=== PATIENT | female | born 1940 | race Caucasian/White ===

== ENCOUNTER 2017-02-25 11:55 | Outpatient (CLI) | payer MEDICARE | END 2017-02-25 11:56 | disposition home or self-care (01) | DX: I48.91 Unspecified atrial fibrillation (principal) ==

== ENCOUNTER 2017-03-16 11:28 | Outpatient (CLI) | payer MEDICARE | END 2017-03-16 23:59 | DX: I48.91 Unspecified atrial fibrillation (principal) ==

== ENCOUNTER 2017-03-18 16:45 | Outpatient (CLI) | payer MEDICARE | END 2017-03-18 16:46 | disposition critical access hospital (66) | DX: R53.1 Weakness (principal); R10.30 Lower abdominal pain, unspecified; R06.02 Shortness of breath; R42 Dizziness and giddiness | CPT/HCPCS: A0425; A0427 ==

== ENCOUNTER 2017-03-18 17:25 | Inpatient (IN) | payer MEDICARE ==
[2017-03-18] MEDS ORDERED: PANTOPRAZOLE 40 MG VIAL IVP STA (17:41)
[2017-03-18] MEDS ORDERED: METOPROLOL 5 MG/5 ML VIAL IVP STA (17:41)
[2017-03-18] MEDS ORDERED: METOPROLOL 5 MG/5 ML VIAL IVP ONE (18:18)
[2017-03-18] MEDS ORDERED: PANTOPRAZOLE 40 MG VIAL ONE (18:18)
[2017-03-18] MEDS ORDERED: CALCIUM GLUCONATE 1000 MG/10 ML VIAL IVP STA (18:44)
[2017-03-18] MEDS ORDERED: POTASSIUM CHLOR 10 MEQ/100 ML 100 ML IV ONE ×2 (18:44→18:47)
[2017-03-18] MEDS ORDERED: CALCIUM GLUCONATE 1000 MG/10 ML VIAL ONE (18:47)
[2017-03-18] MEDS ORDERED: diltiaZEM INJ 5 MG/ML VIAL IVP STA ×2 (18:57→20:12)
[2017-03-18] MEDS ORDERED: ONDANSETRON 4 MG/2 ML VIAL IVP STA ×2 (19:02→20:38)
[2017-03-18] MEDS ORDERED: ONDANSETRON 4 MG/2 ML VIAL ONE ×2 (19:02→20:38)
[2017-03-18] MEDS ORDERED: diltiaZEM INJ 5 MG/ML VIAL ONE ×3 (19:03→20:28)
[2017-03-18] MEDS ORDERED: diltiaZEM INJ 125 MG in DEXTROSE 5% 100 ML IV STA (20:12)
[2017-03-18] MEDS ORDERED: MORPHINE 2 MG/ML SYRINGE IVP PRN (20:45)
[2017-03-18] MEDS ORDERED: oxyCODONE 5 MG TABLET PO PRN (20:45)
[2017-03-18] MEDS ORDERED: ZOLPIDEM 5 MG TABLET PO PRN (20:45)
[2017-03-18] MEDS ORDERED: ACETAMINOPHEN 325 MG TABLET PO PRN (20:45)
[2017-03-18] MEDS ORDERED: INSULIN GLARGINE 300 UNIT/3 ML PEN SUBQ SCH (21:00)
[2017-03-18] MEDS: diltiaZEM INJ 125 MG in DEXTROSE 5% 100 ML IV ONE ×2 (21:55→22:55)
[2017-03-18] MEDS ORDERED: SODIUM CHLORIDE 0.9% 500 ML IV ONE (22:26)
[2017-03-18] MEDS: PROCHLORPERAZINE 10 MG/2 ML VIAL IVP PRN (22:37)
[2017-03-18] MEDS: POTASSIUM CHLOR 10 MEQ/100 ML 100 ML IV SCH (22:38)
[2017-03-18] MEDS: INSULIN ASPART 300 UNIT/3 ML PEN SUBQ SCH (22:43)
[2017-03-18] MEDS: FUROSEMIDE 40 MG/4 ML VIAL IVP SCH (22:50)
[2017-03-18] MEDS: DIGOXIN 500 MCG/2 ML AMP IVP SCH (22:50)
[2017-03-18] MEDS: GABAPENTIN 100 MG CAPSULE PO SCH (23:00)
[2017-03-18] MEDS: SODIUM CHLORIDE FLUSH 0.9% 10 ML SYRINGE IVP SCH (23:00)
[2017-03-19] MEDS: POTASSIUM CHLOR 10 MEQ/100 ML 100 ML IV SCH ×5 (00:36→06:48)
[2017-03-19] MEDS: MAGNESIUM SULFATE 2 GRAM 50 ML IV SCH ×2 (01:56→02:57)
[2017-03-19] MEDS ORDERED: POTASSIUM CHLOR 10 MEQ/100 ML 100 ML IV ONE ×2 (05:03→05:04)
[2017-03-19] MEDS ORDERED: ALPRAZolam 0.25 MG TABLET PO PRN (06:07)
[2017-03-19] MEDS: FUROSEMIDE 40 MG/4 ML VIAL IVP SCH ×2 (06:50→14:56)
[2017-03-19] MEDS: DIGOXIN 500 MCG/2 ML AMP IVP SCH ×3 (06:50→15:00)
[2017-03-19] MEDS: ALPRAZolam 0.25 MG TABLET PO PRN ×2 (06:56→15:44)
[2017-03-19] MEDS: PANTOPRAZOLE 40 MG TABLET PO SCH (06:56)
[2017-03-19] MEDS: SODIUM CHLORIDE FLUSH 0.9% 10 ML SYRINGE IVP SCH ×3 (07:01→20:47)
[2017-03-19] MEDS ORDERED: INSULIN ASPART 300 UNIT/3 ML PEN SUBQ SCH (08:00)
[2017-03-19] MEDS ORDERED: INSULIN GLARGINE 300 UNIT/3 ML PEN SUBQ SCH (08:00)
[2017-03-19] MEDS: INSULIN ASPART 300 UNIT/3 ML PEN SUBQ SCH ×7 (08:06→20:35)
[2017-03-19] MEDS: INSULIN GLARGINE 300 UNIT/3 ML PEN SUBQ SCH ×2 (08:08→20:46)
[2017-03-19] MEDS: diltiaZEM INJ 125 MG in DEXTROSE 5% 100 ML IV SCH (08:43)
[2017-03-19] MEDS ORDERED: METOPROLOL SUCCINATE 25 MG TABLET PO SCH (09:00)
[2017-03-19] MEDS ORDERED: METOPROLOL TARTRATE 25 MG TABLET PO SCH (09:00)
[2017-03-19] MEDS ORDERED: diltiaZEM CD 180 MG CAPSULE PO SCH (09:00)
[2017-03-19] MEDS ORDERED: LOSARTAN 50 MG TABLET PO SCH (09:00)
[2017-03-19] MEDS: SODIUM CHLORIDE FLUSH 0.9% 10 ML SYRINGE IVP PRN (14:57)
[2017-03-19] MEDS ORDERED: DIGOXIN 125 MCG TABLET PO SCH (19:00)
[2017-03-19] MEDS: GABAPENTIN 100 MG CAPSULE PO SCH (20:47)
[2017-03-19] MEDS: ONDANSETRON 4 MG/2 ML VIAL IVP PRN (20:47)
[2017-03-20] MEDS: diltiaZEM INJ 125 MG in DEXTROSE 5% 100 ML IV SCH ×2 (00:29→08:11)
[2017-03-20] MEDS: SODIUM CHLORIDE FLUSH 0.9% 10 ML SYRINGE IVP PRN ×2 (00:36→08:19)
[2017-03-20] MEDS: SODIUM CHLORIDE 0.9% 1,000 ML IV SCH ×3 (00:36→16:38)
[2017-03-20] MEDS: ONDANSETRON 4 MG/2 ML VIAL IVP PRN ×3 (03:54→14:46)
[2017-03-20] MEDS ORDERED: POTASSIUM PHOSPHATE 15 MMOL in SODIUM CHLORIDE 0.9% 250 ML IV ONE (05:57)
[2017-03-20] MEDS ORDERED: MAGNESIUM SULFATE 2 GRAM 50 ML IV ONE (05:57)
[2017-03-20] MEDS: SODIUM CHLORIDE FLUSH 0.9% 10 ML SYRINGE IVP SCH ×3 (06:03→21:12)
[2017-03-20] MEDS: POTASSIUM CHLOR 10 MEQ/100 ML 100 ML IV SCH ×8 (06:35→13:06)
[2017-03-20] MEDS: PANTOPRAZOLE 40 MG TABLET PO SCH (07:31)
[2017-03-20] MEDS: PROCHLORPERAZINE 10 MG/2 ML VIAL IVP PRN ×2 (08:18→17:49)
[2017-03-20] MEDS: INSULIN GLARGINE 300 UNIT/3 ML PEN SUBQ SCH ×2 (08:59→21:10)
[2017-03-20] MEDS: diltiaZEM CD 120 MG CAPSULE PO SCH (09:00)
[2017-03-20] MEDS: METOPROLOL TARTRATE 25 MG TABLET PO SCH ×2 (09:00→21:11)
[2017-03-20] MEDS: DIGOXIN 125 MCG TABLET PO SCH (09:01)
[2017-03-20] MEDS: INSULIN ASPART 300 UNIT/3 ML PEN SUBQ SCH ×7 (09:01→21:10)
[2017-03-20] MEDS: AZITHROMYCIN INJ 500 MG in SODIUM CHLORIDE 0.9% 250 ML IV SCH (17:32)
[2017-03-20] MEDS: cefTRIAXone 2 GM in SODIUM CHLORIDE 0.9% MINIBAG 100 ML IV SCH (17:35)
[2017-03-20] MEDS: LORazepam 2 MG/ML SYRINGE IVP PRN (19:05)
[2017-03-20] MEDS: GABAPENTIN 100 MG CAPSULE PO SCH (21:11)
[2017-03-21] MEDS: SODIUM CHLORIDE 0.9% 1,000 ML IV SCH ×3 (02:51→22:28)
[2017-03-21] MEDS: ONDANSETRON 4 MG/2 ML VIAL IVP PRN ×2 (04:32→09:16)
[2017-03-21] MEDS: SODIUM CHLORIDE FLUSH 0.9% 10 ML SYRINGE IVP SCH ×2 (05:10→14:32)
[2017-03-21] MEDS: PANTOPRAZOLE 40 MG TABLET PO SCH (06:35)
[2017-03-21] MEDS ORDERED: MAGNESIUM SULFATE 2 GRAM 50 ML IV ONE (07:45)
[2017-03-21] MEDS: METOPROLOL TARTRATE 25 MG TABLET PO SCH ×2 (09:06→20:33)
[2017-03-21] MEDS: DIGOXIN 125 MCG TABLET PO SCH (09:09)
[2017-03-21] MEDS: diltiaZEM CD 120 MG CAPSULE PO SCH (09:14)
[2017-03-21] MEDS: INSULIN GLARGINE 300 UNIT/3 ML PEN SUBQ SCH ×2 (09:14→22:32)
[2017-03-21] MEDS: INSULIN ASPART 300 UNIT/3 ML PEN SUBQ SCH ×7 (09:15→20:32)
[2017-03-21] MEDS: SODIUM CHLORIDE FLUSH 0.9% 10 ML SYRINGE IVP PRN (09:17)
[2017-03-21] MEDS: POTASSIUM CHLOR 10 MEQ/100 ML 100 ML IV SCH (10:32)
[2017-03-21] MEDS ORDERED: POTASSIUM PHOSPHATE 15 MMOL in SODIUM CHLORIDE 0.9% 250 ML IV ONE (12:00)
[2017-03-21] MEDS: PROCHLORPERAZINE 10 MG/2 ML VIAL IVP PRN (13:31)
[2017-03-21] MEDS ORDERED: PROMETHAZINE 25 MG SUPP PR PRN (15:47)
[2017-03-21] MEDS: cefTRIAXone 2 GM in SODIUM CHLORIDE 0.9% MINIBAG 100 ML IV SCH (18:11)
[2017-03-21] MEDS: AZITHROMYCIN INJ 500 MG in SODIUM CHLORIDE 0.9% 250 ML IV SCH (19:03)
[2017-03-21] MEDS: GABAPENTIN 100 MG CAPSULE PO SCH (20:33)
[2017-03-21] MEDS: WARFARIN 2.5 MG TABLET PO SCH (20:33)
[2017-03-22] MEDS: ONDANSETRON 4 MG/2 ML VIAL IVP PRN ×3 (00:51→19:13)
[2017-03-22] MEDS: SODIUM CHLORIDE FLUSH 0.9% 10 ML SYRINGE IVP SCH ×4 (00:55→20:50)
[2017-03-22] MEDS ORDERED: POTASSIUM CHLOR 10 MEQ/100 ML 100 ML IV ONE ×2 (01:05)
[2017-03-22] MEDS: POTASSIUM CHLOR 10 MEQ/100 ML 100 ML IV SCH ×8 (01:09→12:49)
[2017-03-22] MEDS ORDERED: SODIUM PHOSPHATE 15 MMOL in SODIUM CHLORIDE 0.9% 250 ML IV ONE (06:16)
[2017-03-22] MEDS ORDERED: MAGNESIUM SULFATE 2 GRAM 50 ML IV ONE (06:16)
[2017-03-22] MEDS: PANTOPRAZOLE 40 MG TABLET PO SCH (06:19)
[2017-03-22] MEDS: SODIUM CHLORIDE 0.9% 1,000 ML IV SCH ×3 (06:19→16:29)
[2017-03-22] MEDS: INSULIN GLARGINE 300 UNIT/3 ML PEN SUBQ SCH ×2 (08:00→21:37)
[2017-03-22] MEDS: INSULIN ASPART 300 UNIT/3 ML PEN SUBQ SCH ×7 (08:37→20:45)
[2017-03-22] MEDS: POTASSIUM CHLORIDE 20 MEQ TABLET PO SCH (09:31)
[2017-03-22] MEDS: NEUTRA-PHOS 250 MG TABLET PO SCH ×3 (09:31→18:04)
[2017-03-22] MEDS: MAGNESIUM OXIDE 400 MG TABLET PO SCH (09:31)
[2017-03-22] MEDS: METOPROLOL TARTRATE 25 MG TABLET PO SCH ×2 (09:34→20:50)
[2017-03-22] MEDS: DIGOXIN 125 MCG TABLET PO SCH (09:35)
[2017-03-22] MEDS: diltiaZEM CD 120 MG CAPSULE PO SCH (09:35)
[2017-03-22] MEDS: SODIUM CHLORIDE FLUSH 0.9% 10 ML SYRINGE IVP PRN ×4 (11:36→23:57)
[2017-03-22] MEDS: PROCHLORPERAZINE 10 MG/2 ML VIAL IVP PRN ×2 (13:57→21:34)
[2017-03-22] MEDS: cefTRIAXone 2 GM in SODIUM CHLORIDE 0.9% MINIBAG 100 ML IV SCH (18:07)
[2017-03-22] MEDS: AZITHROMYCIN INJ 500 MG in SODIUM CHLORIDE 0.9% 250 ML IV SCH (18:45)
[2017-03-22] MEDS: WARFARIN 2.5 MG TABLET PO SCH (20:50)
[2017-03-22] MEDS: GABAPENTIN 100 MG CAPSULE PO SCH (20:50)
[2017-03-22] MEDS: LORazepam 2 MG/ML SYRINGE IVP PRN (21:34)
[2017-03-23] MEDS: SODIUM CHLORIDE FLUSH 0.9% 10 ML SYRINGE IVP PRN (00:31)
[2017-03-23] MEDS: SODIUM CHLORIDE 0.9% 1,000 ML IV SCH ×2 (00:31→09:51)
[2017-03-23] MEDS ORDERED: MAGNESIUM SULFATE 2 GRAM 50 ML IV ONE (03:46)
[2017-03-23] MEDS ORDERED: CALCIUM GLUCONATE 2,000 MG in SODIUM CHLORIDE 0.9% 100ML 100 ML IV ONE (03:48)
[2017-03-23] MEDS: POTASSIUM CHLOR 10 MEQ/100 ML 100 ML IV SCH ×4 (05:11→08:28)
[2017-03-23] MEDS: SODIUM CHLORIDE FLUSH 0.9% 10 ML SYRINGE IVP SCH (06:22)
[2017-03-23] MEDS: PANTOPRAZOLE 40 MG TABLET PO SCH (06:22)
[2017-03-23] MEDS: METOPROLOL TARTRATE 25 MG TABLET PO SCH (08:59)
[2017-03-23] MEDS: diltiaZEM CD 120 MG CAPSULE PO SCH (09:00)
[2017-03-23] MEDS: MAGNESIUM OXIDE 400 MG TABLET PO SCH (09:00)
[2017-03-23] MEDS: NEUTRA-PHOS 250 MG TABLET PO SCH ×2 (09:00→13:45)
[2017-03-23] MEDS: POTASSIUM CHLORIDE 20 MEQ TABLET PO SCH (09:01)
[2017-03-23] MEDS: DIGOXIN 125 MCG TABLET PO SCH (09:01)
[2017-03-23] MEDS: INSULIN ASPART 300 UNIT/3 ML PEN SUBQ SCH ×4 (09:02→12:01)
[2017-03-23] MEDS: INSULIN GLARGINE 300 UNIT/3 ML PEN SUBQ SCH (09:03)
[2017-03-23] MEDS ORDERED: metroNIDAZOLE 250 MG TABLET PO SCH (14:00)
== END 2017-03-23 16:40 | disposition home or self-care (01) | DRG 308 ==
DX: I48.91 Unspecified atrial fibrillation (principal); K92.2 Gastrointestinal hemorrhage, unspecified; J18.9 Pneumonia, unspecified organism; E78.00 Pure hypercholesterolemia, unspecified; N17.9 Acute kidney failure, unspecified; K52.9 Noninfective gastroenteritis and colitis, unspecified; E87.6 Hypokalemia; E83.51 Hypocalcemia; E83.42 Hypomagnesemia; E11.42 Type 2 diabetes mellitus with diabetic polyneuropathy; I10 Essential (primary) hypertension; R79.1 Abnormal coagulation profile; E78.5 Hyperlipidemia, unspecified; Z79.4 Long term (current) use of insulin; Z79.84 Long term (current) use of oral hypoglycemic drugs; Z79.82 Long term (current) use of aspirin; Z79.01 Long term (current) use of anticoagulants

== ENCOUNTER 2017-03-28 07:41 | Inpatient (IN) | payer MEDICARE ==
[2017-03-28] MEDS ORDERED: LORazepam 2 MG/ML SYRINGE IVP STA ×3 (07:55→09:08)
[2017-03-28] MEDS ORDERED: LORazepam 2 MG/ML SYRINGE ONE ×3 (07:59→09:08)
[2017-03-28] MEDS ORDERED: WATER FOR INJECTION,STERILE 10 ML ONE ×2 (08:00→09:09)
[2017-03-28] MEDS ORDERED: MORPHINE 2 MG/ML SYRINGE ONE ×2 (09:35→11:40)
[2017-03-28] MEDS ORDERED: FUROSEMIDE 40 MG/4 ML VIAL ONE (09:35)
[2017-03-28] MEDS ORDERED: MORPHINE 2 MG/ML SYRINGE IVP STA (09:36)
[2017-03-28] MEDS ORDERED: FUROSEMIDE 40 MG/4 ML VIAL IVP STA (09:36)
[2017-03-28] MEDS ORDERED: IPRATROPIUM/ALBUTEROL 3 ML NEB INH STA (09:37)
[2017-03-28] MEDS ORDERED: METOPROLOL 5 MG/5 ML VIAL IVP STA (09:42)
[2017-03-28] MEDS ORDERED: IPRATROPIUM/ALBUTEROL 3 ML NEB INH ONE (09:43)
[2017-03-28] MEDS ORDERED: METOPROLOL 5 MG/5 ML VIAL IVP ONE (09:53)
[2017-03-28] MEDS ORDERED: POTASSIUM CHLOR 10 MEQ/100 ML 100 ML IV ONE ×2 (11:05→11:09)
[2017-03-28] MEDS: MORPHINE 2 MG/ML SYRINGE IVP STA (11:55)
[2017-03-28] MEDS ORDERED: ENOXAPARIN 40 MG/0.4 ML SYRINGE SUBQ SCH (14:30)
[2017-03-28] MEDS: LISINOPRIL 5 MG TABLET PO SCH (14:58)
[2017-03-28] MEDS: METOPROLOL SUCCINATE 25 MG TABLET PO SCH (14:58)
[2017-03-28] MEDS: FAMOTIDINE 20 MG/50 ML 50 ML IV SCH ×2 (15:03→20:31)
[2017-03-28] MEDS: SODIUM CHLORIDE FLUSH 0.9% 10 ML SYRINGE IVP SCH ×2 (15:07→21:30)
[2017-03-28] MEDS: HALOPERIDOL 5 MG/ML VIAL IM PRN (15:33)
[2017-03-28] MEDS ORDERED: MAGNESIUM SULFATE 2 GRAM 50 ML IV ONE (16:00)
[2017-03-28] MEDS: POTASSIUM CHLOR 10 MEQ/100 ML 100 ML IV SCH ×2 (16:45→19:01)
[2017-03-28] MEDS: SODIUM CHLORIDE FLUSH 0.9% 10 ML SYRINGE IVP PRN ×4 (16:46→22:52)
[2017-03-28] MEDS: FUROSEMIDE 40 MG/4 ML VIAL IVP SCH (16:46)
[2017-03-28] MEDS: MORPHINE 2 MG/ML SYRINGE IVP PRN ×3 (17:14→22:51)
[2017-03-28] MEDS ORDERED: HALOPERIDOL 5 MG/ML VIAL IM ONE (17:41)
[2017-03-28] MEDS: INSULIN REGULAR HUMAN 100 UNIT/1 ML 10 ML MDV SUBQ SCH (19:12)
[2017-03-28] MEDS ORDERED: HALOPERIDOL 5 MG/ML VIAL IM SCH (20:07)
[2017-03-28] MEDS ORDERED: HALOPERIDOL 5 MG/ML VIAL IVP ONE (23:39)
[2017-03-29] MEDS: INSULIN REGULAR HUMAN 100 UNIT/1 ML 10 ML MDV SUBQ SCH ×3 (00:27→14:41)
[2017-03-29] MEDS: MORPHINE 2 MG/ML SYRINGE IVP PRN ×3 (00:38→20:04)
[2017-03-29] MEDS: FUROSEMIDE 40 MG/4 ML VIAL IVP SCH ×2 (06:16→18:54)
[2017-03-29] MEDS: SODIUM CHLORIDE FLUSH 0.9% 10 ML SYRINGE IVP SCH ×3 (06:19→21:12)
[2017-03-29] MEDS: SODIUM CHLORIDE FLUSH 0.9% 10 ML SYRINGE IVP PRN ×4 (06:19→20:04)
[2017-03-29] MEDS: HALOPERIDOL 5 MG/ML VIAL IM PRN ×2 (07:08→20:04)
[2017-03-29] MEDS: METOPROLOL SUCCINATE 25 MG TABLET PO SCH (08:26)
[2017-03-29] MEDS: LISINOPRIL 5 MG TABLET PO SCH (08:26)
[2017-03-29] MEDS: FAMOTIDINE 20 MG/50 ML 50 ML IV SCH ×2 (08:26→21:01)
[2017-03-29] MEDS: POLYETHYLENE GLYCOL 3350 17 GM PACKET PO SCH (08:58)
[2017-03-29] MEDS ORDERED: ENOXAPARIN 100 MG/ML SYRINGE SUBQ SCH (09:00)
[2017-03-29] MEDS ORDERED: OLANZapine 10 MG VIAL IM ONE ×2 (10:26→14:28)
[2017-03-29] MEDS ORDERED: POTASSIUM CHLORIDE 10 MEQ CAPSULE PO SCH (11:00)
[2017-03-29] MEDS: NS W/20 MEQ KCL 1,000 ML IV SCH (11:00)
[2017-03-29] MEDS ORDERED: WATER FOR INJECTION,STERILE 10 ML ONE ×2 (11:00→14:29)
[2017-03-29] MEDS: DIGOXIN 125 MCG TABLET PO SCH (11:00)
[2017-03-29] MEDS: diltiaZEM CD 180 MG CAPSULE PO SCH (11:00)
[2017-03-29] MEDS: WARFARIN 2.5 MG TABLET PO SCH (11:30)
[2017-03-29] MEDS: INSULIN ASPART 300 UNIT/3 ML PEN SUBQ SCH ×3 (14:19→21:03)
[2017-03-29] MEDS: MAGNESIUM OXIDE 400 MG TABLET PO SCH (14:34)
[2017-03-29] MEDS ORDERED: LORazepam 2 MG/ML SYRINGE IM ONE (17:30)
[2017-03-29] MEDS ORDERED: GADOBUTROL 10 MMOL/10 ML VIAL IVP ONE (18:11)
[2017-03-29] MEDS: POTASSIUM CHLORIDE 10 MEQ CAPSULE PO SCH (20:17)
[2017-03-29] MEDS: ENOXAPARIN 100 MG/ML SYRINGE SUBQ SCH (21:02)
[2017-03-29] MEDS: NYSTATIN POWDER 15 GM TOP SCH (21:27)
[2017-03-29] MEDS ORDERED: HALOPERIDOL 5 MG/ML VIAL IM PRN (21:37)
[2017-03-29] MEDS ORDERED: HALOPERIDOL 5 MG/ML VIAL IM SCH (21:40)
[2017-03-30] MEDS: MORPHINE 2 MG/ML SYRINGE IVP PRN (05:36)
[2017-03-30] MEDS: FUROSEMIDE 40 MG/4 ML VIAL IVP SCH (05:36)
[2017-03-30] MEDS: SODIUM CHLORIDE FLUSH 0.9% 10 ML SYRINGE IVP SCH ×3 (05:40→21:14)
[2017-03-30] MEDS: ONDANSETRON 4 MG/2 ML VIAL IVP PRN (05:58)
[2017-03-30] MEDS: FAMOTIDINE 20 MG/50 ML 50 ML IV SCH ×2 (08:27→21:13)
[2017-03-30] MEDS: DIGOXIN 125 MCG TABLET PO SCH (08:27)
[2017-03-30] MEDS: ENOXAPARIN 100 MG/ML SYRINGE SUBQ SCH ×2 (08:27→21:13)
[2017-03-30] MEDS: POTASSIUM CHLORIDE 10 MEQ CAPSULE PO SCH ×3 (08:27→18:17)
[2017-03-30] MEDS: LISINOPRIL 5 MG TABLET PO SCH (08:27)
[2017-03-30] MEDS: MAGNESIUM OXIDE 400 MG TABLET PO SCH (08:27)
[2017-03-30] MEDS: METOPROLOL SUCCINATE 25 MG TABLET PO SCH (08:27)
[2017-03-30] MEDS: diltiaZEM CD 180 MG CAPSULE PO SCH (08:27)
[2017-03-30] MEDS: NS W/20 MEQ KCL 1,000 ML IV SCH ×2 (08:30→21:13)
[2017-03-30] MEDS: NYSTATIN POWDER 15 GM TOP SCH ×2 (08:30→21:14)
[2017-03-30] MEDS: POLYETHYLENE GLYCOL 3350 17 GM PACKET PO SCH (08:47)
[2017-03-30] MEDS: INSULIN ASPART 300 UNIT/3 ML PEN SUBQ SCH ×4 (08:55→21:14)
[2017-03-30] MEDS: OLANZapine ODT 5 MG TABLET TL SCH ×3 (10:51→21:09)
[2017-03-30] MEDS ORDERED: POTASSIUM CHLORIDE 10 MEQ CAPSULE PO ONE (11:30)
[2017-03-30] MEDS ORDERED: MAGNESIUM SULFATE 2 GRAM 50 ML IV ONE (11:30)
[2017-03-30] MEDS: QUEtiapine 25 MG TABLET PO PRN ×2 (12:53→22:25)
[2017-03-30] MEDS: WARFARIN 2.5 MG TABLET PO SCH (14:27)
[2017-03-31] MEDS: SODIUM CHLORIDE FLUSH 0.9% 10 ML SYRINGE IVP SCH ×3 (07:24→20:31)
[2017-03-31] MEDS: NS W/20 MEQ KCL 1,000 ML IV SCH ×2 (11:10→22:21)
[2017-03-31] MEDS: OLANZapine ODT 5 MG TABLET TL SCH ×2 (11:13→20:31)
[2017-03-31] MEDS: DIGOXIN 125 MCG TABLET PO SCH (11:14)
[2017-03-31] MEDS: LISINOPRIL 5 MG TABLET PO SCH (11:14)
[2017-03-31] MEDS: diltiaZEM CD 180 MG CAPSULE PO SCH (11:14)
[2017-03-31] MEDS: METOPROLOL SUCCINATE 25 MG TABLET PO SCH (11:14)
[2017-03-31] MEDS: MAGNESIUM OXIDE 400 MG TABLET PO SCH (11:14)
[2017-03-31] MEDS: FAMOTIDINE 20 MG/50 ML 50 ML IV SCH ×2 (11:14→20:30)
[2017-03-31] MEDS: POTASSIUM CHLORIDE 10 MEQ CAPSULE PO SCH ×2 (11:15→16:45)
[2017-03-31] MEDS: FUROSEMIDE 40 MG/4 ML VIAL IVP SCH (11:15)
[2017-03-31] MEDS: ENOXAPARIN 100 MG/ML SYRINGE SUBQ SCH ×2 (11:15→20:30)
[2017-03-31] MEDS: POLYETHYLENE GLYCOL 3350 17 GM PACKET PO SCH (11:16)
[2017-03-31] MEDS: NYSTATIN POWDER 15 GM TOP SCH ×2 (11:16→20:31)
[2017-03-31] MEDS: INSULIN ASPART 300 UNIT/3 ML PEN SUBQ SCH ×4 (11:33→20:30)
[2017-03-31] MEDS: WARFARIN 2.5 MG TABLET PO SCH (15:04)
[2017-03-31] MEDS: QUEtiapine 25 MG TABLET PO PRN (21:18)
[2017-04-01] MEDS: ONDANSETRON 4 MG/2 ML VIAL IVP PRN (00:35)
[2017-04-01] MEDS: NS W/20 MEQ KCL 1,000 ML IV SCH ×2 (01:00→12:16)
[2017-04-01] MEDS: SODIUM CHLORIDE FLUSH 0.9% 10 ML SYRINGE IVP SCH ×3 (05:04→20:28)
[2017-04-01] MEDS: FAMOTIDINE 20 MG/50 ML 50 ML IV SCH ×2 (08:29→20:26)
[2017-04-01] MEDS: SODIUM CHLORIDE FLUSH 0.9% 10 ML SYRINGE IVP PRN (08:29)
[2017-04-01] MEDS: FUROSEMIDE 40 MG/4 ML VIAL IVP SCH (08:29)
[2017-04-01] MEDS: METOPROLOL SUCCINATE 25 MG TABLET PO SCH (08:30)
[2017-04-01] MEDS: POTASSIUM CHLORIDE 10 MEQ CAPSULE PO SCH ×2 (08:30→16:27)
[2017-04-01] MEDS: LISINOPRIL 5 MG TABLET PO SCH (08:31)
[2017-04-01] MEDS: POLYETHYLENE GLYCOL 3350 17 GM PACKET PO SCH (08:31)
[2017-04-01] MEDS: OLANZapine ODT 5 MG TABLET TL SCH ×2 (08:31→20:26)
[2017-04-01] MEDS: diltiaZEM CD 180 MG CAPSULE PO SCH (08:31)
[2017-04-01] MEDS: MAGNESIUM OXIDE 400 MG TABLET PO SCH ×2 (08:32→10:32)
[2017-04-01] MEDS: DIGOXIN 125 MCG TABLET PO SCH (08:32)
[2017-04-01] MEDS: ENOXAPARIN 100 MG/ML SYRINGE SUBQ SCH ×2 (08:32→20:26)
[2017-04-01] MEDS: NYSTATIN POWDER 15 GM TOP SCH ×2 (08:34→20:27)
[2017-04-01] MEDS: INSULIN ASPART 300 UNIT/3 ML PEN SUBQ SCH ×4 (08:36→20:27)
[2017-04-01] MEDS: WARFARIN 2.5 MG TABLET PO SCH (15:30)
[2017-04-01] MEDS: QUEtiapine 25 MG TABLET PO PRN (20:26)
[2017-04-02] MEDS: NS W/20 MEQ KCL 1,000 ML IV SCH (00:29)
[2017-04-02] MEDS: SODIUM CHLORIDE FLUSH 0.9% 10 ML SYRINGE IVP SCH ×2 (00:32→11:36)
[2017-04-02] MEDS: DIGOXIN 125 MCG TABLET PO SCH ×2 (08:48→08:50)
[2017-04-02] MEDS: MAGNESIUM OXIDE 400 MG TABLET PO SCH ×2 (08:48→08:58)
[2017-04-02] MEDS: diltiaZEM CD 180 MG CAPSULE PO SCH (08:48)
[2017-04-02] MEDS: POTASSIUM CHLORIDE 10 MEQ CAPSULE PO SCH (08:49)
[2017-04-02] MEDS: INSULIN ASPART 300 UNIT/3 ML PEN SUBQ SCH ×3 (08:53→16:08)
[2017-04-02] MEDS: POLYETHYLENE GLYCOL 3350 17 GM PACKET PO SCH (08:54)
[2017-04-02] MEDS: LISINOPRIL 5 MG TABLET PO SCH (08:54)
[2017-04-02] MEDS: METOPROLOL SUCCINATE 25 MG TABLET PO SCH (08:54)
[2017-04-02] MEDS: FUROSEMIDE 40 MG/4 ML VIAL IVP SCH (08:57)
[2017-04-02] MEDS: NYSTATIN POWDER 15 GM TOP SCH (08:59)
[2017-04-02] MEDS: ENOXAPARIN 100 MG/ML SYRINGE SUBQ SCH (09:06)
[2017-04-02] MEDS: WARFARIN 2.5 MG TABLET PO SCH (13:48)
[2017-04-02] MEDS ORDERED: WARFARIN 2.5 MG TABLET PO SCH (14:00)
[2017-04-02] MEDS ORDERED: POTASSIUM CHLORIDE 10 MEQ CAPSULE PO SCH (17:00)
[2017-04-02] MEDS ORDERED: OLANZapine ODT 5 MG TABLET TL SCH (21:00)
== END 2017-04-02 18:00 | DRG 65 ==
DX: I63.9 Cerebral infarction, unspecified (principal); E87.6 Hypokalemia; G81.91 Hemiplegia, unspecified affecting right dominant side; I11.0 Hypertensive heart disease with heart failure; I50.9 Heart failure, unspecified; R09.02 Hypoxemia; I48.91 Unspecified atrial fibrillation; E11.65 Type 2 diabetes mellitus with hyperglycemia; I10 Essential (primary) hypertension; Z79.899 Other long term (current) drug therapy; E78.5 Hyperlipidemia, unspecified; R26.81 Unsteadiness on feet; R41.0 Disorientation, unspecified; R41.3 Other amnesia; R47.1 Dysarthria and anarthria; E11.42 Type 2 diabetes mellitus with diabetic polyneuropathy; F41.9 Anxiety disorder, unspecified; F32.9 Major depressive disorder, single episode, unspecified; Z78.1 Physical restraint status; Z79.4 Long term (current) use of insulin; Z79.01 Long term (current) use of anticoagulants

== ENCOUNTER 2017-05-29 13:27 | Outpatient (CLI) | payer MEDICARE | END 2017-05-29 13:28 | disposition home or self-care (01) | DX: I48.91 Unspecified atrial fibrillation (principal) ==

== ENCOUNTER 2017-06-02 08:12 | Outpatient (CLI) | payer MEDICARE ==
[2017-06-02 11:58] LABS: BASOPHILS # (AUTO) 0.1 10^3/uL (0.0-0.1); BASOPHILS % (AUTO) 0.7 %; EOSINOPHILS # (AUTO) 0.1 10^3/uL (0.0-0.7); EOSINOPHILS % (AUTO) 1.8 %; HCT - HEMATOCRIT 41.5 % (37.0-47.0); HGB - HEMOGLOBIN 13.9 g/dL (12.0-16.0); LYMPHOCYTES # (AUTO) 1.1 10^3/uL (1.5-3.5); LYMPHOCYTES % (AUTO) 13.4 %; MEAN CORPUSCULAR HEMOGLOBIN 26.4 pg (27.0-31.0); MEAN CORPUSCULAR HGB CONC 33.6 g/dL (32.0-36.0); MEAN CORPUSCULAR VOLUME 78.5 fL (81.0-99.0); MEAN PLATELET VOLUME 9.3 fL (7.9-10.8); MONOCYTES # (AUTO) 0.8 10^3/uL (0.0-1.0); MONOCYTES % (AUTO) 10.1 %; NEUTROPHILS # (AUTO) 5.8 10^3/uL (1.5-6.6); NUCLEATED RED BLOOD CELLS AUTO 0.1 /100WBC; RED BLOOD COUNT 5.28 10^6/uL (4.20-5.40); RED CELL DISTRIBUTION WIDTH 16.5 % (12.0-15.0); UNCORRECTED WHITE BLOOD COUNT 7.9 x10^3/uL; WHITE BLOOD COUNT 7.9 x10^3/uL (4.8-10.8)
[2017-06-02 12:16] LABS: ALBUMIN/GLOBULIN RATIO 1.3 (1.0-2.2); BILIRUBIN,TOTAL 0.7 mg/dL (0.2-1.0); BUN - BLOOD UREA NITROGEN 17 mg/dL (6-20); CARBON DIOXIDE - CO2 33 mmol/L (21-32); CHLORIDE 88 mmol/L (101-111); CHOLESTEROL 141 mg/dL; GFR - MDRD 54 (>89); GLUCOSE 188 mg/dL (70-100); HDL CHOLESTEROL 35 mg/dL; LDL/HDL RATIO 1.7 (<4.4); POTASSIUM 2.9 mmol/L (3.5-5.0); SODIUM 132 mmol/L (135-145); TOTAL PROTEIN 7.2 g/dL (6.7-8.2); TRIGLYCERIDES 232 mg/dL; VLDL CHOLESTEROL 46 mg/dL
[2017-06-02 12:18] LABS: HEMOGLOBIN A1C 0.99 g/dL
== END 2017-06-02 08:13 | disposition home or self-care (01) ==
LOC: LAB.F 08:12
PROVIDERS: ATTEND Internal Medicine
DX: I48.91 Unspecified atrial fibrillation (principal); I10 Essential (primary) hypertension; E78.5 Hyperlipidemia, unspecified; E11.9 Type 2 diabetes mellitus without complications
CPT/HCPCS: 36415; 80053; 80061; 83036; 85025; 85610

== ENCOUNTER 2017-06-12 08:00 | Outpatient (CLI) | payer MEDICARE | END 2017-06-12 08:01 | disposition home or self-care (01) | LOC: LAB.S 08:00 | PROVIDERS: ATTEND Internal Medicine | DX: I48.91 Unspecified atrial fibrillation (principal) | CPT/HCPCS: 85610 ==

== ENCOUNTER 2017-06-12 16:05 | Outpatient (CLI) | payer MEDICARE | END 2017-06-12 16:06 | disposition home or self-care (01) | LOC: RT.S 16:05 | PROVIDERS: ATTEND Nurse Practitioner Family | DX: I49.9 Cardiac arrhythmia, unspecified (principal); R51 Headache | CPT/HCPCS: 93005 ==

== ENCOUNTER 2017-06-29 13:58 | Outpatient (CLI) | payer MEDICARE | END 2017-06-29 13:59 | disposition home or self-care (01) | LOC: LAB.F 13:58 | PROVIDERS: ATTEND Nurse Practitioner Family | DX: I48.91 Unspecified atrial fibrillation (principal) | CPT/HCPCS: 85610 ==

== ENCOUNTER 2017-07-29 09:36 | Outpatient (CLI) | payer MEDICARE, MEDICAID ==
[2017-07-29 10:16] LABS: ALBUMIN/GLOBULIN RATIO 1.5 (1.0-2.2); BUN - BLOOD UREA NITROGEN 14 mg/dL (6-20); CALCIUM 10.8 mg/dL (8.5-10.3); CARBON DIOXIDE - CO2 29 mmol/L (21-32); CHLORIDE 96 mmol/L (101-111); CREATININE 0.9 mg/dL (0.4-1.0); GFR - MDRD 61 (>89); GLUCOSE 175 mg/dL (70-100); POTASSIUM 3.5 mmol/L (3.5-5.0); SODIUM 136 mmol/L (135-145); TOTAL PROTEIN 7.2 g/dL (6.7-8.2)
== END 2017-07-29 09:37 | disposition home or self-care (01) ==
LOC: LAB 09:36
PROVIDERS: ATTEND Internal Medicine
DX: R42 Dizziness and giddiness (principal); R41.89 Other symptoms and signs involving cognitive functions and awareness
CPT/HCPCS: 36415; 80053; 80162

== ENCOUNTER 2017-08-03 10:01 | Outpatient (CLI) | payer MEDICARE, MEDICAID | END 2017-08-03 10:02 | disposition home or self-care (01) | LOC: LAB.F 10:01 | PROVIDERS: ATTEND Nurse Practitioner Family | DX: I48.91 Unspecified atrial fibrillation (principal); E83.52 Hypercalcemia | CPT/HCPCS: 36415; 82310; 85610 ==

== ENCOUNTER 2017-08-05 12:26 | Outpatient (CLI) | payer MEDICARE, MEDICAID | END 2017-08-05 12:27 | disposition home or self-care (01) | LOC: DI 12:26 | PROVIDERS: ATTEND Internal Medicine | DX: I48.91 Unspecified atrial fibrillation (principal); I08.1 Rheumatic disorders of both mitral and tricuspid valves | CPT/HCPCS: 93306 ==

== ENCOUNTER 2017-08-24 10:26 | Outpatient (CLI) | payer MEDICARE, MEDICAID ==
[2017-08-24 18:17] LABS: ALBUMIN/GLOBULIN RATIO 1.3 (1.0-2.2); BILIRUBIN,TOTAL 1.2 mg/dL (0.2-1.0); BUN - BLOOD UREA NITROGEN 22 mg/dL (6-20); CALCIUM 9.4 mg/dL (8.5-10.3); CARBON DIOXIDE - CO2 24 mmol/L (21-32); CHLORIDE 99 mmol/L (101-111); CREATININE 1.1 mg/dL (0.4-1.0); GFR - MDRD 48 (>89); GLUCOSE 68 mg/dL (70-100); POTASSIUM 3.5 mmol/L (3.5-5.0); SODIUM 135 mmol/L (135-145); TOTAL PROTEIN 7.1 g/dL (6.7-8.2)
== END 2017-08-24 10:27 | disposition home or self-care (01) ==
LOC: LAB.F 10:26
PROVIDERS: ATTEND Internal Medicine
DX: R53.83 Other fatigue (principal); R06.00 Dyspnea, unspecified; E11.8 Type 2 diabetes mellitus with unspecified complications; I10 Essential (primary) hypertension; G63 Polyneuropathy in diseases classified elsewhere; E03.9 Hypothyroidism, unspecified; I48.91 Unspecified atrial fibrillation
CPT/HCPCS: 36415; 80053; 80162; 85610

== ENCOUNTER 2017-08-31 10:00 | Outpatient (CLI) | payer MEDICARE, MEDICAID | END 2017-08-31 10:01 | disposition home or self-care (01) | LOC: LAB.F 10:00 | PROVIDERS: ATTEND Nurse Practitioner Family | DX: I48.91 Unspecified atrial fibrillation (principal) | CPT/HCPCS: 85610 ==

== ENCOUNTER 2017-09-07 10:14 | Outpatient (CLI) | payer MEDICARE, MEDICAID ==
[2017-09-07 18:10] LABS: CARBON DIOXIDE - CO2 29 mmol/L (21-32); CHLORIDE 97 mmol/L (101-111); GFR - MDRD 54 (>89); POTASSIUM 3.5 mmol/L (3.5-5.0); SODIUM 136 mmol/L (135-145)
[2017-09-07 18:24] LABS: THYROID STIMULATING HORMONE 4.76 uIU/mL (0.34-5.60)
== END 2017-09-07 10:15 | disposition home or self-care (01) ==
LOC: LAB.F 10:14
PROVIDERS: ATTEND Nurse Practitioner Family
DX: I48.91 Unspecified atrial fibrillation (principal); I50.810 Right heart failure, unspecified; R42 Dizziness and giddiness; R53.83 Other fatigue; I10 Essential (primary) hypertension; E66.9 Obesity, unspecified; E11.9 Type 2 diabetes mellitus without complications; G63 Polyneuropathy in diseases classified elsewhere; E03.9 Hypothyroidism, unspecified; B37.2 Candidiasis of skin and nail; E78.5 Hyperlipidemia, unspecified
CPT/HCPCS: 36415; 80051; 80162; 82565; 84439; 84443; 84481; 85610

== ENCOUNTER 2017-10-05 10:42 | Outpatient (CLI) | payer MEDICARE, MEDICAID | END 2017-10-05 10:43 | disposition home or self-care (01) | LOC: LAB.F 10:42 | PROVIDERS: ATTEND Nurse Practitioner Family | DX: I48.91 Unspecified atrial fibrillation (principal) | CPT/HCPCS: 85610 ==

== ENCOUNTER 2017-11-21 15:27 | Outpatient (CLI) | payer MEDICARE, MEDICAID | END 2017-11-21 15:28 | disposition critical access hospital (66) | LOC: EMS 15:27 | PROVIDERS: ATTEND Surgery | DX: R41.82 Altered mental status, unspecified (principal); R53.1 Weakness | CPT/HCPCS: A0425; A0427 ==

== ENCOUNTER 2017-11-21 16:04 | Inpatient (IN) | payer MEDICARE, MEDICAID ==
[2017-11-21] MEDS ORDERED: diltiaZEM 30 MG TABLET PO STA (16:27)
--- NOTE | 2017-11-21 16:27 | ED Physician Documentation ---
History of Present Illness - Stated complaint Stated Complaint: CONFUSED/AFIB - Chief complaint Chief Complaint: General - History obtained from History obtained from: Patient, EMS - History of Present Illness Timing: Yesterday Pain level max: 0 Pain level now: 0 Improved by: unknown Worsened by: unknown - Additonal information Additional information: [place] the patient lives with a roommate in an apartment. He says she has been very confused over the past 2 days. She stopped taking her medications. She was also found to be in atrial fibrillation with rapid ventricular response at a rate of approximately 190 when EMS arrived. Well-controlled with Cardizem. Did not change her altered mental status. Patient is unable to answer any questions. She is coughing in the emergency department. Review of Systems Unable to obtain: AMS, Confused PD PAST MEDICAL HISTORY - Past Medical History Past Medical History: Yes Cardiovascular: Hypertension, High cholesterol, Atrial fibrillation Respiratory: None Neuro: CVA, Peripheral neuropathy Endocrine/Autoimmune: Type 2 diabetes GI: None : None HEENT: None Psych: Depression, Anxiety Musculoskeletal: None Derm: None - Past Surgical History Past Surgical History: No General: Appendectomy - Present Medications Home Medications: Ambulatory Orders Medication Instructions Recorded Confirmed Gabapentin 100 mg PO QPM 09/25/16 11/21/17 Simvastatin 40 mg PO DAILY 09/25/16 11/21/17 Cholecalciferol [Vitamin D3] 10,000 units PO DAILY 09/26/16 11/21/17 Warfarin [Coumadin] 2.5 mg PO DAILY 03/18/17 11/21/17 Chlorthalidone 25 mg PO DAILY 03/19/17 11/21/17 Diltiazem HCl [Diltiazem ER] 180 mg PO DAILY 03/19/17 11/21/17 Metoprolol Tartrate 37.5 mg PO BID 03/19/17 11/21/17 Potassium Chloride [K-Dur] 20 meq PO DAILYWM 03/28/17 11/21/17 Digoxin [Digox] 250 mcg PO DAILY 03/29/17 11/21/17 Magnesium Oxide [Magnesium Oxide] 400 mg PO DAILYWM 03/29/17 11/21/17 Citalopram [CeleXA] 10 mg PO DAILY 11/21/17 11/21/17 Furosemide [Lasix] 20 mg PO DAILY 11/21/17 11/21/17 Metformin HCl 1,000 mg PO BID 11/21/17 11/21/17 Prazosin [Minipress] 1 mg PO DAILY 11/21/17 11/21/17 Spironolactone 25 mg PO 11/21/17 metFORMIN [Glucophage] 500 mg PO BIDWM 11/21/17 11/21/17 - Allergies Allergies/Adverse Reactions: Allergies Allergy/AdvReac Type Severity Reaction Status Date / Time No Known Drug Allergies Allergy Verified 11/21/17 19:10 - Social History Does the pt smoke?: No Smoking Status: Never smoker Does the pt drink ETOH?: Yes Does the pt have substance abuse?: Yes - Immunizations Immunizations are current?: Yes - POLST Patient has POLST: No PD ED PE NORMAL - Vitals Vital signs reviewed: Yes - General General: No acute distress, Well developed/nourished, Other (alert, oriented to person only) - HEENT HEENT: Atraumatic, PERRL, Moist mucous membranes, Pharynx benign - Neck Neck: Supple, no meningeal sign - Cardiac Cardiac: RRR, Strong equal pulses - Respiratory Respiratory: No respiratory distress, Other (mild wheezing B) - Abdomen Abdomen: Soft, Non tender, Non distended - Back Back: No spinal TTP - Derm Derm: Warm and dry, No rash - Neuro Neuro: Other (alert) Results - Vitals Vitals: Vital Signs - 24 hr 11/21/17 11/21/17 11/21/17 16:04 16:32 17:48 Temperature 36.7 C Heart Rate 103 H 123 H 149 H Respiratory 26 H 19 Rate Blood Pressure 128/79 129/78 O2 Saturation 92 93 11/21/17 11/21/17 17:49 18:33 Temperature Heart Rate 109 H 129 H Respiratory 26 H 25 H Rate Blood Pressure 124/97 H 116/72 O2 Saturation 95 95 Oxygen O2 Source Nasal cannula Oxygen Flow Rate 2 - EKG (time done) 1611 Rate: Rate (enter#) (116) Rhythm: Atrial fibrillation [place]: Normal Ischemia: Normal ST segments - Labs Labs: Laboratory Tests 11/21/17 11/21/17 11/21/17 17:00 17:00 17:00 WBC 7.9 RBC 4.31 Hgb 11.9 L Hct 37.0 MCV 85.8 MCH 27.6 MCHC 32.2 RDW 17.4 H Plt Count 222 MPV 9.4 Neut # INSTALLER APPRENTICE Lymph # INSTALLER APPRENTICE [place] # INSTALLER APPRENTICE Eos # INSTALLER APPRENTICE Baso # INSTALLER APPRENTICE Absolute Nucleated RBC INSTALLER APPRENTICE Total Counted 100 Band Neuts % (Manual) 0 Abnorm Lymph % (Manual) 0 Nucleated RBC % INSTALLER APPRENTICE Neutrophils # (Manual) 7.5 H Lymphocytes # (Manual) 0.2 L Monocytes # (Manual) 0.2 Eosinophils # (Manual) 0.0 Basophils # (Manual) 0.0 Differential Comment MANUAL DIFFERENTIAL Platelet Estimate NORMAL (130-450,000) Platelet Morphology NORMAL APPEARANCE RBC Morph Micro Appear NORMAL APPEARANCE Sodium 133 L Potassium 3.9 Chloride 98 L Carbon Dioxide 21 Anion Gap 14.0 H BUN 24 H Creatinine 0.8 Estimated GFR (MDRD) 70 L Glucose 320 H Calcium 9.1 Total Bilirubin 2.1 H AST 22 ALT 22 Alkaline Phosphatase 48 Troponin I < 0.04 B-Natriuretic Peptide Total Protein 7.6 Albumin 4.2 Globulin 3.4 Albumin/Globulin Ratio 1.2 Lipase 10 L Urine Color Urine Clarity Urine pH Ur Specific [place] Urine Protein Urine Glucose (UA) Urine Ketones Urine Occult Blood Urine Nitrite Urine Bilirubin Urine Urobilinogen Ur Leukocyte Esterase Urine RBC Urine WBC Ur Squamous Epith Cells Urine Bacteria Ur Microscopic Review Urine Culture Comments Last Dose Date Last Dose Time Digoxin Urine Opiates Screen Ur Oxycodone Screen Urine Methadone Screen Ur Propoxyphene Screen Ur Barbiturates Screen Ur Tricyclics Screen Ur Phencyclidine Scrn Ur Amphetamine Screen U Methamphetamines Scrn U Benzodiazepines Scrn Urine Cocaine Screen U Cannabinoids Screen 11/21/17 11/21/17 11/21/17 17:00 17:00 18:13 WBC RBC Hgb Hct MCV MCH MCHC RDW Plt Count MPV Neut # Lymph # [place] # Eos # Baso # Absolute Nucleated RBC Total Counted Band Neuts % (Manual) Abnorm Lymph % (Manual) Nucleated RBC % Neutrophils # (Manual) Lymphocytes # (Manual) Monocytes # (Manual) Eosinophils # (Manual) Basophils # (Manual) Differential Comment Platelet Estimate Platelet Morphology RBC Morph Micro Appear Sodium Potassium Chloride Carbon Dioxide Anion Gap BUN Creatinine Estimated GFR (MDRD) Glucose Calcium Total Bilirubin AST ALT Alkaline Phosphatase Troponin I B-Natriuretic Peptide 341 H Total Protein Albumin Globulin Albumin/Globulin Ratio Lipase Urine Color YELLOW Urine Clarity HAZY Urine pH 6.0 Ur Specific Alfred >=1.030 H Urine Protein >=300 H Urine Glucose (UA) 250 H Urine Ketones 15 H Urine Occult Blood MODERATE H Urine Nitrite NEGATIVE Urine Bilirubin NEGATIVE Urine Urobilinogen 0.2 (NORMAL) Ur Leukocyte Esterase NEGATIVE Urine RBC 6-10 H Urine WBC 6-10 H Ur Squamous Epith Cells RARE Squamous Urine Bacteria Many H Ur Microscopic Review INDICATED Urine Culture Comments INDICATED Last Dose Date UNKNOWN Last Dose Time UNKNOWN Digoxin 0.4 Urine Opiates Screen NEGATIVE Ur Oxycodone Screen NEGATIVE Urine Methadone Screen NEGATIVE Ur Propoxyphene Screen NEGATIVE Ur Barbiturates Screen NEGATIVE Ur Tricyclics Screen NEGATIVE Ur Phencyclidine Scrn NEGATIVE Ur Amphetamine Screen NEGATIVE U Methamphetamines Scrn NEGATIVE U Benzodiazepines Scrn NEGATIVE Urine Cocaine Screen NEGATIVE U Cannabinoids Screen POSITIVE H - Rads (name of study) cxr Radiology: Prelim report reviewed, EMP read contemporaneously, See rad report ( Right lung increased interstitial and patchy densities suspicious for recurrent pneumonia versus asymmetric edema. ) head CT Radiology: Prelim report reviewed, EMP read contemporaneously, See rad report ( No change. No acute intracranial process. 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 ) PD MEDICAL DECISION MAKING - ED course Complexity details: reviewed results, re-evaluated patient, considered differential, d/w wellness consultant ED course: Patient is a 77-year-old female who presents to the emergency department with altered mental status. Unable to answer any questions here. No acute findings on head CT. Does appear to have pneumonia on chest x-ray and will treat with antibiotics. While performing an in and out catheterization, the nurse found a package of Kleenex in plastic wrap stuffed inside the patient's vagina. This was removed. No other foreign bodies found. No evidence of sepsis clinically. No evidence of meningitis. We will have her admitted with the hospitalist and see how she progresses. This document was made in part using voice recognition software. While efforts are made to proofread this document, sound alike and grammatical errors may occur. Atrial fibrillation with rapid ventricular response responded well to Cardizem. Departure - Departure Disposition: 66 [facility] DC/Xfer Clinical Impression: Atrial fibrillation with RVR Altered mental status Qualifiers: Altered mental status type: unspecified Qualified Code(s): R41.82 - Altered mental status, unspecified Vaginal foreign body Qualifiers: Encounter type: initial encounter Qualified Code(s): T19.2XXA - Foreign body in vulva and vagina, initial encounter Pneumonia Qualifiers: Pneumonia type: due to unspecified organism Laterality: right Lung location: unspecified part of lung Qualified Code(s): J18.9 - Pneumonia, unspecified organism Condition: Stable Discharge Date/Time: 11/21/17 19:45
[2017-11-21 17:15] LABS: BASOPHILS % (AUTO) 0.1 %; HGB - HEMOGLOBIN 11.9 g/dL (12.0-16.0); LYMPHOCYTES % (AUTO) 3.1 %; MEAN CORPUSCULAR HEMOGLOBIN 27.6 pg (27.0-31.0); MEAN CORPUSCULAR HGB CONC 32.2 g/dL (32.0-36.0); MEAN CORPUSCULAR VOLUME 85.8 fL (81.0-99.0); MEAN PLATELET VOLUME 9.4 fL (7.9-10.8); MONOCYTES % (AUTO) 6.5 %; NEUTROPHILS % (AUTO) 90.3 %; PLT - PLATELET COUNT 222 10^3/uL (130-450); RED BLOOD COUNT 4.31 10^6/uL (4.20-5.40); RED CELL DISTRIBUTION WIDTH 17.4 % (12.0-15.0); WHITE BLOOD COUNT 7.9 x10^3/uL (4.8-10.8)
[2017-11-21 17:18] LABS: ABNORMAL LYMPHS % (MANUAL) 0 %; BAND NEUTROPHILS % (MANUAL) 0 %
[2017-11-21 17:24] LABS: ALBUMIN 4.2 g/dL (3.2-5.5); ALBUMIN/GLOBULIN RATIO 1.2 (1.0-2.2); BILIRUBIN,TOTAL 2.1 mg/dL (0.2-1.0); CALCIUM 9.1 mg/dL (8.5-10.3); CREATININE 0.8 mg/dL (0.4-1.0); TOTAL PROTEIN 7.6 g/dL (6.7-8.2)
--- NOTE | 2017-11-21 17:31 | CT Report ---
EXAM: CT HEAD EXAM DATE: 11/21/2017 05:14 PM. CLINICAL HISTORY: Altered level of consciousness. COMPARISON: Head CT 03/28/2017. TECHNIQUE: Multiaxial CT images were obtained from the foramen magnum to the vertex. Reformats: Coron al. IV contrast: None. In accordance with CT protocol optimization, one or more of the following dose reduction techniques w ere utilized for this exam: automated exposure control, adjustment of mA and/or KV based on patient s ize, or use of iterative reconstructive technique. FINDINGS: Parenchyma: Again demonstrated is a small to moderate area of encephalomalacia in the right frontal l obe. There is mild to moderate periventricular white matter hypodensity. Negative for intracranial he morrhage. No midline shift. Extraaxial Spaces: No subdural or epidural collections identified. Ventricles: Normal in size and position. Sinuses and Orbits: Imaged paranasal sinuses, orbits, and mastoids show no significant abnormality. Bones: No evidence of fracture or calvarial defect. Other: None. IMPRESSION: 1. No change. No acute intracranial process. 2. 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 [facility] Referring Provider Line: [phone] SITE ID: [id number]
--- NOTE | 2017-11-21 17:34 | XRAY Report ---
EXAM: CHEST RADIOGRAPHY EXAM DATE: 11/21/2017 05:17 PM. CLINICAL HISTORY: Cough. COMPARISON: 03/28/2017. TECHNIQUE: 1 view. FINDINGS: Lungs/Pleura: There are moderate interstitial and ill-defined opacities in the right lung which appea r mildly increased at the right lung base. There has been partial clearing of left upper lobe interst itial and reticular nodular density. Negative for pneumothorax. Mediastinum: Heart size is normal. Other: None. IMPRESSION: 1. Right lung increased interstitial and patchy densities suspicious for recurrent pneumonia versus a symmetric edema. [facility] Referring Provider Line: [phone] SITE ID: [id number]
--- NOTE | 2017-11-21 17:34 | XRAY Preliminary Report ---
Exam: XR CHEST 1 VIEW X-RAY IMPRESSION: 1. Right lung increased interstitial and patchy densities suspicious for recurrent pneumonia versus a symmetric edema. [facility] SITE ID: [id number]
[2017-11-21] MEDS ORDERED: diltiaZEM INJ 5 MG/ML VIAL IVP STA (17:35)
[2017-11-21] MEDS ORDERED: cefTRIAXone 1 GM VIAL IVP STA (18:19)
[2017-11-21 18:22] LABS: MUDS CUTOFF CONCENTRATIONS CUTOFF CONC BELOW:
[2017-11-21 18:28] LABS: LYMPHOCYTES # (MANUAL) 0.2 10^3/uL (1.5-3.5); LYMPHOCYTES % (MANUAL) 3 %; MONOCYTES # (MANUAL) 0.2 10^3/uL (0.0-1.0); NEUTROPHILS # (MANUAL) 7.5 10^3/uL (1.5-6.6); NEUTROPHILS % (MANUAL) 95 %
[2017-11-21 18:29] LABS: DIFFERENTIAL COMMENT MANUAL DIFFERENTIAL; PLATELET ESTIMATE, MANUAL NORMAL (130-450,000) (NORMAL); PLATELET MORPHOLOGY NORMAL APPEARANCE (NORMAL); RBC MORPHOLOGY (MULTIPLE) NORMAL APPEARANCE (NORMAL)
[2017-11-21 18:32] LABS: GLUCOSE, URINE (UA) 250 mg/dL (NEGATIVE); KETONES,URINE (UA) 15 mg/dL (NEGATIVE); LEUKOCYTE ESTERASE, URINE NEGATIVE (NEGATIVE); NITRITE,URINE NEGATIVE (NEGATIVE); OCCULT BLOOD,URINE MODERATE (NEGATIVE); PROTEIN,URINE >=300 mg/dL (NEGATIVE); UROBILINOGEN,URINE 0.2 (NORMAL) E.U./dL (NORMAL)
[2017-11-21 18:37] LABS: DIGOXIN 0.4 ng/mL
[2017-11-21 18:39] LABS: BILIRUBIN,URINE NEGATIVE (NEGATIVE); CLARITY,URINE HAZY (CLEAR); ICTOTEST,URINE NEGATIVE
[2017-11-21 18:44] LABS: AMPHETAMINE SCREEN,URINE NEGATIVE (NEGATIVE); BENZODIAZEPINES SCREEN, URINE NEGATIVE (NEGATIVE); COCAINE SCREEN URINE NEGATIVE (NEGATIVE); METHADONE SCREEN, URINE NEGATIVE (NEGATIVE); METHAMPHETAMINES SCREEN, URINE NEGATIVE (NEGATIVE); OPIATE SCREEN, URINE NEGATIVE (NEGATIVE); OXYCODONE SCREEN, URINE NEGATIVE (NEGATIVE); PROPOXYPHENE SCREEN, URINE NEGATIVE (NEGATIVE); TRICYCLIC ANTIDEPRESSANT,URINE NEGATIVE (NEGATIVE)
[2017-11-21 19:13] LABS: BACTERIA,URINE Many /HPF (None Seen); SQUAMOUS EPITHELIAL CELL,UR RARE Squamous (<= Few)
[2017-11-21] MEDS ORDERED: SODIUM CHLORIDE FLUSH 0.9% 10 ML SYRINGE IVP PRN (19:14)
[2017-11-21] MEDS ORDERED: SODIUM CHLORIDE 0.9% 1,000 ML IV ONE ×2 (19:17)
[2017-11-21] MEDS: SODIUM CHLORIDE 0.9% 1,000 ML IV SCH (20:10)
[2017-11-21] MEDS ORDERED: diltiaZEM INJ 5 MG/ML VIAL IVP SCH ×3 (20:46→23:58)
[2017-11-21] MEDS: INSULIN GLARGINE 300 UNIT/3 ML PEN SUBQ SCH (21:04)
[2017-11-21] MEDS: INSULIN ASPART 300 UNIT/3 ML PEN SUBQ SCH (21:05)
--- NOTE | 2017-11-21 21:46 | HISTORY & PHYSICAL EXAMINATION ---
Chief Complaint - Chief Complaint Chief Complaint: Altered mental status History of Present Illness - Admitted From Admitted From:: home - History of Present Illness HPI Comment/Other: Mrs. Miranda Vega is a 77-year-old female with a history of confusion and combativeness this morning. According to her daughter she has been experiencing nausea, vomiting, and diarrhea for the last couple of days. She was not answering her phone today and when the daughter called to check on her and spoke with her roommate they realized that she had become increasingly confused and called EMS to take her to the hospital. History - Past Medical History Cardiovascular: reports: Hypertension, High cholesterol, Atrial fibrillation Respiratory: reports: None Neuro: reports: CVA, Peripheral neuropathy, Other (Increasing issues with short- term memory loss) Endocrine/Autoimmune: reports: Type 2 diabetes GI: reports: None : reports: None HEENT: reports: None Psych: reports: Depression, Anxiety Musculoskeletal: reports: None Derm: reports: None MRSA Hx?: No - Past Surgical History General: reports: Appendectomy - Family & Social History Family History: Mother: , Alzheimer's Disease, CAD, Hyperlipidemia, Hypertension, Father: , Brother: , Diabetes, Type 1, Renal Disease/Failure Family History Comment/Other: Father from complications of multiple sclerosis. Mother had macular degeneration and multiple episodes of skin cancer. 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) Abuse: Recurrent use of substance despite neg consequences: NONE Dependence: Experiences withdrawal or developed tolerances: NONE - POLST Patient has POLST: No POLST Status: Full Code Meds/Allgy - Home Medications Home Medications: Ambulatory Orders Medication Instructions Recorded Confirmed Gabapentin 100 mg PO QPM 09/25/16 11/21/17 Simvastatin 40 mg PO DAILY 09/25/16 11/21/17 Cholecalciferol [Vitamin D3] 10,000 units PO DAILY 09/26/16 11/21/17 Warfarin [Coumadin] 2.5 mg PO DAILY 03/18/17 11/21/17 Chlorthalidone 25 mg PO DAILY 03/19/17 11/21/17 Diltiazem HCl [Diltiazem ER] 180 mg PO DAILY 03/19/17 11/21/17 Metoprolol Tartrate 37.5 mg PO BID 03/19/17 11/21/17 Potassium Chloride [K-Dur] 20 meq PO DAILYWM 03/28/17 11/21/17 Digoxin [Digox] 250 mcg PO DAILY 03/29/17 11/21/17 Magnesium Oxide [Magnesium Oxide] 400 mg PO DAILYWM 03/29/17 11/21/17 Citalopram [CeleXA] 10 mg PO DAILY 11/21/17 11/21/17 Furosemide [Lasix] 20 mg PO DAILY 11/21/17 11/21/17 Metformin HCl 1,000 mg PO BID 11/21/17 11/21/17 Prazosin [Minipress] 1 mg PO DAILY 11/21/17 11/21/17 Spironolactone 25 mg PO 11/21/17 metFORMIN [Glucophage] 500 mg PO BIDWM 11/21/17 11/21/17 - Allergies Allergies/Adverse Reactions: Allergies Allergy/AdvReac Type Severity Reaction Status Date / Time No Known Drug Allergies Allergy Verified 11/21/17 19:10 Review of Systems - Constitutional Constitutional: reports: Fatigue, Weakness, Poor appetite, Weight loss (The patient has lost greater than 50 pounds over the last 12-18 months unintentionally.). denies: Fever, Chills - Eyes Eyes: denies: Pain, Irritation, Blurred vision, Vision loss, Dipolpia - Ears, Nose & Throat Ears, Nose & Throat: denies: Ear pain, Hearing loss, Hearing aids, Tinnitus, Vertigo, Nasal discharge, Nosebleeds - Cardiovascular Cariovascular: denies: Irregular heart rate, Palpitations, Chest pain, Edema, Syncope - Respiratory Respiratory: denies: Cough, Sputum production, Wheezing, Snoring, Hemoptysis - Gastrointestinal Gastrointestinal: reports: Diarrhea, Nausea, Vomiting. denies: Abdominal pain, Abdominal distention, Constipation, Rectal bleeding, Black stools - Genitourinary Genitourinary: denies: Dysuria, Frequency, Urgency, Hematuria - Musculoskeletal Musculoskeletal: denies: Muscle pain, Back pain, Muscle aches, Stiffness - Integumentary Integumentary: denies: Rash, Pruritis, Lesions - Neurological Neurological: reports: General weakness, Memory problems. denies: Focal weakness, Headache, Dizziness, Seizures - Psychiatric Psychiatric: denies: Depression, Anxiety, Suicidal - Endocrine Endocrine: denies: Polyuria, Polydypsia, Polyphagia - Hematologic/Lymphatic Hematologic/Lymphatic: denies: Anemia, Bruising, Petechiae, Lymphadenopathy - All Other Systems All Other Systems: reports: Reviewed and negative Exam - Vital Signs Reviewed Vital Signs: Yes Vital Signs: Vital Signs x48h Temp Pulse Resp BP BP Pulse Ox 11/21/17 21:05 120/83 H 11/21/17 19:59 37.4 C 126 H 28 H 131/88 H 100 - Physical Exam General Appearance: positive: No acute distress, Alert, Anxious Eyes Bilateral: positive: Normal inspection, PERRL, EOMI, No lid inflammation ENT: positive: ENT inspection nml, Pharynx nml, No signs of dehydration. negative: Purulent nasal drainage, Oral lesions Neck: positive: Nml inspection, Thyroid nml, No JVD, Trachea midline. negative : Thyromegaly Respiratory: positive: Chest non-tender, No respiratory distress, Breath sounds nml. negative: Wheezes, Rales, Rhonchi Cardiovascular: positive: No murmur, No gallop, Irregularly irregular, Tachycardia Peripheral Pulses: positive: 1+ Abdomen: positive: Non-tender, No organomegaly, Nml bowel sounds, No distention. negative: Tenderness, Guarding, Rebound Back: positive: Nml inspection. negative: CVA tenderness (R), CVA tenderness (L ) Skin: positive: Color nml, No rash, Warm, Dry. negative: Cyanosis Extremities: positive: Non-tender, Full ROM, Nml appearance, No pedal edema Neurologic/Psychiatric: positive: CN's nml (2-12), Motor nml, Sensation nml, Disoriented to place, Disoriented to time. negative: Facial droop, Slurred/ abnml speech Conclusion/Plan - Problem List (1) Altered mental status Conclusion/Plan: Unsure of etiology, possibly secondary to a right lower lobe pneumonia or atrial fibrillation with rapid ventricular response. Patient also appears to have an underlying dementia process.We will treat the pneumonia and atrial fibrillation, replace IV fluids, and monitor her over the next day or 2. Qualifiers: Altered mental status type: delirium Qualified Code(s): R41.0 - Disorientation, unspecified (2) Atrial fibrillation with RVR Conclusion/Plan: The patient has chronic atrial fibrillation for many years history, will give Cardizem IV push and if this is successful start the patient on a Cardizem drip. (3) Pneumonia Conclusion/Plan: Right lower lobe pneumonia in a patient with altered mental status is suspicious for possible aspiration.We will start the patient on a macrolide and get a swallow study. If the patient follows the swallow study will also treat for possible aspirants. - Lab Results Lab results reviewed: Yes Fish Bones: 11/21/17 17:00 11/21/17 17:00 - Diagnostic Imaging Results Diagnostic Imaging Results: positive: Final report reviewed Diagnostic Imaging Results Comments: EXAM: CHEST RADIOGRAPHY EXAM DATE: 11/21/2017 05:17 PM. CLINICAL HISTORY: Cough. COMPARISON: 03/28/2017. TECHNIQUE: 1 view. FINDINGS: Lungs/Pleura: There are moderate interstitial and ill-defined opacities in the right lung which appear mildly increased at the right lung base. There has been partial clearing of left upper lobe interstitial and reticular nodular density. Negative for pneumothorax. Mediastinum: Heart size is normal. Other: None. IMPRESSION: 1. Right lung increased interstitial and patchy densities suspicious for recurrent pneumonia versus asymmetric edema. EXAM: CT HEAD EXAM DATE: 11/21/2017 05:14 PM. CLINICAL HISTORY: Altered level of consciousness. COMPARISON: Head CT 03/28/2017. TECHNIQUE: Multiaxial CT images were obtained from the foramen magnum to the vertex. Reformats: Coronal. IV contrast: None. In accordance with CT protocol optimization, one or more of the following dose reduction techniques were utilized for this exam: automated exposure control, adjustment of mA and/or KV based on patient size, or use of iterative reconstructive technique. FINDINGS: Parenchyma: Again demonstrated is a small to moderate area of encephalomalacia in the right frontal lobe. There is mild to moderate periventricular white matter hypodensity. Negative for intracranial hemorrhage. No midline shift. Extraaxial Spaces: No subdural or epidural collections identified. Ventricles: Normal in size and position. Sinuses and Orbits: Imaged paranasal sinuses, orbits, and mastoids show no significant abnormality. Bones: No evidence of fracture or calvarial defect. Other: None. IMPRESSION: 1. No change. No acute intracranial process. 2. 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 Core Measures - Anticipated LOS I expect patient to be DC'd or transferred within 96 hours.: Yes - DVT/VTE - Prophylaxis VTE/DVT Device ordered at admit?: Yes
[2017-11-21] MEDS: SODIUM CHLORIDE FLUSH 0.9% 10 ML SYRINGE IVP SCH (22:30)
[2017-11-22] MEDS ORDERED: diltiaZEM INJ 5 MG/ML VIAL IVP SCH ×2 (03:35→09:12)
[2017-11-22 05:21] LABS: HGB - HEMOGLOBIN 11.3 g/dL (12.0-16.0); LYMPHOCYTES # (AUTO) 0.3 10^3/uL (1.5-3.5); MEAN CORPUSCULAR HEMOGLOBIN 27.6 pg (27.0-31.0); MEAN CORPUSCULAR HGB CONC 32.2 g/dL (32.0-36.0); MEAN CORPUSCULAR VOLUME 85.7 fL (81.0-99.0); MEAN PLATELET VOLUME 9.2 fL (7.9-10.8); MONOCYTES # (AUTO) 0.6 10^3/uL (0.0-1.0); MONOCYTES % (AUTO) 7.3 %; NEUTROPHILS # (AUTO) 7.7 10^3/uL (1.5-6.6); NEUTROPHILS % (AUTO) 88.7 %; PLT - PLATELET COUNT 229 10^3/uL (130-450); RED BLOOD COUNT 4.08 10^6/uL (4.20-5.40); RED CELL DISTRIBUTION WIDTH 17.9 % (12.0-15.0); WHITE BLOOD COUNT 8.7 x10^3/uL (4.8-10.8)
[2017-11-22 05:25] LABS: ALBUMIN 3.9 g/dL (3.2-5.5); ALBUMIN/GLOBULIN RATIO 1.3 (1.0-2.2); BILIRUBIN,TOTAL 1.4 mg/dL (0.2-1.0); CALCIUM 8.4 mg/dL (8.5-10.3); CREATININE 0.9 mg/dL (0.4-1.0); MAGNESIUM 1.4 mg/dL (1.7-2.8); TOTAL PROTEIN 6.8 g/dL (6.7-8.2)
[2017-11-22] MEDS ORDERED: METOPROLOL 5 MG/5 ML VIAL IVP PRN (05:38)
[2017-11-22] MEDS: SODIUM CHLORIDE FLUSH 0.9% 10 ML SYRINGE IVP SCH ×3 (05:54→20:41)
[2017-11-22 06:51] LABS: HEMOGLOBIN A1C 0.69 g/dL; HEMOGLOBIN A1C % 7.4 % (4.6-6.2)
[2017-11-22] MEDS: INSULIN ASPART 300 UNIT/3 ML PEN SUBQ SCH ×3 (08:03→20:40)
[2017-11-22] MEDS ORDERED: CHLORTHALIDONE 25 MG TABLET PO SCH (09:00)
[2017-11-22 09:05] LABS: INR 3.4 (0.8-1.2)
[2017-11-22 09:11] LABS: CALCIUM 8.5 mg/dL (8.5-10.3); CREATININE 0.9 mg/dL (0.4-1.0); MAGNESIUM 1.6 mg/dL (1.7-2.8)
[2017-11-22] MEDS: diltiaZEM INJ 125 MG in DEXTROSE 5% 100 ML IV SCH (09:30)
[2017-11-22] MEDS: CITALOPRAM 10 MG TABLET PO SCH (10:08)
[2017-11-22] MEDS: DIGOXIN 125 MCG TABLET PO SCH (10:08)
[2017-11-22] MEDS: MAGNESIUM OXIDE 400 MG TABLET PO SCH (10:08)
[2017-11-22] MEDS: METOPROLOL TARTRATE 25 MG TABLET PO SCH ×2 (10:13→20:36)
[2017-11-22] MEDS: POLYETHYLENE GLYCOL 3350 17 GM PACKET PO SCH (10:16)
--- NOTE | 2017-11-22 14:34 | PROVIDER PROGRESS NOTE ---
Assessment/Plan - Problem List (1) Atrial fibrillation with RVR Assessment/Plan: Pt does not feel her rapid HR, has chronic Afib Will start a Diltiazem drip and use iv Lopressor prn very high rates Will restart her daily oral Dig 0.25 mg and Metoprolol 37.5 mg po bid Will check her INR, in order to resume Coumadin for anticoagulation Will cycle troponins to R/O [place] as cause of rapid Afib. No Echo needed, as she just had one 3 mos ago for W/U of Afib then too (2) Altered mental status Qualifiers: Altered mental status type: unspecified Qualified Code(s): R41.82 - Altered mental status, unspecified Assessment/Plan: Pt is cooperative but oriented only to self. Unknown if this is her baseline, no family or visitors here. Continue to treat CAP, as this may be metabolic encephalopathy (3) CAP (community acquired pneumonia) Assessment/Plan: Cultures thus far neg Continue empiric iv antibiotics (4) Psychiatric disorder Assessment/Plan: Continue her po meds (5) Diabetes Assessment/Plan: Continue diabetic diet, ss Insulin coverage - Current Meds Current Meds: Current Medications Generic Name Dose Route Start Last Admin Trade Name Freq PRN Reason Stop Dose Admin Citalopram Hydrobromide 10 mg 11/22/17 09:00 11/22/17 10:08 Celexa PO 10 mg DAILY CHRIS Administration Digoxin 250 mcg 11/22/17 09:00 11/22/17 10:08 Lanoxin PO 250 mcg DAILY CHRIS Administration Sodium Chloride 1,000 mls @ 50 mls/hr 11/21/17 20:00 11/22/17 14:00 Normal Saline 0.9% IV 50 mls/hr .Q20H CHRIS Infusion Diltiazem HCl 125 mg/ Dextrose 125 mls @ 5 mls/hr 11/22/17 09:00 11/22/17 14: 00 IV 5 mg/hr .Q25H CHRIS 5 mls/hr Protocol Titration 5 MG/HR Insulin Glargine 20 unit 11/21/17 21:00 11/21/17 21:04 Lantus Solostar SUBQ 20 unit QPM CHRIS Administration Magnesium Oxide 400 mg 11/22/17 09:00 11/22/17 10:08 Mag Ox PO 400 mg DAILYWM CHRIS Administration Metoprolol Tartrate 37.5 mg 11/22/17 09:00 11/22/17 10:13 Lopressor PO 37.5 mg BID CHRIS Administration Polyethylene Glycol 17 gm 11/22/17 09:00 11/22/17 10:16 Miralax PO Not Given DAILY CHRIS Sodium Chloride 10 ml 11/21/17 22:00 11/22/17 05:54 Normal Saline Flush 0.9% IVP Not Given Q8HR CHRIS - Lab Result Fish Bone Diagrams: 11/22/17 04:55 11/22/17 08:48 - Additional Planning My Orders: My Active Orders 11/22/17 09:00 Citalopram [CeleXA] 10 mg PO DAILY Dextrose 5% [D5w] 100 ml diltiaZEM INJ [Cardizem Inj] 125 mg IV 5 mg/hr Digoxin [Lanoxin] 250 mcg PO DAILY Magnesium Oxide [Mag Ox] 400 mg PO DAILYWM Metoprolol Tartrate [Lopressor] 37.5 mg PO BID 11/22/17 12:12 Blood Glucose Checks - Eating [RC] 0800,1200,1700,2100 Initiate Hypoglycemia Protocol [RC] .protocol 11/22/17 17:00 Insulin Aspart [NovoLOG] 2 - 10 unit SUBQ 0800,1200,1700,2100 11/22/17 21:00 Gabapentin [Neurontin] 100 mg PO QPM 11/22/17 Lunch DIET [Full Liquid Diet] [DIET] 11/23/17 05:00 CBC - COMP BLD CT W/AUTO DIFF [HEME] DAILYLAB Subjective - Subjective Patient Reports: Resting Comfortably, No Complaints Nursing Reports: Confused, Other (HR running 110-190) Objective Vital Signs: Vital Signs - 24 hr 11/21/17 11/21/17 11/21/17 19:59 21:05 22:29 Temperature 37.4 C Heart Rate [ 126 H Monitoring electrodes] Respiratory 28 H Rate Blood Pressure 120/83 H 138/80 H Blood Pressure 131/88 H [Right Brachial artery] O2 Saturation 100 11/22/17 11/22/17 11/22/17 00:00 00:25 04:00 Temperature 37.2 C 37.4 C Heart Rate [ 128 H 109 H Monitoring electrodes] Respiratory 29 H 26 H Rate Blood Pressure 119/83 H Blood Pressure 119/83 H 99/76 [Right Brachial artery] O2 Saturation 94 94 11/22/17 11/22/17 11/22/17 04:57 10:08 10:13 Temperature Heart Rate [ Monitoring electrodes] Respiratory Rate Blood Pressure 117/63 125/83 H 125/83 H Blood Pressure [Right Brachial artery] O2 Saturation 11/22/17 11/22/17 11/22/17 11:00 12:00 13:00 Temperature 36.4 C L Heart Rate [ 90 89 101 H Monitoring electrodes] Respiratory 16 26 H 22 Rate Blood Pressure Blood Pressure 100/57 L 117/65 113/66 [Right Brachial artery] O2 Saturation 93 93 93 11/22/17 14:00 Temperature Heart Rate [ 84 Monitoring electrodes] Respiratory 24 Rate Blood Pressure Blood Pressure 111/50 L [Right Brachial artery] O2 Saturation 93 Oxygen O2 Source Nasal cannula I&O (Last 24 Hrs): Intake and Output Totals x24h 11/20/17 11/21/17 11/22/17 23:59 23:59 23:59 Intake Total 1000 1164.167 Balance 1000 1164.167 General: No acute distress HEENT: Mucous membr. moist/pink Neck: Supple Neuro: Disoriented Cardiovascular: No murmurs Respiratory: No respiratory distress Abdomen: Soft Extremities: No edema - Results Results: Laboratory Results WBC 8.7 x10^3/uL (4.8-10.8) 11/22/17 04:55 RBC 4.08 10^6/uL (4.20-5.40) L 11/22/17 04:55 Hgb 11.3 g/dL (12.0-16.0) L 11/22/17 04:55 Hct 34.9 % (37.0-47.0) L 11/22/17 04:55 MCV 85.7 fL (81.0-99.0) 11/22/17 04:55 MCH 27.6 pg (27.0-31.0) 11/22/17 04:55 MCHC 32.2 g/dL (32.0-36.0) 11/22/17 04:55 RDW 17.9 % (12.0-15.0) H 11/22/17 04:55 Plt Count 229 10^3/uL (130-450) 11/22/17 04:55 MPV 9.2 fL (7.9-10.8) 11/22/17 04:55 Neut # 7.7 10^3/uL (1.5-6.6) H 11/22/17 04:55 Lymph # 0.3 10^3/uL (1.5-3.5) L 11/22/17 04:55 [place] # 0.6 10^3/uL (0.0-1.0) 11/22/17 04:55 Eos # 0.0 10^3/uL (0.0-0.7) 11/22/17 04:55 Baso # 0.0 10^3/uL (0.0-0.1) 11/22/17 04:55 Absolute Nucleated RBC 0.00 x10^3/uL 11/22/17 04:55 Total Counted 100 11/21/17 17:00 Band Neuts % (Manual) 0 % (0-10) 11/21/17 17:00 Abnorm Lymph % (Manual) 0 % 11/21/17 17:00 Nucleated RBC % 0.0 /100WBC 11/22/17 04:55 Neutrophils # (Manual) 7.5 10^3/uL (1.5-6.6) H 11/21/17 17:00 Lymphocytes # (Manual) 0.2 10^3/uL (1.5-3.5) L 11/21/17 17:00 Monocytes # (Manual) 0.2 10^3/uL (0.0-1.0) 11/21/17 17:00 Eosinophils # (Manual) 0.0 10^3/uL (0-0.7) 11/21/17 17:00 Basophils # (Manual) 0.0 10^3/uL (0-0.1) 11/21/17 17:00 Differential Comment MANUAL DIFFERENTIAL 11/21/17 17:00 Platelet Estimate NORMAL (130-450,000) (NORMAL) 11/21/17 17:00 Platelet Morphology NORMAL APPEARANCE (NORMAL) 11/21/17 17:00 RBC Morph Micro Appear NORMAL APPEARANCE (NORMAL) 11/21/17 17:00 PT 37.0 secs (9.9-12.6) H 11/22/17 08:48 INR 3.4 (0.8-1.2) H 11/22/17 08:48 Sodium 134 mmol/L (135-145) L 11/22/17 08:48 Potassium 4.2 mmol/L (3.5-5.0) 11/22/17 08:48 Chloride 102 mmol/L (101-111) 11/22/17 08:48 Carbon Dioxide 21 mmol/L (21-32) 11/22/17 08:48 Anion Gap 11.0 (6-13) 11/22/17 08:48 BUN 30 mg/dL (6-20) H 11/22/17 08:48 Creatinine 0.9 mg/dL (0.4-1.0) 11/22/17 08:48 Estimated GFR (MDRD) 61 (>89) L 11/22/17 08:48 Glucose 316 mg/dL (70-100) H 11/22/17 08:48 Glycated Hemoglobin 7.4 % (4.6-6.2) H 11/22/17 04:55 Estim Average Glucose 166 (70-100) H 11/22/17 04:55 Lactic Acid 1.9 mmol/L (0.5-2.2) 11/22/17 04:55 Calcium 8.5 mg/dL (8.5-10.3) 11/22/17 08:48 Phosphorus 3.0 mg/dL (2.5-4.6) 11/22/17 04:55 Magnesium 1.6 mg/dL (1.7-2.8) L 11/22/17 08:48 Total Bilirubin 1.4 mg/dL (0.2-1.0) H 11/22/17 04:55 AST 22 IU/L (10-42) 11/22/17 04:55 ALT 23 IU/L (10-60) 11/22/17 04:55 Alkaline Phosphatase 45 IU/L (42-121) 11/22/17 04:55 Troponin I < 0.04 ng/mL (<0.49) 11/22/17 08:48 B-Natriuretic Peptide 341 pg/mL (5-100) H 11/21/17 17:00 Total Protein 6.8 g/dL (6.7-8.2) 11/22/17 04:55 Albumin 3.9 g/dL (3.2-5.5) 11/22/17 04:55 Globulin 2.9 g/dL (2.1-4.2) 11/22/17 04:55 Albumin/Globulin Ratio 1.3 (1.0-2.2) 11/22/17 04:55 Lipase 10 U/L (22-51) L 11/21/17 17:00 TSH 2.68 uIU/mL (0.34-5.60) 11/22/17 04:55 Urine Color YELLOW 11/21/17 18:13 Urine Clarity HAZY (CLEAR) 11/21/17 18:13 Urine pH 6.0 PH (5.0-7.5) 11/21/17 18:13 Ur Specific [place] >=1.030 (1.002-1.030) H 11/21/17 18:13 Urine Protein >=300 mg/dL (NEGATIVE) H 11/21/17 18:13 Urine Glucose (UA) 250 mg/dL (NEGATIVE) H 11/21/17 18:13 Urine Ketones 15 mg/dL (NEGATIVE) H 11/21/17 18:13 Urine Occult Blood MODERATE (NEGATIVE) H 11/21/17 18:13 Urine Nitrite NEGATIVE (NEGATIVE) 11/21/17 18:13 Urine Bilirubin NEGATIVE (NEGATIVE) 11/21/17 18:13 Urine Urobilinogen 0.2 (NORMAL) E.U./dL (NORMAL) 11/21/17 18:13 Ur Leukocyte Esterase NEGATIVE (NEGATIVE) 11/21/17 18:13 Urine RBC 6-10 /HPF (0-5) H 11/21/17 18:13 Urine WBC 6-10 /HPF (0-5) H 11/21/17 18:13 Ur Squamous Epith Cells RARE Squamous (<= Few) 11/21/17 18:13 Urine Bacteria Many /HPF (None Seen) H 11/21/17 18:13 Ur Microscopic Review INDICATED 11/21/17 18:13 Urine Culture Comments INDICATED 11/21/17 18:13 Last Dose Date UNKNOWN 11/21/17 17:00 Last Dose Time UNKNOWN 11/21/17 17:00 Digoxin 0.4 ng/mL 11/21/17 17:00 Urine Opiates Screen NEGATIVE (NEGATIVE) 11/21/17 18:13 Ur Oxycodone Screen NEGATIVE (NEGATIVE) 11/21/17 18:13 Urine Methadone Screen NEGATIVE (NEGATIVE) 11/21/17 18:13 Ur Propoxyphene Screen NEGATIVE (NEGATIVE) 11/21/17 18:13 Ur Barbiturates Screen NEGATIVE (NEGATIVE) 11/21/17 18:13 Ur Tricyclics Screen NEGATIVE (NEGATIVE) 11/21/17 18:13 Ur Phencyclidine Scrn NEGATIVE (NEGATIVE) 11/21/17 18:13 Ur Amphetamine Screen NEGATIVE (NEGATIVE) 11/21/17 18:13 U Methamphetamines Scrn NEGATIVE (NEGATIVE) 11/21/17 18:13 U Benzodiazepines Scrn NEGATIVE (NEGATIVE) 11/21/17 18:13 Urine Cocaine Screen NEGATIVE (NEGATIVE) 11/21/17 18:13 U Cannabinoids Screen POSITIVE (NEGATIVE) H 11/21/17 18:13
[2017-11-22] MEDS: SODIUM CHLORIDE 0.9% 1,000 ML IV SCH (15:31)
[2017-11-22] MEDS: GABAPENTIN 100 MG CAPSULE PO SCH (20:36)
[2017-11-22] MEDS: INSULIN GLARGINE 300 UNIT/3 ML PEN SUBQ SCH (20:39)
[2017-11-23 06:20] LABS: BASOPHILS % (AUTO) 0.2 %; EOSINOPHILS % (AUTO) 0.1 %; HGB - HEMOGLOBIN 11.1 g/dL (12.0-16.0); LYMPHOCYTES # (AUTO) 0.5 10^3/uL (1.5-3.5); LYMPHOCYTES % (AUTO) 5.8 %; MEAN CORPUSCULAR HGB CONC 32.7 g/dL (32.0-36.0); MEAN CORPUSCULAR VOLUME 85.5 fL (81.0-99.0); MEAN PLATELET VOLUME 8.6 fL (7.9-10.8); MONOCYTES # (AUTO) 0.7 10^3/uL (0.0-1.0); MONOCYTES % (AUTO) 7.2 %; NEUTROPHILS % (AUTO) 86.7 %; PLT - PLATELET COUNT 253 10^3/uL (130-450); RED BLOOD COUNT 3.97 10^6/uL (4.20-5.40); RED CELL DISTRIBUTION WIDTH 17.7 % (12.0-15.0); WHITE BLOOD COUNT 9.3 x10^3/uL (4.8-10.8)
[2017-11-23] MEDS: SODIUM CHLORIDE FLUSH 0.9% 10 ML SYRINGE IVP SCH ×3 (06:21→20:47)
[2017-11-23] MEDS: INSULIN ASPART 300 UNIT/3 ML PEN SUBQ SCH ×4 (07:50→20:41)
[2017-11-23] MEDS: MAGNESIUM OXIDE 400 MG TABLET PO SCH (08:27)
[2017-11-23] MEDS: DIGOXIN 125 MCG TABLET PO SCH (08:28)
[2017-11-23] MEDS: CITALOPRAM 10 MG TABLET PO SCH (08:28)
[2017-11-23] MEDS: METOPROLOL TARTRATE 25 MG TABLET PO SCH ×2 (08:28→20:39)
[2017-11-23] MEDS: POLYETHYLENE GLYCOL 3350 17 GM PACKET PO SCH (08:29)
[2017-11-23] MEDS: diltiaZEM INJ 125 MG in DEXTROSE 5% 100 ML IV SCH (08:31)
[2017-11-23] MEDS: cefTRIAXone 1 GM in SODIUM CHLORIDE 0.9% MINIBAG 100 ML IV SCH (12:00)
[2017-11-23] MEDS: AZITHROMYCIN INJ 500 MG in SODIUM CHLORIDE 0.9% 250 ML IV SCH (12:50)
[2017-11-23] MEDS: SODIUM CHLORIDE 0.9% 1,000 ML IV SCH (14:31)
[2017-11-23] MEDS: GABAPENTIN 100 MG CAPSULE PO SCH (20:39)
[2017-11-23] MEDS: INSULIN GLARGINE 300 UNIT/3 ML PEN SUBQ SCH (20:41)
[2017-11-24] MEDS: SODIUM CHLORIDE FLUSH 0.9% 10 ML SYRINGE IVP SCH ×3 (06:54→20:33)
[2017-11-24] MEDS ORDERED: FUROSEMIDE 40 MG/4 ML VIAL IVP SCH (08:59)
[2017-11-24] MEDS ORDERED: IPRATROPIUM/ALBUTEROL 3 ML NEB INH PRN (08:59)
[2017-11-24] MEDS ORDERED: diltiaZEM INJ 125 MG in DEXTROSE 5% 100 ML IV SCH (09:00)
[2017-11-24] MEDS: SODIUM CHLORIDE 0.9% 1,000 ML IV SCH (09:38)
[2017-11-24] MEDS: INSULIN ASPART 300 UNIT/3 ML PEN SUBQ SCH ×4 (09:43→20:30)
[2017-11-24] MEDS: DIGOXIN 125 MCG TABLET PO SCH (09:47)
[2017-11-24] MEDS: CITALOPRAM 10 MG TABLET PO SCH (09:50)
[2017-11-24] MEDS: diltiaZEM INJ 5 MG/ML VIAL IVP ONE ×2 (09:51→12:00)
[2017-11-24] MEDS: METOPROLOL TARTRATE 25 MG TABLET PO SCH ×2 (09:52→20:33)
[2017-11-24] MEDS: POLYETHYLENE GLYCOL 3350 17 GM PACKET PO SCH (11:25)
[2017-11-24] MEDS: MAGNESIUM OXIDE 400 MG TABLET PO SCH (11:26)
[2017-11-24] MEDS: cefTRIAXone 1 GM in SODIUM CHLORIDE 0.9% MINIBAG 100 ML IV SCH (12:25)
[2017-11-24] MEDS: AZITHROMYCIN INJ 500 MG in SODIUM CHLORIDE 0.9% 250 ML IV SCH (13:27)
[2017-11-24] MEDS: INSULIN GLARGINE 300 UNIT/3 ML PEN SUBQ SCH (20:30)
[2017-11-24] MEDS: GABAPENTIN 100 MG CAPSULE PO SCH (20:33)
[2017-11-25] MEDS: SODIUM CHLORIDE 0.9% 1,000 ML IV SCH (04:22)
[2017-11-25] MEDS: SODIUM CHLORIDE FLUSH 0.9% 10 ML SYRINGE IVP SCH ×2 (05:33→14:56)
[2017-11-25] MEDS: INSULIN ASPART 300 UNIT/3 ML PEN SUBQ SCH ×2 (08:15→12:03)
[2017-11-25] MEDS: CITALOPRAM 10 MG TABLET PO SCH (08:16)
[2017-11-25] MEDS: DIGOXIN 125 MCG TABLET PO SCH (08:16)
[2017-11-25] MEDS: MAGNESIUM OXIDE 400 MG TABLET PO SCH (08:16)
[2017-11-25] MEDS: METOPROLOL TARTRATE 25 MG TABLET PO SCH (08:17)
[2017-11-25] MEDS: POLYETHYLENE GLYCOL 3350 17 GM PACKET PO SCH (08:18)
[2017-11-25] MEDS: cefTRIAXone 1 GM in SODIUM CHLORIDE 0.9% MINIBAG 100 ML IV SCH (12:00)
[2017-11-25 12:10] VITALS: BP 134/90
--- NOTE | 2017-11-25 12:49 | Discharge Plan ---
Discharge Plan Disposition: 01 Home, Self Care Condition: Stable Prescriptions: Ciprofloxacin HCl [Cipro] 500 mg PO BID 3 Days #6 tablet Digoxin [Lanoxin] 125 mcg PO DAILY #30 tablet diltiaZEM [Cardizem] 60 mg PO DAILY #30 tablet Diet: Diabetic Activity Restrictions: Activity as Tolerated Shower Restrictions: No Driving Restrictions: No Assistance Devices: Walker Weight Bearing: Full Weight Additional Instructions or Follow Up instructions: You presented to the hospital with confusion and lethargy. He was found to have urinary tract infection and pneumonia. You were also found to be in atrial fibrillation with a rapid rate. We treated you with antibiotics, IV fluids and medications to slow down her heart rate. You are now improved and stable enough to return home. You were weak from the infection and hospitalization but you seem to be strong enough to return home after you were assessed by physical therapy. I have prescribed you an antibiotic that you will need to take for the next 3 days to complete treatment for your pneumonia and your urinary tract infection. I have also prescribed you to new medications which will help to control your heart rate these are diltiazem and digoxin which he would need to take daily along with your metoprolol. Please follow-up with your primary care physician in the next week to have your medications reassessed and to be assessed for resolution of your infections. No Smoking: If you smoke, Please STOP! Call for help. Follow-up with: Kristie Pacheco ARNP [Primary Care Provider] -
[2017-11-25] MEDS: AZITHROMYCIN INJ 500 MG in SODIUM CHLORIDE 0.9% 250 ML IV SCH (13:00)
--- NOTE | 2017-11-25 13:04 | PROVIDER PROGRESS NOTE ---
Assessment/Plan - Problem List (1) Atrial fibrillation with RVR Assessment/Plan: Pt does not feel her rapid HR, has chronic Afib Was on dilt drip through the night last night and HR is improved this am Continue oral Dig 0.25 mg and Metoprolol 37.5 mg po bid Add Dilt PO 60 mg today Trops negative, TSh normal No Echo needed, as she just had one 3 mos ago for W/U of Afib then too Holding coumadin for INR of 3.4 (2) Altered mental status Qualifiers: Altered mental status type: unspecified Qualified Code(s): R41.82 - Altered mental status, unspecified Assessment/Plan: Was likely metabolic encephalopathy from CAP and UTI She is much improved today Closer to her baseline (3) CAP (community acquired pneumonia) Assessment/Plan: Cultures thus far neg Continue empiric iv ceftriaxone and azithromycin Improving slowly Still wheezy, short of breath with minimal exertion (4) Urinary Tract Infection Assessment/Plan: Presented with altered mental status Continue IV ceftriaxone Awaiting urine cx Improving (5) Diabetes Assessment/Plan: Continue diabetic diet, ss Insulin coverage and home dose of lantus Stable - Current Meds Current Meds: Current Medications Generic Name Dose Route Start Last Admin Trade Name Freq PRN Reason Stop Dose Admin Albuterol/Ipratropium 3 ml 11/24/17 08:59 11/24/17 10:49 Duoneb INH 3 ml Q4HR PRN Administration Wheezing Citalopram Hydrobromide 10 mg 11/22/17 09:00 11/25/17 08:16 Celexa PO 10 mg DAILY CHRIS Administration Digoxin 250 mcg 11/22/17 09:00 11/25/17 08:16 Lanoxin PO 250 mcg DAILY CHRIS Administration Diltiazem HCl 60 mg 11/24/17 09:00 11/25/17 08:17 Cardizem PO 60 mg DAILY CHRIS Administration Gabapentin 100 mg 11/22/17 21:00 11/24/17 20:33 Neurontin PO 100 mg QPM CHRIS Administration Sodium Chloride 1,000 mls @ 50 mls/hr 11/21/17 20:00 11/25/17 04:22 Normal Saline 0.9% IV Not Given .Q20H CHRIS Azithromycin 500 mg/ Sodium 250 mls @ 250 mls/hr 11/23/17 13:00 11/24/17 14: 27 Chloride IV Infused Q24H CHRIS Infusion Ceftriaxone Sodium 1 gm/ 100 mls @ 200 mls/hr 11/23/17 12:00 11/25/17 12:00 Sodium Chloride IV 200 mls/hr Q24H CHRIS Administration Insulin Aspart 2 - 10 unit 11/22/17 17:00 11/25/17 12:03 Novolog SUBQ 4 unit 0800,1200,1700,2100 CHRIS Administration Protocol Insulin Glargine 20 unit 11/21/17 21:00 11/24/17 20:30 Lantus Solostar SUBQ 20 unit QPM CHRIS Administration Magnesium Oxide 400 mg 11/22/17 09:00 11/25/17 08:16 Mag Ox PO 400 mg DAILYWM CHRIS Administration Metoprolol Tartrate 37.5 mg 11/22/17 09:00 11/25/17 08:17 Lopressor PO 37.5 mg BID CHRIS Administration Polyethylene Glycol 17 gm 11/22/17 09:00 11/25/17 08:18 Miralax PO Not Given DAILY CHRIS Sodium Chloride 10 ml 11/21/17 19:14 11/24/17 09:58 Normal Saline Flush 0.9% IVP 10 ml PRN PRN Administration NEEDED PER PROVIDER ORDERS Sodium Chloride 10 ml 11/21/17 22:00 11/25/17 05:33 Normal Saline Flush 0.9% IVP 10 ml Q8HR CHRIS Administration - Lab Result Lab results reviewed: Yes Fish Bone Diagrams: 11/23/17 06:15 11/22/17 08:48 - Diagnostic Imaging Results Diagnostic Imaging Results: Final report reviewed - Additional Planning Condition/Complexity: Guarded My Orders: My Active Orders 11/25/17 Evaluate and Treat PT [PT] Routine 11/25/17 12:51 Discharge [RC] .ONCE Plan Discussed with:: Patient Time Spent: 31-60 minutes Subjective - Subjective Patient Reports: Feeling Better, Resting Comfortably, Cough (Non productive), Shortness of Breath (Patient still very short of breath with minimal exertion) Nursing Reports: No Complaints Objective Vital Signs: Vital Signs - 24 hr 11/24/17 11/24/17 11/24/17 13:16 14:00 15:00 Temperature Heart Rate Heart Rate [ Activity] Heart Rate [ 72 84 75 Monitoring electrodes] Respiratory 21 21 21 Rate Respiratory Rate [With Activity] Blood Pressure Blood Pressure [Activity] Blood Pressure 142/66 H 120/67 133/64 H [Right Brachial artery] O2 Saturation O2 Saturation [ With Activity] 11/24/17 11/24/17 11/24/17 16:12 17:00 17:52 Temperature 37.6 C H Heart Rate Heart Rate [ Activity] Heart Rate [ 85 83 87 Monitoring electrodes] Respiratory 17 18 19 Rate Respiratory Rate [With Activity] Blood Pressure Blood Pressure [Activity] Blood Pressure 130/99 H 136/83 H [Right Brachial artery] O2 Saturation 90 L 97 97 O2 Saturation [ With Activity] 11/24/17 11/24/17 11/24/17 19:00 20:00 20:10 Temperature Heart Rate 99 Heart Rate [ Activity] Heart Rate [ 105 H 101 H Monitoring electrodes] Respiratory 22 19 18 Rate Respiratory Rate [With Activity] Blood Pressure Blood Pressure [Activity] Blood Pressure 140/93 H [Right Brachial artery] O2 Saturation 98 O2 Saturation [ With Activity] 11/24/17 11/24/17 11/24/17 20:33 21:00 22:00 Temperature Heart Rate Heart Rate [ Activity] Heart Rate [ 97 79 Monitoring electrodes] Respiratory 23 21 Rate Respiratory Rate [With Activity] Blood Pressure 140/93 H Blood Pressure [Activity] Blood Pressure 150/74 H 142/72 H [Right Brachial artery] O2 Saturation 92 93 O2 Saturation [ With Activity] 11/24/17 11/25/17 11/25/17 23:00 00:00 01:00 Temperature Heart Rate Heart Rate [ Activity] Heart Rate [ 84 80 79 Monitoring electrodes] Respiratory 19 16 19 Rate Respiratory Rate [With Activity] Blood Pressure Blood Pressure [Activity] Blood Pressure 129/98 H 147/69 H 130/67 [Right Brachial artery] O2 Saturation 95 94 88 L O2 Saturation [ With Activity] 11/25/17 11/25/17 11/25/17 01:14 01:16 02:00 Temperature 36.7 C Heart Rate Heart Rate [ Activity] Heart Rate [ 79 Monitoring electrodes] Respiratory 19 Rate Respiratory Rate [With Activity] Blood Pressure Blood Pressure [Activity] Blood Pressure 139/64 H [Right Brachial artery] O2 Saturation 97 99 O2 Saturation [ With Activity] 11/25/17 11/25/17 11/25/17 03:00 04:00 05:00 Temperature 36.2 C L Heart Rate Heart Rate [ Activity] Heart Rate [ 80 75 86 Monitoring electrodes] Respiratory 14 15 20 Rate Respiratory Rate [With Activity] Blood Pressure Blood Pressure [Activity] Blood Pressure 126/59 L 138/80 H 132/87 H [Right Brachial artery] O2 Saturation 98 98 100 O2 Saturation [ With Activity] 11/25/17 11/25/17 11/25/17 06:00 06:58 08:00 Temperature Heart Rate 104 H Heart Rate [ Activity] Heart Rate [ 96 95 104 H Monitoring electrodes] Respiratory 23 23 18 Rate Respiratory Rate [With Activity] Blood Pressure Blood Pressure [Activity] Blood Pressure 136/71 H 150/80 H 141/88 H [Right Brachial artery] O2 Saturation 100 95 95 O2 Saturation [ With Activity] 11/25/17 11/25/17 11/25/17 08:17 08:47 09:00 Temperature Heart Rate Heart Rate [ Activity] Heart Rate [ 120 H 86 Monitoring electrodes] Respiratory 20 23 Rate Respiratory Rate [With Activity] Blood Pressure 141/88 H Blood Pressure [Activity] Blood Pressure 141/88 H 145/85 H [Right Brachial artery] O2 Saturation 96 O2 Saturation [ With Activity] 11/25/17 11/25/17 11/25/17 09:20 10:26 11:18 Temperature 36.7 C Heart Rate Heart Rate [ Activity] Heart Rate [ 81 72 78 Monitoring electrodes] Respiratory 20 19 17 Rate Respiratory Rate [With Activity] Blood Pressure Blood Pressure [Activity] Blood Pressure 145/81 H 128/57 L 125/76 [Right Brachial artery] O2 Saturation 93 94 O2 Saturation [ With Activity] 11/25/17 11/25/17 11:36 12:00 Temperature Heart Rate Heart Rate [ 66 Activity] Heart Rate [ 70 Monitoring electrodes] Respiratory 18 Rate Respiratory 18 Rate [With Activity] Blood Pressure Blood Pressure 128/57 L [Activity] Blood Pressure 134/90 H [Right Brachial artery] O2 Saturation 96 O2 Saturation [ 95 With Activity] Oxygen O2 Source [With Activity] Room air O2 Source Room air I&O (Last 24 Hrs): Intake and Output Totals x24h 11/23/17 11/24/17 11/25/17 23:59 23:59 23:59 Intake Total 2271.333 9015.401 2685 Output Total 0 1500 1000 Balance 2271.333 261.250 240 General: Alert, Oriented x3, Cooperative, Mild distress (Respiratory distress) HEENT: Atraumatic, PERRLA, EOMI, Mucous membr. moist/pink Neck: Supple, No JVD, No thyromegaly, +2 carotid pulse wo bruit, No LAD Lymphatic: no adenopathy Neuro: Alert, Non Focal, CN 2-12 Grossly Intact, Oriented Times 3 Cardiovascular: No murmurs, Other (Irregular) Respiratory: Wheezes (diffuse), Rales (Bases), Rhonchi (Bilateral coarse) Abdomen: Normal bowel sounds, Soft, No tenderness, No hepatospenomegaly Extremities: No clubbing, No cyanosis, Normal pulses, Other (Mild edema) Skin: No rashes, No breakdown - Results Results: Laboratory Results WBC 9.3 x10^3/uL (4.8-10.8) 11/23/17 06:15 RBC 3.97 10^6/uL (4.20-5.40) L 11/23/17 06:15 Hgb 11.1 g/dL (12.0-16.0) L 11/23/17 06:15 Hct 34.0 % (37.0-47.0) L 11/23/17 06:15 MCV 85.5 fL (81.0-99.0) 11/23/17 06:15 MCH 28.0 pg (27.0-31.0) 11/23/17 06:15 MCHC 32.7 g/dL (32.0-36.0) 11/23/17 06:15 RDW 17.7 % (12.0-15.0) H 11/23/17 06:15 Plt Count 253 10^3/uL (130-450) 11/23/17 06:15 MPV 8.6 fL (7.9-10.8) 11/23/17 06:15 Neut # 8.0 10^3/uL (1.5-6.6) H 11/23/17 06:15 Lymph # 0.5 10^3/uL (1.5-3.5) L 11/23/17 06:15 [place] # 0.7 10^3/uL (0.0-1.0) 11/23/17 06:15 Eos # 0.0 10^3/uL (0.0-0.7) 11/23/17 06:15 Baso # 0.0 10^3/uL (0.0-0.1) 11/23/17 06:15 Absolute Nucleated RBC 0.02 x10^3/uL 11/23/17 06:15 Total Counted 100 11/21/17 17:00 Band Neuts % (Manual) 0 % (0-10) 11/21/17 17:00 Abnorm Lymph % (Manual) 0 % 11/21/17 17:00 Nucleated RBC % 0.3 /100WBC 11/23/17 06:15 Neutrophils # (Manual) 7.5 10^3/uL (1.5-6.6) H 11/21/17 17:00 Lymphocytes # (Manual) 0.2 10^3/uL (1.5-3.5) L 11/21/17 17:00 Monocytes # (Manual) 0.2 10^3/uL (0.0-1.0) 11/21/17 17:00 Eosinophils # (Manual) 0.0 10^3/uL (0-0.7) 11/21/17 17:00 Basophils # (Manual) 0.0 10^3/uL (0-0.1) 11/21/17 17:00 Differential Comment MANUAL DIFFERENTIAL 11/21/17 17:00 Platelet Estimate NORMAL (130-450,000) (NORMAL) 11/21/17 17:00 Platelet Morphology NORMAL APPEARANCE (NORMAL) 11/21/17 17:00 RBC Morph Micro Appear NORMAL APPEARANCE (NORMAL) 11/21/17 17:00 PT 37.0 secs (9.9-12.6) H 11/22/17 08:48 INR 3.4 (0.8-1.2) H 11/22/17 08:48 Sodium 134 mmol/L (135-145) L 11/22/17 08:48 Potassium 4.2 mmol/L (3.5-5.0) 11/22/17 08:48 Chloride 102 mmol/L (101-111) 11/22/17 08:48 Carbon Dioxide 21 mmol/L (21-32) 11/22/17 08:48 Anion Gap 11.0 (6-13) 11/22/17 08:48 BUN 30 mg/dL (6-20) H 11/22/17 08:48 Creatinine 0.9 mg/dL (0.4-1.0) 11/22/17 08:48 Estimated GFR (MDRD) 61 (>89) L 11/22/17 08:48 Glucose 316 mg/dL (70-100) H 11/22/17 08:48 POC Whole Bld Glucose 188 mg/dL (70 - 100) H 11/25/17 11:31 Glycated Hemoglobin 7.4 % (4.6-6.2) H 11/22/17 04:55 Estim Average Glucose 166 (70-100) H 11/22/17 04:55 Lactic Acid 1.9 mmol/L (0.5-2.2) 11/22/17 04:55 Calcium 8.5 mg/dL (8.5-10.3) 11/22/17 08:48 Phosphorus 3.0 mg/dL (2.5-4.6) 11/22/17 04:55 Magnesium 1.6 mg/dL (1.7-2.8) L 11/22/17 08:48 Total Bilirubin 1.4 mg/dL (0.2-1.0) H 11/22/17 04:55 AST 22 IU/L (10-42) 11/22/17 04:55 ALT 23 IU/L (10-60) 11/22/17 04:55 Alkaline Phosphatase 45 IU/L (42-121) 11/22/17 04:55 Troponin I < 0.04 ng/mL (<0.49) 11/22/17 08:48 B-Natriuretic Peptide 341 pg/mL (5-100) H 11/21/17 17:00 Total Protein 6.8 g/dL (6.7-8.2) 11/22/17 04:55 Albumin 3.9 g/dL (3.2-5.5) 11/22/17 04:55 Globulin 2.9 g/dL (2.1-4.2) 11/22/17 04:55 Albumin/Globulin Ratio 1.3 (1.0-2.2) 11/22/17 04:55 Lipase 10 U/L (22-51) L 11/21/17 17:00 TSH 2.68 uIU/mL (0.34-5.60) 11/22/17 04:55 Urine Color YELLOW 11/21/17 18:13 Urine Clarity HAZY (CLEAR) 11/21/17 18:13 Urine pH 6.0 PH (5.0-7.5) 11/21/17 18:13 Ur Specific [place] >=1.030 (1.002-1.030) H 11/21/17 18:13 Urine Protein >=300 mg/dL (NEGATIVE) H 11/21/17 18:13 Urine Glucose (UA) 250 mg/dL (NEGATIVE) H 11/21/17 18:13 Urine Ketones 15 mg/dL (NEGATIVE) H 11/21/17 18:13 Urine Occult Blood MODERATE (NEGATIVE) H 11/21/17 18:13 Urine Nitrite NEGATIVE (NEGATIVE) 11/21/17 18:13 Urine Bilirubin NEGATIVE (NEGATIVE) 11/21/17 18:13 Urine Urobilinogen 0.2 (NORMAL) E.U./dL (NORMAL) 11/21/17 18:13 Ur Leukocyte Esterase NEGATIVE (NEGATIVE) 11/21/17 18:13 Urine RBC 6-10 /HPF (0-5) H 11/21/17 18:13 Urine WBC 6-10 /HPF (0-5) H 11/21/17 18:13 Ur Squamous Epith Cells RARE Squamous (<= Few) 11/21/17 18:13 Urine Bacteria Many /HPF (None Seen) H 11/21/17 18:13 Ur Microscopic Review INDICATED 11/21/17 18:13 Urine Culture Comments INDICATED 11/21/17 18:13 Last Dose Date UNKNOWN 11/21/17 17:00 Last Dose Time UNKNOWN 11/21/17 17:00 Digoxin 0.4 ng/mL 11/21/17 17:00 Urine Opiates Screen NEGATIVE (NEGATIVE) 11/21/17 18:13 Ur Oxycodone Screen NEGATIVE (NEGATIVE) 11/21/17 18:13 Urine Methadone Screen NEGATIVE (NEGATIVE) 11/21/17 18:13 Ur Propoxyphene Screen NEGATIVE (NEGATIVE) 11/21/17 18:13 Ur Barbiturates Screen NEGATIVE (NEGATIVE) 11/21/17 18:13 Ur Tricyclics Screen NEGATIVE (NEGATIVE) 11/21/17 18:13 Ur Phencyclidine Scrn NEGATIVE (NEGATIVE) 11/21/17 18:13 Ur Amphetamine Screen NEGATIVE (NEGATIVE) 11/21/17 18:13 U Methamphetamines Scrn NEGATIVE (NEGATIVE) 11/21/17 18:13 U Benzodiazepines Scrn NEGATIVE (NEGATIVE) 11/21/17 18:13 Urine Cocaine Screen NEGATIVE (NEGATIVE) 11/21/17 18:13 U Cannabinoids Screen POSITIVE (NEGATIVE) H 11/21/17 18:13
--- NOTE | 2017-11-25 13:10 | PROVIDER PROGRESS NOTE ---
Assessment/Plan - Problem List (1) Atrial fibrillation with RVR Assessment/Plan: Pt does not feel her rapid HR, has chronic Afib Patients HR this am in the 130s will need to start her on dilt drip again this morning but will wait to give her, her PO meds first Continue oral Dig 0.25 mg and Metoprolol 37.5 mg po bid Continue Dilt PO 60 mg today Trops negative, TSh normal No Echo needed, as she just had one 3 mos ago for W/U of Afib then too Holding coumadin for INR of 3.4 Will restart at discharge (2) Altered mental status Qualifiers: Altered mental status type: unspecified Qualified Code(s): R41.82 - Altered mental status, unspecified Assessment/Plan: Was likely metabolic encephalopathy from CAP and UTI Patient back to her baseline Resolved (3) CAP (community acquired pneumonia) Assessment/Plan: Patient still requiring O2 but improved significantly, less shortness of breath Continue empiric iv ceftriaxone and azithromycin Mental status back to baseline Patient may need home O2 will continue to wean O2 Patient also weak will have her walk with RN (4) Urinary Tract Infection Assessment/Plan: Presented with altered mental status Continue IV ceftriaxone Urine Cx growing ecoli susceptible to ceftriaxone Improving (5) Diabetes Assessment/Plan: Continue diabetic diet, ss Insulin coverage and home dose of lantus BG controlled - Current Meds Current Meds: Current Medications Generic Name Dose Route Start Last Admin Trade Name Freq PRN Reason Stop Dose Admin Albuterol/Ipratropium 3 ml 11/24/17 08:59 11/24/17 10:49 Duoneb INH 3 ml Q4HR PRN Administration Wheezing Citalopram Hydrobromide 10 mg 11/22/17 09:00 11/25/17 08:16 Celexa PO 10 mg DAILY CHRIS Administration Digoxin 250 mcg 11/22/17 09:00 11/25/17 08:16 Lanoxin PO 250 mcg DAILY CHRIS Administration Diltiazem HCl 60 mg 11/24/17 09:00 11/25/17 08:17 Cardizem PO 60 mg DAILY CHRIS Administration Gabapentin 100 mg 11/22/17 21:00 11/24/17 20:33 Neurontin PO 100 mg QPM CHRIS Administration Sodium Chloride 1,000 mls @ 50 mls/hr 11/21/17 20:00 11/25/17 04:22 Normal Saline 0.9% IV Not Given .Q20H CHRIS Azithromycin 500 mg/ Sodium 250 mls @ 250 mls/hr 11/23/17 13:00 11/24/17 14: 27 Chloride IV Infused Q24H CHRIS Infusion Ceftriaxone Sodium 1 gm/ 100 mls @ 200 mls/hr 11/23/17 12:00 11/25/17 12:00 Sodium Chloride IV 200 mls/hr Q24H CHRIS Administration Insulin Aspart 2 - 10 unit 11/22/17 17:00 11/25/17 12:03 Novolog SUBQ 4 unit 0800,1200,1700,2100 CHRIS Administration Protocol Insulin Glargine 20 unit 11/21/17 21:00 11/24/17 20:30 Lantus Solostar SUBQ 20 unit QPM CHRIS Administration Magnesium Oxide 400 mg 11/22/17 09:00 11/25/17 08:16 Mag Ox PO 400 mg DAILYWM CHRIS Administration Metoprolol Tartrate 37.5 mg 11/22/17 09:00 11/25/17 08:17 Lopressor PO 37.5 mg BID CHRIS Administration Polyethylene Glycol 17 gm 11/22/17 09:00 11/25/17 08:18 Miralax PO Not Given DAILY CHRIS Sodium Chloride 10 ml 11/21/17 19:14 11/24/17 09:58 Normal Saline Flush 0.9% IVP 10 ml PRN PRN Administration NEEDED PER PROVIDER ORDERS Sodium Chloride 10 ml 11/21/17 22:00 11/25/17 05:33 Normal Saline Flush 0.9% IVP 10 ml Q8HR CHRIS Administration - Lab Result Lab results reviewed: Yes Fish Bone Diagrams: 11/23/17 06:15 11/22/17 08:48 - Diagnostic Imaging Results Diagnostic Imaging Results: Final report reviewed - Additional Planning Condition/Complexity: Improved My Orders: My Active Orders 11/25/17 Evaluate and Treat PT [PT] Routine 11/25/17 12:51 Discharge [RC] .ONCE Plan Discussed with:: Patient Time Spent: 31-60 minutes Subjective - Subjective Patient Reports: Feeling Better, Resting Comfortably, Shortness of Breath ( IMproving), Other (No fevers or chills, she very weak and worried about how she will do if she goes home.) Nursing Reports: No Complaints Objective Vital Signs: Vital Signs - 24 hr 11/24/17 11/24/17 11/24/17 13:16 14:00 15:00 Temperature Heart Rate Heart Rate [ Activity] Heart Rate [ 72 84 75 Monitoring electrodes] Respiratory 21 21 21 Rate Respiratory Rate [With Activity] Blood Pressure Blood Pressure [Activity] Blood Pressure 142/66 H 120/67 133/64 H [Right Brachial artery] O2 Saturation O2 Saturation [ With Activity] 11/24/17 11/24/17 11/24/17 16:12 17:00 17:52 Temperature 37.6 C H Heart Rate Heart Rate [ Activity] Heart Rate [ 85 83 87 Monitoring electrodes] Respiratory 17 18 19 Rate Respiratory Rate [With Activity] Blood Pressure Blood Pressure [Activity] Blood Pressure 130/99 H 136/83 H [Right Brachial artery] O2 Saturation 90 L 97 97 O2 Saturation [ With Activity] 11/24/17 11/24/17 11/24/17 19:00 20:00 20:10 Temperature Heart Rate 99 Heart Rate [ Activity] Heart Rate [ 105 H 101 H Monitoring electrodes] Respiratory 22 19 18 Rate Respiratory Rate [With Activity] Blood Pressure Blood Pressure [Activity] Blood Pressure 140/93 H [Right Brachial artery] O2 Saturation 98 O2 Saturation [ With Activity] 11/24/17 11/24/17 11/24/17 20:33 21:00 22:00 Temperature Heart Rate Heart Rate [ Activity] Heart Rate [ 97 79 Monitoring electrodes] Respiratory 23 21 Rate Respiratory Rate [With Activity] Blood Pressure 140/93 H Blood Pressure [Activity] Blood Pressure 150/74 H 142/72 H [Right Brachial artery] O2 Saturation 92 93 O2 Saturation [ With Activity] 11/24/17 11/25/17 11/25/17 23:00 00:00 01:00 Temperature Heart Rate Heart Rate [ Activity] Heart Rate [ 84 80 79 Monitoring electrodes] Respiratory 19 16 19 Rate Respiratory Rate [With Activity] Blood Pressure Blood Pressure [Activity] Blood Pressure 129/98 H 147/69 H 130/67 [Right Brachial artery] O2 Saturation 95 94 88 L O2 Saturation [ With Activity] 11/25/17 11/25/17 11/25/17 01:14 01:16 02:00 Temperature 36.7 C Heart Rate Heart Rate [ Activity] Heart Rate [ 79 Monitoring electrodes] Respiratory 19 Rate Respiratory Rate [With Activity] Blood Pressure Blood Pressure [Activity] Blood Pressure 139/64 H [Right Brachial artery] O2 Saturation 97 99 O2 Saturation [ With Activity] 11/25/17 11/25/17 11/25/17 03:00 04:00 05:00 Temperature 36.2 C L Heart Rate Heart Rate [ Activity] Heart Rate [ 80 75 86 Monitoring electrodes] Respiratory 14 15 20 Rate Respiratory Rate [With Activity] Blood Pressure Blood Pressure [Activity] Blood Pressure 126/59 L 138/80 H 132/87 H [Right Brachial artery] O2 Saturation 98 98 100 O2 Saturation [ With Activity] 11/25/17 11/25/17 11/25/17 06:00 06:58 08:00 Temperature Heart Rate 104 H Heart Rate [ Activity] Heart Rate [ 96 95 104 H Monitoring electrodes] Respiratory 23 23 18 Rate Respiratory Rate [With Activity] Blood Pressure Blood Pressure [Activity] Blood Pressure 136/71 H 150/80 H 141/88 H [Right Brachial artery] O2 Saturation 100 95 95 O2 Saturation [ With Activity] 11/25/17 11/25/17 11/25/17 08:17 08:47 09:00 Temperature Heart Rate Heart Rate [ Activity] Heart Rate [ 120 H 86 Monitoring electrodes] Respiratory 20 23 Rate Respiratory Rate [With Activity] Blood Pressure 141/88 H Blood Pressure [Activity] Blood Pressure 141/88 H 145/85 H [Right Brachial artery] O2 Saturation 96 O2 Saturation [ With Activity] 11/25/17 11/25/17 11/25/17 09:20 10:26 11:18 Temperature 36.7 C Heart Rate Heart Rate [ Activity] Heart Rate [ 81 72 78 Monitoring electrodes] Respiratory 20 19 17 Rate Respiratory Rate [With Activity] Blood Pressure Blood Pressure [Activity] Blood Pressure 145/81 H 128/57 L 125/76 [Right Brachial artery] O2 Saturation 93 94 O2 Saturation [ With Activity] 11/25/17 11/25/17 11:36 12:00 Temperature Heart Rate Heart Rate [ 66 Activity] Heart Rate [ 70 Monitoring electrodes] Respiratory 18 Rate Respiratory 18 Rate [With Activity] Blood Pressure Blood Pressure 128/57 L [Activity] Blood Pressure 134/90 H [Right Brachial artery] O2 Saturation 96 O2 Saturation [ 95 With Activity] Oxygen O2 Source [With Activity] Room air O2 Source Room air I&O (Last 24 Hrs): Intake and Output Totals x24h 11/23/17 11/24/17 11/25/17 23:59 23:59 23:59 Intake Total 2271.333 2101.256 7336 Output Total 0 1500 1000 Balance 2271.333 261.250 240 General: Alert, Oriented x3, Cooperative, No acute distress HEENT: Atraumatic, PERRLA, EOMI, Mucous membr. moist/pink Neck: Supple, No JVD, No thyromegaly, +2 carotid pulse wo bruit, No LAD Lymphatic: no adenopathy Neuro: Alert, Non Focal, CN 2-12 Grossly Intact, Oriented Times 3 Cardiovascular: Other (Irregular with tachycardia) Respiratory: Chest non-tender, Wheezes (scattered), Rhonchi (Bilateral) Abdomen: Normal bowel sounds, Soft, No tenderness, No hepatospenomegaly Extremities: No clubbing, No cyanosis, No edema, Normal pulses Skin: No rashes, No breakdown - Results Results: Laboratory Results WBC 9.3 x10^3/uL (4.8-10.8) 11/23/17 06:15 RBC 3.97 10^6/uL (4.20-5.40) L 11/23/17 06:15 Hgb 11.1 g/dL (12.0-16.0) L 11/23/17 06:15 Hct 34.0 % (37.0-47.0) L 11/23/17 06:15 MCV 85.5 fL (81.0-99.0) 11/23/17 06:15 MCH 28.0 pg (27.0-31.0) 11/23/17 06:15 MCHC 32.7 g/dL (32.0-36.0) 11/23/17 06:15 RDW 17.7 % (12.0-15.0) H 11/23/17 06:15 Plt Count 253 10^3/uL (130-450) 11/23/17 06:15 MPV 8.6 fL (7.9-10.8) 11/23/17 06:15 Neut # 8.0 10^3/uL (1.5-6.6) H 11/23/17 06:15 Lymph # 0.5 10^3/uL (1.5-3.5) L 11/23/17 06:15 [place] # 0.7 10^3/uL (0.0-1.0) 11/23/17 06:15 Eos # 0.0 10^3/uL (0.0-0.7) 11/23/17 06:15 Baso # 0.0 10^3/uL (0.0-0.1) 11/23/17 06:15 Absolute Nucleated RBC 0.02 x10^3/uL 11/23/17 06:15 Total Counted 100 11/21/17 17:00 Band Neuts % (Manual) 0 % (0-10) 11/21/17 17:00 Abnorm Lymph % (Manual) 0 % 11/21/17 17:00 Nucleated RBC % 0.3 /100WBC 11/23/17 06:15 Neutrophils # (Manual) 7.5 10^3/uL (1.5-6.6) H 11/21/17 17:00 Lymphocytes # (Manual) 0.2 10^3/uL (1.5-3.5) L 11/21/17 17:00 Monocytes # (Manual) 0.2 10^3/uL (0.0-1.0) 11/21/17 17:00 Eosinophils # (Manual) 0.0 10^3/uL (0-0.7) 11/21/17 17:00 Basophils # (Manual) 0.0 10^3/uL (0-0.1) 11/21/17 17:00 Differential Comment MANUAL DIFFERENTIAL 11/21/17 17:00 Platelet Estimate NORMAL (130-450,000) (NORMAL) 11/21/17 17:00 Platelet Morphology NORMAL APPEARANCE (NORMAL) 11/21/17 17:00 RBC Morph Micro Appear NORMAL APPEARANCE (NORMAL) 11/21/17 17:00 PT 37.0 secs (9.9-12.6) H 11/22/17 08:48 INR 3.4 (0.8-1.2) H 11/22/17 08:48 Sodium 134 mmol/L (135-145) L 11/22/17 08:48 Potassium 4.2 mmol/L (3.5-5.0) 11/22/17 08:48 Chloride 102 mmol/L (101-111) 11/22/17 08:48 Carbon Dioxide 21 mmol/L (21-32) 11/22/17 08:48 Anion Gap 11.0 (6-13) 11/22/17 08:48 BUN 30 mg/dL (6-20) H 11/22/17 08:48 Creatinine 0.9 mg/dL (0.4-1.0) 11/22/17 08:48 Estimated GFR (MDRD) 61 (>89) L 11/22/17 08:48 Glucose 316 mg/dL (70-100) H 11/22/17 08:48 POC Whole Bld Glucose 188 mg/dL (70 - 100) H 11/25/17 11:31 Glycated Hemoglobin 7.4 % (4.6-6.2) H 11/22/17 04:55 Estim Average Glucose 166 (70-100) H 11/22/17 04:55 Lactic Acid 1.9 mmol/L (0.5-2.2) 11/22/17 04:55 Calcium 8.5 mg/dL (8.5-10.3) 11/22/17 08:48 Phosphorus 3.0 mg/dL (2.5-4.6) 11/22/17 04:55 Magnesium 1.6 mg/dL (1.7-2.8) L 11/22/17 08:48 Total Bilirubin 1.4 mg/dL (0.2-1.0) H 11/22/17 04:55 AST 22 IU/L (10-42) 11/22/17 04:55 ALT 23 IU/L (10-60) 11/22/17 04:55 Alkaline Phosphatase 45 IU/L (42-121) 11/22/17 04:55 Troponin I < 0.04 ng/mL (<0.49) 11/22/17 08:48 B-Natriuretic Peptide 341 pg/mL (5-100) H 11/21/17 17:00 Total Protein 6.8 g/dL (6.7-8.2) 11/22/17 04:55 Albumin 3.9 g/dL (3.2-5.5) 11/22/17 04:55 Globulin 2.9 g/dL (2.1-4.2) 11/22/17 04:55 Albumin/Globulin Ratio 1.3 (1.0-2.2) 11/22/17 04:55 Lipase 10 U/L (22-51) L 11/21/17 17:00 TSH 2.68 uIU/mL (0.34-5.60) 11/22/17 04:55 Urine Color YELLOW 11/21/17 18:13 Urine Clarity HAZY (CLEAR) 11/21/17 18:13 Urine pH 6.0 PH (5.0-7.5) 11/21/17 18:13 Ur Specific [place] >=1.030 (1.002-1.030) H 11/21/17 18:13 Urine Protein >=300 mg/dL (NEGATIVE) H 11/21/17 18:13 Urine Glucose (UA) 250 mg/dL (NEGATIVE) H 11/21/17 18:13 Urine Ketones 15 mg/dL (NEGATIVE) H 11/21/17 18:13 Urine Occult Blood MODERATE (NEGATIVE) H 11/21/17 18:13 Urine Nitrite NEGATIVE (NEGATIVE) 11/21/17 18:13 Urine Bilirubin NEGATIVE (NEGATIVE) 11/21/17 18:13 Urine Urobilinogen 0.2 (NORMAL) E.U./dL (NORMAL) 11/21/17 18:13 Ur Leukocyte Esterase NEGATIVE (NEGATIVE) 11/21/17 18:13 Urine RBC 6-10 /HPF (0-5) H 11/21/17 18:13 Urine WBC 6-10 /HPF (0-5) H 11/21/17 18:13 Ur Squamous Epith Cells RARE Squamous (<= Few) 11/21/17 18:13 Urine Bacteria Many /HPF (None Seen) H 11/21/17 18:13 Ur Microscopic Review INDICATED 11/21/17 18:13 Urine Culture Comments INDICATED 11/21/17 18:13 Last Dose Date UNKNOWN 11/21/17 17:00 Last Dose Time UNKNOWN 11/21/17 17:00 Digoxin 0.4 ng/mL 11/21/17 17:00 Urine Opiates Screen NEGATIVE (NEGATIVE) 11/21/17 18:13 Ur Oxycodone Screen NEGATIVE (NEGATIVE) 11/21/17 18:13 Urine Methadone Screen NEGATIVE (NEGATIVE) 11/21/17 18:13 Ur Propoxyphene Screen NEGATIVE (NEGATIVE) 11/21/17 18:13 Ur Barbiturates Screen NEGATIVE (NEGATIVE) 11/21/17 18:13 Ur Tricyclics Screen NEGATIVE (NEGATIVE) 11/21/17 18:13 Ur Phencyclidine Scrn NEGATIVE (NEGATIVE) 01/02/18 18:13 Ur Amphetamine Screen NEGATIVE (NEGATIVE) 11/21/17 18:13 U Methamphetamines Scrn NEGATIVE (NEGATIVE) 11/21/17 18:13 U Benzodiazepines Scrn NEGATIVE (NEGATIVE) 11/21/17 18:13 Urine Cocaine Screen NEGATIVE (NEGATIVE) 11/21/17 18:13 U Cannabinoids Screen POSITIVE (NEGATIVE) H 11/21/17 18:13
--- NOTE | 2017-11-25 13:16 | DISCHARGE SUMMARY ---
Discharge Summary Admit Date: 11/21/17 Discharge Date: 11/25/17 Discharging Provider: Franklin Catalan MD Primary Care Provider: Roe Fuentes MD Code Status: Attempt Resuscitation Condition at Discharge: Stable Discharge Disposition: 01 Home, Self Care - DIAGNOSES Admission Diagnoses: 1. Altered mental status 2. Atrial fibrillation with rapid ventricular rate 3. Pneumonia Discharge Diagnoses with Status of Each Condition: 1. Atrial fibrillation with rapid ventricular rate: Resolved 2. Altered mental status: Resolved 3. Community-acquired pneumonia: Improving 4. Urinary tract infection: Improving 5. Diabetes: Stable - HPI History of Present Illness: Mrs. Miranda Vega is a 77-year-old female with a history of confusion and combativeness this morning. According to her daughter she has been experiencing nausea, vomiting, and diarrhea for the last couple of days. She was not answering her phone today and when the daughter called to check on her and spoke with her roommate they realized that she had become increasingly confused and called EMS to take her to the hospital. - HOSPITAL COURSE Hospital Course: Patient was initially found to be altered and chest x-ray showed a pneumonia, the UA showed a urinary tract infection and patient was in atrial fibrillation with rapid ventricular rate. Patient was initially admitted to the intensive care unit on a diltiazem drip. The patient's heart rate did improve but she did go in and out of rapid A. fib. The patient's medications were adjusted and she was placed back on her diltiazem, her metoprolol was increased to 37.5 mg and she was continued on digoxin 250 mcg with which the patient's rate was well controlled. Patient's rate was likely uncontrolled secondary to ongoing infection which also caused altered mental status. The patient's mentation improved with IV fluids and antibiotics. Patient was placed on ceftriaxone and azithromycin to cover community acquired pneumonia and UTI. Patient was initially requiring oxygen up to 3-1/2 L she was able to be weaned off oxygen and her shortness of breath resolved by the time of discharge. The patient's urine grew E. coli which was susceptible to ceftriaxone. After several days of IV antibiotics the patient appeared to be close to her baseline. We will concerned about patient having weakness but she was seen by physical therapy and did very well. She will return to live with her roommate. She was prescribed oral antibiotic with ciprofloxacin for 3 additional days to complete a seven-day course. She was given a prescription for diltiazem as well as digoxin. She was also told to continue on her Coumadin. We did make some adjustment to her digoxin dose and increased her metoprolol to 37.5 mg which she will need to take as an outpatient. She will follow up with her primary care physician in the upcoming week to ensure that her symptoms have resolved. (1) Atrial fibrillation with RVR Assessment/Plan: Pt does not feel her rapid HR, has chronic Afib Patients HR this am in the 130s will need to start her on dilt drip again this morning but will wait to give her, her PO meds first Continue oral Dig 0.25 mg and Metoprolol 37.5 mg po bid Dilt PO 60 mg Trops negative, TSh normal No Echo needed, as she just had one 3 mos ago for W/U of Afib then too Holding coumadin for INR of 3.4 Will restart at discharge (2) Altered mental status Qualifiers: Altered mental status type: unspecified Qualified Code(s): R41.82 - Altered mental status, unspecified Assessment/Plan: Was likely metabolic encephalopathy from CAP and UTI Patient back to her baseline Resolved (3) CAP (community acquired pneumonia) Assessment/Plan: Patient still requiring O2 but improved significantly, less shortness of breath Continue empiric iv ceftriaxone and azithromycin Mental status back to baseline Patient may need home O2 will continue to wean O2 Off O2 (4) Urinary Tract Infection Assessment/Plan: Presented with altered mental status Continue IV ceftriaxone Urine Cx growing ecoli susceptible to ceftriaxone Improving (5) Diabetes Assessment/Plan: Continue diabetic diet, ss Insulin coverage and home dose of lantus BG controlled - ALLERGIES Allergies/Adverse Reactions: Allergies Allergy/AdvReac Type Severity Reaction Status Date / Time No Known Drug Allergies Allergy Verified 11/21/17 19:10 - MEDICATIONS Home Medications: Ambulatory Orders Medication Instructions Recorded Confirmed Gabapentin 100 mg PO DAILY 09/25/16 11/22/17 Simvastatin 40 mg PO QPM 09/25/16 11/22/17 Cholecalciferol [Vitamin D3] 10,000 units PO DAILY 09/26/16 11/22/17 Chlorthalidone 25 mg PO DAILY 03/19/17 11/22/17 Digoxin [Digox] 250 mcg PO DAILY 03/29/17 11/22/17 Magnesium Oxide 400 mg PO DAILYWM 03/29/17 11/22/17 Citalopram [CeleXA] 10 mg PO DAILY 11/21/17 11/22/17 Spironolactone 25 mg PO DAILY 11/21/17 11/22/17 metFORMIN [Glucophage] 500 mg PO BIDWM 11/21/17 11/22/17 Diltiazem HCl [Cardizem] 60 mg PO DAILY 11/22/17 11/22/17 Insulin Glargine [Lantus Solostar] 25 units SUBQ QPM 11/22/17 11/22/17 Metoprolol Succinate 25 mg PO DAILY 11/22/17 11/22/17 Warfarin Sodium 7.5 mg PO SUMOSA 11/22/17 11/22/17 Warfarin [Coumadin] 5 mg PO MOTUWETHFR 11/22/17 11/22/17 Ciprofloxacin HCl [Cipro] 500 mg PO BID 3 Days #6 tablet 11/25/17 Digoxin [Lanoxin] 125 mcg PO DAILY #30 tablet 11/25/17 diltiaZEM [Cardizem] 60 mg PO DAILY #30 tablet 11/25/17 - PHYSICAL EXAM AT DISCHARGE General Appearance: positive: No acute distress, Alert, Other (Thin) Eyes Bilateral: positive: Normal inspection, PERRL, EOMI, No lid inflammation, Conjunctivae nml, No scleral icterus ENT: positive: ENT inspection nml, Pharynx nml, No signs of dehydration. negative: Purulent nasal drainage, Pharyngeal erythema, Oral lesions Neck: positive: Nml inspection, Thyroid nml, No JVD, Trachea midline. negative : Thyromegaly, Lymphadenopathy (R), Lymphadenopathy (L), Stiff neck, Carotid bruit, Tracheal deviation Respiratory: positive: Chest non-tender, No respiratory distress, Breath sounds nml Cardiovascular: positive: No murmur, No gallop, Irregularly irregular Peripheral Pulses: positive: 2+ Abdomen: positive: Non-tender, No organomegaly, Nml bowel sounds, No distention. negative: Guarding, Rebound, Hepatomegaly Back: positive: Nml inspection. negative: CVA tenderness (R), CVA tenderness (L ) Skin: positive: Color nml, No rash, Warm. negative: Cyanosis, Pallor Extremities: positive: Non-tender, Full ROM, Nml appearance, No pedal edema Neurologic/Psychiatric: positive: Oriented x3, CN's nml (2-12), Motor nml, Sensation nml, Mood/affect nml - LABS Result Diagrams: 11/23/17 06:15 11/22/17 08:48 Other Lab Results: Laboratory Results WBC 9.3 x10^3/uL (4.8-10.8) 11/23/17 06:15 RBC 3.97 10^6/uL (4.20-5.40) L 11/23/17 06:15 Hgb 11.1 g/dL (12.0-16.0) L 11/23/17 06:15 Hct 34.0 % (37.0-47.0) L 11/23/17 06:15 MCV 85.5 fL (81.0-99.0) 11/23/17 06:15 MCH 28.0 pg (27.0-31.0) 11/23/17 06:15 MCHC 32.7 g/dL (32.0-36.0) 11/23/17 06:15 RDW 17.7 % (12.0-15.0) H 11/23/17 06:15 Plt Count 253 10^3/uL (130-450) 11/23/17 06:15 MPV 8.6 fL (7.9-10.8) 11/23/17 06:15 Neut # 8.0 10^3/uL (1.5-6.6) H 11/23/17 06:15 Lymph # 0.5 10^3/uL (1.5-3.5) L 11/23/17 06:15 Miner # 0.7 10^3/uL (0.0-1.0) 11/23/17 06:15 Eos # 0.0 10^3/uL (0.0-0.7) 11/23/17 06:15 Baso # 0.0 10^3/uL (0.0-0.1) 11/23/17 06:15 Absolute Nucleated RBC 0.02 x10^3/uL 11/23/17 06:15 Total Counted 100 11/21/17 17:00 Band Neuts % (Manual) 0 % (0-10) 11/21/17 17:00 Abnorm Lymph % (Manual) 0 % 11/21/17 17:00 Nucleated RBC % 0.3 /100WBC 11/23/17 06:15 Neutrophils # (Manual) 7.5 10^3/uL (1.5-6.6) H 11/21/17 17:00 Lymphocytes # (Manual) 0.2 10^3/uL (1.5-3.5) L 11/21/17 17:00 Monocytes # (Manual) 0.2 10^3/uL (0.0-1.0) 11/21/17 17:00 Eosinophils # (Manual) 0.0 10^3/uL (0-0.7) 11/21/17 17:00 Basophils # (Manual) 0.0 10^3/uL (0-0.1) 11/21/17 17:00 Differential Comment MANUAL DIFFERENTIAL 11/21/17 17:00 Platelet Estimate NORMAL (130-450,000) (NORMAL) 11/21/17 17:00 Platelet Morphology NORMAL APPEARANCE (NORMAL) 11/21/17 17:00 RBC Morph Micro Appear NORMAL APPEARANCE (NORMAL) 11/21/17 17:00 PT 37.0 secs (9.9-12.6) H 11/22/17 08:48 INR 3.4 (0.8-1.2) H 11/22/17 08:48 Sodium 134 mmol/L (135-145) L 11/22/17 08:48 Potassium 4.2 mmol/L (3.5-5.0) 11/22/17 08:48 Chloride 102 mmol/L (101-111) 11/22/17 08:48 Carbon Dioxide 21 mmol/L (21-32) 11/22/17 08:48 Anion Gap 11.0 (6-13) 11/22/17 08:48 BUN 30 mg/dL (6-20) H 11/22/17 08:48 Creatinine 0.9 mg/dL (0.4-1.0) 11/22/17 08:48 Estimated GFR (MDRD) 61 (>89) L 11/22/17 08:48 Glucose 316 mg/dL (70-100) H 11/22/17 08:48 POC Whole Bld Glucose 188 mg/dL (70 - 100) H 11/25/17 11:31 Glycated Hemoglobin 7.4 % (4.6-6.2) H 11/22/17 04:55 Estim Average Glucose 166 (70-100) H 11/22/17 04:55 Lactic Acid 1.9 mmol/L (0.5-2.2) 11/22/17 04:55 Calcium 8.5 mg/dL (8.5-10.3) 11/22/17 08:48 Phosphorus 3.0 mg/dL (2.5-4.6) 11/22/17 04:55 Magnesium 1.6 mg/dL (1.7-2.8) L 11/22/17 08:48 Total Bilirubin 1.4 mg/dL (0.2-1.0) H 11/22/17 04:55 AST 22 IU/L (10-42) 11/22/17 04:55 ALT 23 IU/L (10-60) 11/22/17 04:55 Alkaline Phosphatase 45 IU/L (42-121) 11/22/17 04:55 Troponin I < 0.04 ng/mL (<0.49) 11/22/17 08:48 B-Natriuretic Peptide 341 pg/mL (5-100) H 11/21/17 17:00 Total Protein 6.8 g/dL (6.7-8.2) 11/22/17 04:55 Albumin 3.9 g/dL (3.2-5.5) 11/22/17 04:55 Globulin 2.9 g/dL (2.1-4.2) 11/22/17 04:55 Albumin/Globulin Ratio 1.3 (1.0-2.2) 11/22/17 04:55 Lipase 10 U/L (22-51) L 11/21/17 17:00 TSH 2.68 uIU/mL (0.34-5.60) 11/22/17 04:55 Urine Color YELLOW 11/21/17 18:13 Urine Clarity HAZY (CLEAR) 11/21/17 18:13 Urine pH 6.0 PH (5.0-7.5) 11/21/17 18:13 Ur Specific [place] >=1.030 (1.002-1.030) H 11/21/17 18:13 Urine Protein >=300 mg/dL (NEGATIVE) H 11/21/17 18:13 Urine Glucose (UA) 250 mg/dL (NEGATIVE) H 01/02/18 18:13 Urine Ketones 15 mg/dL (NEGATIVE) H 11/21/17 18:13 Urine Occult Blood MODERATE (NEGATIVE) H 11/21/17 18:13 Urine Nitrite NEGATIVE (NEGATIVE) 11/21/17 18:13 Urine Bilirubin NEGATIVE (NEGATIVE) 11/21/17 18:13 Urine Urobilinogen 0.2 (NORMAL) E.U./dL (NORMAL) 11/21/17 18:13 Ur Leukocyte Esterase NEGATIVE (NEGATIVE) 11/21/17 18:13 Urine RBC 6-10 /HPF (0-5) H 11/21/17 18:13 Urine WBC 6-10 /HPF (0-5) H 11/21/17 18:13 Ur Squamous Epith Cells RARE Squamous (<= Few) 11/21/17 18:13 Urine Bacteria Many /HPF (None Seen) H 11/21/17 18:13 Ur Microscopic Review INDICATED 11/21/17 18:13 Urine Culture Comments INDICATED 11/21/17 18:13 Last Dose Date UNKNOWN 11/21/17 17:00 Last Dose Time UNKNOWN 11/21/17 17:00 Digoxin 0.4 ng/mL 11/21/17 17:00 Urine Opiates Screen NEGATIVE (NEGATIVE) 11/21/17 18:13 Ur Oxycodone Screen NEGATIVE (NEGATIVE) 11/21/17 18:13 Urine Methadone Screen NEGATIVE (NEGATIVE) 11/21/17 18:13 Ur Propoxyphene Screen NEGATIVE (NEGATIVE) 11/21/17 18:13 Ur Barbiturates Screen NEGATIVE (NEGATIVE) 11/21/17 18:13 Ur Tricyclics Screen NEGATIVE (NEGATIVE) 11/21/17 18:13 Ur Phencyclidine Scrn NEGATIVE (NEGATIVE) 11/21/17 18:13 Ur Amphetamine Screen NEGATIVE (NEGATIVE) 11/21/17 18:13 U Methamphetamines Scrn NEGATIVE (NEGATIVE) 11/21/17 18:13 U Benzodiazepines Scrn NEGATIVE (NEGATIVE) 11/21/17 18:13 Urine Cocaine Screen NEGATIVE (NEGATIVE) 11/21/17 18:13 U Cannabinoids Screen POSITIVE (NEGATIVE) H 11/21/17 18:13 - DIAGNOSTIC IMAGING Diagnostic Imaging Results: Final report reviewed Diagnostic Imaging Results Comments: Chest x-ray Impression: 1. Right lung increased interstitial and patchy densities suspicious for recurrent pneumonia versus asymmetric edema CT head Impression: 1. No change. No acute intracranial process 2. 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 - FOLLOW UP Follow Up: Patient will follow up with his primary care physician in 1 week. The patient was discharged on ciprofloxacin orally twice daily for next 3 days. She did have her digoxin dose adjusted down to 125 mcg and was prescribed diltiazem. She does need to increase her dose of metoprolol to 37.5 mg twice daily. - TIME SPENT Time Spent in Discharge (Minutes): 45 (FAX TO PCP)
== END 2017-11-25 14:50 | disposition home or self-care (01) | DRG 193 ==
LOC: ED 16:04 → ICU 19:14
PROVIDERS: ADMIT Hospitalist; ATTEND Internal Medicine
DX: I48.91 Unspecified atrial fibrillation (principal); R41.82 Altered mental status, unspecified; J18.9 Pneumonia, unspecified organism; T19.2XXA Foreign body in vulva and vagina, initial encounter; G93.41 Metabolic encephalopathy; N39.0 Urinary tract infection, site not specified; I48.2 Chronic atrial fibrillation; B96.20 Unspecified Escherichia coli [E. coli] as the cause of diseases classified elsewhere; I10 Essential (primary) hypertension; G93.89 Other specified disorders of brain; E11.42 Type 2 diabetes mellitus with diabetic polyneuropathy; E78.00 Pure hypercholesterolemia, unspecified; F32.9 Major depressive disorder, single episode, unspecified; F41.9 Anxiety disorder, unspecified; Z79.84 Long term (current) use of oral hypoglycemic drugs; Z79.01 Long term (current) use of anticoagulants; Z79.899 Other long term (current) drug therapy; Z86.73 Personal history of transient ischemic attack (TIA), and cerebral infarction without residual deficits
CPT/HCPCS: 36415; 51701; 70450; 71045; 80048; 80053; 80162; 80306; 81001; 81003; 83036; 83605; 83690; 83735; 83880; 84100; 84443; 84484; 85025; 85610; 87086; 87150; 93005; 94640; 96374; 96375; 99284; 99285

== ENCOUNTER 2018-01-15 11:37 | Outpatient (CLI) | payer MEDICARE, MEDICAID | END 2018-01-15 11:38 | disposition home or self-care (01) | LOC: LAB.F 11:37 | PROVIDERS: ATTEND Nurse Practitioner Family | DX: I48.91 Unspecified atrial fibrillation (principal) | CPT/HCPCS: 85610 ==

== ENCOUNTER 2018-01-16 14:26 | Outpatient (CLI) | payer MEDICARE, MEDICAID | END 2018-01-16 14:27 | disposition home or self-care (01) | LOC: LAB.F 14:26 | PROVIDERS: ATTEND Nurse Practitioner Family | DX: I48.91 Unspecified atrial fibrillation (principal) | CPT/HCPCS: 85610 ==

== ENCOUNTER 2018-01-24 11:07 | Outpatient (CLI) | payer MEDICARE, MEDICAID | END 2018-01-24 11:08 | disposition home or self-care (01) | LOC: LAB.F 11:07 | PROVIDERS: ATTEND Nurse Practitioner Family | DX: I48.91 Unspecified atrial fibrillation (principal) | CPT/HCPCS: 85610 ==

== ENCOUNTER 2018-03-05 11:25 | Outpatient (CLI) | payer MEDICARE, MEDICAID ==
[2018-03-05 19:14] LABS: BUN - BLOOD UREA NITROGEN 20 mg/dL (6-20); CARBON DIOXIDE - CO2 30 mmol/L (21-32); CHLORIDE 96 mmol/L (101-111); CREATININE 0.9 mg/dL (0.4-1.0); DIGOXIN 1.5 ng/mL; GFR - MDRD 61 (>89); SODIUM 133 mmol/L (135-145)
[2018-03-05 19:19] LABS: BASOPHILS % (AUTO) 0.7 %; EOSINOPHILS # (AUTO) 0.2 10^3/uL (0.0-0.7); EOSINOPHILS % (AUTO) 2.8 %; HGB - HEMOGLOBIN 13.5 g/dL (12.0-16.0); LYMPHOCYTES % (AUTO) 15.3 %; MEAN CORPUSCULAR HEMOGLOBIN 27.9 pg (27.0-31.0); MEAN CORPUSCULAR HGB CONC 32.9 g/dL (32.0-36.0); MEAN CORPUSCULAR VOLUME 84.9 fL (81.0-99.0); MONOCYTES # (AUTO) 0.6 10^3/uL (0.0-1.0); MONOCYTES % (AUTO) 9.7 %; NEUTROPHILS # (AUTO) 4.6 10^3/uL (1.5-6.6); NEUTROPHILS % (AUTO) 71.5 %; PLT - PLATELET COUNT 192 10^3/uL (130-450); RED BLOOD COUNT 4.85 10^6/uL (4.20-5.40); RED CELL DISTRIBUTION WIDTH 15.6 % (12.0-15.0); WHITE BLOOD COUNT 6.5 x10^3/uL (4.8-10.8)
== END 2018-03-05 11:26 | disposition home or self-care (01) ==
LOC: LAB.F 11:25
PROVIDERS: ATTEND Nurse Practitioner Family
DX: I48.91 Unspecified atrial fibrillation (principal); I10 Essential (primary) hypertension; E66.9 Obesity, unspecified; E03.9 Hypothyroidism, unspecified; G63 Polyneuropathy in diseases classified elsewhere; E11.40 Type 2 diabetes mellitus with diabetic neuropathy, unspecified
CPT/HCPCS: 36415; 80051; 80162; 82565; 84520; 85025; 85610

== ENCOUNTER 2018-03-21 10:53 | Outpatient (CLI) | payer MEDICARE, MEDICAID | END 2018-03-21 10:54 | disposition home or self-care (01) | LOC: LAB.F 10:53 | PROVIDERS: ATTEND Nurse Practitioner Family | DX: I48.91 Unspecified atrial fibrillation (principal) | CPT/HCPCS: 85610 ==

== ENCOUNTER 2018-04-11 10:43 | Outpatient (CLI) | payer MEDICARE | END 2018-04-11 10:44 | disposition home or self-care (01) | LOC: LAB.F 10:43 | PROVIDERS: ATTEND Nurse Practitioner Family | DX: I48.91 Unspecified atrial fibrillation (principal) | CPT/HCPCS: 85610 ==

== ENCOUNTER 2018-04-18 11:22 | Outpatient (CLI) | payer MEDICARE, MEDICAID | END 2018-04-18 11:23 | disposition home or self-care (01) | LOC: DI 11:22 | PROVIDERS: ATTEND Internal Medicine | DX: I11.0 Hypertensive heart disease with heart failure (principal); I50.810 Right heart failure, unspecified; I48.91 Unspecified atrial fibrillation; I05.0 Rheumatic mitral stenosis | CPT/HCPCS: 93306 ==

== ENCOUNTER 2018-04-25 12:05 | Outpatient (CLI) | payer MEDICARE | END 2018-04-25 12:06 | disposition home or self-care (01) | LOC: LAB.F 12:05 | PROVIDERS: ATTEND Nurse Practitioner Family | DX: I48.91 Unspecified atrial fibrillation (principal) | CPT/HCPCS: 85610 ==

== ENCOUNTER 2018-05-16 11:50 | Outpatient (CLI) | payer MEDICARE | END 2018-05-16 11:51 | disposition home or self-care (01) | LOC: LAB.F 11:50 | PROVIDERS: ATTEND Nurse Practitioner Family | DX: I48.91 Unspecified atrial fibrillation (principal) | CPT/HCPCS: 85610 ==

== ENCOUNTER 2018-07-25 13:52 | Outpatient (CLI) | payer MEDICARE | END 2018-07-25 13:53 | disposition home or self-care (01) | LOC: LAB.F 13:52 | PROVIDERS: ATTEND Internal Medicine | DX: I48.91 Unspecified atrial fibrillation (principal) | CPT/HCPCS: 85610 ==

== ENCOUNTER 2018-09-03 10:55 | Outpatient (CLI) | payer MEDICARE | END 2018-09-03 10:56 | disposition home or self-care (01) | LOC: LAB.F 10:55 | PROVIDERS: ATTEND Internal Medicine | DX: I48.91 Unspecified atrial fibrillation (principal) | CPT/HCPCS: 85610 ==

== ENCOUNTER 2018-09-10 11:46 | Outpatient (CLI) | payer MEDICARE | END 2018-09-10 11:47 | disposition home or self-care (01) | LOC: LAB.F 11:46 | PROVIDERS: ATTEND Internal Medicine | DX: I48.91 Unspecified atrial fibrillation (principal) | CPT/HCPCS: 85610 ==

== ENCOUNTER 2018-09-17 13:45 | Outpatient (CLI) | payer MEDICARE ==
[2018-09-17 18:00] LABS: INR 2.2 (0.8-1.2); PT - PROTHROMBIN TIME 24.8 secs (9.9-12.6)
[2018-09-17 18:24] LABS: ALBUMIN 4.3 g/dL (3.2-5.5); ALBUMIN/GLOBULIN RATIO 1.4 (1.0-2.2); BILIRUBIN,TOTAL 0.7 mg/dL (0.2-1.0); CALCIUM 9.8 mg/dL (8.5-10.3); CREATININE 1.1 mg/dL (0.4-1.0); TOTAL PROTEIN 7.3 g/dL (6.7-8.2)
[2018-09-17 18:53] LABS: HB2 TOTAL 13.3 g/dL; HEMOGLOBIN A1C 0.74 g/dL; HEMOGLOBIN A1C % 7.2 % (4.6-6.2)
== END 2018-09-17 13:46 | disposition home or self-care (01) ==
LOC: LAB.F 13:45
PROVIDERS: ATTEND Internal Medicine
DX: I48.2 Chronic atrial fibrillation (principal); Z79.899 Other long term (current) drug therapy; I10 Essential (primary) hypertension
CPT/HCPCS: 36415; 80053; 83036; 85610

== ENCOUNTER 2019-03-07 06:41 | Day surgery (SDC) | payer MEDICARE, MEDICAID ==
[2019-03-07] MEDS ORDERED: KETOROLAC 0.45% OPHTH DROPS ONE (06:43)
[2019-03-07] MEDS ORDERED: PHENYLEPHRINE 2.5% OPHTH 2 ML DROPS ONE (06:43)
[2019-03-07] MEDS ORDERED: CYCLOPENTOLATE 1% OPHTH DROPS 2 ML ONE (06:44)
[2019-03-07] MEDS ORDERED: PROPARACAINE 0.5% OPHTH DROPS 15 ML ONE (06:44)
[2019-03-07] MEDS ORDERED: PHENYLEPHRINE 2.5% OPHTH 2 ML DROPS LEFTEYE ONE (07:00)
[2019-03-07] MEDS ORDERED: KETOROLAC 0.45% OPHTH DROPS LEFTEYE ONE (07:00)
[2019-03-07] MEDS ORDERED: CYCLOPENTOLATE 1% OPHTH DROPS 2 ML LEFTEYE ONE (07:00)
[2019-03-07] MEDS ORDERED: PROPARACAINE 0.5% OPHTH DROPS 15 ML LEFTEYE ONE ×2 (07:00→07:52)
[2019-03-07] MEDS ORDERED: TRIAMCIN/MOXIFLOX OPHTHALMIC 0.6 ML VIAL IO ONE ×2 (07:10→07:53)
[2019-03-07] MEDS ORDERED: EPINEPHrine 1 MG/ML AMP ONE (07:10)
[2019-03-07] MEDS ORDERED: TIMOLOL 0.5% OPHTH DROPS ONE (07:10)
[2019-03-07] MEDS ORDERED: BRIMONIDINE 0.2% OPHTH DROPS 5 ML ONE (07:10)
[2019-03-07] MEDS ORDERED: BSS/LIDOCAINE/EPINEPHRINE 1 ML SYRINGE ONE (07:11)
[2019-03-07] MEDS ORDERED: VANCOMYCIN OPHTHALMI 8MG/0.8ML 8 MG/0.8 ML SYRINGE IO ONE ×2 (07:12→07:53)
[2019-03-07] MEDS ORDERED: LACTATED RINGERS 500 ML IV ONE (07:24)
--- NOTE | 2019-03-07 07:28 | ANESTHESIA ---
Pre-Anesthesia VS, & Labs - Diagnosis Left eye senile combined cataract - Procedure left eye cataract extraction with intraocular lens implant Vital Signs: Temp Pulse Resp BP Pulse Ox 36.3 C L 84 20 134/70 H 100 03/07/19 06:52 03/07/19 06:52 03/07/19 06:52 03/07/19 06:52 03/07/19 06:52 Height 5 ft 7 in Weight (kg) 65.9 kg Body Mass Index 22.9 - NPO >8 hours - Is Patient ?: No Home Medications and Allergies Home Medications: Ambulatory Orders Digoxin [Lanoxin] 0.25 mg PO DAILY 03/06/19 Gabapentin 100 mg PO DAILY 09/25/16 Simvastatin 40 mg PO QPM 09/25/16 Cholecalciferol [Vitamin D3] 10,000 units PO DAILY 09/26/16 Chlorthalidone 25 mg PO DAILY 03/19/17 Digoxin [Digox] 250 mcg PO DAILY 03/29/17 Magnesium Oxide 400 mg PO DAILYWM 03/29/17 Citalopram [CeleXA] 10 mg PO DAILY 11/21/17 Spironolactone 25 mg PO DAILY 11/21/17 metFORMIN [Glucophage] 100 mg PO BID 11/21/17 Diltiazem HCl [Cardizem] 60 mg PO DAILY 11/22/17 Insulin Glargine [Lantus Solostar] 25 units SUBQ QPM 11/22/17 Metoprolol Succinate 25 mg PO DAILY 11/22/17 Warfarin Sodium 7.5 mg PO SUMOSA 11/22/17 Warfarin [Coumadin] 5 mg PO MOTUWETHFR 11/22/17 Digoxin [Lanoxin] 0.25 mg PO DAILY 03/06/19 Allergies/Adverse Reactions: Allergies Allergy/AdvReac Type Severity Reaction Status Date / Time No Known Drug Allergies Allergy Verified 11/21/17 19:10 Anes History & Medical History - Anesthetic History Anesthesia Complications: reports: No previous complications - Medical History Cardiovascular: reports: Hypertension, High cholesterol, Atrial fibrillation Pulmonary: reports: None Gastrointestinal: reports: None Urinary: reports: None 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) Musculoskeletal: reports: None Endocrine/Autoimmune: reports: Type 2 diabetes Blood Disorders: reports: None Skin: reports: None Smoking Status: Never smoker Psychosocial: reports: Cannabis (Has not used for several days) - Surgical History General:  Other Past Surgical History: Dental rehab Exam General: Alert, Oriented x3, Cooperative, No acute distress Dental: Dentures full Upper, Partials Lower (not removable) Mouth Openin Fingerbreadth Neck Mobility: Normal Mallampati classification: II Thyromental Distance: 4-6 cm Respiratory: Lungs clear, Normal breath sounds, No respiratory distress, No accessory muscle use Cardiovascular: Regular rate, Normal S1, Normal S2, No murmurs Mental/Cognitive Status: Alert/Oriented X3, Normal for patient Plan Anesthesia Type: MAC Consent for Procedure(s) Verified and Reviewed: Yes Code Status: Attempt Resuscitation ASA classification: 3-Severe systemic disease Is this case an emergency?: No
[2019-03-07] MEDS ORDERED: MIDAZOLAM 2 MG/2 ML VIAL IVP ONE (07:48)
[2019-03-07] MEDS ORDERED: EPINEPHrine 1 MG/ML AMP IVP ONE ×2 (07:49)
[2019-03-07] MEDS ORDERED: BRIMONIDINE 0.2% OPHTH DROPS 5 ML OPTH ONE (07:49)
[2019-03-07] MEDS ORDERED: CHONDR SULF/HYALURONATE SYRINGE IO ONE (07:50)
[2019-03-07] MEDS ORDERED: TIMOLOL 0.5% OPHTH DROPS OPTH ONE (07:50)
[2019-03-07] MEDS ORDERED: BSS/LIDOCAINE/EPINEPHRINE 1 ML SYRINGE IO ONE (07:52)
[2019-03-07 08:33] VITALS: BP 131/40
--- NOTE | 2019-03-07 09:50 | OPERATIVE REPORT ---
DATE OF SERVICE: 03/07/2019 Physician: Saman Reilly MD PREOPERATIVE DIAGNOSIS: Visually significant cataract, left eye. This was her first cataract surgery. POSTOPERATIVE DIAGNOSIS: Visually significant cataract, left eye. This was her first cataract surgery. NAME OF PROCEDURE: Phacoemulsification with posterior chamber intraocular lens implant, left eye. SURGEON: Saman Reilly MD ANESTHESIA: Monitored anesthesia care. COMPLICATIONS: None. OPERATIVE INDICATIONS: This is a 79-year-old woman with progressive vision loss in the left eye due to 2-3+ nuclear sclerotic, 2+ cortical ,and vacuolar cataract. Best corrected visual acuity was 20/100 with glare to 20/500 in the left eye. Indications for surgery are overall decrease in vision, difficulty seeing words on a computer screen, difficulty reading, and difficulty seeing words, closed captions or game scores on TV. She does not drive. She was consented at length concerning risks and benefits of cataract surgery, after which she expressed a desire to proceed with surgery. OPERATIVE PROCEDURE: The patient was taken into OR #3 and placed under monitored anesthesia care. A surgical timeout was conducted confirming correct patient, correct procedure, and correct surgical site. She was given topical anesthesia and prepped and draped in the usual sterile fashion. The eye was entered at the 6 and 3 o'clock positions. Intracameral Shugarcaine was injected into the anterior chamber, followed by Viscoat. A continuous-tear curvilinear capsulorrhexis was performed. The nucleus was hydrodissected and phacoemulsified. The cortex was evacuated using automated infusion and aspiration (I&A). Provisc was injected in the capsular bag and a 20.0 diopter intraocular lens inserted in the bag. Approximately 0.8 mL of a mixture of triamcinolone, moxifloxacin and vancomycin was injected subconjunctivally in the superior quadrant for infection and inflammation prophylaxis. I&A was used to evacuate the viscoelastic materials. The eye was inflated to physiologic pressure using balanced salt solution and found to be watertight. Patient was taken from the operating room in good condition and given postoperative instructions. TD: 03/07/2019 08:38 [facility]
== END 2019-03-07 06:42 | disposition home or self-care (01) ==
LOC: SDS 06:41
PROVIDERS: ATTEND Ophthalmology
PROC: 08RK3JZ Replacement of Left Lens with Synthetic Substitute, Percutaneous Approach (ICD-10-PCS; principal; 2019-03-07 08:00)
DX: H25.812 Combined forms of age-related cataract, left eye (principal); I10 Essential (primary) hypertension; I48.91 Unspecified atrial fibrillation; E11.42 Type 2 diabetes mellitus with diabetic polyneuropathy; Z79.84 Long term (current) use of oral hypoglycemic drugs; I69.319 Unspecified symptoms and signs involving cognitive functions following cerebral infarction
CPT/HCPCS: 66984; A9270; J3490; V2632

== ENCOUNTER 2019-05-09 07:02 | Day surgery (SDC) | payer MEDICARE, MEDICAID ==
[~2019-05-09 07:02] MED LIST: BRIMONIDINE 0.2% OPHTH DROPS 5 ML ONE; BSS/LIDOCAINE/EPINEPHRINE 1 ML SYRINGE ONE; CYCLOPENTOLATE 1% OPHTH DROPS 2 ML ONE; EPINEPHrine 1 MG/ML AMP ONE; KETOROLAC 0.45% OPHTH DROPS ONE; PHENYLEPHRINE 2.5% OPHTH 2 ML DROPS ONE; PROPARACAINE 0.5% OPHTH DROPS 15 ML ONE; TIMOLOL 0.5% OPHTH DROPS ONE; TRIAMCIN/MOXIFLOX OPHTHALMIC 0.6 ML VIAL IO ONE; VANCOMYCIN OPHTHALMI 8MG/0.8ML 8 MG/0.8 ML SYRINGE IO ONE
[2019-05-09] MEDS ORDERED: PHENYLEPHRINE 2.5% OPHTH 2 ML DROPS RIGHTEYE ONE (07:25)
[2019-05-09] MEDS ORDERED: KETOROLAC 0.45% OPHTH DROPS RIGHTEYE ONE (07:25)
[2019-05-09] MEDS ORDERED: LACTATED RINGERS 500 ML IV ONE (07:25)
[2019-05-09] MEDS ORDERED: CYCLOPENTOLATE 1% OPHTH DROPS 2 ML RIGHTEYE ONE (07:25)
[2019-05-09] MEDS ORDERED: PROPARACAINE 0.5% OPHTH DROPS 15 ML RIGHTEYE ONE (07:25)
--- NOTE | 2019-05-09 07:50 | ANESTHESIA ---
Pre-Anesthesia VS, & Labs - Diagnosis right senile combined cataract - Procedure right cataract extraction with intraocular lens Vital Signs: Temp Pulse Resp BP Pulse Ox 36.8 C 79 18 138/66 H 99 05/09/19 07:10 05/09/19 07:10 05/09/19 07:10 05/09/19 07:10 05/09/19 07:10 Height 5 ft 8 in Weight (kg) 66 kg Body Mass Index 22.9 - NPO >8 hours - Is Patient ?: No, Not Applicable - Lab Results Current Lab Results: Laboratory Tests 05/09/19 07:24: POC Whole Bld Glucose 249 H Home Medications and Allergies Gabapentin 100 mg PO DAILY 09/25/16 Simvastatin 40 mg PO QPM 09/25/16 Cholecalciferol [Vitamin D3] 10,000 units PO DAILY 09/26/16 Chlorthalidone 25 mg PO DAILY 03/19/17 Magnesium Oxide 400 mg PO DAILYWM 03/29/17 Citalopram [CeleXA] 10 mg PO DAILY 11/21/17 Spironolactone 25 mg PO DAILY 11/21/17 metFORMIN [Glucophage] 1,000 mg PO BID 11/21/17 Insulin Glargine [Lantus Solostar] 25 units SUBQ QPM 11/22/17 Metoprolol Succinate 25 mg PO DAILY 11/22/17 Warfarin Sodium 7.5 mg PO SUMOSA 11/22/17 Warfarin [Coumadin] 5 mg PO MOTUWETHFR 11/22/17 Digoxin [Lanoxin] 0.25 mg PO DAILY 03/06/19 Allergies/Adverse Reactions: Allergies Allergy/AdvReac Type Severity Reaction Status Date / Time No Known Drug Allergies Allergy Verified 05/08/19 15:06 Anes History & Medical History - Medical History Cardiovascular: reports: Atrial fibrillation Pulmonary: reports: None Gastrointestinal: reports: None Urinary: reports: None 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) Musculoskeletal: reports: None Endocrine/Autoimmune: reports: Type 2 diabetes Blood Disorders: reports: None Skin: reports: None Smoking Status: Never smoker - Surgical History General:  Eyes Ears Nose Throat (EENT): Cataracts Exam General: Alert Dental: WNL, Dentures full Upper, Partials Lower Mouth Openin Fingerbreadth Mallampati classification: II Respiratory: Lungs clear Cardiovascular: Normal S1, Normal S2, Other (irregular, 3/6 systolic murmur) Mental/Cognitive Status: Alert/Oriented X3 Plan Anesthesia Type: MAC Consent for Procedure(s) Verified and Reviewed: Yes Code Status: Attempt Resuscitation ASA classification: 3-Severe systemic disease Is this case an emergency?: No
[2019-05-09] MEDS ORDERED: INSULIN REGULAR HUMAN 100 UNIT/1 ML 10 ML MDV SUBQ ONE (08:03)
[2019-05-09] MEDS ORDERED: BRIMONIDINE 0.2% OPHTH DROPS 5 ML OPTH ONE (08:28)
[2019-05-09] MEDS ORDERED: CHONDR SULF/HYALURONATE SYRINGE IO ONE (08:29)
[2019-05-09] MEDS ORDERED: TIMOLOL 0.5% OPHTH DROPS OPTH ONE (08:29)
[2019-05-09] MEDS ORDERED: EPINEPHrine 1 MG/ML AMP IVP ONE (08:29)
[2019-05-09] MEDS ORDERED: VANCOMYCIN OPHTHALMI 8MG/0.8ML 8 MG/0.8 ML SYRINGE IO ONE (08:30)
[2019-05-09] MEDS ORDERED: MIDAZOLAM 2 MG/2 ML VIAL IVP ONE (08:30)
[2019-05-09] MEDS ORDERED: BSS/LIDOCAINE/EPINEPHRINE 1 ML SYRINGE IO ONE (08:30)
[2019-05-09] MEDS ORDERED: TRIAMCIN/MOXIFLOX OPHTHALMIC 0.6 ML VIAL IO ONE (08:31)
[2019-05-09 09:22] VITALS: BP 122/74
--- NOTE | 2019-05-09 09:42 | OPERATIVE REPORT ---
DATE OF SERVICE: 05/09/2019 Physician: Saman Reilly MD PREOPERATIVE DIAGNOSIS: Visually significant cataract, right eye. Cataract surgery was performed on the left eye on 07 March 2019. POSTOPERATIVE DIAGNOSIS: Visually significant cataract, right eye. Cataract surgery was performed on the left eye on 07 March 2019. PROCEDURE: Phacoemulsification with posterior chamber intraocular lens implant, right eye. SURGEON: Saman Reilly MD ANESTHESIA: Monitored anesthesia care. COMPLICATIONS: None. OPERATIVE INDICATIONS: This is a 79-year-old woman with progressive vision loss in the right eye due to 2 to 3+ nuclear sclerotic, 2+ cortical, and vacuolar cataract. Best corrected visual acuity was 20/70, with glare to 20/70 in the right eye. Indications for surgery were overall decrease in vision, difficulty seeing words on the computer screen, difficulty reading and difficulty seeing words and closed caption or game scores on TV. She was consented at length concerning risks and benefits of cataract surgery, after which she expressed a desire to proceed with surgery. OPERATIVE PROCEDURE: Patient was taken into OR #3 and placed under monitored anesthesia care. A surgical timeout was conducted confirming the correct patient, correct procedure, and correct surgical site. She was given topical anesthesia, and prepped and draped in the usual sterile fashion. The eye was entered at the 12 and 9-o'clock positions. Intracameral Shugarcaine was injected into the anterior chamber, followed by Viscoat. A continuous-tear curvilinear capsulorrhexis was performed. The nucleus was hydrodissected and phacoemulsified. The cortex was evacuated using automated infusion and aspiration. Provisc was injected into the capsular bag, and a 20.5-diopter intraocular lens inserted in the bag. Approximately 0.8 mL of triamcinolone, moxifloxacin, and vancomycin was injected subconjunctivally in the superior quadrant for infection and inflammation prophylaxis. I and A was used to evacuate the viscoelastic material. The eye was inflated to physiologic pressure using balanced salt solution and found to be watertight. Patient was taken from the operating room in good condition and given postoperative instructions. TD: 05/09/2019 08:54 [facility]
== END 2019-05-09 07:03 | disposition home or self-care (01) ==
LOC: SDS 07:02
PROVIDERS: ATTEND Ophthalmology
PROC: 08RJ3JZ Replacement of Right Lens with Synthetic Substitute, Percutaneous Approach (ICD-10-PCS; principal; 2019-05-09 08:30)
DX: E11.36 Type 2 diabetes mellitus with diabetic cataract (principal); I48.91 Unspecified atrial fibrillation; I10 Essential (primary) hypertension; I69.998 Other sequelae following unspecified cerebrovascular disease; Z79.4 Long term (current) use of insulin; Z79.01 Long term (current) use of anticoagulants
CPT/HCPCS: 66984; A9270; J1815; J3490; V2632

== ENCOUNTER 2019-06-27 10:47 | Outpatient (CLI) | payer MEDICARE, MEDICAID | END 2019-06-27 10:48 | disposition home or self-care (01) | LOC: LAB.S 10:47 | PROVIDERS: ATTEND Internal Medicine | DX: I48.91 Unspecified atrial fibrillation (principal) | CPT/HCPCS: 85610 ==

== ENCOUNTER 2019-06-28 10:35 | Outpatient (CLI) | payer MEDICARE, MEDICAID ==
[2019-06-28 17:42] LABS: BUN - BLOOD UREA NITROGEN 19 mg/dL (6-20); CALCIUM 10.1 mg/dL (8.5-10.3); CARBON DIOXIDE - CO2 27 mmol/L (21-32); CHLORIDE 89 mmol/L (101-111); GFR - MDRD 54 (>89); GLUCOSE 247 mg/dL (70-100); SODIUM 132 mmol/L (135-145)
== END 2019-06-28 10:36 | disposition home or self-care (01) ==
LOC: LAB.S 10:35
PROVIDERS: ATTEND Internal Medicine
DX: I50.32 Chronic diastolic (congestive) heart failure (principal); I48.91 Unspecified atrial fibrillation
CPT/HCPCS: 36415; 80048; 80162

== ENCOUNTER 2020-01-13 13:08 | Outpatient (CLI) | payer MEDICARE, MEDICAID | END 2020-01-13 13:09 | disposition home or self-care (01) | LOC: LAB.S 13:08 | PROVIDERS: ATTEND Family Medicine | DX: I48.91 Unspecified atrial fibrillation (principal) | CPT/HCPCS: 85610 ==

== ENCOUNTER 2020-04-27 13:35 | Outpatient (CLI) | payer MEDICARE, MEDICAID | END 2020-04-27 13:36 | disposition home or self-care (01) | LOC: LAB.S 13:35 | PROVIDERS: ATTEND Family Medicine | DX: I48.91 Unspecified atrial fibrillation (principal) | CPT/HCPCS: 85610 ==

== ENCOUNTER 2020-08-27 16:23 | Outpatient (CLI) | payer MEDICARE, MEDICAID | END 2020-08-27 16:24 | disposition home or self-care (01) | LOC: LAB.S 16:23 | PROVIDERS: ATTEND Family Medicine | DX: I48.91 Unspecified atrial fibrillation (principal) | CPT/HCPCS: 85610 ==

== ENCOUNTER 2021-01-28 17:11 | Outpatient (CLI) | payer MEDICARE, MEDICAID | END 2021-01-28 17:12 | disposition critical access hospital (66) | LOC: EMS 17:11 | PROVIDERS: ATTEND Registered Nurse | DX: R06.09 Other forms of dyspnea (principal); R00.2 Palpitations | CPT/HCPCS: A0425; A0429 ==

== ENCOUNTER 2021-01-28 17:35 | Emergency (ER) | payer MEDICARE, MEDICAID ==
--- NOTE | 2021-01-28 17:50 | ED Physician Documentation ---
History of Present Illness - Stated complaint Stated Complaint: AFIB/RVR - Chief complaint Chief Complaint: Cardiac - Additonal information Additional information: 80-year-old female presents the emergency department because her "A. fib is ac ting up." She reports to me that for about the last 3 weeks she has been feeling increasingly short of breath especially with climbing [place]. Previously to the last 3 weeks she never had to stop when she would go upstairs but now she has to stop about mcc through to catch her breath. She does not have chest pain but she does endorse the sensation of palpations and often feels that she has a racing heart. She has had no syncope. Denies any unilateral leg swelling or pedal edema. No abdominal pain fevers nausea vomiting or chest pain. She is typically rate controlled with diltiazem as well as digoxin. Review of Systems Constitutional: denies: Fever Eyes: reports: Reviewed and negative Ears: reports: Reviewed and negative Nose: reports: Reviewed and negative Throat: reports: Reviewed and negative Cardiac: reports: Reviewed and negative Respiratory: reports: Dyspnea GI: reports: Reviewed and negative : reports: Reviewed and negative Skin: reports: Reviewed and negative Musculoskeletal: reports: Reviewed and negative Neurologic: denies: Generalized weakness, Syncope, Confused, Altered mental status, Head injury Psychiatric: reports: Reviewed and negative PD PAST MEDICAL HISTORY - Past Medical History Cardiovascular: Atrial fibrillation Respiratory: None 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) Endocrine/Autoimmune: Type 2 diabetes GI: None : None HEENT: Chronic vision loss Psych: Depression Musculoskeletal: None Derm: None - Past Surgical History Past Surgical History: No General:  HEENT: Cataracts - Present Medications Home Medications: Ambulatory Orders Medication Instructions Recorded Confirmed RX: Gabapentin 100 mg PO DAILY 09/25/16 01/28/21 RX: Simvastatin 40 mg PO QPM 09/25/16 01/28/21 RX: Chlorthalidone 25 mg PO DAILY 03/19/17 01/28/21 RX: Citalopram [CeleXA] 20 mg PO DAILY 11/21/17 01/28/21 RX: Spironolactone 25 mg PO DAILY 11/21/17 01/28/21 RX: metFORMIN [Glucophage] 1,000 mg PO BID 11/21/17 01/28/21 RX: Insulin Glargine [Lantus 25 units SUBQ QPM 11/22/17 01/28/21 Solostar] RX: Metoprolol Succinate 25 mg PO DAILY 11/22/17 01/28/21 RX: Warfarin Sodium 7.5 mg PO SUMOSA 11/22/17 01/28/21 RX: Warfarin [Coumadin] 5 mg PO MOTUWETHFR 11/22/17 01/28/21 RX: diltiaZEM [Cardizem] 60 mg PO DAILY #30 tablet 11/25/17 01/28/21 RX: Digoxin [Lanoxin] 0.25 mg PO DAILY 03/06/19 01/28/21 - Allergies Allergies/Adverse Reactions: Allergies Allergy/AdvReac Type Severity Reaction Status Date / Time No Known Drug Allergies Allergy Verified 01/28/21 17:42 - Social History Does the pt smoke?: No Smoking Status: Never smoker Does the pt drink ETOH?: Yes Does the pt have substance abuse?: Yes - Immunizations Immunizations are current?: Yes - POLST Patient has POLST: No POLST Status: Full Code PD ED PE EXPANDED - General General: Alert, No acute distress, Well developed/nourished - Neck Neck: Supple w/out meningeal sx - Cardiac Cardiac: Irregularly irregular, Radial strong equal, Pedal strong equal, Cap refill < 2 sec - Respiratory Respiratory: Clear to ausultation mica. No: Distress, Labored - Abdomen Abdomen: Normal Bowel sounds - Extremities Extremities: Normal, Pedal Pulses Present. No: Deformity, Tenderness, Pedal edema bilateral, Right calf TTP/cord, Left calf TTP/cord - Neuro Neuro: Alert and Oriented X 3, CNII-XII intact, Normal gait, Normal finger nose, Normal speech - GCS Eye Opening: Spontaneous Motor: Obeys Commands Verbal: Oriented Total: 15 Results - Vitals Vitals: Vital Signs - 24 hr 01/28/21 01/28/21 01/28/21 17:42 18:14 18:30 Temperature 37.1 C Heart Rate 123 H 122 H 121 H Respiratory 19 15 13 Rate Blood Pressure 136/84 H 129/80 132/76 H O2 Saturation 98 96 98 01/28/21 01/28/21 01/28/21 19:00 19:30 20:00 Temperature 37.1 C Heart Rate 72 62 88 Respiratory 15 16 16 Rate Blood Pressure 118/61 119/59 L 119/60 O2 Saturation 93 95 99 01/28/21 01/28/21 20:30 21:00 Temperature Heart Rate 79 104 H Respiratory 18 15 Rate Blood Pressure 150/86 H 144/65 H O2 Saturation 97 96 Oxygen O2 Source [] Room air O2 Source Room air - EKG (time done) 1747 Rate: Rate (enter#) (122) Rhythm: Atrial flutter (2:1), Other (frequent PVC) Sherman: RAD Intervals: Prolonged QT (490) Ischemia: ST elevation c/w repol Compare to prior EKG: Changed from prior EKG (perviosu EKG a-fib) 1905 Rate: Rate (enter#) (67) Rhythm: Atrial flutter - Labs Labs: Laboratory Tests 01/28/21 01/28/21 01/28/21 18:33 18:33 18:33 WBC 7.4 RBC 3.67 L Hgb 10.7 L Hct 33.7 L MCV 91.8 MCH 29.2 MCHC 31.8 L RDW 13.7 Plt Count 248 MPV 10.1 Neut # (Auto) 5.5 Lymph # (Auto) 1.1 L Archuleta # (Auto) 0.5 Eos # (Auto) 0.2 Baso # (Auto) 0.1 Absolute Nucleated RBC 0.00 Nucleated RBC % 0.0 Whole Blood INR Sodium 133 L Potassium 3.6 Chloride 94 L Carbon Dioxide 22 Anion Gap 17.0 H BUN 15 Creatinine 1.0 Estimated GFR (MDRD) 54 L Glucose 110 H Calcium 10.0 Total Bilirubin 0.8 AST 26 ALT 25 Alkaline Phosphatase 61 Troponin I High Sens 6.8 B-Natriuretic Peptide Total Protein 7.5 Albumin 4.4 Globulin 3.1 Albumin/Globulin Ratio 1.4 Lipase 21 L TSH Nasal Adenovirus (PCR) Nasal B. parapertussis DNA (PCR) Nasal Coronavir 229E PCR Nasal Coronavir HKU1 PCR Nasal Coronavir NL63 PCR Nasal Coronavir OC43 PCR Nasal Enterovir/Rhinovir PCR Nasal Influenza B PCR Nasal Influenza A PCR Nasal Parainfluen 1 PCR Nasal Parainfluen 2 PCR Nasal Parainfluen 3 PCR Nasal Parainfluen 4 PCR Nasal RSV (PCR) Nasal B.pertussis DNA PCR Nasal C.pneumoniae (PCR) Gamal Human Metapneumo PCR Nasal M.pneumoniae (PCR) Nasal SARS-CoV-2 (PCR) Last Dose Date Not Reportable Last Dose Time Not Reportable Digoxin 0.3 01/28/21 01/28/21 01/28/21 18:33 18:33 19:30 WBC RBC Hgb Hct MCV MCH MCHC RDW Plt Count MPV Neut # (Auto) Lymph # (Auto) Archuleta # (Auto) Eos # (Auto) Baso # (Auto) Absolute Nucleated RBC Nucleated RBC % Whole Blood INR 1.6 H Sodium Potassium Chloride Carbon Dioxide Anion Gap BUN Creatinine Estimated GFR (MDRD) Glucose Calcium Total Bilirubin AST ALT Alkaline Phosphatase Troponin I High Sens B-Natriuretic Peptide 157 H Total Protein Albumin Globulin Albumin/Globulin Ratio Lipase TSH 2.73 Nasal Adenovirus (PCR) Nasal B. parapertussis DNA (PCR) Nasal Coronavir 229E PCR Nasal Coronavir HKU1 PCR Nasal Coronavir NL63 PCR Nasal Coronavir OC43 PCR Nasal Enterovir/Rhinovir PCR Nasal Influenza B PCR Nasal Influenza A PCR Nasal Parainfluen 1 PCR Nasal Parainfluen 2 PCR Nasal Parainfluen 3 PCR Nasal Parainfluen 4 PCR Nasal RSV (PCR) Nasal B.pertussis DNA PCR Nasal C.pneumoniae (PCR) Gamal Human Metapneumo PCR Nasal M.pneumoniae (PCR) Nasal SARS-CoV-2 (PCR) Last Dose Date Last Dose Time Digoxin 01/28/21 21:18 WBC RBC Hgb Hct MCV MCH MCHC RDW Plt Count MPV Neut # (Auto) Lymph # (Auto) Archuleta # (Auto) Eos # (Auto) Baso # (Auto) Absolute Nucleated RBC Nucleated RBC % Whole Blood INR Sodium Potassium Chloride Carbon Dioxide Anion Gap BUN Creatinine Estimated GFR (MDRD) Glucose Calcium Total Bilirubin AST ALT Alkaline Phosphatase Troponin I High Sens B-Natriuretic Peptide Total Protein Albumin Globulin Albumin/Globulin Ratio Lipase TSH Nasal Adenovirus (PCR) NOT DETECTED Nasal B. parapertussis DNA (PCR) NOT DETECTED Nasal Coronavir 229E PCR NOT DETECTED Nasal Coronavir HKU1 PCR NOT DETECTED Nasal Coronavir NL63 PCR NOT DETECTED Nasal Coronavir OC43 PCR NOT DETECTED Nasal Enterovir/Rhinovir PCR NOT DETECTED Nasal Influenza B PCR NOT DETECTED Nasal Influenza A PCR NOT DETECTED Nasal Parainfluen 1 PCR NOT DETECTED Nasal Parainfluen 2 PCR NOT DETECTED Nasal Parainfluen 3 PCR NOT DETECTED Nasal Parainfluen 4 PCR NOT DETECTED Nasal RSV (PCR) NOT DETECTED Nasal B.pertussis DNA PCR NOT DETECTED Nasal C.pneumoniae (PCR) NOT DETECTED Gamal Human Metapneumo PCR NOT DETECTED Nasal M.pneumoniae (PCR) NOT DETECTED Nasal SARS-CoV-2 (PCR) NOT DETECTED Last Dose Date Last Dose Time Digoxin - Rads (name of study) CXR Radiology: Final report received (Findings compatible with suspected early pulmonary edema/congestive heart failure.) PD MEDICAL DECISION MAKING - ED course Complexity details: reviewed results, re-evaluated patient ED course: 80-year-old female presents emergency department for evaluation of her atrial fibrillation. She reports that for about 3 weeks she has been feeling short of air especially with any activity or climbing stairs. On presentation she was noted to be in atrial flutter with a 2-1 conduction rate of about 120. Patient was initially given 5 mg of diltiazem without change in rate. This was followed with 5 mg of metoprolol IV. Again there was no change in rate. Subsequently we did administer 10 mg of diltiazem and her heart rate subsequently reduced to the 60s but remains in a flutter rhythm with a 3:1 conduction Patient's chest x-ray does suggest an early CHF pattern. Her BNP is less than 200. High-sensitivity troponin is negative. 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 Boyer on the phone. She felt that if we were able to achieve rate control here in the emergency department that would be appropriate to discharge her home. She would recommend increasing the metoprolol long-acting to 50 mg once daily. First dose will be given here in the emergency department tonight. 1999: Patient was ambulated in the hallways and she tolerated this well however after she returned to bed she developed atrial flutter again with RVR with a rate in the 120s. This episode lasted for about 20 minutes before she had spontaneous slowing of her rate down to the 90s. I did discuss again with Dr. eLvi on any further treatment that may be recommended for the patient. At this time she would recommend transfer to [facility] for further evaluation and treatment which may include cardioversion versus ablation. I have spoken with the transfer physician through [place] who will be looking for appropriate placement. 2199: Pt has been accepted by Dr. Martha Hawkins. Hospitalist at [facility]. At this time pt is in Atrial flutter with rate of 130, but intermittently will slow into the 80's with 2 or 3:1 conduction. She vascillates between a brief SVT and fibrillation as well. An additional 25 mg metoprolol succinate has been ordered and administered as well as 2 gm magnesium sulfate. Pt will be sent to [facility] via [facility]. Appropriate [facility]BRA paperwork completed - Consults Consults: Consulted (name) (Dr. Valentin) Departure - Departure Disposition: 02 Transfer Acute Care Hosp Clinical Impression: Atrial flutter with rapid ventricular response, Short of breath on exertion
[2021-01-28] MEDS ORDERED: diltiaZEM INJ 5 MG/ML VIAL IVP STA ×2 (18:10→18:50)
--- NOTE | 2021-01-28 18:20 | XRAY Report ---
PROCEDURE: Chest 1 View X-Ray INDICATIONS: Chest Pain TECHNIQUE: One view of the chest was acquired. COMPARISON: 03/30/2017 and 11/21/2017 FINDINGS: Surgical changes and devices: None. Lungs and pleura: No pleural effusions or pneumothorax. Diffuse interstitial prominence. Mild loss o f vascular distinctness. No focal consolidation. Mediastinum: Mediastinal contours appear stable. Heart size is prominent. Bones and chest wall: No suspicious bony lesions. Overlying soft tissues appear unremarkable. IMPRESSION: Findings compatible with suspected early pulmonary edema/congestive heart failure. Concurrent infecti ous/inflammatory process not excluded if clinically appropriate. No focal consolidations. Reviewed by: Rohan Ernst MD on 01/28/2021 6:19 PM PST Approved by: Rohan Ernst MD on 01/28/2021 6:19 PM PST Station ID: [id number]
[2021-01-28] MEDS ORDERED: METOPROLOL 5 MG/5 ML VIAL IVP STA (18:25)
[2021-01-28 18:38] LABS: BASOPHILS # (AUTO) 0.1 10^3/uL (0.0-0.1); BASOPHILS % (AUTO) 0.7 %; EOSINOPHILS # (AUTO) 0.2 10^3/uL (0.0-0.7); EOSINOPHILS % (AUTO) 2.3 %; HCT - HEMATOCRIT 33.7 % (37.0-47.0); HGB - HEMOGLOBIN 10.7 g/dL (12.0-16.0); LYMPHOCYTES # (AUTO) 1.1 10^3/uL (1.5-3.5); LYMPHOCYTES % (AUTO) 14.8 %; MEAN CORPUSCULAR HEMOGLOBIN 29.2 pg (27.0-31.0); MEAN CORPUSCULAR HGB CONC 31.8 g/dL (32.0-36.0); MEAN CORPUSCULAR VOLUME 91.8 fL (81.0-99.0); MEAN PLATELET VOLUME 10.1 fL (7.9-10.8); MONOCYTES # (AUTO) 0.5 10^3/uL (0.0-1.0); MONOCYTES % (AUTO) 6.5 %; NEUTROPHILS # (AUTO) 5.5 10^3/uL (1.5-6.6); NEUTROPHILS % (AUTO) 74.2 %; PLT - PLATELET COUNT 248 10^3/uL (130-450); RED BLOOD COUNT 3.67 10^6/uL (4.20-5.40); RED CELL DISTRIBUTION WIDTH 13.7 % (12.0-15.0); WHITE BLOOD COUNT 7.4 x10^3/uL (4.8-10.8)
[2021-01-28 19:12] LABS: ALBUMIN 4.4 g/dL (3.2-5.5); ALBUMIN/GLOBULIN RATIO 1.4 (1.0-2.2); ALKALINE PHOSPHATASE 61 IU/L (42-121); ALT ALANINE AMINOTRANSFERASE 25 IU/L (10-60); AST ASPARTATE AMINOTRANSFERASE 26 IU/L (10-42); BILIRUBIN,TOTAL 0.8 mg/dL (0.2-1.0); BUN - BLOOD UREA NITROGEN 15 mg/dL (6-20); CARBON DIOXIDE - CO2 22 mmol/L (21-32); CHLORIDE 94 mmol/L (101-111); DIGOXIN 0.3 ng/mL; GFR - MDRD 54 (>89); GLUCOSE 110 mg/dL (70-100); LIPASE 21 U/L (22-51); POTASSIUM 3.6 mmol/L (3.5-5.0); SODIUM 133 mmol/L (135-145); TOTAL PROTEIN 7.5 g/dL (6.7-8.2)
[2021-01-28] MEDS ORDERED: METOPROLOL SUCCINATE 25 MG TABLET PO STA ×2 (19:50→21:21)
[2021-01-28 21:16] VITALS: BP 144/65
[2021-01-28 22:18] LABS: B. PARAPERTUSSIS- RESP PCR PAN NOT DETECTED; B. PERTUSSIS- RESP PCR PANEL NOT DETECTED; C. PNEUMONIAE- RESP PCR PANEL NOT DETECTED; CORONAVIRUS 229E-RESP PCR NOT DETECTED; CORONAVIRUS HKU1-RESP PCR NOT DETECTED; CORONAVIRUS NL63-RESP PCR NOT DETECTED; CORONAVIRUS OC43-RESP PCR NOT DETECTED; HUMAN METAPNEUMOVIRUS NOT DETECTED; INFLUENZA A- RESP PCR PANEL NOT DETECTED; INFLUENZA B - RESP PCR PANEL NOT DETECTED; M. PNEUMONIAE- RESP PCR PANEL NOT DETECTED; PARAINFLUENZA VIRUS 1 NOT DETECTED; PARAINFLUENZA VIRUS 2 NOT DETECTED; PARAINFLUENZA VIRUS 3 NOT DETECTED; PARAINFLUENZA VIRUS 4 NOT DETECTED; RHINOVIRUS/ENTEROVIRUS NOT DETECTED; RSV- RESP PCR PANEL NOT DETECTED; SARS-CoV-2 -RESP PCR PANEL NOT DETECTED
[2021-01-28] MEDS ORDERED: MAGNESIUM SULFATE 2 GRAM 2 GM/50 ML BAG IV ONE (22:35)
== END 2021-01-28 23:09 | disposition short-term general hospital (02) ==
LOC: EDUNIT# → ED 17:35
DX: I48.92 Unspecified atrial flutter (principal); I47.1 Supraventricular tachycardia; I49.3 Ventricular premature depolarization; R06.02 Shortness of breath; Z20.822 Contact with and (suspected) exposure to COVID-19; E11.9 Type 2 diabetes mellitus without complications; Z79.4 Long term (current) use of insulin
CPT/HCPCS: 36415; 71045; 80053; 80162; 83690; 83880; 84443; 84484; 85025; 85610; 87631; 93005; 96365; 96375; 96376; 99284; 99285; A9270; 0202U

== ENCOUNTER 2021-01-28 23:11 | Outpatient (CLI) | payer MEDICARE, MEDICAID | END 2021-01-28 23:12 | disposition short-term general hospital (02) | LOC: EMS 23:11 | DX: I48.91 Unspecified atrial fibrillation (principal); E11.9 Type 2 diabetes mellitus without complications | CPT/HCPCS: A0425; A0426 ==

== ENCOUNTER 2021-02-04 14:45 | Outpatient (CLI) | payer MEDICARE, MEDICAID ==
--- NOTE | 2021-02-04 16:04 | XRAY Report ---
PROCEDURE: Chest 2 View X-Ray INDICATIONS: DYSPNEA TECHNIQUE: 2 view(s) of the chest. COMPARISON: Chest x-ray 01/28/2021 FINDINGS: Surgical changes and devices: None. Lungs and pleura: No pleural effusions or pneumothorax. Lungs are clear. Lungs are hyperexpanded s uggestive COPD. Mediastinum: Mediastinal contours are normal. Heart size is enlarged. Bones and chest wall: No suspicious bony abnormalities. Soft tissues appear unremarkable. IMPRESSION: No acute pulmonary process. Reviewed by: Dasha Gonzalez MD on 02/04/2021 4:03 PM PDT Approved by: Dasha Gonzalez MD on 02/04/2021 4:03 PM PDT Station ID: [id number]
== END 2021-02-04 14:46 | disposition home or self-care (01) ==
LOC: DI.S 14:45
PROVIDERS: ATTEND Nurse Practitioner Family
DX: R06.09 Other forms of dyspnea (principal)

== ENCOUNTER 2021-02-16 11:45 | Outpatient (CLI) | payer MEDICARE ==
[2021-02-16 15:02] LABS: BASOPHILS # (AUTO) 0.1 10^3/uL (0.0-0.1); BASOPHILS % (AUTO) 0.8 %; EOSINOPHILS # (AUTO) 0.2 10^3/uL (0.0-0.7); EOSINOPHILS % (AUTO) 2.7 %; HCT - HEMATOCRIT 38.3 % (37.0-47.0); HGB - HEMOGLOBIN 11.9 g/dL (12.0-16.0); LYMPHOCYTES # (AUTO) 0.8 10^3/uL (1.5-3.5); LYMPHOCYTES % (AUTO) 10.5 %; MEAN CORPUSCULAR HEMOGLOBIN 28.7 pg (27.0-31.0); MEAN CORPUSCULAR HGB CONC 31.1 g/dL (32.0-36.0); MEAN CORPUSCULAR VOLUME 92.3 fL (81.0-99.0); MEAN PLATELET VOLUME 11.4 fL (7.9-10.8); MONOCYTES # (AUTO) 0.5 10^3/uL (0.0-1.0); MONOCYTES % (AUTO) 6.7 %; NEUTROPHILS # (AUTO) 6.2 10^3/uL (1.5-6.6); NEUTROPHILS % (AUTO) 78.7 %; PLT - PLATELET COUNT 216 10^3/uL (130-450); RED BLOOD COUNT 4.15 10^6/uL (4.20-5.40); RED CELL DISTRIBUTION WIDTH 13.7 % (12.0-15.0); WHITE BLOOD COUNT 7.8 x10^3/uL (4.8-10.8)
[2021-02-16 15:07] LABS: INR 1.5 (0.8-1.2); PT - PROTHROMBIN TIME 16.1 secs (9.9-12.6)
[2021-02-16 15:24] LABS: ALBUMIN 4.6 g/dL (3.2-5.5); ALBUMIN/GLOBULIN RATIO 1.5 (1.0-2.2); ALKALINE PHOSPHATASE 45 IU/L (42-121); ALT ALANINE AMINOTRANSFERASE 16 IU/L (10-60); AST ASPARTATE AMINOTRANSFERASE 17 IU/L (10-42); BILIRUBIN,TOTAL 1.2 mg/dL (0.2-1.0); BUN - BLOOD UREA NITROGEN 16 mg/dL (6-20); CALCIUM 9.7 mg/dL (8.5-10.3); CARBON DIOXIDE - CO2 27 mmol/L (21-32); CHLORIDE 94 mmol/L (101-111); CHOL/HDL RATIO 3.9 (<4.4); CHOLESTEROL 131 mg/dL; GFR - MDRD 53 (>89); GLUCOSE 138 mg/dL (70-100); HDL CHOLESTEROL 34 mg/dL; LDL CHOLESTEROL,CALCULATED 71 mg/dL; LDL/HDL RATIO 2.1 (<4.4); POTASSIUM 3.8 mmol/L (3.5-5.0); SODIUM 132 mmol/L (135-145); TOTAL PROTEIN 7.6 g/dL (6.7-8.2); TRIGLYCERIDES 130 mg/dL; VLDL CHOLESTEROL 26 mg/dL
[2021-02-16 15:31] LABS: MICROALBUM/CREATININE RATIO,UR 101.1 ug/mg (<30.0); MICROALBUMIN,URINE 8.8 mg/dL (0-300.0)
[2021-02-16 15:37] LABS: PARTIAL THROMBOPLASTIN TIME 30.6 secs (24.9-33.3)
[2021-02-16 20:01] LABS: ESTIMATED AVERAGE GLUCOSE 255 mg/dL (70-100); HEMOGLOBIN A1c% 10.5 % (4.27-6.07)
== END 2021-02-16 11:46 | disposition home or self-care (01) ==
LOC: LAB.S 11:45
PROVIDERS: ATTEND Nurse Practitioner Family
DX: E78.5 Hyperlipidemia, unspecified (principal); E11.9 Type 2 diabetes mellitus without complications; Z79.01 Long term (current) use of anticoagulants; R06.09 Other forms of dyspnea
CPT/HCPCS: 36415; 80053; 80061; 82043; 82570; 83036; 83721; 85025; 85379; 85610; 85730

== ENCOUNTER 2021-03-02 15:25 | Outpatient (CLI) | payer MEDICARE | END 2021-03-02 15:26 | disposition short-term general hospital (02) | LOC: EMS 15:25 | DX: I48.92 Unspecified atrial flutter (principal); I48.91 Unspecified atrial fibrillation | CPT/HCPCS: A0425; A0429 ==

== ENCOUNTER 2021-03-23 14:14 | Outpatient (CLI) | payer MEDICARE ==
[2021-03-23 20:22] LABS: DIGOXIN 1.1 ng/mL
== END 2021-03-23 14:15 | disposition home or self-care (01) ==
LOC: LAB.S 14:14
PROVIDERS: ATTEND Nurse Practitioner Family
DX: I48.92 Unspecified atrial flutter (principal); N39.0 Urinary tract infection, site not specified
CPT/HCPCS: 36415; 80162; 87086

== ENCOUNTER 2021-06-08 14:45 | Outpatient (CLI) | payer MEDICARE ==
[2021-06-08 21:21] LABS: ESTIMATED AVERAGE GLUCOSE 203 mg/dL (70-100); HEMOGLOBIN A1c% 8.7 % (4.27-6.07)
== END 2021-06-08 14:46 | disposition home or self-care (01) ==
LOC: LAB.S 14:45
PROVIDERS: ATTEND Nurse Practitioner Family
DX: Z79.01 Long term (current) use of anticoagulants (principal); E11.9 Type 2 diabetes mellitus without complications
CPT/HCPCS: 36415; 36416; 83036; 85610

== ENCOUNTER 2021-12-02 07:19 | Outpatient (CLI) | payer MEDICARE, MEDICAID | END 2021-12-02 23:59 | disposition critical access hospital (66) | LOC: EMS 07:19 | DX: R73.9 Hyperglycemia, unspecified (principal) | CPT/HCPCS: A0425; A0429 ==

== ENCOUNTER 2021-12-02 07:56 | Inpatient (IN) | payer MEDICARE, MEDICAID ==
[2021-12-02] MEDS ORDERED: SODIUM CHLORIDE 0.9% 1,000 ML IV STA ×3 (08:02→10:36)
[2021-12-02 08:26] LABS: BASOPHILS # (AUTO) 0.1 10^3/uL (0.0-0.1); BASOPHILS % (AUTO) 0.2 %; HCT - HEMATOCRIT 42.1 % (37.0-47.0); HGB - HEMOGLOBIN 14.4 g/dL (12.0-16.0); LYMPHOCYTES # (AUTO) 0.4 10^3/uL (1.5-3.5); LYMPHOCYTES % (AUTO) 1.9 %; MEAN CORPUSCULAR HEMOGLOBIN 30.2 pg (27.0-31.0); MEAN CORPUSCULAR HGB CONC 34.2 g/dL (32.0-36.0); MEAN CORPUSCULAR VOLUME 88.3 fL (81.0-99.0); MEAN PLATELET VOLUME 10.8 fL (7.9-10.8); MONOCYTES # (AUTO) 1.8 10^3/uL (0.0-1.0); MONOCYTES % (AUTO) 8.1 %; NEUTROPHILS # (AUTO) 19.6 10^3/uL (1.5-6.6); NEUTROPHILS % (AUTO) 88.5 %; PLT - PLATELET COUNT 306 10^3/uL (130-450); RED BLOOD COUNT 4.77 10^6/uL (4.20-5.40); WHITE BLOOD COUNT 22.1 x10^3/uL (4.8-10.8)
[2021-12-02 08:28] LABS: SLIDE REVIEW? Indicated
[2021-12-02 08:43] LABS: ALBUMIN 4.6 g/dL (3.2-5.5); ALBUMIN/GLOBULIN RATIO 1.1 (1.0-2.2); BILIRUBIN,TOTAL 1.7 mg/dL (0.2-1.0); CALCIUM 9.8 mg/dL (8.5-10.3); CREATININE 2.4 mg/dL (0.4-1.0); POTASSIUM 3.7 mmol/L (3.5-5.0); TOTAL PROTEIN 8.6 g/dL (6.7-8.2)
[2021-12-02 08:58] LABS: PLATELET ESTIMATE, MANUAL NORMAL (130-450,000) (NORMAL); PLATELET MORPHOLOGY NORMAL APPEARANCE (NORMAL); RBC MORPHOLOGY (MULTIPLE) NORMAL APPEARANCE (NORMAL)
[2021-12-02] MEDS ORDERED: lidocaine 1% 20 ML MDV ONE (09:03)
[2021-12-02] MEDS ORDERED: INSULIN REGULAR HUMAN 100 UNIT in SODIUM CHLORIDE 0.9% 100ML 99 ML IV STA (09:29)
[2021-12-02] MEDS ORDERED: HYDROmorphone 0.5 MG/0.5 ML SYRINGE IVP STA (09:43)
[2021-12-02] MEDS ORDERED: ONDANSETRON 4 MG/2 ML VIAL IVP STA (09:48)
[2021-12-02 10:12] LABS: ABG BASE EXCESS -9.4 mmol/L (-2.0-3.0); ABG HCO3 15.6 mmol/L (22.0-26.0); ABG OXYGEN SATURATION 94 % (94-98); ABG PCO2 32 mmHg (34-45); ABG PH 7.31 (7.35-7.45); ABG PO2 83 mmHg (80-100); ABG TCO2 16.6 MMOL/L (21.0-29.0); ALLEN TEST POSITIVE
--- NOTE | 2021-12-02 10:33 | XRAY Report ---
PROCEDURE: Chest 1 View X-Ray INDICATIONS: central line attempt TECHNIQUE: One view of the chest was acquired. COMPARISON: 02/04/2021 FINDINGS: Surgical changes and devices: None. Lungs and pleura: No pleural effusions or pneumothorax. Increased bronchovascular markings in bilate ral hilar region are seen with bronchial wall thickening, suggestive of reactive airway disease. No d efinite focal infiltrate. Mediastinum: Mediastinal contours appear normal. Heart size is normal. Bones and chest wall: No suspicious bony lesions. Overlying soft tissues appear unremarkable. IMPRESSION: No central line is seen on this study. Suggestion of reactive airway disease such as bronchitis or vi ral illness. No definite focal infiltrate. No pleural effusion or pneumothorax. Reviewed by: Shakir Zaragoza MD on 12/02/2021 10:32 AM [facility] Approved by: Shakir Zaragoaz MD on 12/02/2021 10:32 AM [facility] Station ID: [id number]
[2021-12-02 10:59] LABS: BILIRUBIN,URINE NEGATIVE (NEGATIVE); GLUCOSE, URINE (UA) >=1000 mg/dL (NEGATIVE); KETONES,URINE (UA) 40 mg/dL (NEGATIVE); LEUKOCYTE ESTERASE, URINE TRACE (NEGATIVE); NITRITE,URINE NEGATIVE (NEGATIVE); OCCULT BLOOD,URINE MODERATE (NEGATIVE); PH,URINE 5.5 PH (5.0-7.5); PROTEIN,URINE 30 mg/dL (NEGATIVE); UROBILINOGEN,URINE 0.2 (NORMAL) E.U./dL (NORMAL)
[2021-12-02 11:06] LABS: BACTERIA,URINE Many /HPF (None Seen); CLARITY,URINE SL. CLOUDY (CLEAR); SQUAMOUS EPITHELIAL CELL,UR MOD Squamous (<= Few)
[2021-12-02 11:30] LABS: B. PARAPERTUSSIS- RESP PCR PAN NOT DETECTED; B. PERTUSSIS- RESP PCR PANEL NOT DETECTED; C. PNEUMONIAE- RESP PCR PANEL NOT DETECTED; CORONAVIRUS 229E-RESP PCR NOT DETECTED; CORONAVIRUS HKU1-RESP PCR NOT DETECTED; CORONAVIRUS NL63-RESP PCR NOT DETECTED; CORONAVIRUS OC43-RESP PCR NOT DETECTED; HUMAN METAPNEUMOVIRUS NOT DETECTED; INFLUENZA A- RESP PCR PANEL NOT DETECTED; INFLUENZA B - RESP PCR PANEL NOT DETECTED; M. PNEUMONIAE- RESP PCR PANEL NOT DETECTED; PARAINFLUENZA VIRUS 1 NOT DETECTED; PARAINFLUENZA VIRUS 2 NOT DETECTED; PARAINFLUENZA VIRUS 3 NOT DETECTED; PARAINFLUENZA VIRUS 4 NOT DETECTED; RHINOVIRUS/ENTEROVIRUS NOT DETECTED; RSV- RESP PCR PANEL NOT DETECTED; SARS-CoV-2 -RESP PCR PANEL NOT DETECTED
--- NOTE | 2021-12-02 11:40 | ED Physician Documentation ---
History of Present Illness - Stated complaint Stated Complaint: HIGH BS - Chief complaint Chief Complaint: Critical Care - History obtained from History obtained from: Patient - Additonal information Additional information: Patient comes emergency department for chief complaint of altered mental status. Medics report that the patient's roommate said that she has seemed confused and she thinks the patient stopped taking her medications. Patient's grandson, who is a agricultural produce packer, has also stopped by and he also confirms that he heard from his father, who is the patient's son, the patient stopped taking her medications. She also dismissed her caregiver for the past 2 weeks according to the patient's daughter, with whom I spoke by phone. Patient denies complaints. She states she just feels "tired". No chest pain or shortness of breath. No fevers or chills. No nausea or vomiting. The patient is a diabetic. She lives in her own home with a roommate. According to family, they have attempted to get her to go to assisted living for, but she does not want to. Daughter states that the patient is her own guardian, but daughter is POA for medical issues. Daughter states the patient should be a DNR with limited interventions. Review of Systems Ten Systems: 10 systems reviewed and negative Constitutional: reports: Fatigue Eyes: reports: Reviewed and negative Ears: reports: Reviewed and negative Nose: reports: Reviewed and negative Throat: reports: Reviewed and negative Cardiac: reports: Reviewed and negative Respiratory: reports: Reviewed and negative GI: reports: Reviewed and negative : reports: Reviewed and negative Skin: reports: Reviewed and negative Musculoskeletal: reports: Reviewed and negative Neurologic: reports: Confused, Altered mental status Psychiatric: reports: Reviewed and negative Endocrine: reports: Reviewed and negative Immunocompromised: reports: Reviewed and negative PD PAST MEDICAL HISTORY - Past Medical History Past Medical History: Yes Cardiovascular: Atrial fibrillation Respiratory: None Neuro: CVA Endocrine/Autoimmune: Type 2 diabetes GI: None : None HEENT: Chronic vision loss Psych: Depression Musculoskeletal: None Derm: None - Past Surgical History Past Surgical History: No General:  HEENT: Cataracts - Present Medications Home Medications: Ambulatory Orders Medication Instructions Recorded Confirmed Gabapentin 100 mg PO QPM 09/25/16 12/02/21 Simvastatin 40 mg PO QPM 09/25/16 12/02/21 Citalopram [CeleXA] 20 mg PO DAILY 11/21/17 12/02/21 Spironolactone 12.5 mg PO DAILY 11/21/17 12/02/21 Insulin Glargine [Lantus Solostar] 28 units SUBQ QPM 11/22/17 12/02/21 Digoxin [Lanoxin] 0.125 mg PO DAILY 03/06/19 12/02/21 Levothyroxine Sodium 50 mcg PO DAILY 12/02/21 12/02/21 [Levothyroxine] Losartan Potassium 25 mg PO DAILY 12/02/21 12/02/21 Rivaroxaban [Xarelto] 15 mg PO QDDINNER 12/02/21 12/02/21 Insulin Lispro 3 unit SUBQ TIDWM #10 ml 12/07/21 Metoprolol Succinate [Toprol Xl] 50 mg PO BID #60 tablet 12/07/21 Pantoprazole [Protonix] 40 mg PO DAILY #30 tablet 12/07/21 Potassium Chloride [K-Dur] 20 meq PO DAILYWM #30 tablet 12/07/21 - Allergies Allergies/Adverse Reactions: Allergies Allergy/AdvReac Type Severity Reaction Status Date / Time No Known Drug Allergies Allergy Verified 12/02/21 09:28 - Social History Does the pt smoke?: No Smoking Status: Never smoker Does the pt drink ETOH?: Yes Does the pt have substance abuse?: Yes - Immunizations Immunizations are current?: Yes - POLST Patient has POLST: No POLST Status: Full Code PD ED PE NORMAL - Vitals Vital signs reviewed: Yes - General General: No acute distress (The patient is confused and somewhat slowed in her responses but is awake and answering questions. No obvious distress.), Well dev eloped/nourished, Other - HEENT HEENT: Atraumatic, PERRL, EOMI, Moist mucous membranes - Neck Neck: Supple, no meningeal sign - Cardiac Cardiac: RRR, No murmur, Strong equal pulses - Respiratory Respiratory: No respiratory distress, Clear bilaterally - Abdomen Abdomen: Soft, Non tender, Non distended - Derm Derm: Normal color, Warm and dry, No rash - Extremities Extremities: No deformity, No edema, No calf tenderness / cord - Neuro Neuro: service cleaner 2-12 intact, Other (TurningPatient's responses are mildly slowed but speech is clear. She and knows that she is at the hospital, but does not know the date. No focal deficits.) - Psych Psych: Normal mood, Normal affect Results - Vitals Vitals: Oxygen O2 Source [With Activity] Room air O2 Source Room air - EKG (time done) 0933 Rate: Rate (enter#) (139) Rhythm: Atrial fibrillation [place]: RAD QRS: LVH Ischemia: Normal ST segments Compare to prior EKG: Old EKG unavailable Computer interpretation: Agree with computer - Labs Labs: Laboratory Tests 12/02/21 12/02/21 12/02/21 08:19 08:19 08:19 WBC 22.1 H RBC 4.77 Hgb 14.4 Hct 42.1 MCV 88.3 MCH 30.2 MCHC 34.2 RDW 13.0 Plt Count 306 MPV 10.8 Neut # (Auto) 19.6 H Lymph # (Auto) 0.4 L [place] # (Auto) 1.8 H Eos # (Auto) 0.0 Baso # (Auto) 0.1 Absolute Nucleated RBC 0.00 Nucleated RBC % 0.0 Manual Slide Review Indicated WBC Morphology Platelet Estimate NORMAL (130-450,000) Platelet Morphology NORMAL APPEARANCE RBC Morph Micro Appear NORMAL APPEARANCE Bld Gas Analysis Time Sample Site ABG pH ABG pCO2 ABG pO2 ABG HCO3 ABG Total CO2 ABG O2 Saturation ABG Base Excess Rai Test Room Air Sodium 123 L Potassium 3.7 Chloride 78 L* Carbon Dioxide 17 L Anion Gap 28.0 H BUN 75 H Creatinine 2.4 H Estimated GFR (MDRD) 19 L Glucose 929 H* Estimat Average Glucose Hemoglobin A1c % Calcium 9.8 Total Bilirubin 1.7 H AST 24 ALT 22 Alkaline Phosphatase 65 Total Protein 8.6 H Albumin 4.6 Globulin 4.0 Albumin/Globulin Ratio 1.1 Lipase 22 Urine Color Urine Clarity Urine pH Ur Specific [place] Urine Protein Urine Glucose (UA) Urine Ketones Urine Occult Blood Urine Nitrite Urine Bilirubin Urine Urobilinogen Ur Leukocyte Esterase Urine RBC Urine WBC Ur Squamous Epith Cells Urine Bacteria Urine Culture Comments Nasal Adenovirus (PCR) Nasal B. parapertussis DNA (PCR) Nasal Coronavir 229E PCR Nasal Coronavir HKU1 PCR Nasal Coronavir NL63 PCR Nasal Coronavir OC43 PCR Nasal Enterovir/Rhinovir PCR Nasal Influenza B PCR Nasal Influenza A PCR Nasal Parainfluen 1 PCR Nasal Parainfluen 2 PCR Nasal Parainfluen 3 PCR Nasal Parainfluen 4 PCR Nasal RSV (PCR) Nasal B.pertussis DNA PCR Nasal C.pneumoniae (PCR) Gamal Human Metapneumo PCR Nasal M.pneumoniae (PCR) Nasal SARS-CoV-2 (PCR) Serum Ketones MODERATE H 12/02/21 12/02/21 12/02/21 08:19 10:05 10:30 WBC RBC Hgb Hct MCV MCH MCHC RDW Plt Count MPV Neut # (Auto) Lymph # (Auto) [place] # (Auto) Eos # (Auto) Baso # (Auto) Absolute Nucleated RBC Nucleated RBC % Manual Slide Review WBC Morphology Platelet Estimate Platelet Morphology RBC Morph Micro Appear Bld Gas Analysis Time 1005 Sample Site RIGHT BRACHIAL ABG pH 7.31 L ABG pCO2 32 L ABG pO2 83 ABG HCO3 15.6 L ABG Total CO2 16.6 L ABG O2 Saturation 94 ABG Base Excess -9.4 L Rai Test POSITIVE Room Air YES Sodium Potassium Chloride Carbon Dioxide Anion Gap BUN Creatinine Estimated GFR (MDRD) Glucose Estimat Average Glucose 295 H Hemoglobin A1c % 11.9 H Calcium Total Bilirubin AST ALT Alkaline Phosphatase Total Protein Albumin Globulin Albumin/Globulin Ratio Lipase Urine Color Urine Clarity Urine pH Ur Specific [place] Urine Protein Urine Glucose (UA) Urine Ketones Urine Occult Blood Urine Nitrite Urine Bilirubin Urine Urobilinogen Ur Leukocyte Esterase Urine RBC Urine WBC Ur Squamous Epith Cells Urine Bacteria Urine Culture Comments Nasal Adenovirus (PCR) NOT DETECTED Nasal B. parapertussis DNA (PCR) NOT DETECTED Nasal Coronavir 229E PCR NOT DETECTED Nasal Coronavir HKU1 PCR NOT DETECTED Nasal Coronavir NL63 PCR NOT DETECTED Nasal Coronavir OC43 PCR NOT DETECTED Nasal Enterovir/Rhinovir PCR NOT DETECTED Nasal Influenza B PCR NOT DETECTED Nasal Influenza A PCR NOT DETECTED Nasal Parainfluen 1 PCR NOT DETECTED Nasal Parainfluen 2 PCR NOT DETECTED Nasal Parainfluen 3 PCR NOT DETECTED Nasal Parainfluen 4 PCR NOT DETECTED Nasal RSV (PCR) NOT DETECTED Nasal B.pertussis DNA PCR NOT DETECTED Nasal C.pneumoniae (PCR) NOT DETECTED Gamal Human Metapneumo PCR NOT DETECTED Nasal M.pneumoniae (PCR) NOT DETECTED Nasal SARS-CoV-2 (PCR) NOT DETECTED Serum Ketones 12/02/21 10:30 WBC RBC Hgb Hct MCV MCH MCHC RDW Plt Count MPV Neut # (Auto) Lymph # (Auto) [place] # (Auto) Eos # (Auto) Baso # (Auto) Absolute Nucleated RBC Nucleated RBC % Manual Slide Review WBC Morphology Platelet Estimate Platelet Morphology RBC Morph Micro Appear Bld Gas Analysis Time Sample Site ABG pH ABG pCO2 ABG pO2 ABG HCO3 ABG Total CO2 ABG O2 Saturation ABG Base Excess Rai Test Room Air Sodium Potassium Chloride Carbon Dioxide Anion Gap BUN Creatinine Estimated GFR (MDRD) Glucose Estimat Average Glucose Hemoglobin A1c % Calcium Total Bilirubin AST ALT Alkaline Phosphatase Total Protein Albumin Globulin Albumin/Globulin Ratio Lipase Urine Color YELLOW Urine Clarity SL. CLOUDY Urine pH 5.5 Ur Specific [place] 1.020 Urine Protein 30 H Urine Glucose (UA) >=1000 H Urine Ketones 40 H Urine Occult Blood MODERATE H Urine Nitrite NEGATIVE Urine Bilirubin NEGATIVE Urine Urobilinogen 0.2 (NORMAL) Ur Leukocyte Esterase TRACE H Urine RBC 6-10 H Urine WBC 11-25 H Ur Squamous Epith Cells MOD Squamous H Urine Bacteria Many H Urine Culture Comments NOT INDICATED Nasal Adenovirus (PCR) Nasal B. parapertussis DNA (PCR) Nasal Coronavir 229E PCR Nasal Coronavir HKU1 PCR Nasal Coronavir NL63 PCR Nasal Coronavir OC43 PCR Nasal Enterovir/Rhinovir PCR Nasal Influenza B PCR Nasal Influenza A PCR Nasal Parainfluen 1 PCR Nasal Parainfluen 2 PCR Nasal Parainfluen 3 PCR Nasal Parainfluen 4 PCR Nasal RSV (PCR) Nasal B.pertussis DNA PCR Nasal C.pneumoniae (PCR) Gamal Human Metapneumo PCR Nasal M.pneumoniae (PCR) Nasal SARS-CoV-2 (PCR) Serum Ketones - Rads (name of study) CXR Radiology: Final report received, EMP read indepedently, See rad report (neg) Procedures - Central Line Central Line Preparation: Unable to obtain consent, Sterile prep and drape Central line location: Right Femoral Central line type: Triple lumen Central line aftercare: Chlorhexidine disc placed, Secured, No pneumothorax, No complications, Pt tolerated well, Other (Attempted right subclavian and intrajugular lines; however, due to patient's extreme state of dehydration, was unable to cannulate either the subclavian or internal jugular vein. Patient needed access, and so I did instead cannulate the right femoral vein without difficulty.) PD MEDICAL DECISION MAKING - ED course Complexity details: reviewed old records, reviewed results, re-evaluated patient, considered differential, d/w patient, d/w sales support consultant ED course: The patient was tachycardic, and in atrial fibrillation, but I did not immediately treat the tachycardia as A. fib with RVR, due to the fact that I suspected that the patient was extremely dehydrated, and that the tachycardia was in part related to this. The patient was obviously extremely dehydrated, and had absolutely no peripheral access able to be obtained by nursing staff. As such, I did place a triple-lumen catheter. The patient was immediately started on IV fluid boluses and was given a total of 3 L in the emergency department. The patient was worked up with laboratory studies, which showed a blood sugar of over 900. Her potassium was normal at 3.7. Creatinine was 2.4. Urinalysis did not show clear evidence of infection. White blood cell count was 22,000. CXR was negative. ABG showed a pH of 7.31. Serum ketones were found t o be moderate. The patient was immediately started on an insulin drip. The patient did become nauseated throughout her stay in the emergency department and was treated with Zofran for this. Ultimately, even in spite of aggressive fluid hydration, the patient remained tachycardic, and treatment with Cardizem was initiated. EKG showed A. fib with RVR without signs of acute ischemia. I spoke with the hospitalist on-call, who did agree to admit the patient to the ICU. - Critical Care Time(min): 45 Comments: Critical care time was necessary, due to high probability of imminent decline and , due to severe hyperglycemia with altered mental status, diabetic ketoacidosis, severe dehydration and atrial fibrillation with RVR. Time Includes: Direct patient care, Review records, Reassess patient, Document care, Coordinate care, Medical consult, Family consult for tx dec, See progress note Data interpretation: Labs, Pulse ox, ABG, CXR, Cardiac output, See progress note Procedures included in critical care time: Blood draw, See progress note Procedures excluded from critical care time: Central IV, See progress note Departure - Departure Disposition: 66 [facility] DC/Xfer Clinical Impression: Atrial fibrillation with RVR, Dehydration DKA (diabetic ketoacidosis) Qualifiers: Diabetes mellitus type: type 1 Diabetes mellitus complication detail: without coma Qualified Code(s): E10.10 - Type 1 diabetes mellitus with ketoacidosis wit hout coma Altered mental status Qualifiers: Altered mental status type: delirium Qualified Code(s): R41.0 - Disorientation, unspecified Condition: Stable Discharge Date/Time: 12/02/21 14:00
--- NOTE | 2021-12-02 12:04 | HISTORY & PHYSICAL EXAMINATION ---
Chief Complaint - Chief Complaint Chief Complaint: not feeling well, confused History of Present Illness - Admitted From Admitted From:: [facility] ED - History Obtained From Records Reviewed: yes History obtained from: patient and ED physician Exam Limitations: poor historian - History of Present Illness HPI Comment/Other: The history below is limited because the patient is a poor historian. She reports that she was brought to the hospital because she has not been feeling well for the past week however it was reported by the ED physician that she was brought in with increased confusion and fatigue. She was brought into the ED by her roommate. It is reported that she has not been taking her medications for the past 3 days. When asked why she states is because she "smokes alot of pot" and she did not want to be caught. Work-up in the ED included a BMP which showed a glucose level of 929, anion gap 28, creatinine 2.4. She was in A. fib with RVR with heart rate as high as 149. She also had a white blood cell count of 22. As a result of this finding she was presented for admission for further treatment. At bedside she is very reluctant to answer questions asked. She denies chest pain, dyspnea, abdominal pain, nausea, vomiting, fever or chills. History - Past Medical History Cardiovascular: reports: Atrial fibrillation Respiratory: reports: None Neuro: reports: CVA Endocrine/Autoimmune: reports: Type 2 diabetes GI: reports: None : reports: None HEENT: reports: Chronic vision loss Psych: reports: Depression Musculoskeletal: reports: None Derm: reports: None MRSA Hx?: No - Past Surgical History General: reports: Appendectomy HEENT: reports: Cataracts - Family & Social History Family History Comment/Other: Mother , Alzheimer's disease, coronary disease, hypertension, hyperlipidemia, Macular degeneration and multiple episodes of skin cancer. Father . Father from complications of multiple sclerosis. Brother , diabetes type 1, renal disease/failure. Social History Notes: Lives at home with a friend/roommate. She has been using marijuana for 40+ years. - Substance History Use: Uses substance without health or social issues: Other (Marijuana user for 40+ years) - POLST Patient has POLST: No POLST Status: Full Code Meds/Allgy - Home Medications Home Medications: Ambulatory Orders Medication Instructions Recorded Confirmed Gabapentin 100 mg PO QPM 09/25/16 12/02/21 Simvastatin 40 mg PO QPM 09/25/16 12/02/21 Chlorthalidone 25 mg PO DAILY 03/19/17 12/02/21 Citalopram [CeleXA] 20 mg PO DAILY 11/21/17 12/02/21 Spironolactone 12.5 mg PO DAILY 11/21/17 12/02/21 metFORMIN [Glucophage] 1,000 mg PO BID 11/21/17 12/02/21 Insulin Glargine [Lantus Solostar] 28 units SUBQ QPM 11/22/17 12/02/21 Metoprolol Succinate 25 mg PO BID 11/22/17 12/02/21 diltiaZEM [Cardizem] 60 mg PO DAILY #30 tablet 11/25/17 12/02/21 Digoxin [Lanoxin] 0.125 mg PO DAILY 03/06/19 12/02/21 Levothyroxine Sodium 50 mcg PO DAILY 12/02/21 12/02/21 [Levothyroxine] Losartan Potassium 25 mg PO DAILY 12/02/21 12/02/21 Rivaroxaban [Xarelto] 15 mg PO QDDINNER 12/02/21 12/02/21 - Allergies Allergies/Adverse Reactions: Allergies Allergy/AdvReac Type Severity Reaction Status Date / Time No Known Drug Allergies Allergy Verified 12/02/21 09:28 Review of Systems - Constitutional Constitutional: denies: Fatigue, Fever, Chills - Eyes Eyes: denies: Pain, Dipolpia - Ears, Nose & Throat Ears, Nose & Throat: denies: Sore throat - Cardiovascular Cariovascular: reports: Irregular heart rate. denies: Palpitations, Chest pain, Edema, Lightheadedness, Syncope - Respiratory Respiratory: denies: Cough, Sputum production, Wheezing, SOB at rest, SOB with exertion - Gastrointestinal Gastrointestinal: denies: Abdominal pain, Abdominal distention, Nausea, Vomiting - Genitourinary Genitourinary: denies: Dysuria, Frequency, Urgency, Hematuria - Musculoskeletal Musculoskeletal: denies: Muscle pain, Back pain, Muscle aches - Integumentary Integumentary: reports: Other (scab on right side of nose). denies: Rash, Pruritis - Neurological Neurological: denies: General weakness, Focal weakness, Headache, Dizziness - Psychiatric Psychiatric: denies: Depression, Anxiety, Suicidal - Endocrine Endocrine: denies: Polyuria, Polydypsia - Hematologic/Lymphatic Hematologic/Lymphatic: denies: Anemia, Bruising, Petechiae Prior Level of Functionality: She lives with a roommate. She has been encouraged to move into an assisted living facility by her children but she keeps declining. Exam - Vital Signs Vital Signs: Vital Signs x48h Temp Pulse Resp BP Pulse Ox 12/02/21 10:39 144 H 18 156/92 H 100 12/02/21 09:41 36.7 C 149 H 19 140/72 H 100 12/02/21 08:47 36.5 C 149 H 22 130/100 H 97 - Physical Exam General Appearance: positive: No acute distress, Alert Eyes Bilateral: positive: PERRL, EOMI ENT: positive: Dry mucous membranes, Other (scab on right side of nose) Neck: positive: No JVD, Trachea midline Respiratory: positive: Chest non-tender, No respiratory distress, Breath sounds nml. negative: Wheezes, Rales, Rhonchi Cardiovascular: positive: Irregularly irregular, Tachycardia Abdomen: positive: Non-tender, No organomegaly, Nml bowel sounds, No distention. negative: Guarding, Rebound Back: positive: Nml inspection Skin: positive: Color nml, No rash, Warm, Dry Extremities: positive: Non-tender, Full ROM, Nml appearance, No pedal edema Neurologic/Psychiatric: positive: Oriented x3, Mood/affect nml Conclusion/Plan - Problem List (1) DKA (diabetic ketoacidosis) Conclusion/Plan: Patient's Blood glucose was 929. Anion gap 28. Patient had moderate ketones in serum. Patient was started on an insulin drip per DKA protocol and admitted to the ICU. Will check hemoglobin A1c When patient's anion gap closes and serum ketones are small or resolved we will resume patient's Lantus 28 units subcu every afternoon. Will order sliding scale insulin and Accu-Cheks as well. Will continue to hold patient's metformin while she is in the hospital. Hemoglobin A1c pending. Qualifiers: Diabetes mellitus type: type 1 Diabetes mellitus complication detail: without coma Qualified Code(s): E10.10 - Type 1 diabetes mellitus with ketoacidosis without coma (2) Atrial fibrillation with RVR Conclusion/Plan: Patient has not been taking her medications for the past 3 days. Heart rate has been as high as the 150s. Checking TSH level. She was given a dose of diltiazem 25 mg IV x1 in the ED. Diltiazem 30 mg p.o. every 6 hours ordered. Will also resume patient's metoprolol succinate 25 mg p.o. twice daily. Digoxin 125 mcg daily. She also takes diltiazem 60 mg tablet daily. Patient is on Xarelto 15 mg daily at home. Will order Eliquis while the patient is in the hospital here. (3) BOO (acute kidney injury) Conclusion/Plan: Likely prerenal from dehydration. Creatinine was 2.4 at admission with BUN 75 and estimated GFR 19. With IV hydration over 6 hrs creatinine has improved to 1.8 with estimated GFR of 27 (4) Leukocytosis Conclusion/Plan: White blood cell count was 22.1. Reactive versus infectious. Urinalysis suggestive of a UTI. Urine culture pending We will treat empirically with Rocephin 1g daily and de-escalate accordingly (5) Hypertension Conclusion/Plan: Chlorthalidone, losartan and spironolactone currently on hold due to BOO. Patient is on metoprolol succinate and diltiazem. (6) Hyperlipidemia Conclusion/Plan: On simvastatin 40 mg p.o. every afternoon at home. Will order equivalent in atorvastatin while in the hospital. (7) Hypothyroidism Conclusion/Plan: On Synthroid 50 mcg p.o. daily. Will check TSH. (8) Depression Conclusion/Plan: On citalopram 20 mg p.o. daily (9) CHF (congestive heart failure) Conclusion/Plan: Not in exacerbation. On metoprolol 25 mg p.o. twice daily. Spironolactone 12.5 mg p.o. daily is currently on hold. Also holding losartan 25 mg p.o. daily. Will resume the above when renal function improves. - Lab Results Fish Bones: 12/04/21 04:50 12/04/21 04:50 Core Measures - Anticipated LOS I expect patient to be DC'd or transferred within 96 hours.: Yes - DVT/VTE - Prophylaxis VTE/DVT Device ordered at admit?: Yes
[2021-12-02] MEDS ORDERED: diltiaZEM INJ 5 MG/ML VIAL IVP STA (12:16)
[2021-12-02 12:33] LABS: VBG BASE EXCESS -7.7 mmol/L (-2 - +2); VBG HCO3 17.9 mmol/L (23-28); VBG PCO2 36.9 mmHg (41-51); VBG PH 7.303 (7.31-7.41); VBG PO2 42.9 mmHg (25-47)
[2021-12-02 12:34] LABS: VBG OXYGEN SATURATION 73.8 % (60-80)
[2021-12-02 12:40] LABS: KETONES, SERUM (ACETEST) MODERATE (NEGATIVE)
[2021-12-02] MEDS: SODIUM CHLORIDE 0.9% 1,000 ML IV SCH ×2 (12:42→21:02)
[2021-12-02 12:48] LABS: BUN - BLOOD UREA NITROGEN 66 mg/dL (6-20); CARBON DIOXIDE - CO2 18 mmol/L (21-32); CHLORIDE 91 mmol/L (101-111); GFR - MDRD 24 (>89); POTASSIUM 3.1 mmol/L (3.5-5.0); SODIUM 130 mmol/L (135-145)
[2021-12-02 12:49] LABS: GLUCOSE 543 mg/dL (70-100)
--- NOTE | 2021-12-02 13:47 | PHARMACY PROGRESS NOTE ---
- Best Possible Medication History Admit Date and Time: 12/02/21 1154 Processed by: Pharmacy Medication History completed: Yes Patient Interview: Pt unable to participate Secondary Source(s): Other family member (J[facility] GRACE FROM [facility] CONFIRMED MOST RECENT DOSES.), Physician records, Insurance records As the person ultimately responsible for medication therapy, providers are able to order a medication from an existing home medication list in [facility] via the "Reconcile Routine" prior to Confirmation of that medication by system support developer. Such practice is discouraged except when the physician, in their clinical judgment, deems that a medical need exists for a medication without regard to previous use.
[2021-12-02] MEDS: INSULIN REGULAR HUMAN 100 UNIT in SODIUM CHLORIDE 0.9% 100ML 99 ML IV SCH (14:00)
[2021-12-02 14:20] LABS: BUN - BLOOD UREA NITROGEN 61 mg/dL (6-20); CALCIUM 8.7 mg/dL (8.5-10.3); CARBON DIOXIDE - CO2 21 mmol/L (21-32); CHLORIDE 97 mmol/L (101-111); CREATININE 1.8 mg/dL (0.4-1.0); GFR - MDRD 27 (>89); GLUCOSE 309 mg/dL (70-100); MAGNESIUM 1.8 mg/dL (1.7-2.8); POTASSIUM 2.8 mmol/L (3.5-5.0); SODIUM 134 mmol/L (135-145)
[2021-12-02 14:28] LABS: GLUCOSE, URINE (UA) NEGATIVE (NEGATIVE); KETONES,URINE (UA) 15 mg/dL (NEGATIVE); LEUKOCYTE ESTERASE, URINE SMALL (NEGATIVE); NITRITE,URINE NEGATIVE (NEGATIVE); OCCULT BLOOD,URINE MODERATE (NEGATIVE); PROTEIN,URINE 100 mg/dL (NEGATIVE); UROBILINOGEN,URINE 0.2 (NORMAL) E.U./dL (NORMAL)
[2021-12-02 14:29] LABS: CLARITY,URINE SL. CLOUDY (CLEAR)
[2021-12-02 14:32] LABS: BILIRUBIN,URINE NEGATIVE (NEGATIVE); ICTOTEST,URINE NEGATIVE
[2021-12-02 14:36] LABS: BACTERIA,URINE Few /HPF (None Seen); RBC,URINE 0-5 /HPF (0-5); SQUAMOUS EPITHELIAL CELL,UR NONE SEEN (<= Few); WBC CLUMPS,URINE PRESENT; WBC,URINE >25 /HPF (0-5)
[2021-12-02] MEDS ORDERED: METOPROLOL TARTRATE 50 MG TABLET PO STA (15:17)
[2021-12-02] MEDS: POTASSIUM CHLOR 20 MEQ/100 ML 20 MEQ/100 ML BAG IV SCH ×5 (15:40→23:53)
[2021-12-02 15:46] LABS: KETONES, SERUM (ACETEST) SMALL (NEGATIVE)
[2021-12-02 16:11] LABS: GLUCOSE 216 mg/dL (70-100)
[2021-12-02] MEDS ORDERED: RIVAROXABAN 15 MG TABLET PO SCH (17:00)
[2021-12-02] MEDS: SODIUM CHLORIDE FLUSH 0.9% 10 ML SYRINGE IVP SCH ×2 (17:00→22:27)
[2021-12-02 17:05] LABS: KETONES, SERUM (ACETEST) SMALL (NEGATIVE)
[2021-12-02] MEDS: SODIUM CHLORIDE FLUSH 0.9% 10 ML SYRINGE IVP PRN ×3 (17:11→22:27)
[2021-12-02 17:24] LABS: GLUCOSE 218 mg/dL (70-100)
[2021-12-02] MEDS: diltiaZEM 30 MG TABLET PO SCH ×2 (17:34→23:36)
[2021-12-02 17:38] LABS: KETONES, SERUM (ACETEST) SMALL (NEGATIVE)
[2021-12-02] MEDS: cefTRIAXone 1 GM in SODIUM CHLORIDE 0.9% MINIBAG 100 ML IV SCH (18:35)
[2021-12-02] MEDS: GABAPENTIN 100 MG CAPSULE PO SCH (20:36)
[2021-12-02] MEDS: ATORVASTATIN 10 MG TABLET PO SCH (20:36)
[2021-12-02] MEDS: METOPROLOL SUCCINATE 25 MG TABLET PO SCH (20:37)
[2021-12-02] MEDS: D5.45NS W/20 MEQ KCL 1,000 ML IV SCH ×3 (20:38→23:07)
[2021-12-02 20:51] LABS: CALCIUM 8.2 mg/dL (8.5-10.3); CREATININE 1.4 mg/dL (0.4-1.0); POTASSIUM 3.6 mmol/L (3.5-5.0)
[2021-12-02] MEDS ORDERED: POTASSIUM CHLOR 10 MEQ/100 ML 10 MEQ/100 ML BAG IV ONE (21:06)
[2021-12-02 22:39] LABS: KETONES, SERUM (ACETEST) SMALL (NEGATIVE)
[2021-12-02 22:50] LABS: MAGNESIUM 1.7 mg/dL (1.7-2.8); PHOSPHORUS 2.3 mg/dL (2.5-4.6)
[2021-12-02] MEDS ORDERED: MAGNESIUM SULFATE 2 GRAM 2 GM/50 ML BAG IV ONE (23:13)
[2021-12-02] MEDS: NEUTRA-PHOS 250 MG TABLET PO SCH (23:37)
[2021-12-03] MEDS: INSULIN REGULAR HUMAN 100 UNIT in SODIUM CHLORIDE 0.9% 100ML 99 ML IV SCH (00:31)
[2021-12-03] MEDS: SODIUM CHLORIDE FLUSH 0.9% 10 ML SYRINGE IVP PRN ×7 (01:09→21:02)
[2021-12-03] MEDS ORDERED: POTASSIUM CHLOR 20 MEQ/100 ML 20 MEQ/100 ML BAG IV ONE (01:28)
[2021-12-03] MEDS: NEUTRA-PHOS 250 MG TABLET PO SCH (01:57)
[2021-12-03 04:23] LABS: CALCIUM, IONIZED 1.12 mmol/L (1.15-1.33); VBG PH 7.385 (7.31-7.41)
[2021-12-03 04:32] LABS: KETONES, SERUM (ACETEST) SMALL (NEGATIVE); MAGNESIUM 2.3 mg/dL (1.7-2.8)
[2021-12-03 05:52] LABS: CALCIUM 8.2 mg/dL (8.5-10.3); CREATININE 1.2 mg/dL (0.4-1.0); POTASSIUM 4.5 mmol/L (3.5-5.0)
[2021-12-03] MEDS: diltiaZEM 30 MG TABLET PO SCH (06:18)
[2021-12-03] MEDS: LEVOTHYROXINE 25 MCG TABLET PO SCH (06:18)
[2021-12-03] MEDS: PANTOPRAZOLE 40 MG TABLET PO SCH (06:18)
[2021-12-03] MEDS: NITROGLYCERIN SL 0.4 MG TABLET SL PRN ×3 (06:42→07:04)
[2021-12-03] MEDS: D5.45NS W/20 MEQ KCL 1,000 ML IV SCH ×2 (07:47→15:34)
[2021-12-03] MEDS ORDERED: ASPIRIN 325 MG TABLET PO STA (07:48)
--- NOTE | 2021-12-03 07:55 | PROVIDER PROGRESS NOTE ---
Assessment/Plan - Problem List (1) DKA (diabetic ketoacidosis) Qualifiers: Diabetes mellitus type: type 1 Diabetes mellitus complication detail: without coma Qualified Code(s): E10.10 - Type 1 diabetes mellitus with ketoacidosis without coma Assessment/Plan: Currently on insulin drip. Hemoglobin A1c was 11.9 On D5 plus half normal saline +20 mEq of potassium at 125 mL/h Anion gap closed. Blood glucose around 160 with small ketones. Plan to discontinue insulin drip later in the afternoon. At that point I will resume Lantus 28 units every afternoon. Will order sliding scale insulin and Accu-Cheks. (2) Atrial fibrillation with RVR Assessment/Plan: Rate controlled. On metoprolol succinate 25 mg p.o. twice daily. Digoxin 125 mcg p.o. daily. Diltiazem 60 mg p.o. daily. Continue Xarelto 15 mg p.o. every afternoon. (3) BOO (acute kidney injury) Assessment/Plan: Improved. This was likely related to dehydration. Creatinine improved from 2.4 yesterday down to 1.2 today. BUN 45 estimated GFR 43 (4) Leukocytosis Assessment/Plan: Improved. White blood cell count today is 11.2. Yesterday it was 22.1. On Rocephin empirically for suspected UTI. Urine culture no growth to date (5) Hypertension Assessment/Plan: Chlorthalidone, losartan and spironolactone currently on hold due to BOO. Patient is on metoprolol succinate and diltiazem. (6) Hyperlipidemia Assessment/Plan: On simvastatin 40 mg p.o. every afternoon at home. Will order equivalent in atorvastatin while in the hospital. (7) Hypothyroidism Assessment/Plan: On Synthroid 50 mcg p.o. daily. TSH normal. (8) Depression Assessment/Plan: On citalopram 20 mg p.o. daily (9) CHF (congestive heart failure) Assessment/Plan: On metoprolol 25 mg p.o. twice daily. Spironolactone 12.5 mg p.o. daily is currently on hold. Also holding losartan 25 mg p.o. daily. Will resume the above when renal function improves. - Current Meds Current Meds: Current Medications Generic Name Dose Route Start Last Admin Trade Name Freq PRN Reason Stop Dose Admin Atorvastatin Calcium 20 mg 12/02/21 21:00 12/02/21 20:36 Atorvastatin 10 Mg Tablet PO 20 mg QPM CHRIS Administration Diltiazem HCl 30 mg 12/02/21 17:30 12/03/21 06:18 Diltiazem 30 Mg Tablet PO 12/03/21 11:31 30 mg Q6H CHRIS Administration Gabapentin 100 mg 12/02/21 21:00 12/02/21 20:36 Gabapentin 100 Mg Capsule PO 100 mg QPM CHRIS Administration Insulin Human Regular 100 unit 100 mls @ 6.35 mls/hr 12/02/21 14:00 12/03/21 07:50 / Sodium Chloride IV 4.5 unit/hr .[id number] CHRIS 4.5 mls/hr Titration Protocol 6.35 UNIT/HR Potassium Chloride/Dextrose/Sod Cl 1,000 mls @ 125 mls/hr 12/02/21 13:00 12/03/21 07:47 D5.45ns W/20 Meq Kcl IV 125 mls/hr .Q8H CHRIS Administration Ceftriaxone Sodium 1 gm/ 100 mls @ 200 mls/hr 12/02/21 17:40 12/02/21 19:05 Sodium Chloride IV Infused DAILY CHRIS Infusion Levothyroxine Sodium 50 mcg 12/03/21 07:00 12/03/21 06:18 Levothyroxine 25 Mcg Tablet PO 50 mcg QDAC CHRIS Administration Metoprolol Succinate 25 mg 12/02/21 21:00 12/02/21 20:37 Metoprolol Succinate 25 Mg Tablet PO 25 mg BID CHRIS Administration Nitroglycerin 0.4 mg 12/03/21 06:38 12/03/21 07:04 Nitroglycerin Sl 0.4 Mg Tablet SL 0.4 mg Q5MIN PRN Administration Chest Pain Pantoprazole Sodium 40 mg 12/03/21 07:00 12/03/21 06:18 Pantoprazole 40 Mg Tablet PO 40 mg QDAC CHRIS Administration Sodium Chloride 10 ml 12/02/21 17:00 12/02/21 22:27 Sodium Chloride Flush 0.9% 10 Ml Syringe IVP 10 ml 0100,0900,1700 CHRIS Administration Sodium Chloride 10 ml 12/02/21 11:54 12/02/21 22:27 Sodium Chloride Flush 0.9% 10 Ml Syringe IVP 10 ml PRN PRN Administration NEEDED PER PROVIDER ORDERS Sodium Chloride 20 ml 12/03/21 00:22 12/03/21 06:24 Sodium Chloride Flush 0.9% 10 Ml Syringe IVP 20 ml PRN PRN Administration After Blood Draw - Lab Result Fish Bone Diagrams: 12/03/21 08:54 12/03/21 04:15 - Additional Planning My Orders: My Active Orders 12/02/21 11:54 Activity Orders [RC] Q2HR Daily Weight [RC] 0600 IO [RC] Q1HR Initiate Bowel Care Protocol [RC] QSHIFT Initiate Line Care Protocol [RC] .protocol Initiate Personal Care Protoco [RC] .protocol Acetaminophen [Tylenol] 650 mg PO Q4HR PRN Ondansetron Inj [Zofran Inj] 4 mg IVP Q6HR PRN Sodium Chloride Flush 0.9% [Normal Saline Flush 0.9%] 10 ml IVP PRN PRN Code Status [OTHERS] Routine Condition of Patient [OTHERS] Routine DVT Prophylaxis [OTHERS] Routine 12/02/21 11:57 NPO [DIET] 12/02/21 11:58 Oxygen Therapy [RC] .PRN SCDs [RC] QSHIFT Telemetry- [RC] Q4HR 12/02/21 12:00 Initiate DKA RN Protocol [RC] .protocol Initiate Hypoglycemia Protocol [RC] .protocol Initiate ICU Electrolyte Prot. [RC] .protocol 12/02/21 13:00 D5.45ns W/20 Meq KCl 1,000 ml IV 125 mls/hr 12/02/21 14:00 CUL, URINE [RM] Routine Sodium Chloride 0.9% 100Ml [Normal Saline 0.9% 100Ml] 99 ml Insulin Regular Human [NovoLIN R] 100 unit IV 6.35 unit/hr 12/02/21 17:00 Sodium Chloride Flush 0.9% [Normal Saline Flush 0.9%] 10 ml IVP 0100,0900,1700 12/02/21 17:30 diltiaZEM [Cardizem] 30 mg PO Q6H 12/02/21 17:40 cefTRIAXone [Rocephin] 1 gm Sodium Chloride 0.9% Minibag [Normal Saline 0.9% Minibag] 100 ml IV DAILY 12/02/21 21:00 Atorvastatin [Lipitor] 20 mg PO QPM Gabapentin [Neurontin] 100 mg PO QPM Metoprolol Succinate [Toprol Xl] 25 mg PO BID 12/03/21 00:22 Sodium Chloride Flush 0.9% [Normal Saline Flush 0.9%] 20 ml IVP PRN PRN 12/03/21 05:00 HEMOGLOBIN A1c% [CHEM] DAILYLAB 12/03/21 07:00 Levothyroxine [Synthroid] 50 mcg PO QDAC Pantoprazole [Protonix] 40 mg PO QDAC 12/03/21 07:47 CBC - COMP BLD CT W/AUTO DIFF [HEME] Routine 12/03/21 07:48 Aspirin [Margarito] 325 mg PO ONCE STA 12/03/21 08:15 KETONES, SERUM (ACETEST) [CHEM] Q2H 12/03/21 09:00 Apixaban [Eliquis] 5 mg PO BID Citalopram [CeleXA] 20 mg PO DAILY Digoxin [Lanoxin] 125 mcg PO DAILY diltiaZEM [Cardizem] 60 mg PO DAILY 12/03/21 10:15 KETONES, SERUM (ACETEST) [CHEM] Q2H 12/03/21 14:00 TROPONIN I HIGH SENSITIVITY [IAI] Timed 12/04/21 05:00 BMP - BASIC METABOLIC PANEL [CHEM] DAILYLAB CALCIUM, IONIZED ([facility]) [BG] DAILYLAB CBC - COMP BLD CT W/AUTO DIFF [HEME] DAILYLAB MAGNESIUM [CHEM] DAILYLAB PHOSPHORUS [CHEM] DAILYLAB 12/05/21 05:00 CALCIUM, IONIZED ([facility]) [BG] DAILYLAB CBC - COMP BLD CT W/AUTO DIFF [HEME] DAILYLAB MAGNESIUM [CHEM] DAILYLAB PHOSPHORUS [CHEM] DAILYLAB 12/06/21 05:00 CBC - COMP BLD CT W/AUTO DIFF [HEME] DAILYLAB 12/07/21 05:00 CBC - COMP BLD CT W/AUTO DIFF [HEME] DAILYLAB 12/08/21 05:00 CBC - COMP BLD CT W/AUTO DIFF [HEME] DAILYLAB 12/09/21 05:00 CBC - COMP BLD CT W/AUTO DIFF [HEME] DAILYLAB 12/10/21 05:00 CBC - COMP BLD CT W/AUTO DIFF [HEME] DAILYLAB Subjective - Subjective Patient Reports: Other (More alert, awake and oriented today. Reported back pain. Denies any other complaints.) Objective Vital Signs: Vital Signs - 24 hr 12/02/21 12/02/21 12/02/21 08:47 09:30 09:41 Temperature 36.5 C 36.7 C Heart Rate 149 H 147 H 149 H Heart Rate [ Monitoring electrodes] Respiratory 22 19 Rate Blood Pressure 130/100 H 136/97 H 140/72 H Blood Pressure [Right Brachial artery] O2 Saturation 97 100 100 12/02/21 12/02/21 12/02/21 10:00 10:30 10:39 Temperature Heart Rate 134 H 138 H 144 H Heart Rate [ Monitoring electrodes] Respiratory 20 22 18 Rate Blood Pressure 147/100 H 156/100 H 156/92 H Blood Pressure [Right Brachial artery] O2 Saturation 100 100 100 12/02/21 12/02/21 12/02/21 11:00 11:30 12:20 Temperature 36.6 C Heart Rate 138 H 131 H 144 H Heart Rate [ Monitoring electrodes] Respiratory 20 18 20 Rate Blood Pressure 133/100 H 153/116 H 105/80 Blood Pressure [Right Brachial artery] O2 Saturation 100 100 100 12/02/21 12/02/21 12/02/21 12:25 12:30 12:35 Temperature Heart Rate 126 H 146 H 124 H Heart Rate [ Monitoring electrodes] Respiratory 20 20 22 Rate Blood Pressure 104/74 125/80 106/66 Blood Pressure [Right Brachial artery] O2 Saturation 12/02/21 12/02/21 12/02/21 13:30 14:00 15:00 Temperature 36.4 C L Heart Rate Heart Rate [ 129 H 124 H 135 H Monitoring electrodes] Respiratory 20 20 19 Rate Blood Pressure Blood Pressure 135/60 H 133/100 H 140/80 H [Right Brachial artery] O2 Saturation 97 98 98 12/02/21 12/02/21 12/02/21 16:00 17:00 17:34 Temperature Heart Rate Heart Rate [ 128 H 110 H Monitoring electrodes] Respiratory 14 20 Rate Blood Pressure 142/69 H 147/61 H Blood Pressure 142/69 H 147/61 H [Right Brachial artery] O2 Saturation 94 99 12/02/21 12/02/21 12/02/21 18:00 19:00 20:40 Temperature 36.4 C L Heart Rate Heart Rate [ 128 H 113 H Monitoring electrodes] Respiratory 23 16 Rate Blood Pressure Blood Pressure 157/99 H 124/58 L [Right Brachial artery] O2 Saturation 98 97 12/02/21 12/02/21 12/02/21 21:00 22:00 23:00 Temperature 36.6 C Heart Rate Heart Rate [ 109 H 78 108 H Monitoring electrodes] Respiratory 20 18 15 Rate Blood Pressure Blood Pressure 85/60 L 93/52 L 108/77 [Right Brachial artery] O2 Saturation 97 97 100 12/02/21 12/03/21 12/03/21 23:36 00:00 01:12 Temperature Heart Rate Heart Rate [ 109 H 116 H Monitoring electrodes] Respiratory 20 20 Rate Blood Pressure 135/68 H Blood Pressure 104/45 L 124/51 L [Right Brachial artery] O2 Saturation 100 99 12/03/21 12/03/21 12/03/21 02:00 03:27 04:00 Temperature Heart Rate Heart Rate [ 105 H 115 H 97 Monitoring electrodes] Respiratory 17 20 17 Rate Blood Pressure Blood Pressure 155/67 H 144/73 H 108/55 L [Right Brachial artery] O2 Saturation 99 99 97 12/03/21 12/03/21 12/03/21 05:00 06:00 06:18 Temperature Heart Rate Heart Rate [ 121 H 116 H Monitoring electrodes] Respiratory 18 21 Rate Blood Pressure 166/88 H Blood Pressure 145/85 H 166/88 H [Right Brachial artery] O2 Saturation 97 98 12/03/21 12/03/21 12/03/21 06:42 06:50 07:00 Temperature Heart Rate 113 H 124 H Heart Rate [ 122 H Monitoring electrodes] Respiratory 23 Rate Blood Pressure 166/88 H 159/103 H Blood Pressure 102/59 L [Right Brachial artery] O2 Saturation 97 12/03/21 07:04 Temperature Heart Rate 128 H Heart Rate [ Monitoring electrodes] Respiratory Rate Blood Pressure 102/59 L Blood Pressure [Right Brachial artery] O2 Saturation Oxygen O2 Source [With Activity] Room air O2 Source Nasal cannula I&O (Last 24 Hrs): Intake and Output Totals x24h 12/01/21 12/02/21 12/03/21 23:59 23:59 23:59 Intake Total 4867.583 1287.099 Output Total 793 480 Balance 4074.583 807.099 General: Alert, Oriented x3, Mild distress HEENT: PERRLA, EOMI Neck: Supple, No JVD Neuro: Alert, Oriented Times 3 Cardiovascular: Other (Irregularly irregular heart rhythm, mild tachycardia.) Respiratory: Chest non-tender, No respiratory distress, Breath sounds nml Abdomen: Normal bowel sounds, Soft, No tenderness, No masses Extremities: No clubbing, No cyanosis, No edema, No tenderness/swelling Skin: No rashes, No breakdown, No significant lesion - Results Results: Laboratory Results WBC 22.1 x10^3/uL (4.8-10.8) H 12/02/21 08:19 RBC 4.77 10^6/uL (4.20-5.40) 12/02/21 08:19 Hgb 14.4 g/dL (12.0-16.0) 12/02/21 08:19 Hct 42.1 % (37.0-47.0) 12/02/21 08:19 MCV 88.3 fL (81.0-99.0) 12/02/21 08:19 MCH 30.2 pg (27.0-31.0) 12/02/21 08:19 MCHC 34.2 g/dL (32.0-36.0) 12/02/21 08:19 RDW 13.0 % (12.0-15.0) 12/02/21 08:19 Plt Count 306 10^3/uL (130-450) 12/02/21 08:19 MPV 10.8 fL (7.9-10.8) 12/02/21 08:19 Neut # (Auto) 19.6 10^3/uL (1.5-6.6) H 12/02/21 08:19 Lymph # (Auto) 0.4 10^3/uL (1.5-3.5) L 12/02/21 08:19 [place] # (Auto) 1.8 10^3/uL (0.0-1.0) H 12/02/21 08:19 Eos # (Auto) 0.0 10^3/uL (0.0-0.7) 12/02/21 08:19 Baso # (Auto) 0.1 10^3/uL (0.0-0.1) 12/02/21 08:19 Absolute Nucleated RBC 0.00 x10^3/uL 12/02/21 08:19 Nucleated RBC % 0.0 /100WBC 12/02/21 08:19 Manual Slide Review Indicated 12/02/21 08:19 WBC Morphology (NORMAL) 12/02/21 08:19 Platelet Estimate NORMAL (130-450,000) (NORMAL) 12/02/21 08:19 Platelet Morphology NORMAL APPEARANCE (NORMAL) 12/02/21 08:19 RBC Morph Micro Appear NORMAL APPEARANCE (NORMAL) 12/02/21 08:19 Bld Gas Analysis Time 1005 12/02/21 10:05 Sample Site RIGHT BRACHIAL 12/02/21 10:05 ABG pH 7.31 (7.35-7.45) L 12/02/21 10:05 ABG pCO2 32 mmHg (34-45) L 12/02/21 10:05 ABG pO2 83 mmHg (80-100) 12/02/21 10:05 ABG HCO3 15.6 mmol/L (22.0-26.0) L 12/02/21 10:05 ABG Total CO2 16.6 MMOL/L (21.0-29.0) L 12/02/21 10:05 ABG O2 Saturation 94 % (94-98) 12/02/21 10:05 ABG Base Excess -9.4 mmol/L (-2.0-3.0) L 12/02/21 10:05 Rai Test POSITIVE 12/02/21 10:05 VBG pH 7.385 (7.31-7.41) 12/03/21 04:00 VBG pCO2 36.9 mmHg (41-51) L 12/02/21 12:25 VBG pO2 42.9 mmHg (25-47) 12/02/21 12:25 VBG HCO3 17.9 mmol/L (23-28) L 12/02/21 12:25 VBG Total CO2 19.0 mmol/L (24-29) L 12/02/21 12:25 VBG O2 Saturation 73.8 % (60-80) 12/02/21 12:25 VBG Base Excess -7.7 mmol/L (-2 - +2) L 12/02/21 12:25 Ionized Calcium 1.12 mmol/L (1.15-1.33) L 12/03/21 04:00 Room Air YES 12/02/21 10:05 Sodium 134 mmol/L (135-145) L 12/03/21 04:15 Potassium 4.5 mmol/L (3.5-5.0) 12/03/21 04:15 Chloride 103 mmol/L (101-111) 12/03/21 04:15 Carbon Dioxide 21 mmol/L (21-32) 12/03/21 04:15 Anion Gap 10.0 (6-13) 12/03/21 04:15 BUN 45 mg/dL (6-20) H 12/03/21 04:15 Creatinine 1.2 mg/dL (0.4-1.0) H 12/03/21 04:15 Estimated GFR (MDRD) 43 (>89) L 12/03/21 04:15 Glucose 223 mg/dL (70-100) H 12/03/21 04:15 Calcium 8.2 mg/dL (8.5-10.3) L 12/03/21 04:15 Phosphorus 2.0 mg/dL (2.5-4.6) L 12/03/21 04:00 Magnesium 2.3 mg/dL (1.7-2.8) 12/03/21 04:00 Total Bilirubin 1.7 mg/dL (0.2-1.0) H 12/02/21 08:19 AST 24 IU/L (10-42) 12/02/21 08:19 ALT 22 IU/L (10-60) 12/02/21 08:19 Alkaline Phosphatase 65 IU/L (42-121) 12/02/21 08:19 Troponin I High Sens 63.6 ng/L (2.3-14.8) H* 12/03/21 06:15 Total Protein 8.6 g/dL (6.7-8.2) H 12/02/21 08:19 Albumin 4.6 g/dL (3.2-5.5) 12/02/21 08:19 Globulin 4.0 g/dL (2.1-4.2) 12/02/21 08:19 Albumin/Globulin Ratio 1.1 (1.0-2.2) 12/02/21 08:19 Lipase 22 U/L (22-51) 12/02/21 08:19 TSH 1.08 uIU/mL (0.34-5.60) 12/02/21 14:08 Urine Color LIGHT YELLOW 12/02/21 14:00 Urine Clarity SL. CLOUDY (CLEAR) 12/02/21 14:00 Urine pH 6.0 PH (5.0-7.5) 12/02/21 14:00 Ur Specific [place] 1.020 (1.002-1.030) 12/02/21 14:00 Urine Protein 100 mg/dL (NEGATIVE) H 12/02/21 14:00 Urine Glucose (UA) NEGATIVE mg/dL (NEGATIVE) 12/02/21 14:00 Urine Ketones 15 mg/dL (NEGATIVE) H 12/02/21 14:00 Urine Occult Blood MODERATE (NEGATIVE) H 12/02/21 14:00 Urine Nitrite NEGATIVE (NEGATIVE) 12/02/21 14:00 Urine Bilirubin NEGATIVE (NEGATIVE) 12/02/21 14:00 Urine Urobilinogen 0.2 (NORMAL) E.U./dL (NORMAL) 12/02/21 14:00 Ur Leukocyte Esterase SMALL (NEGATIVE) H 12/02/21 14:00 Urine RBC 0-5 /HPF (0-5) 12/02/21 14:00 Urine WBC >25 /HPF (0-5) H 12/02/21 14:00 Urine WBC Clumps PRESENT 12/02/21 14:00 Ur Squamous Epith Cells NONE SEEN (<= Few) 12/02/21 14:00 Urine Bacteria Few /HPF (None Seen) 12/02/21 14:00 Ur Microscopic Review INDICATED 12/02/21 14:00 Urine Culture Comments INDICATED 12/02/21 14:00 Nasal Adenovirus (PCR) NOT DETECTED 12/02/21 10:30 Nasal B. parapertussis DNA (PCR) NOT DETECTED 12/02/21 10:30 Nasal Coronavir 229E PCR NOT DETECTED 12/02/21 10:30 Nasal Coronavir HKU1 PCR NOT DETECTED 12/02/21 10:30 Nasal Coronavir NL63 PCR NOT DETECTED 12/02/21 10:30 Nasal Coronavir OC43 PCR NOT DETECTED 12/02/21 10:30 Nasal Enterovir/Rhinovir PCR NOT DETECTED 12/02/21 10:30 Nasal Influenza B PCR NOT DETECTED 12/02/21 10:30 Nasal Influenza A PCR NOT DETECTED 12/02/21 10:30 Nasal Parainfluen 1 PCR NOT DETECTED 12/02/21 10:30 Nasal Parainfluen 2 PCR NOT DETECTED 12/02/21 10:30 Nasal Parainfluen 3 PCR NOT DETECTED 12/02/21 10:30 Nasal Parainfluen 4 PCR NOT DETECTED 12/02/21 10:30 Nasal RSV (PCR) NOT DETECTED 12/02/21 10:30 Nasal Screen MRSA (PCR) NEGATIVE (NEGATIVE) 12/02/21 13:55 Nasal B.pertussis DNA PCR NOT DETECTED 12/02/21 10:30 Nasal C.pneumoniae (PCR) NOT DETECTED 12/02/21 10:30 Gamal Human Metapneumo PCR NOT DETECTED 12/02/21 10:30 Nasal M.pneumoniae (PCR) NOT DETECTED 12/02/21 10:30 Nasal SARS-CoV-2 (PCR) NOT DETECTED 12/02/21 10:30 Serum Ketones SMALL (NEGATIVE) H 12/03/21 04:00 - Procedures Procedures: Procedures REPLACEMENT OF LEFT LENS WITH SYNTH SUB, PERC APPROACH (03/07/19) REPLACEMENT OF RIGHT LENS WITH SYNTH SUB, PERC APPROACH (05/09/19) ABX Reporting Has patient been on IV antibiotics over the past 48 hours?: Yes
[2021-12-03] MEDS: cefTRIAXone 1 GM in SODIUM CHLORIDE 0.9% MINIBAG 100 ML IV SCH (08:23)
[2021-12-03] MEDS ORDERED: APIXABAN 5 MG TABLET PO SCH (09:00)
[2021-12-03] MEDS ORDERED: CITALOPRAM 10 MG TABLET PO SCH (09:00)
[2021-12-03 09:09] LABS: ESTIMATED AVERAGE GLUCOSE 295 mg/dL (70-100); HEMOGLOBIN A1c% 11.9 % (4.27-6.07)
[2021-12-03 09:14] LABS: BASOPHILS % (AUTO) 0.2 %; EOSINOPHILS % (AUTO) 0.1 %; HCT - HEMATOCRIT 32.1 % (37.0-47.0); HGB - HEMOGLOBIN 11.3 g/dL (12.0-16.0); LYMPHOCYTES # (AUTO) 0.5 10^3/uL (1.5-3.5); LYMPHOCYTES % (AUTO) 4.8 %; MEAN CORPUSCULAR HEMOGLOBIN 30.6 pg (27.0-31.0); MEAN CORPUSCULAR HGB CONC 35.2 g/dL (32.0-36.0); MEAN PLATELET VOLUME 10.2 fL (7.9-10.8); MONOCYTES # (AUTO) 1.1 10^3/uL (0.0-1.0); MONOCYTES % (AUTO) 9.6 %; NEUTROPHILS # (AUTO) 9.5 10^3/uL (1.5-6.6); NEUTROPHILS % (AUTO) 84.7 %; PLT - PLATELET COUNT 225 10^3/uL (130-450); RED BLOOD COUNT 3.69 10^6/uL (4.20-5.40); RED CELL DISTRIBUTION WIDTH 12.9 % (12.0-15.0); WHITE BLOOD COUNT 11.2 x10^3/uL (4.8-10.8)
[2021-12-03] MEDS: METOPROLOL SUCCINATE 25 MG TABLET PO SCH ×4 (10:38→22:17)
[2021-12-03] MEDS: DIGOXIN 125 MCG TABLET PO SCH (10:39)
[2021-12-03] MEDS: SODIUM CHLORIDE FLUSH 0.9% 10 ML SYRINGE IVP SCH ×3 (11:03→21:02)
[2021-12-03] MEDS ORDERED: NEUTRA-PHOS 250 MG TABLET PO SCH (13:00)
[2021-12-03] MEDS: RIVAROXABAN 15 MG TABLET PO SCH (17:34)
[2021-12-03] MEDS: INSULIN GLARGINE 300 UNIT/3 ML PEN SUBQ SCH ×2 (19:40→20:52)
[2021-12-03] MEDS: ATORVASTATIN 10 MG TABLET PO SCH ×3 (20:59→22:17)
[2021-12-03] MEDS: GABAPENTIN 100 MG CAPSULE PO SCH ×3 (20:59→22:17)
[2021-12-03] MEDS ORDERED: INSULIN GLARGINE 300 UNIT/3 ML PEN SUBQ SCH (21:00)
[2021-12-03] MEDS ORDERED: INSULIN ASPART 300 UNIT/3 ML PEN SUBQ SCH (21:00)
[2021-12-03] MEDS: ACETAMINOPHEN 325 MG TABLET PO PRN ×2 (21:00→22:11)
[2021-12-04] MEDS: SODIUM CHLORIDE FLUSH 0.9% 10 ML SYRINGE IVP PRN (04:54)
[2021-12-04 05:41] LABS: CALCIUM, IONIZED 1.1 mmol/L (1.15-1.33); VBG PH 7.408 (7.31-7.41)
[2021-12-04 05:44] LABS: BASOPHILS % (AUTO) 0.2 %; EOSINOPHILS % (AUTO) 0.2 %; HCT - HEMATOCRIT 30.3 % (37.0-47.0); HGB - HEMOGLOBIN 10.2 g/dL (12.0-16.0); LYMPHOCYTES # (AUTO) 0.5 10^3/uL (1.5-3.5); LYMPHOCYTES % (AUTO) 9.4 %; MEAN CORPUSCULAR HEMOGLOBIN 30.1 pg (27.0-31.0); MEAN CORPUSCULAR HGB CONC 33.7 g/dL (32.0-36.0); MEAN CORPUSCULAR VOLUME 89.4 fL (81.0-99.0); MEAN PLATELET VOLUME 10.5 fL (7.9-10.8); MONOCYTES # (AUTO) 0.6 10^3/uL (0.0-1.0); MONOCYTES % (AUTO) 10.8 %; NEUTROPHILS # (AUTO) 4.4 10^3/uL (1.5-6.6); NEUTROPHILS % (AUTO) 78.5 %; PLT - PLATELET COUNT 175 10^3/uL (130-450); RED BLOOD COUNT 3.39 10^6/uL (4.20-5.40); RED CELL DISTRIBUTION WIDTH 12.9 % (12.0-15.0); WHITE BLOOD COUNT 5.6 x10^3/uL (4.8-10.8)
[2021-12-04] MEDS: D5.45NS W/20 MEQ KCL 1,000 ML IV SCH (05:47)
[2021-12-04 05:51] LABS: CREATININE 1.1 mg/dL (0.4-1.0); MAGNESIUM 1.9 mg/dL (1.7-2.8); PHOSPHORUS 2.3 mg/dL (2.5-4.6)
[2021-12-04] MEDS ORDERED: PETROLATUM WHITE 5 GM PACKET TOP PRN (06:22)
[2021-12-04] MEDS: CALCIUM CARBONATE CHEW 500 MG TABLET PO SCH ×2 (06:34→10:15)
[2021-12-04] MEDS: LEVOTHYROXINE 25 MCG TABLET PO SCH (06:34)
[2021-12-04] MEDS: PANTOPRAZOLE 40 MG TABLET PO SCH (06:34)
[2021-12-04] MEDS ORDERED: SODIUM PHOSPHATE 15 MMOL in SODIUM CHLORIDE 0.9% 250 ML IV ONE (08:00)
--- NOTE | 2021-12-04 08:06 | PROVIDER PROGRESS NOTE ---
Assessment/Plan - Problem List (1) DKA (diabetic ketoacidosis) Qualifiers: Diabetes mellitus type: type 1 Diabetes mellitus complication detail: without coma Qualified Code(s): E10.10 - Type 1 diabetes mellitus with ketoacidosis without coma Assessment/Plan: Resolved. Insulin drip was discontinued last night. Patient was transferred out of the ICU to the [facility] floor (2) Diabetes mellitus Qualifiers: Diabetes mellitus type: type 2 Assessment/Plan: Uncontrolled. Hemoglobin A1c was 11.9 On Lantus 28 units every afternoon. High-dose sliding scale insulin. Accu-Cheks before every meal and at bedtime. (3) Atrial fibrillation with RVR Assessment/Plan: Rate controlled. On metoprolol succinate 25 mg p.o. twice daily. Digoxin 125 mcg p.o. daily. Diltiazem 60 mg p.o. daily. Continue Xarelto 15 mg p.o. every afternoon. (4) BOO (acute kidney injury) Assessment/Plan: Improved. This was likely related to dehydration. Creatinine is down to 1.1 today. BUN 25 estimated GFR 48 (5) Leukocytosis Assessment/Plan: Improved. White blood cell count: 22.1 -> 11.2 -> 5.6. Pt completed 3 days o Rocephin empirically for suspected UTI. Urine culture no growth to date (6) Hypertension Assessment/Plan: Chlorthalidone, losartan and spironolactone currently on hold due to BOO. Patient is on metoprolol succinate and diltiazem. (7) Hyperlipidemia Assessment/Plan: On simvastatin 40 mg p.o. every afternoon at home. Will order equivalent in atorvastatin while in the hospital. (8) Hypothyroidism Assessment/Plan: On Synthroid 50 mcg p.o. daily. TSH normal. (9) Depression Assessment/Plan: On citalopram 20 mg p.o. daily (10) CHF (congestive heart failure) Assessment/Plan: On metoprolol 25 mg p.o. twice daily. Spironolactone 12.5 mg p.o. daily is currently on hold. Also holding losartan 25 mg p.o. daily. - Current Meds Current Meds: Current Medications Generic Name Dose Route Start Last Admin Trade Name Freq PRN Reason Stop Dose Admin Acetaminophen 650 mg 12/02/21 11:54 12/03/21 22:11 Acetaminophen 325 Mg Tablet PO 650 mg Q4HR PRN Administration Pain 1 to 4 Atorvastatin Calcium 20 mg 12/02/21 21:00 12/03/21 22:17 Atorvastatin 10 Mg Tablet PO Not Given QPM CHRIS Calcium Carbonate/Glycine 1,250 mg 12/04/21 06:00 12/04/21 06:34 Calcium Carbonate Chew 500 Mg Tablet PO 12/04/21 10:01 1,250 mg Q4H CHRIS Administration Protocol Digoxin 125 mcg 12/03/21 09:00 12/03/21 10:39 Digoxin 125 Mcg Tablet PO 125 mcg DAILY CHRIS Administration Diltiazem HCl 60 mg 12/03/21 09:00 12/03/21 10:38 Diltiazem 60 Mg Tablet PO 60 mg DAILY CHRIS Administration Gabapentin 100 mg 12/02/21 21:00 12/03/21 22:17 Gabapentin 100 Mg Capsule PO Not Given QPM COUNT INCLUDES THE [facility] Potassium Chloride/Dextrose/Sod Cl 1,000 mls @ 125 mls/hr 12/02/21 13:00 12/04/21 05:47 D5.45ns W/20 Meq Kcl IV Not Given .Q8H CHRIS Ceftriaxone Sodium 1 gm/ 100 mls @ 200 mls/hr 12/02/21 17:40 12/03/21 09:00 Sodium Chloride IV Infused DAILY COUNT INCLUDES THE [facility] Infusion Insulin Glargine 28 unit 12/03/21 20:00 12/03/21 20:52 Insulin Glargine 300 Unit/3 Ml Pen SUBQ Not Given QPM COUNT INCLUDES THE [facility] Levothyroxine Sodium 50 mcg 12/03/21 07:00 12/04/21 06:34 Levothyroxine 25 Mcg Tablet PO 50 mcg QDAC COUNT INCLUDES THE [facility] Administration Metoprolol Succinate 25 mg 12/02/21 21:00 12/03/21 22:17 Metoprolol Succinate 25 Mg Tablet PO Not Given BID COUNT INCLUDES THE [facility] Nitroglycerin 0.4 mg 12/03/21 06:38 12/03/21 07:04 Nitroglycerin Sl 0.4 Mg Tablet SL 0.4 mg Q5MIN PRN Administration Chest Pain Pantoprazole Sodium 40 mg 12/03/21 07:00 12/04/21 06:34 Pantoprazole 40 Mg Tablet PO 40 mg QDAC CHRIS Administration Petrolatum 1 applic 12/04/21 06:22 12/04/21 06:35 Petrolatum White 5 Gm Packet TOP 1 applic PRN PRN Administration Dry Lips Rivaroxaban 15 mg 12/03/21 17:00 12/03/21 17:34 Rivaroxaban 15 Mg Tablet PO 15 mg QDDINNER CHRIS Administration Sodium Chloride 10 ml 12/02/21 17:00 12/03/21 21:02 Sodium Chloride Flush 0.9% 10 Ml Syringe IVP 10 ml 0100,0900,1700 CHRIS Administration Sodium Chloride 10 ml 12/02/21 11:54 12/03/21 21:02 Sodium Chloride Flush 0.9% 10 Ml Syringe IVP 20 ml PRN PRN Administration NEEDED PER PROVIDER ORDERS Sodium Chloride 20 ml 12/03/21 00:22 12/04/21 04:54 Sodium Chloride Flush 0.9% 10 Ml Syringe IVP 20 ml PRN PRN Administration After Blood Draw - Lab Result Fish Bone Diagrams: 12/04/21 04:50 12/04/21 04:50 - Additional Planning My Orders: My Active Orders 12/03/21 09:00 Digoxin [Lanoxin] 125 mcg PO DAILY diltiaZEM [Cardizem] 60 mg PO DAILY 12/03/21 17:00 Rivaroxaban [Xarelto] 15 mg PO QDDINNER 12/03/21 18:41 Blood Glucose Checks - Eating [RC] 0800,1200,1700,2100 12/03/21 20:00 Insulin Glargine [Lantus Solostar] 28 unit SUBQ QPM 12/03/21 23:21 Zinc Oxide 20% Oint [Zinc Oxide] 1 applic TOP PRN PRN 12/04/21 Breakfast Carb-controlled Diet [DIET] 12/04/21 06:00 Calcium Carbonate [Tums] 1,250 mg PO Q4H 12/04/21 06:22 Petrolatum White [Vaseline] 1 applic TOP PRN PRN 12/04/21 08:00 Sodium Phosphate 15 mmol Sodium Chloride 0.9% [Normal Saline 0.9%] 250 ml IV ONCE 12/04/21 08:01 Blood Glucose Checks - Eating [RC] 0800,1200,1700,2100 Initiate Hypoglycemia Protocol [RC] .protocol 12/04/21 08:02 Admit [Admit \ Transfer \ Status] [RC] .ONCE 12/04/21 09:00 Aspirin EC [Ecotrin] 81 mg PO DAILY Citalopram Hydrobromide [Celexa] 20 mg PO DAILY 12/04/21 12:00 Insulin Aspart [NovoLOG] 3 - 11 unit SUBQ 0800,1200,1700,2100 12/04/21 14:00 CALCIUM, IONIZED ([facility]) [BG] Timed PHOSPHORUS [CHEM] Timed 12/05/21 05:00 CALCIUM, IONIZED ([facility]) [BG] DAILYLAB CBC - COMP BLD CT W/AUTO DIFF [HEME] DAILYLAB MAGNESIUM [CHEM] DAILYLAB PHOSPHORUS [CHEM] DAILYLAB 12/06/21 05:00 CBC - COMP BLD CT W/AUTO DIFF [HEME] DAILYLAB 12/07/21 05:00 CBC - COMP BLD CT W/AUTO DIFF [HEME] DAILYLAB 12/08/21 05:00 CBC - COMP BLD CT W/AUTO DIFF [HEME] DAILYLAB 12/09/21 05:00 CBC - COMP BLD CT W/AUTO DIFF [HEME] DAILYLAB 12/10/21 05:00 CBC - COMP BLD CT W/AUTO DIFF [HEME] DAILYLAB Subjective - Subjective Patient Reports: Other (And what seemed like heartburn.Patient was more awake and alert today. However she complained of feeling anxious) Objective Vital Signs: Vital Signs - 24 hr 12/03/21 12/03/21 12/03/21 09:00 10:00 10:38 Temperature Heart Rate [ 105 H 100 Monitoring electrodes] Respiratory 18 13 Rate Blood Pressure 108/52 L Blood Pressure [Left Brachial artery] Blood Pressure 148/63 H 90/68 [Right Brachial artery] O2 Saturation 99 98 12/03/21 12/03/21 12/03/21 11:00 12:00 13:00 Temperature Heart Rate [ 106 H 98 85 Monitoring electrodes] Respiratory 18 20 20 Rate Blood Pressure Blood Pressure [Left Brachial artery] Blood Pressure 152/69 H 118/77 128/55 L [Right Brachial artery] O2 Saturation 98 98 98 12/03/21 12/03/21 12/03/21 14:00 15:00 16:00 Temperature 37.1 C Heart Rate [ 95 90 85 Monitoring electrodes] Respiratory 19 17 16 Rate Blood Pressure Blood Pressure [Left Brachial artery] Blood Pressure 113/79 101/34 L 128/49 L [Right Brachial artery] O2 Saturation 98 98 97 12/03/21 12/03/21 12/03/21 17:00 18:00 19:00 Temperature Heart Rate [ 97 107 H 106 H Monitoring electrodes] Respiratory 20 20 20 Rate Blood Pressure Blood Pressure [Left Brachial artery] Blood Pressure 151/83 H 149/68 H 150/80 H [Right Brachial artery] O2 Saturation 97 98 97 12/03/21 12/03/21 12/03/21 19:29 20:00 21:00 Temperature 36.6 C Heart Rate [ 93 97 Monitoring electrodes] Respiratory 17 19 Rate Blood Pressure Blood Pressure [Left Brachial artery] Blood Pressure 149/82 H 132/81 H [Right Brachial artery] O2 Saturation 96 97 12/03/21 12/03/21 12/04/21 22:00 23:00 00:00 Temperature Heart Rate [ 106 H 93 96 Monitoring electrodes] Respiratory 18 26 H 17 Rate Blood Pressure Blood Pressure [Left Brachial artery] Blood Pressure 158/108 H 127/73 138/66 H [Right Brachial artery] O2 Saturation 96 97 97 12/04/21 12/04/21 12/04/21 01:00 02:00 03:00 Temperature Heart Rate [ 101 H 100 93 Monitoring electrodes] Respiratory 15 19 17 Rate Blood Pressure Blood Pressure [Left Brachial artery] Blood Pressure 111/50 L 113/75 118/53 L [Right Brachial artery] O2 Saturation 96 96 93 12/04/21 12/04/21 12/04/21 04:00 05:00 06:00 Temperature 36.9 C Heart Rate [ 81 97 106 H Monitoring electrodes] Respiratory 10 L 17 15 Rate Blood Pressure Blood Pressure 97/49 L 162/77 H 137/58 H [Left Brachial artery] Blood Pressure [Right Brachial artery] O2 Saturation 100 99 12/04/21 07:00 Temperature Heart Rate [ 111 H Monitoring electrodes] Respiratory 17 Rate Blood Pressure Blood Pressure 150/79 H [Left Brachial artery] Blood Pressure [Right Brachial artery] O2 Saturation 99 Oxygen O2 Source [With Activity] Room air O2 Source Room air I&O (Last 24 Hrs): Intake and Output Totals x24h 12/02/21 12/03/21 12/04/21 23:59 23:59 23:59 Intake Total 4867.583 3108.832 Output Total 793 1733 605 Balance 4074.583 1375.832 -605 Comments/Notes: General: Alert, Oriented x3, Mild distress HEENT: PERRLA, EOMI Neck: Supple, No JVD Neuro: Alert, Oriented Times 3 Cardiovascular: Other (Irregularly irregular heart rhythm.) Respiratory: Chest non-tender, No respiratory distress, Breath sounds nml Abdomen: Normal bowel sounds, Soft, No tenderness, No masses Extremities: No clubbing, No cyanosis, No edema, No tenderness/swelling Skin: No rashes, No breakdown, No significant lesion - Results Results: Laboratory Results WBC 5.6 x10^3/uL (4.8-10.8) 12/04/21 04:50 RBC 3.39 10^6/uL (4.20-5.40) L 12/04/21 04:50 Hgb 10.2 g/dL (12.0-16.0) L 12/04/21 04:50 Hct 30.3 % (37.0-47.0) L 12/04/21 04:50 MCV 89.4 fL (81.0-99.0) 12/04/21 04:50 MCH 30.1 pg (27.0-31.0) 12/04/21 04:50 MCHC 33.7 g/dL (32.0-36.0) 12/04/21 04:50 RDW 12.9 % (12.0-15.0) 12/04/21 04:50 Plt Count 175 10^3/uL (130-450) 12/04/21 04:50 MPV 10.5 fL (7.9-10.8) 12/04/21 04:50 Neut # (Auto) 4.4 10^3/uL (1.5-6.6) 12/04/21 04:50 Lymph # (Auto) 0.5 10^3/uL (1.5-3.5) L 12/04/21 04:50 [place] # (Auto) 0.6 10^3/uL (0.0-1.0) 12/04/21 04:50 Eos # (Auto) 0.0 10^3/uL (0.0-0.7) 12/04/21 04:50 Baso # (Auto) 0.0 10^3/uL (0.0-0.1) 12/04/21 04:50 Absolute Nucleated RBC 0.00 x10^3/uL 12/04/21 04:50 Nucleated RBC % 0.0 /100WBC 12/04/21 04:50 Manual Slide Review Indicated 12/02/21 08:19 WBC Morphology (NORMAL) 12/02/21 08:19 Platelet Estimate NORMAL (130-450,000) (NORMAL) 12/02/21 08:19 Platelet Morphology NORMAL APPEARANCE (NORMAL) 12/02/21 08:19 RBC Morph Micro Appear NORMAL APPEARANCE (NORMAL) 12/02/21 08:19 Bld Gas Analysis Time 1005 12/02/21 10:05 Sample Site RIGHT BRACHIAL 12/02/21 10:05 ABG pH 7.31 (7.35-7.45) L 12/02/21 10:05 ABG pCO2 32 mmHg (34-45) L 12/02/21 10:05 ABG pO2 83 mmHg (80-100) 12/02/21 10:05 ABG HCO3 15.6 mmol/L (22.0-26.0) L 12/02/21 10:05 ABG Total CO2 16.6 MMOL/L (21.0-29.0) L 12/02/21 10:05 ABG O2 Saturation 94 % (94-98) 12/02/21 10:05 ABG Base Excess -9.4 mmol/L (-2.0-3.0) L 12/02/21 10:05 Rai Test POSITIVE 12/02/21 10:05 VBG pH 7.408 (7.31-7.41) 12/04/21 04:50 VBG pCO2 36.9 mmHg (41-51) L 12/02/21 12:25 VBG pO2 42.9 mmHg (25-47) 12/02/21 12:25 VBG HCO3 17.9 mmol/L (23-28) L 12/02/21 12:25 VBG Total CO2 19.0 mmol/L (24-29) L 12/02/21 12:25 VBG O2 Saturation 73.8 % (60-80) 12/02/21 12:25 VBG Base Excess -7.7 mmol/L (-2 - +2) L 12/02/21 12:25 Ionized Calcium 1.10 mmol/L (1.15-1.33) L 12/04/21 04:50 Room Air YES 12/02/21 10:05 Sodium 133 mmol/L (135-145) L 12/04/21 04:50 Potassium 4.0 mmol/L (3.5-5.0) 12/04/21 04:50 Chloride 102 mmol/L (101-111) 12/04/21 04:50 Carbon Dioxide 22 mmol/L (21-32) 12/04/21 04:50 Anion Gap 9.0 (6-13) 12/04/21 04:50 BUN 25 mg/dL (6-20) H 12/04/21 04:50 Creatinine 1.1 mg/dL (0.4-1.0) H 12/04/21 04:50 Estimated GFR (MDRD) 48 (>89) L 12/04/21 04:50 Glucose 239 mg/dL (70-100) H 12/04/21 04:50 Estimat Average Glucose 295 mg/dL (70-100) H 12/02/21 08:19 Hemoglobin A1c % 11.9 % (4.27-6.07) H 12/02/21 08:19 Calcium 8.0 mg/dL (8.5-10.3) L 12/04/21 04:50 Phosphorus 2.3 mg/dL (2.5-4.6) L 12/04/21 04:50 Magnesium 1.9 mg/dL (1.7-2.8) 12/04/21 04:50 Total Bilirubin 1.7 mg/dL (0.2-1.0) H 12/02/21 08:19 AST 24 IU/L (10-42) 12/02/21 08:19 ALT 22 IU/L (10-60) 12/02/21 08:19 Alkaline Phosphatase 65 IU/L (42-121) 12/02/21 08:19 Troponin I High Sens 40.5 ng/L (2.3-14.8) H* 12/03/21 14:15 Total Protein 8.6 g/dL (6.7-8.2) H 12/02/21 08:19 Albumin 4.6 g/dL (3.2-5.5) 12/02/21 08:19 Globulin 4.0 g/dL (2.1-4.2) 12/02/21 08:19 Albumin/Globulin Ratio 1.1 (1.0-2.2) 12/02/21 08:19 Lipase 22 U/L (22-51) 12/02/21 08:19 TSH 1.08 uIU/mL (0.34-5.60) 12/02/21 14:08 Urine Color LIGHT YELLOW 12/02/21 14:00 Urine Clarity SL. CLOUDY (CLEAR) 12/02/21 14:00 Urine pH 6.0 PH (5.0-7.5) 12/02/21 14:00 Ur Specific [place] 1.020 (1.002-1.030) 12/02/21 14:00 Urine Protein 100 mg/dL (NEGATIVE) H 12/02/21 14:00 Urine Glucose (UA) NEGATIVE mg/dL (NEGATIVE) 12/02/21 14:00 Urine Ketones 15 mg/dL (NEGATIVE) H 12/02/21 14:00 Urine Occult Blood MODERATE (NEGATIVE) H 12/02/21 14:00 Urine Nitrite NEGATIVE (NEGATIVE) 12/02/21 14:00 Urine Bilirubin NEGATIVE (NEGATIVE) 12/02/21 14:00 Urine Urobilinogen 0.2 (NORMAL) E.U./dL (NORMAL) 12/02/21 14:00 Ur Leukocyte Esterase SMALL (NEGATIVE) H 12/02/21 14:00 Urine RBC 0-5 /HPF (0-5) 12/02/21 14:00 Urine WBC >25 /HPF (0-5) H 12/02/21 14:00 Urine WBC Clumps PRESENT 12/02/21 14:00 Ur Squamous Epith Cells NONE SEEN (<= Few) 12/02/21 14:00 Urine Bacteria Few /HPF (None Seen) 12/02/21 14:00 Ur Microscopic Review INDICATED 12/02/21 14:00 Urine Culture Comments INDICATED 12/02/21 14:00 Nasal Adenovirus (PCR) NOT DETECTED 12/02/21 10:30 Nasal B. parapertussis DNA (PCR) NOT DETECTED 12/02/21 10:30 Nasal Coronavir 229E PCR NOT DETECTED 12/02/21 10:30 Nasal Coronavir HKU1 PCR NOT DETECTED 12/02/21 10:30 Nasal Coronavir NL63 PCR NOT DETECTED 12/02/21 10:30 Nasal Coronavir OC43 PCR NOT DETECTED 12/02/21 10:30 Nasal Enterovir/Rhinovir PCR NOT DETECTED 12/02/21 10:30 Nasal Influenza B PCR NOT DETECTED 12/02/21 10:30 Nasal Influenza A PCR NOT DETECTED 12/02/21 10:30 Nasal Parainfluen 1 PCR NOT DETECTED 12/02/21 10:30 Nasal Parainfluen 2 PCR NOT DETECTED 12/02/21 10:30 Nasal Parainfluen 3 PCR NOT DETECTED 12/02/21 10:30 Nasal Parainfluen 4 PCR NOT DETECTED 12/02/21 10:30 Nasal RSV (PCR) NOT DETECTED 12/02/21 10:30 Nasal Screen MRSA (PCR) NEGATIVE (NEGATIVE) 12/02/21 13:55 Nasal B.pertussis DNA PCR NOT DETECTED 12/02/21 10:30 Nasal C.pneumoniae (PCR) NOT DETECTED 12/02/21 10:30 Gamal Human Metapneumo PCR NOT DETECTED 12/02/21 10:30 Nasal M.pneumoniae (PCR) NOT DETECTED 12/02/21 10:30 Nasal SARS-CoV-2 (PCR) NOT DETECTED 12/02/21 10:30 Serum Ketones NEGATIVE (NEGATIVE) 12/03/21 17:44 - Procedures Procedures: Procedures REPLACEMENT OF LEFT LENS WITH SYNTH SUB, PERC APPROACH (03/07/19) REPLACEMENT OF RIGHT LENS WITH SYNTH SUB, PERC APPROACH (05/09/19) ABX Reporting Has patient been on IV antibiotics over the past 48 hours?: Yes
[2021-12-04] MEDS: cefTRIAXone 1 GM in SODIUM CHLORIDE 0.9% MINIBAG 100 ML IV SCH (08:42)
[2021-12-04] MEDS: ASPIRIN EC 81 MG TABLET PO SCH (08:44)
[2021-12-04] MEDS: CITALOPRAM HYDROBROMIDE 20 MG TABLET PO SCH (08:44)
[2021-12-04] MEDS: DIGOXIN 125 MCG TABLET PO SCH (08:44)
[2021-12-04] MEDS: SODIUM CHLORIDE FLUSH 0.9% 10 ML SYRINGE IVP SCH ×2 (08:45→19:25)
[2021-12-04] MEDS: METOPROLOL SUCCINATE 25 MG TABLET PO SCH ×2 (08:45→22:00)
[2021-12-04] MEDS: INSULIN ASPART 300 UNIT/3 ML PEN SUBQ SCH ×4 (08:53→22:01)
[2021-12-04 14:44] LABS: CALCIUM, IONIZED 1.1 mmol/L (1.15-1.33); VBG PH 7.442 (7.31-7.41)
[2021-12-04] MEDS: ZINC OXIDE 20% OINT 30 GM TUBE TOP PRN (14:55)
[2021-12-04] MEDS: LORazepam 0.5 MG TABLET PO PRN (19:24)
[2021-12-04] MEDS: RIVAROXABAN 15 MG TABLET PO SCH (19:25)
[2021-12-04] MEDS: ATORVASTATIN 10 MG TABLET PO SCH (22:00)
[2021-12-04] MEDS: GABAPENTIN 100 MG CAPSULE PO SCH (22:00)
[2021-12-04] MEDS: INSULIN GLARGINE 300 UNIT/3 ML PEN SUBQ SCH (22:02)
[2021-12-05] MEDS: ZINC OXIDE 20% OINT 30 GM TUBE TOP PRN ×3 (01:15→10:15)
[2021-12-05] MEDS: SODIUM CHLORIDE FLUSH 0.9% 10 ML SYRINGE IVP PRN ×4 (02:00→11:05)
[2021-12-05] MEDS: SODIUM CHLORIDE FLUSH 0.9% 10 ML SYRINGE IVP SCH ×3 (02:00→17:19)
--- NOTE | 2021-12-05 02:04 | PROVIDER PROGRESS NOTE ---
Cosmetic Surgeon Note - Cosmetic Surgeon Note Cosmetic Surgeon Note: I was asked to see patient who has had 3 bowel movements today, at midnight she had a large black BM. Earlier today, the RN wrote an SBAR that the patient is requesting Marinol for appetite stimulation, since she normally uses marijuana daily to increase her appetite at home. Here she is eating very little. Also, at report earlier in the day, the central femoral line was supposed to be discontinued and her IV fluids were supposed to be stopped but they never were ordered to stop, however no iv fluids are running currently. RN wishes directions. I evaluated her. The patient is laying comfortably in bed, appears pale. She had on a diaper and it was three quarters covered with a watery black BM. The pt did not have a sensation that she had a liquid BM, the [employer] INTERN found it. Chart reviewed: Her hemoglobin has decreased from 14 to 11 to 10 since being admitted and she is only 4 L positive in fluid balance since admission. Guaiac of her stool was sent. It is heme (+). Imp: UGI bleed Anemia Poor appetite DM w/ DKA now resolved. Plan: Follow H/H q12h Transfuse if Hgb < 7 Gen Surg consult ordered requesting an EGD, will contact Dr Mcintrye in a.m. Increase daily po Protonix to bid Stop Xarelto Keep the CVP line in, in case of rapid blood loss and need for transfusion CRITICAL CARE TIME SPENT: 20 min
[2021-12-05] MEDS: DIGOXIN 125 MCG TABLET PO SCH (05:15)
[2021-12-05] MEDS: METOPROLOL SUCCINATE 25 MG TABLET PO SCH ×2 (06:23→20:47)
[2021-12-05] MEDS: LEVOTHYROXINE 25 MCG TABLET PO SCH (06:23)
[2021-12-05 06:50] LABS: BASOPHILS % (AUTO) 0.1 %; EOSINOPHILS % (AUTO) 0.6 %; HCT - HEMATOCRIT 32.4 % (37.0-47.0); HGB - HEMOGLOBIN 10.9 g/dL (12.0-16.0); LYMPHOCYTES # (AUTO) 0.7 10^3/uL (1.5-3.5); LYMPHOCYTES % (AUTO) 9.8 %; MEAN CORPUSCULAR HEMOGLOBIN 29.5 pg (27.0-31.0); MEAN CORPUSCULAR HGB CONC 33.6 g/dL (32.0-36.0); MEAN CORPUSCULAR VOLUME 87.6 fL (81.0-99.0); MEAN PLATELET VOLUME 10.1 fL (7.9-10.8); MONOCYTES # (AUTO) 0.7 10^3/uL (0.0-1.0); NEUTROPHILS % (AUTO) 74.8 %; PLT - PLATELET COUNT 190 10^3/uL (130-450); RED CELL DISTRIBUTION WIDTH 12.1 % (12.0-15.0); WHITE BLOOD COUNT 6.7 x10^3/uL (4.8-10.8)
[2021-12-05 07:03] LABS: CALCIUM, IONIZED 1.08 mmol/L (1.15-1.33); VBG PH 7.483 (7.31-7.41)
[2021-12-05 07:07] LABS: CALCIUM 8.6 mg/dL (8.5-10.3); MAGNESIUM 1.7 mg/dL (1.7-2.8); PHOSPHORUS 2.7 mg/dL (2.5-4.6); POTASSIUM 3.2 mmol/L (3.5-5.0)
[2021-12-05] MEDS: INSULIN ASPART 300 UNIT/3 ML PEN SUBQ SCH ×4 (08:01→20:48)
[2021-12-05] MEDS ORDERED: MAGNESIUM SULFATE 2 GRAM 2 GM/50 ML BAG IV ONE (08:03)
--- NOTE | 2021-12-05 08:11 | PROVIDER PROGRESS NOTE ---
Assessment/Plan - Problem List (1) Diabetes mellitus Qualifiers: Diabetes mellitus type: type 2 Assessment/Plan: Uncontrolled. Hemoglobin A1c was 11.9 On Lantus 28 units every afternoon. High-dose sliding scale insulin. Accu-Cheks before every meal and at bedtime. (2) DKA (diabetic ketoacidosis) Qualifiers: Diabetes mellitus type: type 1 Diabetes mellitus complication detail: without coma Qualified Code(s): E10.10 - Type 1 diabetes mellitus with ketoacidosis without coma Assessment/Plan: Resolved (3) Anemia Assessment/Plan: Hemoglobin was 10.9. Patient has epigastric/chest discomfort when she swallows food. She had a large black bowel movement yesterday which was guaiac positive. Protonix 40 mg po twice daily ordered. [place] held Dr. Mcintyre with general surgery was contacted. Patient will be n.p.o. after midnight. Potential EGD tomorrow. Continue monitoring H&H (4) Atrial fibrillation with RVR Assessment/Plan: Intermittently tachycardic with heart rate as high as 130s. Metoprolol 5 mg IV every 6 hours as needed for heart rate greater than 120 On metoprolol succinate 25 mg p.o. twice daily. Digoxin 125 mcg p.o. daily. Diltiazem 60 mg p.o. daily. Xarelto held due to black stool (5) BOO (acute kidney injury) Assessment/Plan: Resolved/Improved. This was likely related to dehydration. Creatinine is down to 1.0 today. BUN 16 estimated GFR 53 (6) Leukocytosis Assessment/Plan: Improved. White blood cell count: 22.1 -> 11.2 -> 5.6-> 6.7. Pt completed 3 days of Rocephin empirically for suspected UTI. Urine culture no growth to date (8) Hyperlipidemia Assessment/Plan: On simvastatin 40 mg p.o. every afternoon at home. Will order equivalent in atorvastatin while in the hospital. (9) Hypothyroidism Assessment/Plan: On Synthroid 50 mcg p.o. daily. TSH normal. (10) Depression Assessment/Plan: On citalopram 20 mg p.o. daily (11) CHF (congestive heart failure) Assessment/Plan: On metoprolol 25 mg p.o. twice daily. Spironolactone 12.5 mg p.o. daily is currently on hold. Also holding losartan 25 mg p.o. daily. - Current Meds Current Meds: Current Medications Generic Name Dose Route Start Last Admin Trade Name Freanaly PRN Reason Stop Dose Admin Acetaminophen 650 mg 12/02/21 11:54 12/03/21 22:11 Acetaminophen 325 Mg Tablet PO 650 mg Q4HR PRN Administration Pain 1 to 4 Aspirin 81 mg 12/04/21 09:00 12/04/21 08:44 Aspirin Ec 81 Mg Tablet PO 81 mg DAILY CHRIS Administration Atorvastatin Calcium 20 mg 12/02/21 21:00 12/04/21 22:00 Atorvastatin 10 Mg Tablet PO 20 mg QPM CHRIS Administration Citalopram Hydrobromide 20 mg 12/04/21 09:00 12/04/21 08:44 Citalopram Hydrobromide 20 Mg Tablet PO 20 mg DAILY CHRIS Administration Digoxin 125 mcg 12/03/21 09:00 12/05/21 05:15 Digoxin 125 Mcg Tablet PO 125 mcg DAILY CHRIS Administration Diltiazem HCl 60 mg 12/03/21 09:00 12/04/21 08:44 Diltiazem 60 Mg Tablet PO 60 mg DAILY CHRIS Administration Dronabinol 2.5 mg 12/05/21 07:00 12/05/21 06:23 Dronabinol 2.5 Mg Capsule PO 2.5 mg BIDAC CHRIS Administration Gabapentin 100 mg 12/02/21 21:00 12/04/21 22:00 Gabapentin 100 Mg Capsule PO 100 mg QPM CHRIS Administration Ceftriaxone Sodium 1 gm/ 100 mls @ 200 mls/hr 12/02/21 17:40 12/04/21 09:15 Sodium Chloride IV Infused DAILY CHRIS Infusion Insulin Aspart 3 - 11 unit 12/04/21 08:30 12/05/21 08:01 Insulin Aspart 300 Unit/3 Ml Pen SUBQ 5 unit 0800,1200,1700,2100 CHRIS Administration Protocol Insulin Glargine 28 unit 12/03/21 20:00 12/04/21 22:02 Insulin Glargine 300 Unit/3 Ml Pen SUBQ 28 unit QPM CHRIS Administration Levothyroxine Sodium 50 mcg 12/03/21 07:00 12/05/21 06:23 Levothyroxine 25 Mcg Tablet PO 50 mcg QDAC CHRIS Administration Lorazepam 0.5 mg 12/04/21 09:22 12/04/21 19:24 Lorazepam 0.5 Mg Tablet PO 0.5 mg Q12H PRN Administration Anxiety Metoprolol Succinate 25 mg 12/02/21 21:00 12/05/21 06:23 Metoprolol Succinate 25 Mg Tablet PO 25 mg BID CHRIS Administration Multi-Ingredient Ointment 1 applic 12/03/21 23:21 12/05/21 05:38 Zinc Oxide 20% Oint 30 Gm Tube TOP 1 applic PRN PRN Administration Skin Care Nitroglycerin 0.4 mg 12/03/21 06:38 12/03/21 07:04 Nitroglycerin Sl 0.4 Mg Tablet SL 0.4 mg Q5MIN PRN Administration Chest Pain Petrolatum 1 applic 12/04/21 06:22 12/04/21 06:35 Petrolatum White 5 Gm Packet TOP 1 applic PRN PRN Administration Dry Lips Sodium Chloride 10 ml 12/02/21 17:00 12/05/21 02:00 Sodium Chloride Flush 0.9% 10 Ml Syringe IVP 10 ml 0100,0900,1700 CHRIS Administration Sodium Chloride 10 ml 12/02/21 11:54 12/05/21 02:00 Sodium Chloride Flush 0.9% 10 Ml Syringe IVP 30 ml PRN PRN Administration NEEDED PER PROVIDER ORDERS Sodium Chloride 20 ml 12/03/21 00:22 12/04/21 04:54 Sodium Chloride Flush 0.9% 10 Ml Syringe IVP 20 ml PRN PRN Administration After Blood Draw - Lab Result Fish Bone Diagrams: 12/05/21 06:23 12/05/21 06:23 - Additional Planning My Orders: My Active Orders 12/04/21 08:01 Blood Glucose Checks - Eating [RC] 0800,1200,1700,2100 Initiate Hypoglycemia Protocol [RC] .protocol 12/04/21 08:30 Insulin Aspart [NovoLOG] 3 - 11 unit SUBQ 0800,1200,1700,2100 12/04/21 09:00 Aspirin EC [Ecotrin] 81 mg PO DAILY Citalopram Hydrobromide [Celexa] 20 mg PO DAILY 12/04/21 09:22 LORazepam [Ativan] 0.5 mg PO Q12H PRN 12/05/21 08:03 MAGNESIUM SULFATE 2 GRAMS IV X1 Magnesium Sulfate 2 Gram [Magnesium Sulfate] 2 gm in 50 ml IV ONCE 12/05/21 09:00 Potassium Chloride/Water 10 mEq/100 mL q1h (Enter # of bags) Potassium Chlor 10 Meq/100 ml [Potassium Chloride] 10 meq in 100 ml IV Q1H 12/06/21 05:00 BMP - BASIC METABOLIC PANEL [CHEM] DAILYLAB CBC - COMP BLD CT W/AUTO DIFF [HEME] DAILYLAB 12/07/21 05:00 BMP - BASIC METABOLIC PANEL [CHEM] DAILYLAB CBC - COMP BLD CT W/AUTO DIFF [HEME] DAILYLAB 12/08/21 05:00 BMP - BASIC METABOLIC PANEL [CHEM] DAILYLAB CBC - COMP BLD CT W/AUTO DIFF [HEME] DAILYLAB 12/09/21 05:00 BMP - BASIC METABOLIC PANEL [CHEM] DAILYLAB CBC - COMP BLD CT W/AUTO DIFF [HEME] DAILYLAB 12/10/21 05:00 CBC - COMP BLD CT W/AUTO DIFF [HEME] DAILYLAB Subjective - Subjective Patient Reports: Other ( Patient had a large black bowel movement yesterday which was guaiac positive. She has been having discomfort in her chest/epigastric area when she swallows food.) Objective Vital Signs: Vital Signs - 24 hr 12/04/21 12/04/21 12/04/21 08:44 09:00 10:00 Temperature Heart Rate [ Brachial] Heart Rate [ 108 H 92 Monitoring electrodes] Respiratory 16 15 Rate Blood Pressure 118/52 L Blood Pressure 169/85 H 125/59 L [Left Brachial artery] Blood Pressure [Left Radial artery] Blood Pressure [Right Brachial artery] O2 Saturation 100 98 12/04/21 12/04/21 12/04/21 11:00 12:00 13:00 Temperature Heart Rate [ Brachial] Heart Rate [ 91 81 91 Monitoring electrodes] Respiratory 15 14 16 Rate Blood Pressure Blood Pressure 135/72 H 114/47 L 167/59 H [Left Brachial artery] Blood Pressure [Left Radial artery] Blood Pressure [Right Brachial artery] O2 Saturation 98 99 99 12/04/21 12/04/21 12/04/21 14:45 16:14 21:00 Temperature 36.8 C 37.1 C 36.4 C L Heart Rate [ 88 70 Brachial] Heart Rate [ 93 Monitoring electrodes] Respiratory 18 18 16 Rate Blood Pressure Blood Pressure 150/75 H [Left Brachial artery] Blood Pressure [Left Radial artery] Blood Pressure 176/60 H 152/63 H [Right Brachial artery] O2 Saturation 97 98 99 12/05/21 12/05/21 12/05/21 00:36 05:38 06:00 Temperature 37 C Heart Rate [ 98 75 131 H Brachial] Heart Rate [ Monitoring electrodes] Respiratory 16 Rate Blood Pressure Blood Pressure [Left Brachial artery] Blood Pressure 146/60 H [Left Radial artery] Blood Pressure 145/86 H 139/64 H [Right Brachial artery] O2 Saturation 98 12/05/21 07:53 Temperature 36.7 C Heart Rate [ Brachial] Heart Rate [ 97 Monitoring electrodes] Respiratory 16 Rate Blood Pressure Blood Pressure [Left Brachial artery] Blood Pressure [Left Radial artery] Blood Pressure 141/60 H [Right Brachial artery] O2 Saturation 99 Oxygen O2 Source [With Activity] Room air O2 Source Room air I&O (Last 24 Hrs): Intake and Output Totals x24h 12/03/21 12/04/21 12/05/21 23:59 23:59 23:59 Intake Total 3108.832 764 0 Output Total 1733 1770 825 Balance 1375.832 -1006 -825 Comments/Notes: General: Alert, Oriented x3, Mild distress HEENT: PERRLA, EOMI Neck: Supple, No JVD Neuro: Alert, Oriented Times 3 Cardiovascular: Other (Irregularly irregular heart rhythm.) Respiratory: Chest non-tender, No respiratory distress, Breath sounds nml Abdomen: Normal bowel sounds, Soft, No tenderness, No masses Extremities: No clubbing, No cyanosis, No edema, No tenderness/swelling Skin: No rashes, No breakdown, No significant lesion - Results Results: Laboratory Results WBC 6.7 x10^3/uL (4.8-10.8) 12/05/21 06:23 RBC 3.70 10^6/uL (4.20-5.40) L 12/05/21 06:23 Hgb 10.9 g/dL (12.0-16.0) L 12/05/21 06:23 Hct 32.4 % (37.0-47.0) L 12/05/21 06:23 MCV 87.6 fL (81.0-99.0) 12/05/21 06:23 MCH 29.5 pg (27.0-31.0) 12/05/21 06:23 MCHC 33.6 g/dL (32.0-36.0) 12/05/21 06: RDW 12.1 % (12.0-15.0) 12/05/21 06:23 Plt Count 190 10^3/uL (130-450) 12/05/21 06:23 MPV 10.1 fL (7.9-10.8) 12/05/21 06:23 Neut # (Auto) 5.0 10^3/uL (1.5-6.6) 12/05/21 06:23 Lymph # (Auto) 0.7 10^3/uL (1.5-3.5) L 12/05/21 06:23 [place] # (Auto) 0.7 10^3/uL (0.0-1.0) 12/05/21 06:23 Eos # (Auto) 0.0 10^3/uL (0.0-0.7) 12/05/21 06:23 Baso # (Auto) 0.0 10^3/uL (0.0-0.1) 12/05/21 06:23 Absolute Nucleated RBC 0.00 x10^3/uL 12/05/21 06: Nucleated RBC % 0.0 /100WBC 12/05/21 06:23 Manual Slide Review Indicated 12/02/21 08:19 WBC Morphology (NORMAL) 12/02/21 08:19 Platelet Estimate NORMAL (130-450,000) (NORMAL) 12/02/21 08:19 Platelet Morphology NORMAL APPEARANCE (NORMAL) 12/02/21 08:19 RBC Morph Micro Appear NORMAL APPEARANCE (NORMAL) 12/02/21 08:19 Bld Gas Analysis Time 1005 12/02/21 10:05 Sample Site RIGHT BRACHIAL 12/02/21 10:05 ABG pH 7.31 (7.35-7.45) L 12/02/21 10:05 ABG pCO2 32 mmHg (34-45) L 12/02/21 10:05 ABG pO2 83 mmHg (80-100) 12/02/21 10:05 ABG HCO3 15.6 mmol/L (22.0-26.0) L 12/02/21 10:05 ABG Total CO2 16.6 MMOL/L (21.0-29.0) L 12/02/21 10:05 ABG O2 Saturation 94 % (94-98) 12/02/21 10:05 ABG Base Excess -9.4 mmol/L (-2.0-3.0) L 12/02/21 10:05 Rai Test POSITIVE 12/02/21 10:05 VBG pH 7.483 (7.31-7.41) H 12/05/21 06:23 VBG pCO2 36.9 mmHg (41-51) L 12/02/21 12:25 VBG pO2 42.9 mmHg (25-47) 12/02/21 12:25 VBG HCO3 17.9 mmol/L (23-28) L 12/02/21 12:25 VBG Total CO2 19.0 mmol/L (24-29) L 12/02/21 12:25 VBG O2 Saturation 73.8 % (60-80) 12/02/21 12:25 VBG Base Excess -7.7 mmol/L (-2 - +2) L 12/02/21 12:25 Ionized Calcium 1.08 mmol/L (1.15-1.33) L 12/05/21 06:23 Room Air YES 12/02/21 10:05 Sodium 133 mmol/L (135-145) L 12/05/21 06:23 Potassium 3.2 mmol/L (3.5-5.0) L 12/05/21 06:23 Chloride 97 mmol/L (101-111) L 12/05/21 06:23 Carbon Dioxide 25 mmol/L (21-32) 12/05/21 06:23 Anion Gap 11.0 (6-13) 12/05/21 06:23 BUN 16 mg/dL (6-20) 12/05/21 06:23 Creatinine 1.0 mg/dL (0.4-1.0) 12/05/21 06:23 Estimated GFR (MDRD) 53 (>89) L 12/05/21 06:23 Glucose 194 mg/dL (70-100) H 12/05/21 06:23 Estimat Average Glucose 295 mg/dL (70-100) H 12/02/21 08:19 Hemoglobin A1c % 11.9 % (4.27-6.07) H 12/02/21 08:19 Calcium 8.6 mg/dL (8.5-10.3) 12/05/21 06:23 Phosphorus 2.7 mg/dL (2.5-4.6) 12/05/21 06:23 Magnesium 1.7 mg/dL (1.7-2.8) 12/05/21 06:23 Total Bilirubin 1.7 mg/dL (0.2-1.0) H 12/02/21 08:19 AST 24 IU/L (10-42) 12/02/21 08:19 ALT 22 IU/L (10-60) 12/02/21 08:19 Alkaline Phosphatase 65 IU/L (42-121) 12/02/21 08:19 Troponin I High Sens 40.5 ng/L (2.3-14.8) H* 12/03/21 14:15 Total Protein 8.6 g/dL (6.7-8.2) H 12/02/21 08:19 Albumin 4.6 g/dL (3.2-5.5) 12/02/21 08:19 Globulin 4.0 g/dL (2.1-4.2) 12/02/21 08:19 Albumin/Globulin Ratio 1.1 (1.0-2.2) 12/02/21 08:19 Lipase 22 U/L (22-51) 12/02/21 08:19 TSH 1.08 uIU/mL (0.34-5.60) 12/02/21 14:08 Urine Color LIGHT YELLOW 12/02/21 14:00 Urine Clarity SL. CLOUDY (CLEAR) 12/02/21 14:00 Urine pH 6.0 PH (5.0-7.5) 12/02/21 14:00 Ur Specific [employer] 1.020 (1.002-1.030) 12/02/21 14:00 Urine Protein 100 mg/dL (NEGATIVE) H 12/02/21 14:00 Urine Glucose (UA) NEGATIVE mg/dL (NEGATIVE) 12/02/21 14:00 Urine Ketones 15 mg/dL (NEGATIVE) H 12/02/21 14:00 Urine Occult Blood MODERATE (NEGATIVE) H 12/02/21 14:00 Urine Nitrite NEGATIVE (NEGATIVE) 12/02/21 14:00 Urine Bilirubin NEGATIVE (NEGATIVE) 12/02/21 14:00 Urine Urobilinogen 0.2 (NORMAL) E.U./dL (NORMAL) 12/02/21 14:00 Ur Leukocyte Esterase SMALL (NEGATIVE) H 12/02/21 14:00 Urine RBC 0-5 /HPF (0-5) 12/02/21 14:00 Urine WBC >25 /HPF (0-5) H 12/02/21 14:00 Urine WBC Clumps PRESENT 12/02/21 14:00 Ur Squamous Epith Cells NONE SEEN (<= Few) 12/02/21 14:00 Urine Bacteria Few /HPF (None Seen) 12/02/21 14:00 Ur Microscopic Review INDICATED 12/02/21 14:00 Urine Culture Comments INDICATED 12/02/21 14:00 Nasal Adenovirus (PCR) NOT DETECTED 12/02/21 10:30 Nasal B. parapertussis DNA (PCR) NOT DETECTED 12/02/21 10:30 Nasal Coronavir 229E PCR NOT DETECTED 12/02/21 10:30 Nasal Coronavir HKU1 PCR NOT DETECTED 12/02/21 10:30 Nasal Coronavir NL63 PCR NOT DETECTED 12/02/21 10:30 Nasal Coronavir OC43 PCR NOT DETECTED 12/02/21 10:30 Nasal Enterovir/Rhinovir PCR NOT DETECTED 12/02/21 10:30 Nasal Influenza B PCR NOT DETECTED 12/02/21 10:30 Nasal Influenza A PCR NOT DETECTED 12/02/21 10:30 Nasal Parainfluen 1 PCR NOT DETECTED 12/02/21 10:30 Nasal Parainfluen 2 PCR NOT DETECTED 12/02/21 10:30 Nasal Parainfluen 3 PCR NOT DETECTED 12/02/21 10:30 Nasal Parainfluen 4 PCR NOT DETECTED 12/02/21 10:30 Nasal RSV (PCR) NOT DETECTED 12/02/21 10:30 Nasal Screen MRSA (PCR) NEGATIVE (NEGATIVE) 12/02/21 13:55 Nasal B.pertussis DNA PCR NOT DETECTED 12/02/21 10:30 Nasal C.pneumoniae (PCR) NOT DETECTED 12/02/21 10:30 Gamal Human Metapneumo PCR NOT DETECTED 12/02/21 10:30 Nasal M.pneumoniae (PCR) NOT DETECTED 12/02/21 10:30 Nasal SARS-CoV-2 (PCR) NOT DETECTED 12/02/21 10:30 Serum Ketones NEGATIVE (NEGATIVE) 12/03/21 17:44 - Procedures Procedures: Procedures REPLACEMENT OF LEFT LENS WITH SYNTH SUB, PERC APPROACH (03/07/19) REPLACEMENT OF RIGHT LENS WITH SYNTH SUB, PERC APPROACH (05/09/19) ABX Reporting Has patient been on IV antibiotics over the past 48 hours?: No
[2021-12-05] MEDS: ASPIRIN EC 81 MG TABLET PO SCH (09:35)
[2021-12-05] MEDS: PANTOPRAZOLE 40 MG TABLET PO SCH ×2 (09:35→21:12)
[2021-12-05] MEDS: CITALOPRAM HYDROBROMIDE 20 MG TABLET PO SCH (09:35)
[2021-12-05] MEDS: cefTRIAXone 1 GM in SODIUM CHLORIDE 0.9% MINIBAG 100 ML IV SCH (09:38)
[2021-12-05] MEDS ORDERED: METOPROLOL 5 MG/5 ML VIAL IVP PRN (10:40)
[2021-12-05] MEDS: POTASSIUM CHLOR 10 MEQ/100 ML 10 MEQ/100 ML BAG IV SCH ×4 (10:46→14:00)
[2021-12-05] MEDS: ONDANSETRON 4 MG/2 ML VIAL IVP PRN (11:05)
--- NOTE | 2021-12-05 15:01 | CONSULTATION NOTE ---
Referring Provider Name of Referring Provider:: [facility] Consult Date: 12/05/21 Chief Complaint - Chief Complaint Chief Complaint: Upper GI Hemorrhage History of Present Illness - Admitted From Admitted From:: ED - History Obtained From Records Reviewed: Other provider's notes History obtained from: Providers, a little help from the patient Exam Limitations: Patient mental status - History of Present Illness HPI Comment/Other: 81 year old lady with multiple medical problems who presented to the ED on the and was admitted to the hospitalist service with the diagnosis of DKA, acute kidney injury, and Afib with RVR. Those issues have been addressed and she is improving. Last evening she had a large, dark and watery stool that was associate with a gradual drop in her hemoglobin. I have been consulted regarding likely upper GI hemorrhage and the possibility of EGD. The patient was not aware that she had had a bowel movement when the incident occurred. In general, she says she feels much better than she did at the time of admission History - Past Medical History Cardiovascular: reports: Atrial fibrillation Respiratory: reports: None Neuro: reports: CVA Endocrine/Autoimmune: reports: Type 2 diabetes GI: reports: None : reports: None HEENT: reports: Chronic vision loss Psych: reports: Depression Musculoskeletal: reports: None Derm: reports: None MRSA Hx?: No - Past Surgical History General: reports: Appendectomy HEENT: reports: Cataracts - Family & Social History Family History Comment/Other: Mother , Alzheimer's disease, coronary disease, hypertension, hyperlipidemia, Macular degeneration and multiple epi sodes of skin cancer. Father . Father from complications of multiple sclerosis. Brother , diabetes type 1, renal disease/failure. Social History Notes: Lives at home with a friend/roommate. She has been using marijuana for 40+ years. - Substance History Use: Uses substance without health or social issues: Other (Marijuana user for 40+ years) - POLST Patient has POLST: No POLST Status: Full Code Meds/Allgy - Home Medications Home Medications: Ambulatory Orders Medication Instructions Recorded Confirmed Gabapentin 100 mg PO QPM 09/25/16 12/02/21 Simvastatin 40 mg PO QPM 09/25/16 12/02/21 Chlorthalidone 25 mg PO DAILY 03/19/17 12/02/21 Citalopram [CeleXA] 20 mg PO DAILY 11/21/17 12/02/21 Spironolactone 12.5 mg PO DAILY 11/21/17 12/02/21 metFORMIN [Glucophage] 1,000 mg PO BID 11/21/17 12/02/21 Insulin Glargine [Lantus Solostar] 28 units SUBQ QPM 11/22/17 12/02/21 Metoprolol Succinate 25 mg PO BID 11/22/17 12/02/21 diltiaZEM [Cardizem] 60 mg PO DAILY #30 tablet 11/25/17 12/02/21 Digoxin [Lanoxin] 0.125 mg PO DAILY 03/06/19 12/02/21 Levothyroxine Sodium 50 mcg PO DAILY 12/02/21 12/02/21 [Levothyroxine] Losartan Potassium 25 mg PO DAILY 12/02/21 12/02/21 Rivaroxaban [Xarelto] 15 mg PO QDDINNER 12/02/21 12/02/21 - Allergies Allergies/Adverse Reactions: Allergies Allergy/AdvReac Type Severity Reaction Status Date / Time No Known Drug Allergies Allergy Verified 12/02/21 09:28 Review of Systems - Constitutional Constitutional: reports: Fatigue, Weakness, Poor appetite - Gastrointestinal Gastrointestinal: reports: Diarrhea, Black stools. denies: Abdominal pain, Abdominal distention, Constipation - All Other Systems All Other Systems: reports: Reviewed and negative Exam - Vital Signs Reviewed Vital Signs: Yes Vital Signs: Vital Signs x48h Temp Pulse Resp BP BP BP Pulse Ox 12/05/21 12:37 36.6 C 80 16 122/56 L 100 12/05/21 10:55 125 H 123/79 12/05/21 09:35 115 H 158/57 H 12/05/21 07:53 36.7 C 97 16 141/60 H 99 - Physical Exam General Appearance: positive: No acute distress, Alert Eyes Bilateral: positive: Normal inspection ENT: positive: ENT inspection nml Respiratory: positive: No respiratory distress Abdomen: positive: Nml bowel sounds, No distention. negative: Tenderness Conclusion and Plan - Lab Results Microbiology Results 12/05/21 00:53 Stool Occult Blood - Final 12/02/21 14:00 Urine,Catheterized Urine Culture - Final No growth Laboratory Results 12/05/21 06:23: WBC 6.7, RBC 3.70 L, Hgb 10.9 L, Hct 32.4 L, MCV 87.6, MCH 29.5, MCHC 33.6, RDW 12.1, Plt Count 190, MPV 10.1, Neut # (Auto) 5.0, Lymph # (Auto) 0.7 L, Butts # (Auto) 0.7, Eos # (Auto) 0.0, Baso # (Auto) 0.0, Absolute Nucleated RBC 0.00, Nucleated RBC % 0.0 12/05/21 06:23: VBG pH 7.483 H, Ionized Calcium 1.08 L 12/05/21 06:23: Sodium 133 L, Potassium 3.2 L, Chloride 97 L, Carbon Dioxide 25, Anion Gap 11.0, BUN 16, Creatinine 1.0, Estimated GFR (MDRD) 53 L, Glucose 194 H, Calcium 8.6, Phosphorus 2.7, Magnesium 1.7 12/04/21 14:15: VBG pH 7.442 H, Ionized Calcium 1.10 L 12/04/21 14:15: Phosphorus 3.3 12/04/21 04:50: WBC 5.6, RBC 3.39 L, Hgb 10.2 L, Hct 30.3 L, MCV 89.4, MCH 30.1, MCHC 33.7, RDW 12.9, Plt Count 175, MPV 10.5, Neut # (Auto) 4.4, Lymph # (Auto) 0.5 L, Butts # (Auto) 0.6, Eos # (Auto) 0.0, Baso # (Auto) 0.0, Absolute Nucleated RBC 0.00, Nucleated RBC % 0.0 12/04/21 04:50: VBG pH 7.408, Ionized Calcium 1.10 L 12/04/21 04:50: Sodium 133 L, Potassium 4.0, Chloride 102, Carbon Dioxide 22, Anion Gap 9.0, BUN 25 H, Creatinine 1.1 H, Estimated GFR (MDRD) 48 L, Glucose 239 H, Calcium 8.0 L, Phosphorus 2.3 L, Magnesium 1.9 12/03/21 17:44: Serum Ketones NEGATIVE 12/03/21 14:15: Troponin I High Sens 40.5 H* - Diagnosis Diagnosis: Anemia with upper GI hemorrhage in the setting of a lady with multiple medical problems that are poorly controlled outside the hospital setting - Plan Plan: 1. Starting hemoglobin was 14.4 and today she is 10.9. A subtle drop in hemoglobin but may be due in part to hydration. Will recheck the hgb in the AM. I can offer EGD if it continues to be a concern. Outpatient procedure is an option as well. If her hgb is stable, observation is a reasonable course.
[2021-12-05 16:48] LABS: HCT - HEMATOCRIT 32.9 % (37.0-47.0); HGB - HEMOGLOBIN 11.2 g/dL (12.0-16.0); MEAN CORPUSCULAR HEMOGLOBIN 29.9 pg (27.0-31.0); MEAN PLATELET VOLUME 10.3 fL (7.9-10.8); RED BLOOD COUNT 3.74 10^6/uL (4.20-5.40); RED CELL DISTRIBUTION WIDTH 11.9 % (12.0-15.0); WHITE BLOOD COUNT 6.9 x10^3/uL (4.8-10.8)
[2021-12-05] MEDS: GABAPENTIN 100 MG CAPSULE PO SCH (20:47)
[2021-12-05] MEDS: ATORVASTATIN 10 MG TABLET PO SCH (20:47)
[2021-12-05] MEDS: INSULIN GLARGINE 300 UNIT/3 ML PEN SUBQ SCH (20:48)
[2021-12-05] MEDS: SUCRALFATE 1 GM/10 ML UDC PO SCH (23:02)
[2021-12-05] MEDS: LORazepam 0.5 MG TABLET PO PRN (23:04)
[2021-12-06] MEDS: SODIUM CHLORIDE FLUSH 0.9% 10 ML SYRINGE IVP SCH ×3 (00:28→16:00)
[2021-12-06] MEDS: SODIUM CHLORIDE FLUSH 0.9% 10 ML SYRINGE IVP PRN ×3 (00:28→16:00)
[2021-12-06] MEDS: ZINC OXIDE 20% OINT 30 GM TUBE TOP PRN ×3 (00:28→13:34)
[2021-12-06] MEDS: LEVOTHYROXINE 25 MCG TABLET PO SCH (05:52)
[2021-12-06] MEDS: SUCRALFATE 1 GM/10 ML UDC PO SCH ×5 (05:52→21:48)
[2021-12-06 06:00] LABS: BASOPHILS % (AUTO) 0.5 %; EOSINOPHILS % (AUTO) 2.6 %; HCT - HEMATOCRIT 32.6 % (37.0-47.0); HGB - HEMOGLOBIN 11.2 g/dL (12.0-16.0); LYMPHOCYTES % (AUTO) 11.7 %; MEAN CORPUSCULAR HEMOGLOBIN 30.1 pg (27.0-31.0); MEAN CORPUSCULAR HGB CONC 34.4 g/dL (32.0-36.0); MEAN CORPUSCULAR VOLUME 87.6 fL (81.0-99.0); MONOCYTES % (AUTO) 10.1 %; NEUTROPHILS % (AUTO) 68.9 %; PLT - PLATELET COUNT 221 10^3/uL (130-450); RED BLOOD COUNT 3.72 10^6/uL (4.20-5.40); WHITE BLOOD COUNT 8.5 x10^3/uL (4.8-10.8)
[2021-12-06 06:05] LABS: CALCIUM 8.8 mg/dL (8.5-10.3); CREATININE 1.2 mg/dL (0.4-1.0); POTASSIUM 3.2 mmol/L (3.5-5.0)
[2021-12-06 06:28] LABS: ABNORMAL LYMPHS % (MANUAL) 0 %; BAND NEUTROPHILS % (MANUAL) 0 %
[2021-12-06 06:30] LABS: EOSINOPHILS # (MANUAL) 0.3 10^3/uL (0-0.7); LYMPHOCYTES # (MANUAL) 1.5 10^3/uL (1.5-3.5); LYMPHOCYTES % (MANUAL) 18 %; MONOCYTES # (MANUAL) 0.7 10^3/uL (0.0-1.0)
[2021-12-06 06:31] LABS: DIFFERENTIAL COMMENT MANUAL DIFFERENTIAL; PLATELET ESTIMATE, MANUAL NORMAL (130-450,000) (NORMAL); PLATELET MORPHOLOGY NORMAL APPEARANCE (NORMAL); RBC MORPHOLOGY (MULTIPLE) NORMAL APPEARANCE (NORMAL); WBC MORPHOLOGY (MULTIPLE) NORMAL APPEARANCE (NORMAL)
[2021-12-06] MEDS ORDERED: MAGNESIUM SULFATE 2 GRAM 2 GM/50 ML BAG IV ONE (08:14)
--- NOTE | 2021-12-06 08:18 | PROVIDER PROGRESS NOTE ---
Assessment/Plan - Problem List (1) Diabetes mellitus Qualifiers: Diabetes mellitus type: type 2 (2) Orthostatic hypotension Assessment/Plan: Physical therapy today the patient's orthostatics were significantly positive. She also had significantly lower urine output today. Will attempt to address this by hydrating the patient initially. Normal saline ordered at 125 mL/h. If this is unsuccessful in addressing orthostatic hypotension, will order midodrine 3 times daily with meals. After resolution of orthostatic hypotension, patient can then be successfully as sessed by physical therapy to provide recommendation for discharge. (3) DKA (diabetic ketoacidosis) Qualifiers: Diabetes mellitus type: type 1 Diabetes mellitus complication detail: without coma Qualified Code(s): E10.10 - Type 1 diabetes mellitus with ketoacidosis without coma Assessment/Plan: Resolved. (4) Anemia Assessment/Plan: Hemoglobin was 11.2 without transfusion Patient underwent an EGD today which was unremarkable. It showed mild inflammation fundus stomach and mild inflammation duodenal bulb without ulcer, erosion. On Protonix 40 mg po twice daily ordered. (5) Atrial fibrillation with RVR Assessment/Plan: Intermittently tachycardic with heart rate as high as 130s. Metoprolol 5 mg IV every 6 hours as needed for heart rate greater than 120 On metoprolol succinate 25 mg p.o. twice daily. Digoxin 125 mcg p.o. daily. Diltiazem 60 mg p.o. daily. Xarelto resumed 12/06/21 (6) BOO (acute kidney injury) Assessment/Plan: This was likely related to dehydration. Creatinine is 1.2 today. BUN 18 estimated GFR 43 (7) Leukocytosis Assessment/Plan: Improved. White blood cell count: 22.1 -> 11.2 -> 5.6-> 6.7->8.5. Pt completed 3 days of Rocephin empirically for suspected UTI. Urine culture no growth to date (8) Hypertension Assessment/Plan: On metoprolol succinate 25 mg p.o. twice daily (9) Hyperlipidemia Assessment/Plan: On simvastatin 40 mg p.o. every afternoon at home. Will order equivalent in atorvastatin while in the hospital. (10) Hypothyroidism Assessment/Plan: On Synthroid 50 mcg p.o. daily. TSH normal. (11) Depression Assessment/Plan: On citalopram 20 mg p.o. daily (12) CHF (congestive heart failure) Assessment/Plan: On metoprolol 25 mg p.o. twice daily. Spironolactone 12.5 mg p.o. daily is currently on hold. Also holding losartan 25 mg p.o. daily. - Current Meds Current Meds: Current Medications Generic Name Dose Route Start Last Admin Trade Name Freq PRN Reason Stop Dose Admin Acetaminophen 650 mg 12/02/21 11:54 12/03/21 22:11 Acetaminophen 325 Mg Tablet PO 650 mg Q4HR PRN Administration Pain 1 to 4 Aspirin 81 mg 12/04/21 09:00 12/05/21 09:35 Aspirin Ec 81 Mg Tablet PO 81 mg DAILY CHRIS Administration Atorvastatin Calcium 20 mg 12/02/21 21:00 12/05/21 20:47 Atorvastatin 10 Mg Tablet PO 20 mg QPM CHRIS Administration Citalopram Hydrobromide 20 mg 12/04/21 09:00 12/05/21 09:35 Citalopram Hydrobromide 20 Mg Tablet PO 20 mg DAILY CHRIS Administration Digoxin 125 mcg 12/03/21 09:00 12/05/21 05:15 Digoxin 125 Mcg Tablet PO 125 mcg DAILY CHRIS Administration Diltiazem HCl 60 mg 12/03/21 09:00 12/05/21 09:35 Diltiazem 60 Mg Tablet PO 60 mg DAILY CHRIS Administration Dronabinol 2.5 mg 12/05/21 07:00 12/06/21 05:52 Dronabinol 2.5 Mg Capsule PO 2.5 mg BIDAC CHRIS Administration Gabapentin 100 mg 12/02/21 21:00 12/05/21 20:47 Gabapentin 100 Mg Capsule PO 100 mg QPM CHRIS Administration Ceftriaxone Sodium 1 gm/ 100 mls @ 200 mls/hr 12/02/21 17:40 12/05/21 10:25 Sodium Chloride IV Infused DAILY CHRIS Infusion Insulin Aspart 3 - 11 unit 12/04/21 08:30 12/05/21 20:48 Insulin Aspart 300 Unit/3 Ml Pen SUBQ 5 unit 0800,1200,1700,2100 CHRIS Administration Protocol Insulin Glargine 28 unit 12/03/21 20:00 12/05/21 20:48 Insulin Glargine 300 Unit/3 Ml Pen SUBQ 28 unit QPM CHRIS Administration Levothyroxine Sodium 50 mcg 12/03/21 07:00 12/06/21 05:52 Levothyroxine 25 Mcg Tablet PO 50 mcg QDAC CHRIS Administration Lorazepam 0.5 mg 12/04/21 09:22 12/05/21 23:04 Lorazepam 0.5 Mg Tablet PO 0.5 mg Q12H PRN Administration Anxiety Metoprolol Succinate 25 mg 12/02/21 21:00 12/05/21 20:47 Metoprolol Succinate 25 Mg Tablet PO 25 mg BID CHRIS Administration Multi-Ingredient Ointment 1 applic 12/03/21 23:21 12/06/21 05:59 Zinc Oxide 20% Oint 30 Gm Tube TOP 1 applic PRN PRN Administration Skin Care Nitroglycerin 0.4 mg 12/03/21 06:38 12/03/21 07:04 Nitroglycerin Sl 0.4 Mg Tablet SL 0.4 mg Q5MIN PRN Administration Chest Pain Ondansetron HCl 4 mg 12/02/21 11:54 12/05/21 11:05 Ondansetron 4 Mg/2 Ml Vial IVP 4 mg Q6HR PRN Administration Nausea / Vomiting Pantoprazole Sodium 40 mg 12/05/21 09:00 12/05/21 21:12 Pantoprazole 40 Mg Tablet PO 40 mg BID CHRIS Administration Petrolatum 1 applic 12/04/21 06:22 12/04/21 06:35 Petrolatum White 5 Gm Packet TOP 1 applic PRN PRN Administration Dry Lips Sodium Chloride 10 ml 12/02/21 17:00 12/06/21 00:28 Sodium Chloride Flush 0.9% 10 Ml Syringe IVP 10 ml 0100,0900,1700 CHRIS Administration Sodium Chloride 10 ml 12/02/21 11:54 12/06/21 00:28 Sodium Chloride Flush 0.9% 10 Ml Syringe IVP 10 ml PRN PRN Administration NEEDED PER PROVIDER ORDERS Sodium Chloride 20 ml 12/03/21 00:22 12/04/21 04:54 Sodium Chloride Flush 0.9% 10 Ml Syringe IVP 20 ml PRN PRN Administration After Blood Draw Sucralfate 1 gm 12/05/21 22:00 12/06/21 05:52 Sucralfate 1 Gm/10 Ml Udc PO 1 gm 0700,1100,1600,2200 CHRIS Administration - Lab Result Fish Bone Diagrams: 12/06/21 05:40 12/06/21 05:40 - Additional Planning My Orders: My Active Orders 12/05/21 10:40 Metoprolol Inj [Lopressor Inj] 5 mg IVP Q6H PRN 12/05/21 22:00 Sucralfate [Carafate] 1 gm PO 0700,1100,1600,2200 12/06/21 00:01 NPO except Meds at Midnight [DIET] 12/06/21 08:14 Magnesium Sulfate 2 Gram [Magnesium Sulfate] 2 gm in 50 ml IV ONCE 12/06/21 09:00 D5.45NS W/40 MEQ KCL @ 100 mls/hr Dextrose 5%-0.45% NaCl [D5.45ns] 980 ml Potassium Chloride Inj [Potassium Chloride] 40 meq IV 100 mls/hr Potassium Chlor 10 Meq/100 ml [Potassium Chloride] 10 meq in 100 ml IV Q1H 12/07/21 05:00 BMP - BASIC METABOLIC PANEL [CHEM] DAILYLAB CBC - COMP BLD CT W/AUTO DIFF [HEME] DAILYLAB 12/08/21 05:00 BMP - BASIC METABOLIC PANEL [CHEM] DAILYLAB CBC - COMP BLD CT W/AUTO DIFF [HEME] DAILYLAB 12/09/21 05:00 BMP - BASIC METABOLIC PANEL [CHEM] DAILYLAB CBC - COMP BLD CT W/AUTO DIFF [HEME] DAILYLAB 12/10/21 05:00 CBC - COMP BLD CT W/AUTO DIFF [HEME] DAILYLAB Subjective - Subjective Patient Reports: Other (Patient resting comfortably in bed. Denied any significant complaints today.) Objective Vital Signs: Vital Signs - 24 hr 12/05/21 12/05/21 12/05/21 09:35 10:55 12:37 Temperature 36.6 C Heart Rate [ Brachial] Heart Rate [ 115 H 125 H 80 Monitoring electrodes] Respiratory 16 Rate Blood Pressure 158/57 H Blood Pressure 123/79 [Left Brachial artery] Blood Pressure [Left Radial artery] Blood Pressure 122/56 L [Right Brachial artery] O2 Saturation 100 12/05/21 12/05/21 12/06/21 15:52 20:30 00:08 Temperature 37.3 C 36.8 C 36.5 C Heart Rate [ 70 79 Brachial] Heart Rate [ 62 Monitoring electrodes] Respiratory 12 18 16 Rate Blood Pressure Blood Pressure [Left Brachial artery] Blood Pressure 139/44 H [Left Radial artery] Blood Pressure 145/92 H 110/58 L [Right Brachial artery] O2 Saturation 98 98 99 12/06/21 12/06/21 06:15 07:43 Temperature 36.7 C 36.6 C Heart Rate [ 55 L 84 Brachial] Heart Rate [ Monitoring electrodes] Respiratory 14 16 Rate Blood Pressure Blood Pressure [Left Brachial artery] Blood Pressure [Left Radial artery] Blood Pressure 137/63 H 137/60 H [Right Brachial artery] O2 Saturation 98 95 Oxygen O2 Source [With Activity] Room air O2 Source Room air I&O (Last 24 Hrs): Intake and Output Totals x24h 12/04/21 12/05/21 12/06/21 23:59 23:59 23:59 Intake Total 764 945 Output Total 1770 1800 275 Balance -1006 -855 -275 Comments/Notes: General: Alert, Oriented x3, Mild distress HEENT: PERRLA, EOMI Neck: Supple, No JVD Neuro: Alert, Oriented Times 3 Cardiovascular: Other (Irregularly irregular heart rhythm.) Respiratory: Chest non-tender, No respiratory distress, Breath sounds nml Abdomen: Normal bowel sounds, Soft, No tenderness, No masses Extremities: No clubbing, No cyanosis, No edema, No tenderness/swelling Skin: No rashes, No breakdown, No significant lesion - Results Results: Laboratory Results WBC 8.5 x10^3/uL (4.8-10.8) 12/06/21 05:40 RBC 3.72 10^6/uL (4.20-5.40) L 12/06/21 05:40 Hgb 11.2 g/dL (12.0-16.0) L 12/06/21 05:40 Hct 32.6 % (37.0-47.0) L 12/06/21 05:40 MCV 87.6 fL (81.0-99.0) 12/06/21 05:40 MCH 30.1 pg (27.0-31.0) 12/06/21 05:40 MCHC 34.4 g/dL (32.0-36.0) 12/06/21 05:40 RDW 12.0 % (12.0-15.0) 12/06/21 05:40 Plt Count 221 10^3/uL (130-450) 12/06/21 05:40 MPV 10.0 fL (7.9-10.8) 12/06/21 05:40 Neut # (Auto) Not Reportable 12/06/21 05:40 Lymph # (Auto) Not Reportable 12/06/21 05:40 [place] # (Auto) Not Reportable 12/06/21 05:40 Eos # (Auto) Not Reportable 12/06/21 05:40 Baso # (Auto) Not Reportable 12/06/21 05:40 Absolute Nucleated RBC Not Reportable 12/06/21 05:40 Total Counted 100 12/06/21 05:40 Band Neuts % (Manual) 0 % (0-10) 12/06/21 05:40 Abnorm Lymph % (Manual) 0 % 12/06/21 05:40 Nucleated RBC % Not Reportable 12/06/21 05:40 Neutrophils # (Manual) 6.0 10^3/uL (1.5-6.6) 12/06/21 05:40 Lymphocytes # (Manual) 1.5 10^3/uL (1.5-3.5) 12/06/21 05:40 Monocytes # (Manual) 0.7 10^3/uL (0.0-1.0) 12/06/21 05:40 Eosinophils # (Manual) 0.3 10^3/uL (0-0.7) 12/06/21 05:40 Basophils # (Manual) 0.0 10^3/uL (0-0.1) 12/06/21 05:40 Differential Comment MANUAL DIFFERENTIAL 12/06/21 05:40 Manual Slide Review Indicated 12/02/21 08:19 WBC Morphology NORMAL APPEARANCE (NORMAL) 12/06/21 05:40 Platelet Estimate NORMAL (130-450,000) (NORMAL) 12/06/21 05:40 Platelet Morphology NORMAL APPEARANCE (NORMAL) 12/06/21 05:40 RBC Morph Micro Appear NORMAL APPEARANCE (NORMAL) 12/06/21 05:40 Bld Gas Analysis Time 1005 12/02/21 10:05 Sample Site RIGHT BRACHIAL 12/02/21 10:05 ABG pH 7.31 (7.35-7.45) L 12/02/21 10:05 ABG pCO2 32 mmHg (34-45) L 12/02/21 10:05 ABG pO2 83 mmHg (80-100) 12/02/21 10:05 ABG HCO3 15.6 mmol/L (22.0-26.0) L 12/02/21 10:05 ABG Total CO2 16.6 MMOL/L (21.0-29.0) L 12/02/21 10:05 ABG O2 Saturation 94 % (94-98) 12/02/21 10:05 ABG Base Excess -9.4 mmol/L (-2.0-3.0) L 12/02/21 10:05 Rai Test POSITIVE 12/02/21 10:05 VBG pH 7.483 (7.31-7.41) H 12/05/21 06:23 VBG pCO2 36.9 mmHg (41-51) L 12/02/21 12:25 VBG pO2 42.9 mmHg (25-47) 12/02/21 12:25 VBG HCO3 17.9 mmol/L (23-28) L 12/02/21 12:25 VBG Total CO2 19.0 mmol/L (24-29) L 12/02/21 12:25 VBG O2 Saturation 73.8 % (60-80) 12/02/21 12:25 VBG Base Excess -7.7 mmol/L (-2 - +2) L 12/02/21 12:25 Ionized Calcium 1.08 mmol/L (1.15-1.33) L 12/05/21 06:23 Room Air YES 12/02/21 10:05 Sodium 134 mmol/L (135-145) L 12/06/21 05:40 Potassium 3.2 mmol/L (3.5-5.0) L 12/06/21 05:40 Chloride 96 mmol/L (101-111) L 12/06/21 05:40 Carbon Dioxide 29 mmol/L (21-32) 12/06/21 05:40 Anion Gap 9.0 (6-13) 12/06/21 05:40 BUN 18 mg/dL (6-20) 12/06/21 05:40 Creatinine 1.2 mg/dL (0.4-1.0) H 12/06/21 05:40 Estimated GFR (MDRD) 43 (>89) L 12/06/21 05:40 Glucose 153 mg/dL (70-100) H 12/06/21 05:40 Estimat Average Glucose 295 mg/dL (70-100) H 12/02/21 08:19 Hemoglobin A1c % 11.9 % (4.27-6.07) H 12/02/21 08:19 Calcium 8.8 mg/dL (8.5-10.3) 12/06/21 05:40 Phosphorus 2.7 mg/dL (2.5-4.6) 12/05/21 06:23 Magnesium 1.7 mg/dL (1.7-2.8) 12/05/21 06:23 Total Bilirubin 1.7 mg/dL (0.2-1.0) H 12/02/21 08:19 AST 24 IU/L (10-42) 12/02/21 08:19 ALT 22 IU/L (10-60) 12/02/21 08:19 Alkaline Phosphatase 65 IU/L (42-121) 12/02/21 08:19 Troponin I High Sens 40.5 ng/L (2.3-14.8) H* 12/03/21 14:15 Total Protein 8.6 g/dL (6.7-8.2) H 12/02/21 08:19 Albumin 4.6 g/dL (3.2-5.5) 12/02/21 08:19 Globulin 4.0 g/dL (2.1-4.2) 12/02/21 08:19 Albumin/Globulin Ratio 1.1 (1.0-2.2) 12/02/21 08:19 Lipase 22 U/L (22-51) 12/02/21 08:19 TSH 1.08 uIU/mL (0.34-5.60) 12/02/21 14:08 Urine Color LIGHT YELLOW 12/02/21 14:00 Urine Clarity SL. CLOUDY (CLEAR) 12/02/21 14:00 Urine pH 6.0 PH (5.0-7.5) 12/02/21 14:00 Ur Specific [place] 1.020 (1.002-1.030) 12/02/21 14:00 Urine Protein 100 mg/dL (NEGATIVE) H 12/02/21 14:00 Urine Glucose (UA) NEGATIVE mg/dL (NEGATIVE) 12/02/21 14:00 Urine Ketones 15 mg/dL (NEGATIVE) H 12/02/21 14:00 Urine Occult Blood MODERATE (NEGATIVE) H 12/02/21 14:00 Urine Nitrite NEGATIVE (NEGATIVE) 12/02/21 14:00 Urine Bilirubin NEGATIVE (NEGATIVE) 12/02/21 14:00 Urine Urobilinogen 0.2 (NORMAL) E.U./dL (NORMAL) 12/02/21 14:00 Ur Leukocyte Esterase SMALL (NEGATIVE) H 12/02/21 14:00 Urine RBC 0-5 /HPF (0-5) 12/02/21 14:00 Urine WBC >25 /HPF (0-5) H 12/02/21 14:00 Urine WBC Clumps PRESENT 12/02/21 14:00 Ur Squamous Epith Cells NONE SEEN (<= Few) 12/02/21 14:00 Urine Bacteria Few /HPF (None Seen) 12/02/21 14:00 Ur Microscopic Review INDICATED 12/02/21 14:00 Urine Culture Comments INDICATED 12/02/21 14:00 Nasal Adenovirus (PCR) NOT DETECTED 12/02/21 10:30 Nasal B. parapertussis DNA (PCR) NOT DETECTED 12/02/21 10:30 Nasal Coronavir 229E PCR NOT DETECTED 12/02/21 10:30 Nasal Coronavir HKU1 PCR NOT DETECTED 12/02/21 10:30 Nasal Coronavir NL63 PCR NOT DETECTED 12/02/21 10:30 Nasal Coronavir OC43 PCR NOT DETECTED 12/02/21 10:30 Nasal Enterovir/Rhinovir PCR NOT DETECTED 12/02/21 10:30 Nasal Influenza B PCR NOT DETECTED 12/02/21 10:30 Nasal Influenza A PCR NOT DETECTED 12/02/21 10:30 Nasal Parainfluen 1 PCR NOT DETECTED 12/02/21 10:30 Nasal Parainfluen 2 PCR NOT DETECTED 12/02/21 10:30 Nasal Parainfluen 3 PCR NOT DETECTED 12/02/21 10:30 Nasal Parainfluen 4 PCR NOT DETECTED 12/02/21 10:30 Nasal RSV (PCR) NOT DETECTED 12/02/21 10:30 Nasal Screen MRSA (PCR) NEGATIVE (NEGATIVE) 12/02/21 13:55 Nasal B.pertussis DNA PCR NOT DETECTED 12/02/21 10:30 Nasal C.pneumoniae (PCR) NOT DETECTED 12/02/21 10:30 Gam[place] Human Metapneumo PCR NOT DETECTED 12/02/21 10:30 Nasal M.pneumoniae (PCR) NOT DETECTED 12/02/21 10:30 Nasal SARS-CoV-2 (PCR) NOT DETECTED 12/02/21 10:30 Serum Ketones NEGATIVE (NEGATIVE) 12/03/21 17:44 - Procedures Procedures: Procedures REPLACEMENT OF LEFT LENS WITH SYNTH SUB, PERC APPROACH (03/07/19) REPLACEMENT OF RIGHT LENS WITH SYNTH SUB, PERC APPROACH (05/09/19) ABX Reporting Has patient been on IV antibiotics over the past 48 hours?: No
[2021-12-06] MEDS: INSULIN ASPART 300 UNIT/3 ML PEN SUBQ SCH ×4 (09:14→21:46)
--- NOTE | 2021-12-06 09:25 | ANESTHESIA ---
Pre-Anesthesia VS, & Labs - Diagnosis Diagnosis Anemia with upper GI hemorrhage in the setting of a lady with multiple medical problems that are poorly controlled outside the hospital setting - Procedure EGD Vital Signs: Temp Pulse Resp BP Pulse Ox 36.6 C 84 16 137/60 H 95 12/06/21 07:43 12/06/21 07:43 12/06/21 07:43 12/06/21 07:43 12/06/21 07:43 Height: 5 ft 7 in Weight (kg): 62 kg Body Mass Index: 21.4 BMI Classification: Healthy weight - NPO >8 hours - Is Patient ?: No - Lab Results Current Lab Results: Laboratory Tests 12/06/21 05:40: Sodium 134 L, Potassium 3.2 L, Chloride 96 L, Carbon Dioxide 29, Anion Gap 9.0, BUN 18, Creatinine 1.2 H, Estimated GFR (MDRD) 43 L, Glucose 153 H, Calcium 8.8 12/06/21 05:40: WBC 8.5, RBC 3.72 L, Hgb 11.2 L, Hct 32.6 L, MCV 87.6, MCH 30.1, MCHC 34.4, RDW 12.0, Plt Count 221, MPV 10.0, Neut # (Auto) Not Reportable, Lymph # (Auto) Not Reportable, [place] # (Auto) Not Reportable, Eos # (Auto) Not Reportable, Baso # (Auto) Not Reportable, Absolute Nucleated RBC Not Reportable, Total Counted 100, Band Neuts % (Manual) 0, Abnorm Lymph % (Manual) 0, Nucleated RBC % Not Reportable, Neutrophils # (Manual) 6.0, Lymphocytes # (Manual) 1.5, Monocytes # (Manual) 0.7, Eosinophils # (Manual) 0.3, Basophils # (Manual) 0.0, Differential Comment MANUAL DIFFERENTIAL, WBC Morphology NORMAL APPEARANCE, Platelet Estimate NORMAL (130-450,000), Platelet Morphology NORMAL APPEARANCE, RBC Morph Micro Appear NORMAL APPEARANCE 12/05/21 16:15: WBC 6.9, RBC 3.74 L, Hgb 11.2 L, Hct 32.9 L, MCV 88.0, MCH 29.9, MCHC 34.0, RDW 11.9 L, Plt Count 193, MPV 10.3 12/05/21 06:23: WBC 6.7, RBC 3.70 L, Hgb 10.9 L, Hct 32.4 L, MCV 87.6, MCH 29.5, MCHC 33.6, RDW 12.1, Plt Count 190, MPV 10.1, Neut # (Auto) 5.0, Lymph # (Auto) 0.7 L, [place] # (Auto) 0.7, Eos # (Auto) 0.0, Baso # (Auto) 0.0, Absolute Nucleated RBC 0.00, Nucleated RBC % 0.0 12/05/21 06:23: VBG pH 7.483 H, Ionized Calcium 1.08 L 12/05/21 06:23: Sodium 133 L, Potassium 3.2 L, Chloride 97 L, Carbon Dioxide 25, Anion Gap 11.0, BUN 16, Creatinine 1.0, Estimated GFR (MDRD) 53 L, Glucose 194 H , Calcium 8.6, Phosphorus 2.7, Magnesium 1.7 12/04/21 14:15: VBG pH 7.442 H, Ionized Calcium 1.10 L 12/04/21 14:15: Phosphorus 3.3 12/04/21 04:50: WBC 5.6, RBC 3.39 L, Hgb 10.2 L, Hct 30.3 L, MCV 89.4, MCH 30.1, MCHC 33.7, RDW 12.9, Plt Count 175, MPV 10.5, Neut # (Auto) 4.4, Lymph # (Auto) 0.5 L, [place] # (Auto) 0.6, Eos # (Auto) 0.0, Baso # (Auto) 0.0, Absolute Nucleated RBC 0.00, Nucleated RBC % 0.0 12/04/21 04:50: VBG pH 7.408, Ionized Calcium 1.10 L 12/04/21 04:50: Sodium 133 L, Potassium 4.0, Chloride 102, Carbon Dioxide 22, Anion Gap 9.0, BUN 25 H, Creatinine 1.1 H, Estimated GFR (MDRD) 48 L, Glucose 239 H, Calcium 8.0 L, Phosphorus 2.3 L, Magnesium 1.9 12/03/21 17:44: Serum Ketones NEGATIVE 12/03/21 14:15: Troponin I High Sens 40.5 H* 12/03/21 10:53: Serum Ketones SMALL H 12/03/21 08:54: WBC 11.2 H, RBC 3.69 L, Hgb 11.3 L, Hct 32.1 L, MCV 87.0, MCH 30.6, MCHC 35.2, RDW 12.9, Plt Count 225, MPV 10.2, Neut # (Auto) 9.5 H, Lymph # (Auto) 0.5 L, [place] # (Auto) 1.1 H, Eos # (Auto) 0.0, Baso # (Auto) 0.0, Absolute Nucleated RBC 0.00, Nucleated RBC % 0.0 12/03/21 08:54: Troponin I High Sens 59.5 H* 12/03/21 08:54: Serum Ketones SMALL H 12/03/21 06:15: Troponin I High Sens 63.6 H* 12/03/21 04:15: Sodium 134 L, Potassium 4.5, Chloride 103, Carbon Dioxide 21, Anion Gap 10.0, BUN 45 H, Creatinine 1.2 H, Estimated GFR (MDRD) 43 L, Glucose 223 H, Calcium 8.2 L 12/03/21 04:00: Potassium 4.5 12/03/21 04:00: VBG pH 7.385, Ionized Calcium 1.12 L 12/03/21 04:00: Phosphorus 2.0 L, Magnesium 2.3, Serum Ketones SMALL H 12/03/21 01:05: Potassium 3.9 12/03/21 01:05: Serum Ketones SMALL 12/02/21 22:30: Potassium 3.2 L 12/02/21 22:30: Phosphorus 2.3 L, Magnesium 1.7, Serum Ketones SMALL H 12/02/21 20:20: Sodium 133 L, Potassium 3.6, Chloride 99 L, Carbon Dioxide 22, Anion Gap 12.0, BUN 56 H, Creatinine 1.4 H, Estimated GFR (MDRD) 36 L, Glucose 285 H, Calcium 8.2 L 12/02/21 20:20: Serum Ketones SMALL 12/02/21 17:10: Glucose 218 H, Serum Ketones SMALL H 12/02/21 16:00: Glucose 216 H, Serum Ketones SMALL 12/02/21 14:08: TSH 1.08 12/02/21 14:05: Sodium 134 L, Potassium 2.8 L, Chloride 97 L, Carbon Dioxide 21, Anion Gap 16.0 H, BUN 61 H, Creatinine 1.8 H, Estimated GFR (MDRD) 27 L, Glucose 309 H, Calcium 8.7, Magnesium 1.8, Serum Ketones SMALL H 12/02/21 12:25: Sodium 130 L, Potassium 3.1 L, Chloride 91 L, Carbon Dioxide 18 L, Anion Gap 21.0 H, BUN 66 H, Creatinine 2.0 H, Estimated GFR (MDRD) 24 L, Glucose 543 H*, Calcium 9.0, Magnesium 2.0, Serum Ketones MODERATE H 12/02/21 12:25: VBG pH 7.303 L, VBG pCO2 36.9 L, VBG pO2 42.9, VBG HCO3 17.9 L, VBG Total CO2 19.0 L, VBG O2 Saturation 73.8, VBG Base Excess -7.7 L 12/02/21 10:05: Bld Gas Analysis Time 1005, Sample Site RIGHT BRACHIAL, ABG pH 7.31 L, ABG pCO2 32 L, ABG pO2 83, ABG HCO3 15.6 L, ABG Total CO2 16.6 L, ABG O2 Saturation 94, ABG Base Excess -9.4 L, Rai Test POSITIVE, Room Air YES 12/02/21 08:19: Estimat Average Glucose 295 H, Hemoglobin A1c % 11.9 H 12/02/21 08:19: Serum Ketones MODERATE H 12/02/21 08:19: Sodium 123 L, Potassium 3.7, Chloride 78 L*, Carbon Dioxide 17 L , Anion Gap 28.0 H, BUN 75 H, Creatinine 2.4 H, Estimated GFR (MDRD) 19 L, Glucose 929 H*, Calcium 9.8, Total Bilirubin 1.7 H, AST 24, ALT 22, Alkaline Phosphatase 65, Total Protein 8.6 H, Albumin 4.6, Globulin 4.0, Albumin/Globulin Ratio 1.1, Lipase 22 12/02/21 08:19: WBC 22.1 H, RBC 4.77, Hgb 14.4, Hct 42.1, MCV 88.3, MCH 30.2, MCHC 34.2, RDW 13.0, Plt Count 306, MPV 10.8, Neut # (Auto) 19.6 H, Lymph # (Auto) 0.4 L, [place] # (Auto) 1.8 H, Eos # (Auto) 0.0, Baso # (Auto) 0.1, Absolute Nucleated RBC 0.00, Nucleated RBC % 0.0, Manual Slide Review Indicated, WBC Morphology , Platelet Estimate NORMAL (130-450,000), Platelet Morphology NORMAL APPEARANCE, RBC Morph Micro Appear NORMAL APPEARANCE Fish Bones: 12/06/21 05:40 12/06/21 05:40 Home Medications and Allergies Home Medications: Ambulatory Orders Levothyroxine Sodium [Levothyroxine] 50 mcg PO DAILY 12/02/21 Losartan Potassium 25 mg PO DAILY 12/02/21 Rivaroxaban [Xarelto] 15 mg PO QDDINNER 12/02/21 Active Medications Acetaminophen (Acetaminophen 325 Mg Tablet) 650 mg PO Q4HR PRN PRN Reason: Pain 1 to 4 Last Admin: 12/03/21 22:11 Dose: 650 mg Aspirin (Aspirin Ec 81 Mg Tablet) 81 mg PO DAILY [facility] Last Admin: 12/05/21 09:35 Dose: 81 mg Atorvastatin Calcium (Atorvastatin 10 Mg Tablet) 20 mg PO QPM [facility] Last Admin: 12/05/21 20:47 Dose: 20 mg Citalopram Hydrobromide (Citalopram Hydrobromide 20 Mg Tablet) 20 mg PO DAILY [facility] Last Admin: 12/05/21 09:35 Dose: 20 mg Digoxin (Digoxin 125 Mcg Tablet) 125 mcg PO DAILY [facility] Last Admin: 12/05/21 05:15 Dose: 125 mcg Diltiazem HCl (Diltiazem 60 Mg Tablet) 60 mg PO DAILY [facility] Last Admin: 12/05/21 09:35 Dose: 60 mg Dronabinol (Dronabinol 2.5 Mg Capsule) 2.5 mg PO BIDAC [facility] Last Admin: 12/06/21 05:52 Dose: 2.5 mg Gabapentin (Gabapentin 100 Mg Capsule) 100 mg PO QPM [facility] Last Admin: 12/05/21 20:47 Dose: 100 mg Ceftriaxone Sodium 1 gm/ (Sodium Chloride) 100 mls @ 200 mls/hr IV DAILY [facility] Last Infusion: 12/05/21 10:25 Dose: Infused Potassium Chloride (Potassium Chloride) 10 meq in 100 mls @ 100 mls/hr IV Q1H [facility] Stop: 12/06/21 12:59 Potassium Chloride 40 meq/ (Dextrose/Sodium Chloride) 1,000 mls @ 100 mls/hr IV .Q10H [facility] Insulin Aspart (Insulin Aspart 300 Unit/3 Ml Pen) 3 - 11 unit SUBQ 0800,1200,1700,2100 [facility]; Protocol Last Admin: 12/06/21 09:14 Dose: 3 unit Insulin Glargine (Insulin Glargine 300 Unit/3 Ml Pen) 28 unit SUBQ QPM [facility] Last Admin: 12/05/21 20:48 Dose: 28 unit Levothyroxine Sodium (Levothyroxine 25 Mcg Tablet) 50 mcg PO QDAC [facility] Last Admin: 12/06/21 05:52 Dose: 50 mcg Lorazepam (Lorazepam 0.5 Mg Tablet) 0.5 mg PO Q12H PRN PRN Reason: Anxiety Last Admin: 12/05/21 23:04 Dose: 0.5 mg Metoprolol Succinate (Metoprolol Succinate 25 Mg Tablet) 25 mg PO BID [facility] Last Admin: 12/05/21 20:47 Dose: 25 mg Metoprolol Tartrate (Metoprolol 5 Mg/5 Ml Vial) 5 mg IVP Q6H PRN PRN Reason: PER PHYSICIAN ORDER Multi-Ingredient Ointment (Zinc Oxide 20% Oint 30 Gm Tube) 1 applic TOP PRN PRN PRN Reason: Skin Care Last Admin: 12/06/21 05:59 Dose: 1 applic Nitroglycerin (Nitroglycerin Sl 0.4 Mg Tablet) 0.4 mg SL Q5MIN PRN PRN Reason: Chest Pain Last Admin: 12/03/21 07:04 Dose: 0.4 mg Ondansetron HCl (Ondansetron 4 Mg/2 Ml Vial) 4 mg IVP Q6HR PRN PRN Reason: Nausea / Vomiting Last Admin: 12/05/21 11:05 Dose: 4 mg Pantoprazole Sodium (Pantoprazole 40 Mg Tablet) 40 mg PO BID [facility] Last Admin: 12/05/21 21:12 Dose: 40 mg Petrolatum (Petrolatum White 5 Gm Packet) 1 applic TOP PRN PRN PRN Reason: Dry Lips Last Admin: 12/04/21 06:35 Dose: 1 applic Sodium Chloride (Sodium Chloride Flush 0.9% 10 Ml Syringe) 10 ml IVP 0100,0900,1700 [facility] Last Admin: 12/06/21 00:28 Dose: 10 ml Sodium Chloride (Sodium Chloride Flush 0.9% 10 Ml Syringe) 10 ml IVP PRN PRN PRN Reason: NEEDED PER PROVIDER ORDERS Last Admin: 12/06/21 00:28 Dose: 10 ml Sodium Chloride (Sodium Chloride Flush 0.9% 10 Ml Syringe) 20 ml IVP PRN PRN PRN Reason: After Blood Draw Last Admin: 12/04/21 04:54 Dose: 20 ml Sucralfate (Sucralfate 1 Gm/10 Ml Udc) 1 gm PO 0700,1100,1600,2200 [facility] Last Admin: 12/06/21 05:52 Dose: 1 gm Gabapentin 100 mg PO QPM 09/25/16 Simvastatin 40 mg PO QPM 09/25/16 Chlorthalidone 25 mg PO DAILY 03/19/17 Citalopram [CeleXA] 20 mg PO DAILY 11/21/17 Spironolactone 12.5 mg PO DAILY 11/21/17 metFORMIN [Glucophage] 1,000 mg PO BID 11/21/17 Insulin Glargine [Lantus Solostar] 28 units SUBQ QPM 11/22/17 Metoprolol Succinate 25 mg PO BID 11/22/17 Digoxin [Lanoxin] 0.125 mg PO DAILY 03/06/19 Levothyroxine Sodium [Levothyroxine] 50 mcg PO DAILY 12/02/21 Losartan Potassium 25 mg PO DAILY 12/02/21 Rivaroxaban [Xarelto] 15 mg PO QDDINNER 12/02/21 Allergies/Adverse Reactions: Allergies Allergy/AdvReac Type Severity Reaction Status Date / Time No Known Drug Allergies Allergy Verified 12/02/21 09:28 Anes History & Medical History - Anesthetic History Anesthesia Complications: reports: No previous complications - Medical History Cardiovascular: reports: Atrial fibrillation Pulmonary: reports: None Gastrointestinal: reports: None Urinary: reports: None Neuro: reports: CVA Musculoskeletal: reports: None Endocrine/Autoimmune: reports: Type 2 diabetes Blood Disorders: reports: None Skin: reports: None Smoking Status: Never smoker History of Cancer?: No - Surgical History General: reports: Appendectomy Eyes Ears Nose Throat (EENT): reports: Cataracts Exam General: Alert, Oriented x3 Dental: WNL, Dentures full Upper Mouth Opening: Greater than 4 Fingerbreadths Neck Mobility: Normal Mallampati classification: III Respiratory: Lungs clear Cardiovascular: Regular rate Plan Anesthesia Type: Total IV Consent for Procedure(s) Verified and Reviewed: Yes Code Status: Attempt Resuscitation ASA classification: 3-Severe systemic disease Is this case an emergency?: No
--- NOTE | 2021-12-06 09:35 | PROVIDER PROGRESS NOTE ---
Subjective - General Admit Date: 12/02/21 - Review of Systems All Other Systems: positive: Reviewed and negative - Other Other Information/Narrative: Continues to complain of pain with swallowing. Says it doesn't hurt in her chest but is painful once it reaches the stomach. Hungry but hesitant to eat due to pain. Objective - Patient Data Reviewed Vital Signs: Yes Vital Signs: Vital Signs x48h Temp Pulse Resp BP Pulse Ox 12/06/21 07:43 36.6 C 84 16 137/60 H 95 12/06/21 06:15 36.7 C 55 L 14 137/63 H 98 Weight: Weight 12/04/21 12/05/21 12/06/21 23:59 23:59 23:59 Weight (kg) 60 kg 62 kg 62 kg Intake & Output: Intake and Output Totals x24h 12/04/21 12/05/21 12/06/21 23:59 23:59 23:59 Intake Total 764 945 Output Total 1770 8885 275 Balance -1006 -855 -275 - Lab Results Lab Results: 12/06/21 05:40 12/06/21 05:40 Other Lab Results: Lab Results x24hrs 12/06/21 12/06/21 12/05/21 Range/Units 05:40 05:40 16:15 WBC 8.5 6.9 (4.8-10.8) x10^3/uL RBC 3.72 L 3.74 L (4.20-5.40) 10^6/uL Hgb 11.2 L 11.2 L (12.0-16.0) g/dL Hct 32.6 L 32.9 L (37.0-47.0) % MCV 87.6 88.0 (81.0-99.0) fL MCH 30.1 29.9 (27.0-31.0) pg MCHC 34.4 34.0 (32.0-36.0) g/dL RDW 12.0 11.9 L (12.0-15.0) % Plt Count 221 193 (130-450) 10^3/uL MPV 10.0 10.3 (7.9-10.8) fL Neut # (Auto) Not Reportable Lymph # (Auto) Not Reportable [place] # (Auto) Not Reportable Eos # (Auto) Not Reportable Baso # (Auto) Not Reportable Absolute Nucleated RBC Not Reportable Total Counted 100 Band Neuts % (Manual) 0 (0 - 10) % Abnorm Lymph % (Manual) 0 % Nucleated RBC % Not Reportable Neutrophils # (Manual) 6.0 (1.5-6.6) 10^3/uL Lymphocytes # (Manual) 1.5 (1.5-3.5) 10^3/uL Monocytes # (Manual) 0.7 (0.0-1.0) 10^3/uL Eosinophils # (Manual) 0.3 (0-0.7) 10^3/uL Basophils # (Manual) 0.0 (0-0.1) 10^3/uL Differential Comment MANUAL DIFFERENTIAL WBC Morphology NORMAL APPEARANCE (NORMAL) Platelet Estimate NORMAL (130-450,000) (NORMAL) Platelet Morphology NORMAL APPEARANCE (NORMAL) RBC Morph Micro Appear NORMAL APPEARANCE (NORMAL) Sodium 134 L (135-145) mmol/L Potassium 3.2 L (3.5-5.0) mmol/L Chloride 96 L (101-111) mmol/L Carbon Dioxide 29 (21-32) mmol/L Anion Gap 9.0 (6-13) BUN 18 (6-20) mg/dL Creatinine 1.2 H (0.4-1.0) mg/dL Estimated GFR (MDRD) 43 L (>89) Glucose 153 H (70-100) mg/dL Calcium 8.8 (8.5-10.3) mg/dL - Current Medications Current Medications: Current Medications Generic Name Dose Route Start Last Admin Trade Name Freq PRN Reason Stop Dose Admin Acetaminophen 650 mg 12/02/21 11:54 12/03/21 22:11 Acetaminophen 325 Mg Tablet PO 650 mg Q4HR PRN Administration Pain 1 to 4 Aspirin 81 mg 12/04/21 09:00 12/05/21 09:35 Aspirin Ec 81 Mg Tablet PO 81 mg DAILY [facility] Administration Atorvastatin Calcium 20 mg 12/02/21 21:00 12/05/21 20:47 Atorvastatin 10 Mg Tablet PO 20 mg QPM [facility] Administration Citalopram Hydrobromide 20 mg 12/04/21 09:00 12/05/21 09:35 Citalopram Hydrobromide 20 Mg Tablet PO 20 mg DAILY [facility] Administration Digoxin 125 mcg 12/03/21 09:00 12/05/21 05:15 Digoxin 125 Mcg Tablet PO 125 mcg DAILY [facility] Administration Diltiazem HCl 60 mg 12/03/21 09:00 12/05/21 09:35 Diltiazem 60 Mg Tablet PO 60 mg DAILY [facility] Administration Dronabinol 2.5 mg 12/05/21 07:00 12/06/21 05:52 Dronabinol 2.5 Mg Capsule PO 2.5 mg BIDAC [facility] Administration Gabapentin 100 mg 12/02/21 21:00 12/05/21 20:47 Gabapentin 100 Mg Capsule PO 100 mg QPM [facility] Administration Ceftriaxone Sodium 1 gm/ 100 mls @ 200 mls/hr 12/02/21 17:40 12/05/21 10:25 Sodium Chloride IV Infused DAILY [facility] Infusion Insulin Aspart 3 - 11 unit 12/04/21 08:30 12/06/21 09:14 Insulin Aspart 300 Unit/3 Ml Pen SUBQ 3 unit 0800,1200,1700,2100 [facility] Administration Protocol Insulin Glargine 28 unit 12/03/21 20:00 12/05/21 20:48 Insulin Glargine 300 Unit/3 Ml Pen SUBQ 28 unit QPM [facility] Administration Levothyroxine Sodium 50 mcg 12/03/21 07:00 12/06/21 05:52 Levothyroxine 25 Mcg Tablet PO 50 mcg QDAC [facility] Administration Lorazepam 0.5 mg 12/04/21 09:22 12/05/21 23:04 Lorazepam 0.5 Mg Tablet PO 0.5 mg Q12H PRN Administration Anxiety Metoprolol Succinate 25 mg 12/02/21 21:00 12/05/21 20:47 Metoprolol Succinate 25 Mg Tablet PO 25 mg BID [facility] Administration Multi-Ingredient Ointment 1 applic 12/03/21 23:21 12/06/21 05:59 Zinc Oxide 20% Oint 30 Gm Tube TOP 1 applic PRN PRN Administration Skin Care Nitroglycerin 0.4 mg 12/03/21 06:38 12/03/21 07:04 Nitroglycerin Sl 0.4 Mg Tablet SL 0.4 mg Q5MIN PRN Administration Chest Pain Ondansetron HCl 4 mg 12/02/21 11:54 12/05/21 11:05 Ondansetron 4 Mg/2 Ml Vial IVP 4 mg Q6HR PRN Administration Nausea / Vomiting Pantoprazole Sodium 40 mg 12/05/21 09:00 12/05/21 21:12 Pantoprazole 40 Mg Tablet PO 40 mg BID [facility] Administration Petrolatum 1 applic 12/04/21 06:22 12/04/21 06:35 Petrolatum White 5 Gm Packet TOP 1 applic PRN PRN Administration Dry Lips Sodium Chloride 10 ml 12/02/21 17:00 12/06/21 00:28 Sodium Chloride Flush 0.9% 10 Ml Syringe IVP 10 ml 0100,0900,1700 [facility] Administration Sodium Chloride 10 ml 12/02/21 11:54 12/06/21 00:28 Sodium Chloride Flush 0.9% 10 Ml Syringe IVP 10 ml PRN PRN Administration NEEDED PER PROVIDER ORDERS Sodium Chloride 20 ml 12/03/21 00:22 12/04/21 04:54 Sodium Chloride Flush 0.9% 10 Ml Syringe IVP 20 ml PRN PRN Administration After Blood Draw Sucralfate 1 gm 12/05/21 22:00 12/06/21 05:52 Sucralfate 1 Gm/10 Ml Udc PO 1 gm 0700,1100,1600,2200 [facility] Administration - Physical Exam Abdomen: positive: Nml bowel sounds, Tenderness. negative: Guarding, Rebound Neurologic/Psychiatric: positive: Oriented x3 ABX Reporting Has patient been on IV antibiotics over the past 48 hours?: No Impression/Plan - Problem List Problem List: Discussed the risks, benefits and alternatives of EGD and the patient has expressed oral and written consent to proceed.
[2021-12-06] MEDS ORDERED: PROPOFOL 500 MG/50 ML 500 MG/50 ML VIAL ONE (09:39)
[2021-12-06] MEDS ORDERED: LIDOCAINE-MPF 2% 5 ML VIAL ONE (09:39)
[2021-12-06] MEDS ORDERED: METOPROLOL 5 MG/5 ML VIAL IVP ONE (09:45)
[2021-12-06] MEDS ORDERED: LACTATED RINGERS 650 ML IV ONE (09:57)
[2021-12-06] MEDS ORDERED: POTASSIUM CHLORIDE INJ 40 MEQ in DEXTROSE 5%-0.45% NACL 980 ML IV SCH (10:00)
--- NOTE | 2021-12-06 10:06 | OPERATIVE REPORT ---
Operative Report - General Admit Date: 12/02/21 Procedure Date: 12/06/21 Planned Procedure: EGD Pre-Op Diagnosis: dysphagia Procedure Performed: EGD with biopsies Post Op Diagnosis: mild inflammation fundus stomach and duodenal bulp without ulcer or erosion - Procedure Note Primary Surgeon: praveen nolan Anesthesia Technique: MAC Pathology: mid esophagus, distal esophagus, antrum biopsies Estimated Blood Loss (mL): 0 Findings: white exudate distal esophagus. biopsies taken Complications: none
[2021-12-06] MEDS ORDERED: ePHEDrine 50 MG/ML VIAL IVP PRN (10:08)
[2021-12-06] MEDS ORDERED: NALOXONE 0.4 MG/ML VIAL IVP PRN (10:08)
[2021-12-06] MEDS ORDERED: fentaNYL 100 MCG/2 ML VIAL IVP PRN (10:08)
[2021-12-06] MEDS ORDERED: HYDROmorphone 0.5 MG/0.5 ML SYRINGE IVP PRN (10:08)
[2021-12-06] MEDS ORDERED: METOCLOPRAMIDE 10 MG/2 ML VIAL IVP PRN (10:08)
[2021-12-06] MEDS ORDERED: ONDANSETRON 4 MG/2 ML VIAL IVP PRN (10:08)
[2021-12-06] MEDS ORDERED: MORPHINE 2 MG/ML CARPUJECT IVP PRN (10:08)
[2021-12-06] MEDS ORDERED: ATROPINE ABBOJECT 1 MG/10 ML SYRINGE IVP PRN (10:08)
[2021-12-06] MEDS ORDERED: LACTATED RINGERS 1,000 ML IV SCH (11:00)
[2021-12-06] MEDS: ONDANSETRON 4 MG/2 ML VIAL IVP PRN (11:03)
[2021-12-06] MEDS: cefTRIAXone 1 GM in SODIUM CHLORIDE 0.9% MINIBAG 100 ML IV SCH (11:10)
[2021-12-06] MEDS: POTASSIUM CHLOR 10 MEQ/100 ML 10 MEQ/100 ML BAG IV SCH ×4 (11:16→14:39)
[2021-12-06] MEDS: PANTOPRAZOLE 40 MG TABLET PO SCH ×2 (11:17→21:44)
[2021-12-06] MEDS: DIGOXIN 125 MCG TABLET PO SCH (11:31)
[2021-12-06] MEDS: METOPROLOL SUCCINATE 25 MG TABLET PO SCH ×2 (11:32→21:44)
[2021-12-06] MEDS: CITALOPRAM HYDROBROMIDE 20 MG TABLET PO SCH (11:32)
[2021-12-06] MEDS: ASPIRIN EC 81 MG TABLET PO SCH (11:33)
[2021-12-06] MEDS: SODIUM CHLORIDE 0.9% 1,000 ML IV SCH (15:58)
--- NOTE | 2021-12-06 16:24 | ANESTHESIA POST OP EVALUATION ---
Anesthesia Post Eval - Post Anesthesia Eval Vitals: Last Vital Signs Temp 37.1 C 12/06/21 15:54 Pulse 79 12/06/21 15:54 Resp 18 12/06/21 15:54 BP 126/44 L 12/06/21 15:54 Pulse Ox 97 12/06/21 15:54 CV Function Including HR & BP: Stable Pain Control: Satisfactory Nausea & Vomiting: Negative Mental Status: Baseline Respiratory Status: Airway Patent Hydration Status: Satisfactory Anesthesia Complications: None
[2021-12-06] MEDS: RIVAROXABAN 15 MG TABLET PO SCH (17:21)
[2021-12-06] MEDS: ATORVASTATIN 10 MG TABLET PO SCH (21:43)
[2021-12-06] MEDS: GABAPENTIN 100 MG CAPSULE PO SCH (21:45)
[2021-12-06] MEDS: INSULIN GLARGINE 300 UNIT/3 ML PEN SUBQ SCH (21:46)
[2021-12-07] MEDS: SODIUM CHLORIDE 0.9% 1,000 ML IV SCH ×2 (01:22→08:41)
[2021-12-07] MEDS: SODIUM CHLORIDE FLUSH 0.9% 10 ML SYRINGE IVP SCH ×3 (01:22→17:42)
[2021-12-07] MEDS: LEVOTHYROXINE 25 MCG TABLET PO SCH (06:38)
[2021-12-07] MEDS: SUCRALFATE 1 GM/10 ML UDC PO SCH (06:38)
[2021-12-07] MEDS: INSULIN ASPART 300 UNIT/3 ML PEN SUBQ SCH ×3 (08:07→17:40)
[2021-12-07] MEDS: METOPROLOL SUCCINATE 25 MG TABLET PO SCH (08:29)
[2021-12-07] MEDS: CITALOPRAM HYDROBROMIDE 20 MG TABLET PO SCH (08:29)
[2021-12-07] MEDS: DIGOXIN 125 MCG TABLET PO SCH (08:29)
[2021-12-07] MEDS: ASPIRIN EC 81 MG TABLET PO SCH (08:29)
[2021-12-07] MEDS ORDERED: PANTOPRAZOLE 40 MG TABLET PO SCH (09:00)
[2021-12-07] MEDS ORDERED: POTASSIUM CHLORIDE 20 MEQ TABLET PO ONE (09:24)
[2021-12-07 10:01] LABS: BASOPHILS % (AUTO) 0.4 %; EOSINOPHILS % (AUTO) 4.2 %; HCT - HEMATOCRIT 29.7 % (37.0-47.0); HGB - HEMOGLOBIN 10.1 g/dL (12.0-16.0); LYMPHOCYTES % (AUTO) 7.7 %; MEAN CORPUSCULAR HEMOGLOBIN 30.5 pg (27.0-31.0); MEAN CORPUSCULAR VOLUME 89.7 fL (81.0-99.0); MEAN PLATELET VOLUME 10.2 fL (7.9-10.8); MONOCYTES % (AUTO) 10.4 %; NEUTROPHILS % (AUTO) 71.1 %; PLT - PLATELET COUNT 212 10^3/uL (130-450); RED BLOOD COUNT 3.31 10^6/uL (4.20-5.40); RED CELL DISTRIBUTION WIDTH 12.2 % (12.0-15.0); WHITE BLOOD COUNT 7.5 x10^3/uL (4.8-10.8)
[2021-12-07 10:03] LABS: SLIDE REVIEW? Indicated
[2021-12-07 10:10] LABS: CREATININE 1.1 mg/dL (0.4-1.0); POTASSIUM 3.5 mmol/L (3.5-5.0)
[2021-12-07 10:33] LABS: ABNORMAL LYMPHS % (MANUAL) 0 %
[2021-12-07 10:46] LABS: BAND NEUTROPHILS % (MANUAL) 3 %; EOSINOPHILS # (MANUAL) 0.3 10^3/uL (0-0.7); LYMPHOCYTES # (MANUAL) 0.6 10^3/uL (1.5-3.5); LYMPHOCYTES % (MANUAL) 8 %; METAMYELOCYTES % (MANUAL) 4 %; MONOCYTES # (MANUAL) 0.3 10^3/uL (0.0-1.0); MYELOCYTES % (MANUAL) 2 %; NEUTROPHILS # (MANUAL) 5.9 10^3/uL (1.5-6.6)
[2021-12-07 10:48] LABS: DIFFERENTIAL COMMENT MANUAL DIFFERENTIAL; PLATELET ESTIMATE, MANUAL NORMAL (130-450,000) (NORMAL); PLATELET MORPHOLOGY NORMAL APPEARANCE (NORMAL); RBC MORPHOLOGY (MULTIPLE) NORMAL APPEARANCE (NORMAL); WBC MORPHOLOGY (MULTIPLE) NORMAL APPEARANCE (NORMAL)
--- NOTE | 2021-12-07 12:07 | Discharge Plan ---
Discharge Plan Problem Reviewed?: Yes Disposition: Home Health Service Condition: Stable Prescriptions: Insulin Lispro 3 unit SUBQ TIDWM #10 ml Potassium Chloride [K-Dur] 20 meq PO DAILYWM #30 tablet Pantoprazole [Protonix] 40 mg PO DAILY #30 tablet Metoprolol Succinate [Toprol Xl] 50 mg PO BID #60 tablet Diet: Diabetic Activity Restrictions: Activity as Tolerated Health Concerns: You were admitted to the hospital because of diabetic ketoacidosis which was due to elevated blood sugars. You were treated with IV fluids and insulin. You had improvement in your blood sugars and you are now feeling much better. There was concern that he may have had bleeding in your stool and so he underwent an endoscopy but this showed no evidence of bleeding. Your blood counts have remained stable. Plan of Treatment: You may continue to take your Xarelto as you have previously been doing given there was no evidence of bleeding. Please stop taking diltiazem. We have increased the dose of your metoprolol to 50 mg twice daily instead of 25 mg twice daily. Please stop taking metformin. Please begin to take 3 units of Lispro with meals. This is a short acting insulin and should only be taken when you are not eating breakfast, lunch, or dinner. Please continue to take your long-acting insulin which is called Lantus. Please also take potassium daily as your potassium has been on the lower side. This was prescribed to your pharmacy. Care Goals: Goal is to prevent further episodes of elevated blood sugars. Assessment: Patient expressed understanding of the treatment plan. Additional Instructions or Follow Up instructions: Please follow-up with your primary care physician within 1 week. Follow-Up Care: Home Health - RN, Home Health - PT No Smoking: If you smoke, Please STOP! Call for help. Follow-up with: SANJAY BOYLE ARNP [Primary Care Provider] -
--- NOTE | 2021-12-07 12:29 | DISCHARGE SUMMARY ---
Discharge Summary Admit Date: 12/02/21 Discharge Date: 12/07/21 Discharging Provider: Elmo Dhillon Primary Care Provider: Lizz Holland Code Status: Do Not Attempt Resuscitation Condition at Discharge: Stable Discharge Disposition: Home Health Service - DIAGNOSES Admission Diagnoses: Diabetic ketoacidosis A. fib with RVR BOO Leukocytosis Hypertension Hyperlipidemia Hypothyroidism Depression CHF Discharge Diagnoses with Status of Each Condition: Diabetic ketoacidosis - resolved. Orthostatic hypotension stable. Anemia - stable. A. fib with RVR - resolved. Acute kidney injury - resolved. Hypertension - stable. Hyperlipidemia - stable. Hypothyroidism - stable. - HPI History of Present Illness: H&P per Dr. Win: The history below is limited because the patient is a poor historian. She reports that she was brought to the hospital because she has not been feeling well for the past week however it was reported by the ED physician that she was brought in with increased confusion and fatigue. She was brought into the ED by her roommate. It is reported that she has not been taking her medications for the past 3 days. When asked why she states is because she "smokes alot of pot" and she did not want to be caught. Work-up in the ED included a BMP which showed a glucose level of 929, anion gap 28, creatinine 2.4. She was in A. fib with RVR with heart rate as high as 149. She also had a white blood cell count of 22. As a result of this finding she was presented for admission for further treatment. At bedside she is very reluctant to answer questions asked. She denies chest pain, dyspnea, abdominal pain, nausea, vomiting, fever or chills. - CONSULTS | PROCEDURES Consultations: General Surgery, PT, OT Procedures: EGD on December 06 with general surgery showed white exudate distal esophagus with biopsies taken. Mild inflammation of the fundus and mild inflammation of the duodenal bulb without ulcer or erosion. Normal upper endoscopy otherwise. - HOSPITAL COURSE Hospital Course: The patient was admitted to the ICU for diabetic ketoacidosis. She was treated with IV fluids and IV insulin. She was then transition to subcutaneous insulin. She was noted to be in A. fib with RVR initially and she was able to be rate controlled with IV diltiazem. We resumed her home metoprolol, digoxin and diltiazem with improvement in her heart rate. Her acute kidney injury resolved with IV fluids. There is initial concern for infection given her white blood cell count was 22 and her urinalysis revealed pyuria. She was given ceftriaxone empirically for 3 days. Culture had no growth. Antibiotics were then discontinued. She was stable for discharge but then she developed bloody stool. Her hemoglobin did not drop significantly but given she is on Xarelto for the atrial relation, she underwent endoscopy. This showed no evidence of hemorrhage and revealed only mild inflammation of the fundus of the stomach and duodenal bulb. There was note of white exudate on the distal aspect of the esophagus. Given there is no evidence of active bleeding, she was continued on Xarelto. There is an order was that she was orthostatic and she was symptomatic with this. We gave her further IV hydration and discontinued her diltiazem. Her heart rate remained stable and although her blood pressure still dropped greater than 20 mmHg with standing, she was asymptomatic on the day of discharge. She was seen by PT and a SNF was recommended but the patient declined this and so we have recommended home health. I did increase the dose of her metoprolol on discharge and discontinued the diltiazem given the orthostasis previously. I was concerned if we stop the diltiazem without increase in metoprolol that her heart rate may be difficult to control. She was asked to follow-up with her primary care physician in 1 to 2 weeks. She will continue her home dose of Lant us but at 3 units of lispro with meals. I also asked her to stop taking metformin and begin taking potassium supplementation. She was also prescribed Protonix 40 mg daily. - ALLERGIES Allergies/Adverse Reactions: Allergies Allergy/AdvReac Type Severity Reaction Status Date / Time No Known Drug Allergies Allergy Verified 12/02/21 09:28 - MEDICATIONS Home Medications: Ambulatory Orders Medication Instructions Recorded Confirmed Gabapentin 100 mg PO QPM 09/25/16 12/02/21 Simvastatin 40 mg PO QPM 09/25/16 12/02/21 Citalopram [CeleXA] 20 mg PO DAILY 11/21/17 12/02/21 Spironolactone 12.5 mg PO DAILY 11/21/17 12/02/21 Insulin Glargine [Lantus Solostar] 28 units SUBQ QPM 11/22/17 12/02/21 Digoxin [Lanoxin] 0.125 mg PO DAILY 03/06/19 12/02/21 Levothyroxine Sodium 50 mcg PO DAILY 12/02/21 12/02/21 [Levothyroxine] Losartan Potassium 25 mg PO DAILY 12/02/21 12/02/21 Rivaroxaban [Xarelto] 15 mg PO QDDINNER 12/02/21 12/02/21 Insulin Lispro 3 unit SUBQ TIDWM #10 ml 12/07/21 Metoprolol Succinate [Toprol Xl] 50 mg PO BID #60 tablet 12/07/21 Pantoprazole [Protonix] 40 mg PO DAILY #30 tablet 12/07/21 Potassium Chloride [K-Dur] 20 meq PO DAILYWM #30 tablet 12/07/21 - PHYSICAL EXAM AT DISCHARGE General Appearance: positive: No acute distress, Alert Eyes Bilateral: positive: Normal inspection, Conjunctivae nml Neck: positive: Nml inspection Respiratory: positive: No respiratory distress Cardiovascular: positive: Irregularly irregular. negative: Tachycardia Abdomen: positive: Non-tender, No distention. negative: Tenderness Skin: positive: Warm, Dry Extremities: positive: No pedal edema Neurologic/Psychiatric: positive: Motor nml. negative: Disoriented to person, Disoriented to place Physical Exam Other/Comments: Vital Signs - 24 hr 12/06/21 12/07/21 12/07/21 20:38 00:28 06:29 Temperature 37.1 C 37.2 C 36.9 C Heart Rate [ 81 80 88 Brachial] Respiratory 16 16 16 Rate Blood Pressure Blood Pressure 156/66 H [Left Brachial artery] Blood Pressure 125/40 L 130/42 L [Right Brachial artery] O2 Saturation 100 97 96 12/07/21 12/07/21 12/07/21 08:24 08:29 17:00 Temperature 37.1 C 37.3 C Heart Rate [ 83 79 Brachial] Respiratory 22 20 Rate Blood Pressure 130/48 L Blood Pressure 136/54 H [Left Brachial artery] Blood Pressure 150/59 H [Right Brachial artery] O2 Saturation 100 100 Oxygen O2 Source [With Activity] Room air O2 Source Room air - LABS Result Diagrams: 12/07/21 09:47 12/07/21 09:47 - FOLLOW UP Follow Up: She was asked to follow-up with her primary care physician in 1 to 2 weeks. - TIME SPENT Time Spent in Discharge (Minutes): 36
[2021-12-07] MEDS: RIVAROXABAN 15 MG TABLET PO SCH (17:40)
[2021-12-07 19:46] VITALS: BP 137/59
[2021-12-07] MEDS ORDERED: METOPROLOL SUCCINATE 25 MG TABLET PO SCH (21:00)
[2021-12-08] MEDS ORDERED: POTASSIUM CHLORIDE 20 MEQ TABLET PO SCH (08:00)
== END 2021-12-07 20:03 | disposition home health service (06) | DRG 638 ==
LOC: EDUNIT# → ED 07:56 → ICU 11:54 → MS2 12-04 14:32
PROVIDERS: ADMIT Internal Medicine; ATTEND Internal Medicine
PROC: 0DB78ZX Excision of Stomach, Pylorus, Via Natural or Artificial Opening Endoscopic, Diagnostic (ICD-10-PCS; 2021-12-06)
PROC: 0DB28ZX Excision of Middle Esophagus, Via Natural or Artificial Opening Endoscopic, Diagnostic (ICD-10-PCS; 2021-12-06)
PROC: 0DB38ZX Excision of Lower Esophagus, Via Natural or Artificial Opening Endoscopic, Diagnostic (ICD-10-PCS; principal; 2021-12-06 09:30)
DX: E11.10 Type 2 diabetes mellitus with ketoacidosis without coma (principal); N17.9 Acute kidney failure, unspecified; K92.1 Melena; Z79.4 Long term (current) use of insulin; R41.0 Disorientation, unspecified; Z20.822 Contact with and (suspected) exposure to COVID-19; I95.1 Orthostatic hypotension; I48.91 Unspecified atrial fibrillation; E78.5 Hyperlipidemia, unspecified; E03.9 Hypothyroidism, unspecified; K29.70 Gastritis, unspecified, without bleeding; Z91.128 Patient's intentional underdosing of medication regimen for other reason; D72.829 Elevated white blood cell count, unspecified; F32.A Depression, unspecified; I11.0 Hypertensive heart disease with heart failure; I50.9 Heart failure, unspecified; Z79.84 Long term (current) use of oral hypoglycemic drugs; E86.0 Dehydration; D64.9 Anemia, unspecified; R13.10 Dysphagia, unspecified; E11.21 Type 2 diabetes mellitus with diabetic nephropathy; Z79.01 Long term (current) use of anticoagulants
CPT/HCPCS: 36415; 36556; 36600; 71045; 80048; 80053; 81001; 82009; 82272; 82330; 82803; 82947; 83036; 83690; 83735; 84100; 84132; 84443; 84484; 85025; 85027; 87086; 87150; 87631; 93005; 96361; 96374; 97116; 97161; 97530; 99285; 99291; A9270; J1170; J1815; J7120; J8499; Q0167; 0202U; 81003; 85014; 85018

== ENCOUNTER 2021-12-13 10:06 | Outpatient (CLI) | payer MEDICARE, MEDICAID | END 2021-12-13 10:07 | disposition EMS.NT | LOC: EMS 10:06 | DX: R53.83 Other fatigue (principal); R73.09 Other abnormal glucose ==

== ENCOUNTER 2021-12-13 14:38 | Emergency (ER) | payer MEDICARE, MEDICAID ==
[2021-12-13 15:16] LABS: BASOPHILS % (AUTO) 0.5 %; EOSINOPHILS # (AUTO) 0.1 10^3/uL (0.0-0.7); EOSINOPHILS % (AUTO) 0.9 %; HCT - HEMATOCRIT 25.5 % (37.0-47.0); HGB - HEMOGLOBIN 8.7 g/dL (12.0-16.0); LYMPHOCYTES # (AUTO) 0.9 10^3/uL (1.5-3.5); LYMPHOCYTES % (AUTO) 11.2 %; MEAN CORPUSCULAR HEMOGLOBIN 30.6 pg (27.0-31.0); MEAN CORPUSCULAR HGB CONC 34.1 g/dL (32.0-36.0); MEAN CORPUSCULAR VOLUME 89.8 fL (81.0-99.0); MEAN PLATELET VOLUME 10.4 fL (7.9-10.8); MONOCYTES # (AUTO) 0.7 10^3/uL (0.0-1.0); MONOCYTES % (AUTO) 8.3 %; NEUTROPHILS # (AUTO) 6.3 10^3/uL (1.5-6.6); NEUTROPHILS % (AUTO) 77.6 %; PLT - PLATELET COUNT 214 10^3/uL (130-450); RED BLOOD COUNT 2.84 10^6/uL (4.20-5.40); RED CELL DISTRIBUTION WIDTH 12.8 % (12.0-15.0); WHITE BLOOD COUNT 8.1 x10^3/uL (4.8-10.8)
[2021-12-13 15:29] LABS: ALBUMIN 3.3 g/dL (3.2-5.5); BILIRUBIN,TOTAL 0.9 mg/dL (0.2-1.0); CALCIUM 8.9 mg/dL (8.5-10.3); CREATININE 1.1 mg/dL (0.4-1.0); POTASSIUM 4.1 mmol/L (3.5-5.0); TOTAL PROTEIN 6.7 g/dL (6.7-8.2)
--- NOTE | 2021-12-13 16:21 | ED Physician Documentation ---
History of Present Illness - Stated complaint Stated Complaint: NOT TAKING MEDS - Chief complaint Chief Complaint: General - History obtained from History obtained from: Patient, Family - History of Present Illness Timing: Today Pain level max: 6 Pain level now: 5 - Additonal information Additional information: 81-year-old female who was recently admitted to the hospital for DKA, CHF, kidney injury. She was recommended to go to a nursing facility at that time but refused. The patient was sent home with home health. She saw her PCP today and they do not feel that she is safe at home. They would like to look for snf placement. They sent her here for placement. Patient currently has no complaints. Review of Systems Ten Systems: 10 systems reviewed and negative Constitutional: denies: Fever, Chills Cardiac: denies: Chest pain / pressure Respiratory: denies: Cough GI: denies: Abdominal Pain, Nausea, Vomiting, Diarrhea Skin: denies: Rash Musculoskeletal: denies: Neck pain, Back pain Neurologic: denies: Headache PD PAST MEDICAL HISTORY - Past Medical History Past Medical History: Yes Cardiovascular: Atrial fibrillation Respiratory: None Neuro: CVA Endocrine/Autoimmune: Type 2 diabetes GI: None : None HEENT: Chronic vision loss Psych: Depression Musculoskeletal: None Derm: None - Past Surgical History Past Surgical History: No General:  HEENT: Cataracts - Present Medications Home Medications: Ambulatory Orders Medication Instructions Recorded Confirmed Gabapentin 100 mg PO QPM 09/25/16 12/02/21 Simvastatin 40 mg PO QPM 09/25/16 12/02/21 Citalopram [CeleXA] 20 mg PO DAILY 11/21/17 12/02/21 Spironolactone 12.5 mg PO DAILY 11/21/17 12/02/21 Insulin Glargine [Lantus Solostar] 28 units SUBQ QPM 11/22/17 12/02/21 Digoxin [Lanoxin] 0.125 mg PO DAILY 03/06/19 12/02/21 Levothyroxine Sodium 50 mcg PO DAILY 12/02/21 12/02/21 [Levothyroxine] Losartan Potassium 25 mg PO DAILY 12/02/21 12/02/21 Rivaroxaban [Xarelto] 15 mg PO QDDINNER 12/02/21 12/02/21 Insulin Lispro 3 unit SUBQ TIDWM #10 ml 12/07/21 Metoprolol Succinate [Toprol Xl] 50 mg PO BID #60 tablet 12/07/21 Pantoprazole [Protonix] 40 mg PO DAILY #30 tablet 12/07/21 Potassium Chloride [K-Dur] 20 meq PO DAILYWM #30 tablet 12/07/21 - Allergies Allergies/Adverse Reactions: Allergies Allergy/AdvReac Type Severity Reaction Status Date / Time No Known Drug Allergies Allergy Verified 12/13/21 14:50 - Social History Does the pt smoke?: No Smoking Status: Never smoker Does the pt drink ETOH?: Yes Does the pt have substance abuse?: Yes - Immunizations Immunizations are current?: Yes - POLST Patient has POLST: No POLST Status: Full Code PD ED PE NORMAL - Vitals Vital signs reviewed: Yes - General General: Alert and oriented X 3, No acute distress - HEENT HEENT: Atraumatic, PERRL, Moist mucous membranes - Neck Neck: Supple, no meningeal sign, No bony TTP - Cardiac Cardiac: RRR, Strong equal pulses - Respiratory Respiratory: No respiratory distress, Clear bilaterally - Abdomen Abdomen: Soft, Non tender, Non distended - Derm Derm: Warm and dry - Neuro Neuro: Alert and oriented X 3, academic associate 2-12 intact, No motor deficit, No sensory deficit, Normal speech - Psych Psych: Normal mood, Normal affect Results - Vitals Vitals: Vital Signs - 24 hr 12/13/21 12/13/21 12/13/21 14:50 16:54 18:00 Temperature 36.5 C Heart Rate 92 70 84 Respiratory 16 16 18 Rate Blood Pressure 119/65 129/102 H 118/56 L O2 Saturation 100 100 98 Oxygen O2 Source [With Activity] Room air O2 Source Room air - Labs Labs: Laboratory Tests 12/13/21 12/13/21 12/13/21 15:13 15:13 16:55 WBC 8.1 RBC 2.84 L Hgb 8.7 L Hct 25.5 L MCV 89.8 MCH 30.6 MCHC 34.1 RDW 12.8 Plt Count 214 MPV 10.4 Neut # (Auto) 6.3 Lymph # (Auto) 0.9 L Sac # (Auto) 0.7 Eos # (Auto) 0.1 Baso # (Auto) 0.0 Absolute Nucleated RBC 0.00 Nucleated RBC % 0.0 Sodium 129 L Potassium 4.1 Chloride 93 L Carbon Dioxide 25 Anion Gap 11.0 BUN 15 Creatinine 1.1 H Estimated GFR (MDRD) 48 L Glucose 285 H Calcium 8.9 Total Bilirubin 0.9 AST 17 ALT 24 Alkaline Phosphatase 51 Total Protein 6.7 Albumin 3.3 Globulin 3.4 Albumin/Globulin Ratio 1.0 Lipase 20 L Nasal Adenovirus (PCR) NOT DETECTED Nasal B. parapertussis DNA (PCR) NOT DETECTED Nasal Coronavir 229E PCR NOT DETECTED Nasal Coronavir HKU1 PCR NOT DETECTED Nasal Coronavir NL63 PCR NOT DETECTED Nasal Coronavir OC43 PCR NOT DETECTED Nasal Enterovir/Rhinovir PCR NOT DETECTED Nasal Influenza B PCR NOT DETECTED Nasal Influenza A PCR NOT DETECTED Nasal Parainfluen 1 PCR NOT DETECTED Nasal Parainfluen 2 PCR NOT DETECTED Nasal Parainfluen 3 PCR NOT DETECTED Nasal Parainfluen 4 PCR NOT DETECTED Nasal RSV (PCR) NOT DETECTED Nasal B.pertussis DNA PCR NOT DETECTED Nasal C.pneumoniae (PCR) NOT DETECTED Gamal Human Metapneumo PCR NOT DETECTED Nasal M.pneumoniae (PCR) NOT DETECTED Nasal SARS-CoV-2 (PCR) NOT DETECTED PD MEDICAL DECISION MAKING - ED course Complexity details: reviewed results, re-evaluated patient, considered differential, d/w patient, d/w PMD, d/w credit consultant ED course: I spoke with the patient's primary care provider prior to the patient coming to the emergency department. The social insurance analyst had written a note stating that she had sent resources and instructions for the daughter to follow-up to help place the patient. I asked her primary care provider if I could have the social insurance analyst call and speak with her to update her on what has been happening with the attempted placement of the patient. I have then spoke with the social insurance analyst, Melanie who has been working with the patient and her family. She has been speaking with the daughter all morning today and stated that she would call the patient's primary care provider. The patient arrived to the emergency department a few hours later and we are attempting to find placement for the patient. As she does not feel like she is safe at home but does not have any admittable diagnosis to the hospital at this time, she will stay in the emergency department pending placement. Physical therapy consult was ordered. Labs were ordered. Her blood sugar at home averages around 295. Patient will be signed out to the oncoming emergency department physician for continued care awaiting placement. Departure - Departure Clinical Impression: Diabetes mellitus Qualifiers: Diabetes mellitus type: type 2 Diabetes mellitus terminal gauger insulin use: with terminal gauger use Diabetes mellitus complication status: without complication Qualified Code(s): E11.9 - Type 2 diabetes mellitus without complications; Z79.4 - detention (current) use of insulin Anemia Qualifiers: Anemia type: unspecified type Qualified Code(s): D64.9 - Anemia, unspecified Condition: Stable
[2021-12-13 18:10] LABS: B. PARAPERTUSSIS- RESP PCR PAN NOT DETECTED; B. PERTUSSIS- RESP PCR PANEL NOT DETECTED; C. PNEUMONIAE- RESP PCR PANEL NOT DETECTED; CORONAVIRUS 229E-RESP PCR NOT DETECTED; CORONAVIRUS HKU1-RESP PCR NOT DETECTED; CORONAVIRUS NL63-RESP PCR NOT DETECTED; CORONAVIRUS OC43-RESP PCR NOT DETECTED; HUMAN METAPNEUMOVIRUS NOT DETECTED; INFLUENZA A- RESP PCR PANEL NOT DETECTED; INFLUENZA B - RESP PCR PANEL NOT DETECTED; M. PNEUMONIAE- RESP PCR PANEL NOT DETECTED; PARAINFLUENZA VIRUS 1 NOT DETECTED; PARAINFLUENZA VIRUS 2 NOT DETECTED; PARAINFLUENZA VIRUS 3 NOT DETECTED; PARAINFLUENZA VIRUS 4 NOT DETECTED; RHINOVIRUS/ENTEROVIRUS NOT DETECTED; RSV- RESP PCR PANEL NOT DETECTED; SARS-CoV-2 -RESP PCR PANEL NOT DETECTED
[2021-12-13] MEDS: INSULIN GLARGINE 300 UNIT/3 ML PEN SUBQ SCH (21:25)
[2021-12-13 23:10] LABS: BILIRUBIN,URINE NEGATIVE (NEGATIVE); CLARITY,URINE CLEAR (CLEAR); GLUCOSE, URINE (UA) 250 mg/dL (NEGATIVE); KETONES,URINE (UA) NEGATIVE (NEGATIVE); LEUKOCYTE ESTERASE, URINE TRACE (NEGATIVE); NITRITE,URINE NEGATIVE (NEGATIVE); OCCULT BLOOD,URINE NEGATIVE (NEGATIVE); PROTEIN,URINE TRACE mg/dL (NEGATIVE); UROBILINOGEN,URINE 0.2 (NORMAL) E.U./dL (NORMAL)
[2021-12-13 23:17] LABS: BACTERIA,URINE Rare /HPF (None Seen); RBC,URINE 0-5 /HPF (0-5); SQUAMOUS EPITHELIAL CELL,UR RARE Squamous (<= Few)
[2021-12-14] MEDS: LEVOTHYROXINE 25 MCG TABLET PO SCH (08:09)
[2021-12-14] MEDS: INSULIN ASPART 300 UNIT/3 ML PEN SUBQ SCH ×3 (08:09→17:11)
[2021-12-14] MEDS: METOPROLOL SUCCINATE 50 MG TABLET PO SCH ×2 (09:00→21:05)
[2021-12-14] MEDS: CITALOPRAM 10 MG TABLET PO SCH (09:00)
[2021-12-14] MEDS: DIGOXIN 125 MCG TABLET PO SCH (09:00)
[2021-12-14] MEDS: ATORVASTATIN 40 MG TABLET PO SCH (09:01)
[2021-12-14] MEDS: LOSARTAN 50 MG TABLET PO SCH (09:01)
[2021-12-14] MEDS: PANTOPRAZOLE 40 MG TABLET PO SCH (09:01)
[2021-12-14] MEDS: SPIRONOLACTONE 25 MG TABLET PO SCH (09:08)
[2021-12-14 09:44] LABS: BUN - BLOOD UREA NITROGEN 16 mg/dL (6-20); CARBON DIOXIDE - CO2 25 mmol/L (21-32); CHLORIDE 96 mmol/L (101-111); DIGOXIN 0.6 ng/mL; GFR - MDRD 53 (>89); GLUCOSE 311 mg/dL (70-100); MAGNESIUM 1.8 mg/dL (1.7-2.8); POTASSIUM 4.6 mmol/L (3.5-5.0); SODIUM 132 mmol/L (135-145)
[2021-12-14] MEDS ORDERED: SODIUM CHLORIDE 0.9% 1,000 ML IV STA (09:55)
[2021-12-14] MEDS ORDERED: DIGOXIN 500 MCG/2 ML AMP IVP STA (11:40)
[2021-12-14] MEDS ORDERED: METOPROLOL 5 MG/5 ML VIAL IVP STA (11:40)
[2021-12-14] MEDS ORDERED: RIVAROXABAN 15 MG TABLET PO SCH (17:00)
--- NOTE | 2021-12-14 17:27 | ED Physician Documentation ---
ED Addendum - Addendum Addendum: 12/14/21 17:25The patient remained comfortable in the ER through the day. It was noted on the heart monitor the patient went into a rapid atrial fibrillation around 140 rate. She felt without any dyspnea chest pain or lightheadedness. Blood pressure was good. She had not yet received her morning medication so was given her typical oral metoprolol and digoxin. After an hour the heart rate remained similar. She was still stable. However given the persistence of the fast rate, I did have nursing give an extra dose of metoprolol 5 mg IV and digoxin 0.125 mg IV as her serum level was only 0.6. Electrolytes were good on blood tests so no replacement there. The patient's heart rate subsequently came down to 100 and she still remained stable symptoms and blood pressure. I did notice her heart rate had been 120s yesterday without any intervention per se and had gone down to normal later in the day. I presume she is in and out of rapid A. fib at home given that she really does not have symptoms and has history of A. fib. I did not see need for any further intervention at this point. Social work is still working on placement for her.
[2021-12-14] MEDS ORDERED: GABAPENTIN 100 MG CAPSULE PO SCH (21:00)
[2021-12-14] MEDS: INSULIN GLARGINE 300 UNIT/3 ML PEN SUBQ SCH (21:05)
[2021-12-15 09:00] VITALS: BP 156/63
[2021-12-15] MEDS: METOPROLOL SUCCINATE 50 MG TABLET PO SCH (09:09)
[2021-12-15] MEDS: DIGOXIN 125 MCG TABLET PO SCH (09:09)
[2021-12-15] MEDS: SPIRONOLACTONE 25 MG TABLET PO SCH (09:09)
[2021-12-15] MEDS: ATORVASTATIN 40 MG TABLET PO SCH (09:09)
[2021-12-15] MEDS: LOSARTAN 50 MG TABLET PO SCH (09:10)
[2021-12-15] MEDS: PANTOPRAZOLE 40 MG TABLET PO SCH (09:10)
[2021-12-15] MEDS: INSULIN ASPART 300 UNIT/3 ML PEN SUBQ SCH ×2 (09:10→11:13)
[2021-12-15 09:26] LABS: B. PARAPERTUSSIS- RESP PCR PAN NOT DETECTED; B. PERTUSSIS- RESP PCR PANEL NOT DETECTED; C. PNEUMONIAE- RESP PCR PANEL NOT DETECTED; CORONAVIRUS 229E-RESP PCR NOT DETECTED; CORONAVIRUS HKU1-RESP PCR NOT DETECTED; CORONAVIRUS NL63-RESP PCR NOT DETECTED; CORONAVIRUS OC43-RESP PCR NOT DETECTED; HUMAN METAPNEUMOVIRUS NOT DETECTED; INFLUENZA A- RESP PCR PANEL NOT DETECTED; INFLUENZA B - RESP PCR PANEL NOT DETECTED; M. PNEUMONIAE- RESP PCR PANEL NOT DETECTED; PARAINFLUENZA VIRUS 1 NOT DETECTED; PARAINFLUENZA VIRUS 2 NOT DETECTED; PARAINFLUENZA VIRUS 3 NOT DETECTED; PARAINFLUENZA VIRUS 4 NOT DETECTED; RHINOVIRUS/ENTEROVIRUS NOT DETECTED; RSV- RESP PCR PANEL NOT DETECTED; SARS-CoV-2 -RESP PCR PANEL NOT DETECTED
[2021-12-15] MEDS: LEVOTHYROXINE 25 MCG TABLET PO SCH (10:08)
[2021-12-15] MEDS: CITALOPRAM 10 MG TABLET PO SCH (10:08)
[2021-12-15] MEDS ORDERED: INSULIN REGULAR HUMAN 100 UNIT/1 ML 10 ML MDV SUBQ STA (11:11)
== END 2021-12-15 11:49 | disposition home or self-care (01) ==
LOC: ED 14:38
DX: Z02.2 Encounter for examination for admission to residential institution (principal); D64.9 Anemia, unspecified; I48.91 Unspecified atrial fibrillation; Z79.01 Long term (current) use of anticoagulants; E11.9 Type 2 diabetes mellitus without complications; Z79.4 Long term (current) use of insulin; Z20.822 Contact with and (suspected) exposure to COVID-19
CPT/HCPCS: 36415; 80048; 80053; 80162; 81001; 83690; 83735; 85025; 87086; 87631; 93005; 96374; 99283; A9270; J1815; 0202U; 81003

== ENCOUNTER 2023-08-07 08:00 | Outpatient (CLI) | payer MEDICARE, MEDICAID ==
[2023-08-07 21:30] LABS: ESTIMATED AVERAGE GLUCOSE 375 mg/dL (70-100); HEMOGLOBIN A1c% 14.7 % (4.27-6.07)
== END 2023-08-07 23:59 | disposition home or self-care (01) ==
LOC: LAB.R 08:00
PROVIDERS: ATTEND Nurse Practitioner Family
DX: E11.65 Type 2 diabetes mellitus with hyperglycemia (principal)
CPT/HCPCS: 83036

== ENCOUNTER 2024-03-19 13:45 | Outpatient (CLI) | payer MEDICARE, MEDICAID | END 2024-03-19 23:44 | disposition critical access hospital (66) | LOC: EMS 13:45 | DX: R06.09 Other forms of dyspnea (principal); R00.2 Palpitations; R23.1 Pallor; I48.91 Unspecified atrial fibrillation | CPT/HCPCS: A0425; A0429 ==

== ENCOUNTER 2024-03-19 14:25 | Emergency (ER) | payer MEDICARE, MEDICAID ==
--- NOTE | 2024-03-19 14:36 | ED Physician Documentation ---
PD HPI DYSPNEA - Stated complaint Stated Complaint: DYSPNEA - Chief complaint Chief Complaint: Cardiac - History obtained from History obtained from: Patient, EMS - Additional information Additional information: She has a history of strokes and A-fib on Xarelto. She presents by ambulance for dyspnea on exertion. Is been going on for about a week. She said even if she walks to her bathroom she gets terribly short of breath. She is just a bit of orthopnea 2. There is no associated chest pain, pedal edema, calf pain. She has no heart problems other than the A-fib, i.e. known known coronary disease. She does not have a work study student. PD PAST MEDICAL HISTORY - Past Medical History Past Medical History: Yes Cardiovascular: Atrial fibrillation Respiratory: None Neuro: CVA Endocrine/Autoimmune: Type 2 diabetes GI: None : None HEENT: Chronic vision loss Psych: Depression Musculoskeletal: None Derm: None - Past Surgical History Past Surgical History: No General:  HEENT: Cataracts - Present Medications Home Medications: Ambulatory Orders Medication Instructions Recorded Confirmed Gabapentin 100 mg PO QPM 09/25/16 12/02/21 Simvastatin 40 mg PO QPM 09/25/16 12/02/21 Citalopram [CeleXA] 20 mg PO DAILY 11/21/17 12/02/21 Spironolactone 12.5 mg PO DAILY 11/21/17 12/02/21 Insulin Glargine [Lantus Solostar] 28 units SUBQ QPM 11/22/17 12/02/21 Digoxin [Lanoxin] 0.125 mg PO DAILY 03/06/19 12/02/21 Levothyroxine Sodium 50 mcg PO DAILY 12/02/21 12/02/21 Losartan Potassium 25 mg PO DAILY 12/02/21 12/02/21 Rivaroxaban [Xarelto] 15 mg PO QDDINNER 12/02/21 12/02/21 Insulin Lispro 3 unit SUBQ TIDWM #10 ml 12/07/21 Metoprolol Succinate [Toprol Xl] 50 mg PO BID #60 tablet 12/07/21 Pantoprazole [Protonix] 40 mg PO DAILY #30 tablet 12/07/21 Potassium Chloride [K-Dur] 20 meq PO DAILYWM #30 tablet 12/07/21 Furosemide [Lasix] 20 mg PO DAILY #7 tablet 03/19/24 Potassium Chloride 10 meq PO DAILY #7 tab 03/19/24 - Allergies Allergies/Adverse Reactions: Allergies Allergy/AdvReac Type Severity Reaction Status Date / Time No Known Drug Allergies Allergy Verified 03/19/24 14:29 - Social History Does the pt smoke?: No Smoking Status: Never smoker Does the pt drink ETOH?: Yes Does the pt have substance abuse?: Yes - Immunizations Immunizations are current?: Yes - POLST Patient has POLST: No POLST Status: Full Code PD ED PE NORMAL - Vitals Vital signs reviewed: Yes - General General: Alert and oriented X 3, No acute distress - HEENT HEENT: PERRL, EOMI - Neck Neck: Supple, no meningeal sign, No bony TTP - Cardiac Cardiac: Other (Irregularly irregular without murmur) - Respiratory Respiratory: No respiratory distress, Clear bilaterally - Abdomen Abdomen: Normal bowel sounds, Soft, Non tender - Back Back: No CVA TTP, No spinal TTP - Derm Derm: Normal color, Warm and dry - Extremities Extremities: No edema, No calf tenderness / cord - Neuro Neuro: Alert and oriented X 3, Normal speech Results - Vitals Vitals: Vital Signs - 24 hr 03/19/24 03/19/24 03/19/24 14:29 14:33 14:34 Temperature 36.8 C 36.8 C Heart Rate 100 100 98 Respiratory 12 12 18 Rate Blood Pressure 116/72 116/72 160/60 H O2 Saturation 100 100 99 03/19/24 03/19/24 03/19/24 15:04 15:30 16:00 Temperature 36.8 C 36.8 C Heart Rate 110 H 100 100 Respiratory 16 17 17 Rate Blood Pressure 122/75 143/94 H 130/88 H O2 Saturation 99 94 96 03/19/24 03/19/24 03/19/24 16:30 17:00 17:30 Temperature 36.8 C Heart Rate 100 102 H 100 Respiratory 16 18 18 Rate Blood Pressure 130/88 H 145/105 H 140/90 H O2 Saturation 98 96 98 Oxygen O2 Source [] Room air O2 Source Room air - EKG (time done) 1444 EKG releavant findings:: EKG personally interpreted by author of this note. Relevant findings are: Rate: Rate (enter#) (103) Rhythm: Atrial fibrillation [place]: Normal QRS: Normal Ischemia: Normal ST segments, Non specific changes - Labs Labs: Laboratory Tests 03/19/24 03/19/24 03/19/24 14:42 14:42 14:42 WBC 8.8 RBC 4.12 L Hgb 11.2 L Hct 36.5 L MCV 88.6 MCH 27.2 MCHC 30.7 L RDW 13.9 Plt Count 304 MPV 10.4 Neut # (Auto) 7.2 H Lymph # (Auto) 0.7 L [place] # (Auto) 0.6 Eos # (Auto) 0.1 Baso # (Auto) 0.1 Absolute Nucleated RBC 0.00 Nucleated RBC % 0.0 Sodium 134 L Potassium 4.1 Chloride 101 Carbon Dioxide 23 Anion Gap 10.0 BUN 28 H Creatinine 1.3 Estimated GFR (MDRD) 39 L Glucose 105 H Calcium 9.8 Total Bilirubin 0.6 AST 10 ALT 10 Alkaline Phosphatase 63 Troponin I High Sens 8.6 B-Natriuretic Peptide 350 H Total Protein 7.5 Albumin 4.1 Globulin 3.4 Albumin/Globulin Ratio 1.2 Lipase 16 - Rads (name of study) 1v cxr Relevant Findings:: Final report received, EMP independent interpretation of test PD Medical Decision Making - ED course ED course: She has exertional dyspnea. Clear lungs. I think the biggest concern would be for atypical ACS/unstable angina with dyspnea as her anginal equivalent. Differential would include CHF, pneumonia, pneumothorax. Doubt PE given lack of calf symptoms and she is anticoagulated. Single view chest x-ray is showing mild pulmonary edema and patchy bibasilar atelectasis. Subsequently I added on a BNP which was positive at 350 and talked with her a bit. She actually has underlying heart failure and is on chlorthalidone. Will add Lasix pending follow-up. Her last echo she says with about a year and a half ago, it must have been elsewhere as the last echocardiogram I have on the chart was about 6 years ago. Departure - Departure Disposition: 01 Home, Self Care Clinical Impression: CHF (congestive heart failure) Qualifiers: Heart failure type: unspecified Heart failure chronicity: acute on chronic Qualified Code(s): I50.9 - Heart failure, unspecified Atrial fibrillation Qualifiers: Atrial fibrillation type: unspecified Qualified Code(s): I48.91 - Unspecified atrial fibrillation Condition: Stable Record reviewed to determine appropriate education?: Yes Instructions: ED CHF General Prescriptions: Furosemide [Lasix] 20 mg PO DAILY #7 tablet Potassium Chloride 10 meq PO DAILY #7 tab Comments: You were seen today for mild CHF causing your shortness of breath. There is no evidence of heart attack. You also have the chronic atrial fibrillation. I am adding a diuretic and potassium supplement. You should follow-up with your primary care nurse practitioner. Would recommend consideration for echocardiogram. Return if you worsen. It is also very reasonable for you to check your weight daily and keep track of it and report this to your primary care nurse practitioner. It may help identify when you are fluid overloaded or getting too dry. Forms: PCP List Discharge Date/Time: 03/19/24 18:12
[2024-03-19 14:55] LABS: BASOPHILS # (AUTO) 0.1 10^3/uL (0.0-0.1); BASOPHILS % (AUTO) 0.7 %; EOSINOPHILS # (AUTO) 0.1 10^3/uL (0.0-0.7); EOSINOPHILS % (AUTO) 1.5 %; HCT - HEMATOCRIT 36.5 % (37.0-47.0); HGB - HEMOGLOBIN 11.2 g/dL (12.0-16.0); LYMPHOCYTES # (AUTO) 0.7 10^3/uL (1.5-3.5); LYMPHOCYTES % (AUTO) 8.4 %; MEAN CORPUSCULAR HEMOGLOBIN 27.2 pg (27.0-31.0); MEAN CORPUSCULAR HGB CONC 30.7 g/dL (32.0-36.0); MEAN CORPUSCULAR VOLUME 88.6 fL (81.0-99.0); MEAN PLATELET VOLUME 10.4 fL (7.9-10.8); MONOCYTES # (AUTO) 0.6 10^3/uL (0.0-1.0); NEUTROPHILS # (AUTO) 7.2 10^3/uL (1.5-6.6); NEUTROPHILS % (AUTO) 81.5 %; PLT - PLATELET COUNT 304 10^3/uL (130-450); RED BLOOD COUNT 4.12 10^6/uL (4.20-5.40); RED CELL DISTRIBUTION WIDTH 13.9 % (12.0-15.0); WHITE BLOOD COUNT 8.8 x10^3/uL (4.8-10.8)
[2024-03-19 15:15] LABS: TROPONIN I HIGH SENSITIVITY 8.6 ng/L (2.3-14.8)
--- NOTE | 2024-03-19 15:34 | XRAY Report ---
PROCEDURE: Chest 1V INDICATIONS: dyspnea TECHNIQUE: One view of the chest was acquired. COMPARISON: Chest rated graft on December 02, 2021. FINDINGS: Surgical changes and devices: None. Lungs and pleura: No pleural effusions or pneumothorax. Mild diffuse interstitial prominence. Bibasi lar patchy consolidation. Mediastinum: Mediastinal contours appear normal. Heart size is normal. Aortic arch I, dictating u pper sclerosis. Bones and chest wall: No suspicious bony lesions. Overlying soft tissues appear unremarkable. IMPRESSION: 1.Mild diffuse pulmonary edema. 2.Bibasilar patchy consolidation may reflect superimposed atelectasis, aspiration and/or pneumonia, i n the appropriate clinical context. Reviewed by: Lula Silva MD on 03/19/2024 3:33 PM PDT Approved by: Lula Silva MD on 03/19/2024 3:33 PM PDT Station ID: [id number]
[2024-03-19 15:58] LABS: ALBUMIN 4.1 g/dL (3.2-5.5); ALBUMIN/GLOBULIN RATIO 1.2 (1.0-2.2); BILIRUBIN,TOTAL 0.6 mg/dL (0.2-1.0); CALCIUM 9.8 mg/dL (8.5-10.3); CREATININE 1.3 mg/dL (0.6-1.3); POTASSIUM 4.1 mmol/L (3.5-4.5); TOTAL PROTEIN 7.5 g/dL (6.4-8.9)
[2024-03-19 17:37] VITALS: BP 140/90; O2SAT 98
== END 2024-03-19 18:12 | disposition home or self-care (01) ==
LOC: EDUNIT# → ED 14:25
DX: I50.9 Heart failure, unspecified (principal); I48.91 Unspecified atrial fibrillation; Z86.73 Personal history of transient ischemic attack (TIA), and cerebral infarction without residual deficits; Z79.01 Long term (current) use of anticoagulants; E11.9 Type 2 diabetes mellitus without complications; Z79.4 Long term (current) use of insulin; Z79.899 Other long term (current) drug therapy
CPT/HCPCS: 36415; 80053; 83690; 83880; 84484; 85025; 93005; 99284

== ENCOUNTER 2024-03-27 00:46 | Outpatient (CLI) | payer MEDICARE, MEDICAID | END 2024-03-27 00:47 | disposition critical access hospital (66) | LOC: EMS 00:46 | DX: R20.0 Anesthesia of skin (principal); R19.7 Diarrhea, unspecified; R11.0 Nausea | CPT/HCPCS: A0425; A0429 ==

== ENCOUNTER 2024-03-27 01:18 | Emergency (ER) | payer MEDICARE, MEDICAID ==
[2024-03-27 02:12] LABS: BASOPHILS # (AUTO) 0.1 10^3/uL (0.0-0.1); BASOPHILS % (AUTO) 0.7 %; EOSINOPHILS # (AUTO) 0.3 10^3/uL (0.0-0.7); HGB - HEMOGLOBIN 11.1 g/dL (12.0-16.0); LYMPHOCYTES # (AUTO) 0.6 10^3/uL (1.5-3.5); LYMPHOCYTES % (AUTO) 5.9 %; MEAN CORPUSCULAR HEMOGLOBIN 27.5 pg (27.0-31.0); MEAN CORPUSCULAR HGB CONC 31.7 g/dL (32.0-36.0); MEAN CORPUSCULAR VOLUME 86.8 fL (81.0-99.0); MEAN PLATELET VOLUME 10.8 fL (7.9-10.8); MONOCYTES # (AUTO) 0.6 10^3/uL (0.0-1.0); NEUTROPHILS # (AUTO) 8.4 10^3/uL (1.5-6.6); NEUTROPHILS % (AUTO) 83.1 %; PLT - PLATELET COUNT 370 10^3/uL (130-450); RED BLOOD COUNT 4.03 10^6/uL (4.20-5.40); RED CELL DISTRIBUTION WIDTH 13.9 % (12.0-15.0); WHITE BLOOD COUNT 10.1 x10^3/uL (4.8-10.8)
--- NOTE | 2024-03-27 02:14 | ED Physician Documentation ---
History of Present Illness - Stated complaint Stated Complaint: DIARRHEA/NUMBNESS - Chief complaint Chief Complaint: General - History obtained from History obtained from: Patient, EMS - Additonal information Additional information: FÁTIMA. HPI from patient, EMS. Patient's chief complaint is right lower extremity pain and paresthesias. 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 While sitting on the toilet, she then noticed the (new onset) of the paresthesias and pain in the right leg. She denies weakness, but was afraid to attempt weight-bearing because of the decreased sensation and so she activated her medical alert system. Past medical history includes atrial fibrillation for which she is on Xarelto, denies missed doses. She was evaluated in this ED 03/19/24 for unrelated c/o (dyspnea on exertion with testing s/o CHF and thus she was prescribed lasix which was a new medication for her and was in addition to the chlorthalidone she already was taking). Note that patient is no longer having abdominal pain or diarrhea by the time of this HPI/ROS. The right leg symptoms are distal to the knee Review of Systems Cardiac: denies: Chest pain / pressure, Palpitations GI: reports: Abdominal Pain (resolved), Diarrhea. denies: Nausea, Vomiting, Constipation, Bloody / black stool Musculoskeletal: reports: Extremity pain. denies: Joint pain, Extremity swelling, Joint swelling, Pain with weight bearing Neurologic: reports: Numbness. denies: Generalized weakness, Focal weakness, Headache PD PAST MEDICAL HISTORY - Past Medical History Past Medical History: Yes Cardiovascular: Hypertension, Atrial fibrillation Respiratory: None Neuro: CVA Endocrine/Autoimmune: Type 2 diabetes GI: None : None HEENT: Chronic vision loss Psych: Depression Musculoskeletal: None Derm: None - Past Surgical History Past Surgical History: Yes General:  HEENT: Cataracts - Present Medications Home Medications: Ambulatory Orders Medication Instructions Recorded Confirmed Gabapentin 100 mg PO QPM 09/25/16 03/27/24 Simvastatin 40 mg PO QPM 09/25/16 03/27/24 Citalopram [CeleXA] 20 mg PO DAILY 11/21/17 03/27/24 Spironolactone 12.5 mg PO DAILY 11/21/17 03/27/24 Insulin Glargine [Lantus Solostar] 28 units SUBQ QPM 11/22/17 03/27/24 Digoxin [Lanoxin] 0.125 mg PO DAILY 03/06/19 03/27/24 Levothyroxine Sodium 50 mcg PO DAILY 12/02/21 03/27/24 Losartan Potassium 25 mg PO DAILY 12/02/21 03/27/24 Rivaroxaban [Xarelto] 15 mg PO QDDINNER 12/02/21 03/27/24 Insulin Lispro 3 unit SUBQ TIDWM #10 ml 12/07/21 03/27/24 Metoprolol Succinate [Toprol Xl] 50 mg PO BID #60 tablet 12/07/21 03/27/24 Pantoprazole [Protonix] 40 mg PO DAILY #30 tablet 12/07/21 03/27/24 Potassium Chloride [K-Dur] 20 meq PO DAILYWM #30 tablet 12/07/21 03/27/24 Furosemide [Lasix] 20 mg PO DAILY #7 tablet 03/19/24 03/27/24 Potassium Chloride 10 meq PO DAILY #7 tab 03/19/24 03/27/24 - Allergies Allergies/Adverse Reactions: Allergies Allergy/AdvReac Type Severity Reaction Status Date / Time No Known Drug Allergies Allergy Verified 03/27/24 01:33 - Social History Does the pt smoke?: No Smoking Status: Never smoker Does the pt drink ETOH?: Yes Does the pt have substance abuse?: Yes - Immunizations Immunizations are current?: Yes - POLST Patient has POLST: No POLST Status: Full Code PD ED PE NORMAL - Vitals Vital signs reviewed: Yes - General General: Alert and oriented X 3, No acute distress, Well developed/nourished - Respiratory Respiratory: No respiratory distress, Clear bilaterally - Abdomen Abdomen: Soft, Non tender, Non distended - Extremities Extremities: No edema - Neuro Neuro: No motor deficit PD ED PE EXPANDED - Cardiac Cardiac: Irregularly irregular - Extremities Extremities: Motor intact (5/5 bilateral dorsi/plantarflexion), Other (RLE is mottled from knee to toes. unable to palpate right DP/PT pulses. subjective decreased LTS RLE distal to the knee). No: Tenderness, Limited ROM Results - Vitals Vitals: Vital Signs - 24 hr 03/27/24 03/27/24 03/27/24 01:26 03:32 05:03 Temperature 36 C L Heart Rate 90 95 67 Respiratory 18 18 15 Rate Blood Pressure 133/104 H 108/79 108/79 O2 Saturation 100 99 99 Oxygen O2 Source [With Activity] Room air O2 Source Room air - EKG (time done) No standard instances EKG releavant findings:: EKG personally interpreted by author of this note. Relevant findings are: Rate: Rate (enter#) (102) Rhythm: Atrial fibrillation [place]: Normal QRS: Normal Ischemia: Non specific changes (minimal ST depression V4-V6) Compare to prior EKG: Unchanged from prior EKG (no significant change vs 03/19/24 (including nonspecific ST changes V4-V6) - Labs Labs: Laboratory Tests 03/27/24 03/27/24 03/27/24 01:50 01:50 06:07 WBC 10.1 RBC 4.03 L Hgb 11.1 L Hct 35.0 L MCV 86.8 MCH 27.5 MCHC 31.7 L RDW 13.9 Plt Count 370 MPV 10.8 Neut # (Auto) 8.4 H Lymph # (Auto) 0.6 L [place] # (Auto) 0.6 Eos # (Auto) 0.3 Baso # (Auto) 0.1 Absolute Nucleated RBC 0.00 Nucleated RBC % 0.0 PT 15.3 H INR 1.4 H APTT 30.1 Sodium 132 L Potassium 4.3 Chloride 97 L Carbon Dioxide 20 L Anion Gap 15.0 H BUN 35 H Creatinine 1.4 H Estimated GFR (MDRD) 36 L Glucose 254 H Calcium 9.7 Total Bilirubin 0.8 AST 8 L ALT 8 L Alkaline Phosphatase 61 Total Protein 7.0 Albumin 3.8 Globulin 3.2 Albumin/Globulin Ratio 1.2 Lipase 14 - Rads (name of study) CTA RLE Relevant Findings:: Prelim report reviewed, See rad report PD Medical Decision Making - ED course Complexity details: reviewed old records, reviewed results, re-evaluated patient, considered differential, d/w patient ED course: CTA of the right lower extremity reveals occlusion of the right superficial femoral artery and popliteal artery; exam findings, as noted above under phys ical exam, support the diagnosis of acute arterial occlusion of the right lower extremity popliteal artery. Unremarkable CBC (hemoglobin 11.1 (. Incidental note is made of hyperglycemia (254, patient is insulin-dependent diabetic), as well as elevated BUN (35) and creatinine (1.4). Her GFR is 36; this approximates her baseline GFR based on multiple previous results available to me in [facility]. Throughout ED stay, was unable to palpate a right dorsalis pedis pulse as well as right posterior tibial pulse. I also was unable to find evidence of arterial flow (DP, PT) using bedside ultrasound with color-flow Doppler. I discussed this case with Dr. Marcano (on-call vascular surgeon at [facility]); he recommends weight-based heparin bolus and drip as well as ED-to-ED transfer to [facility]. Plan is to send by air (helicopter) for expedited transfer time. I discussed test results, diagnosis, and treatment plan with patient and she is agreeable throughout the process. Her pain remained mild during ED stay and thus did not require any analgesia. - Critical Care Time(min): 60 Time Includes: Direct patient care, Review records, Reassess patient, Document care, Coordinate care, Medical consult, See progress note Data interpretation: Labs, See progress note Procedures included in critical care time: See progress note Procedures excluded from critical care time: See progress note Departure - Departure Disposition: 02 Transfer Acute Care Hosp Clinical Impression: Arterial embolism and thrombosis of lower extremity Condition: Serious Forms: PCP List Discharge Date/Time: 03/27/24 07:06
[2024-03-27 02:26] LABS: ALBUMIN 3.8 g/dL (3.2-5.5); ALBUMIN/GLOBULIN RATIO 1.2 (1.0-2.2); BILIRUBIN,TOTAL 0.8 mg/dL (0.2-1.0); CALCIUM 9.7 mg/dL (8.5-10.3); CREATININE 1.4 mg/dL (0.6-1.3); POTASSIUM 4.3 mmol/L (3.5-4.5)
[2024-03-27] MEDS ORDERED: iohexoL-300 150 ML BOTTLE ONE (02:54)
[2024-03-27] MEDS: SODIUM CHLORIDE 0.9% 500 ML IV STA (03:08)
[2024-03-27 03:46] VITALS: BP 108/79; O2SAT 99
[2024-03-27] MEDS: iohexoL-300 100 ML VIAL IVP ONE (04:09)
[2024-03-27 06:20] LABS: PARTIAL THROMBOPLASTIN TIME 30.1 secs (24.9-33.3)
[2024-03-27 06:24] LABS: INR 1.4 (0.8-1.2); PT - PROTHROMBIN TIME 15.3 secs (9.9-12.6)
[2024-03-27] MEDS: HEPARIN 25000UNITS/500ML (D5W) 25,000 UNIT/500 ML BAG IV SCH (06:54)
--- NOTE | 2024-03-27 08:37 | CT Report ---
PROCEDURE: Angio Lower Extremity RT INDICATIONS: RLE pain, numbness, color changes on exam CONTRAST: Omni 300, 125mls TECHNIQUE: After the administration of intravenous contrast, a CT scan of the abdomen, pelvis and lower extremit ies (to the feet) was performed. Images were recorded and evaluated at appropriate window settings. R eformats: coronal and sagittal. For radiation dose reduction, the following was used: automated expos ure control, adjustment of mA and/or kV according to patient size. COMPARISON: No relevant comparisons at time of dictation. FINDINGS: Image quality: Excellent. Abdominal aorta: No evidence of acute aortic syndrome. No significant aneurysm. No significant ather osclerotic disease. Moderate stenosis of the left renal artery ostium. Right lower extremity: Common iliac artery: No significant atherosclerotic disease. External iliac artery: No significant atherosclerotic disease. Common femoral artery: Occluded. Superficial femoral artery: Occluded. Reconstitution distally due to deep perforating vessels. Popliteal artery: Diffuse, high-grade stenosis of the proximal popliteal artery. Occluded distally. Anterior tibial artery: Atherosclerotic disease. Occluded. Peroneal artery: Occluded. Posterior tibial artery: Occluded. Left lower extremity: Right lower extremity: Common iliac artery: No significant atherosclerotic disease. External iliac artery: No significant atherosclerotic disease. Common femoral artery: No significant atherosclerotic disease. Superficial femoral artery: Short segment of 50% narrowing of the proximal superficial femoral artery . Popliteal artery: High-grade, short segment of distal stenosis. Anterior tibial artery: Atherosclerotic disease present. Peroneal artery: Atherosclerotic disease present. Posterior tibial artery: Atherosclerotic disease present. OTHER: Lung bases and heart: Cardiomegaly. Smooth interstitial thickening. Liver: No solid mass. Gallbladder and biliary tree: Cholelithiasis without wall thickening. No biliary dilation. Spleen: No splenomegaly. Pancreas: No pancreatic ductal dilation. Adrenals: 2.1 cm left adrenal nodule. Kidneys and ureters: No hydronephrosis. No renal cystic lesion which requires follow up. No solid mas s. Juxtacortical defect of the right kidney. Bowel and peritoneum: No bowel distension. No pathologic free fluid. Diverticulosis without evidence of diverticulitis. Lymph nodes: No central or retroperitoneal adenopathy. Vessels: No infrarenal aortic aneurysm. Reproductive organs: Unremarkable. Bladder: No abnormal wall thickening, accounting for underdistention. Pelvic lymph nodes: No pelvic adenopathy by size criteria. Bones: No aggressive osseous abnormality. Other: No significant ventral or inguinal hernia. IMPRESSION: Occlusion of the right common femoral artery, with reconstitution at the distal superficial femoral a rtery. Occlusion of the distal right popliteal artery and calf vessels. Smooth interstitial thickening of the lung bases, most consistent with pulmonary edema. 2.1 cm left adrenal nodule. Recommend dedicated outpatient adrenal CT. Agree with preliminary report. Reviewed by: Emre Frank MD on 03/27/2024 8:36 AM PDT Approved by: Emre Frank MD on 03/27/2024 8:36 AM PDT Station ID: [id number]
== END 2024-03-27 07:06 | disposition short-term general hospital (02) ==
LOC: EDUNIT# → ED 01:18
DX: I74.3 Embolism and thrombosis of arteries of the lower extremities (principal); I10 Essential (primary) hypertension; I48.91 Unspecified atrial fibrillation; E11.9 Type 2 diabetes mellitus without complications; Z86.73 Personal history of transient ischemic attack (TIA), and cerebral infarction without residual deficits; Z79.01 Long term (current) use of anticoagulants; Z79.899 Other long term (current) drug therapy; Z79.4 Long term (current) use of insulin
CPT/HCPCS: 36415; 80053; 83690; 85025; 85610; 85730; 93005; 96361; 96374; 99291

== ENCOUNTER 2024-06-06 12:57 | Outpatient (CLI) | payer MEDICARE, MEDICAID | END 2024-06-06 23:59 | disposition critical access hospital (66) | LOC: EMS 12:57 | DX: R00.0 Tachycardia, unspecified (principal); I95.9 Hypotension, unspecified; Z79.01 Long term (current) use of anticoagulants; Z86.718 Personal history of other venous thrombosis and embolism | CPT/HCPCS: A0425; A0427 ==

== ENCOUNTER 2024-06-06 13:35 | Inpatient (IN) | payer MEDICARE, MEDICAID ==
[2024-06-06] MEDS: SODIUM CHLORIDE 0.9% 1,000 ML IV STA ×2 (14:02→14:50)
[2024-06-06 14:14] LABS: BASOPHILS # (AUTO) 0.1 10^3/uL (0.0-0.1); BASOPHILS % (AUTO) 1.4 %; EOSINOPHILS # (AUTO) 0.2 10^3/uL (0.0-0.7); EOSINOPHILS % (AUTO) 3.1 %; HCT - HEMATOCRIT 42.6 % (37.0-47.0); HGB - HEMOGLOBIN 12.4 g/dL (12.0-16.0); LYMPHOCYTES # (AUTO) 0.8 10^3/uL (1.5-3.5); LYMPHOCYTES % (AUTO) 12.6 %; MEAN CORPUSCULAR HEMOGLOBIN 26.1 pg (27.0-31.0); MEAN CORPUSCULAR HGB CONC 29.1 g/dL (32.0-36.0); MEAN CORPUSCULAR VOLUME 89.7 fL (81.0-99.0); MONOCYTES # (AUTO) 0.7 10^3/uL (0.0-1.0); MONOCYTES % (AUTO) 10.1 %; NEUTROPHILS # (AUTO) 4.6 10^3/uL (1.5-6.6); NEUTROPHILS % (AUTO) 72.2 %; PLT - PLATELET COUNT 253 10^3/uL (130-450); RED BLOOD COUNT 4.75 10^6/uL (4.20-5.40); RED CELL DISTRIBUTION WIDTH 16.5 % (12.0-15.0); WHITE BLOOD COUNT 6.4 x10^3/uL (4.8-10.8)
--- NOTE | 2024-06-06 14:15 | ED Physician Documentation ---
History of Present Illness - Stated complaint Stated Complaint: FEELING UNWELL - Chief complaint Chief Complaint: General - History obtained from History obtained from: Patient, EMS - Additonal information Additional information: The patient comes to the emergency department chief complaint of feeling generally unwell and fatigued for the last couple of days. She states that she has not really had any specific symptoms otherwise. She has not had any cough or nausea or dysuria. No fevers. She does feel short of breath when she gets up to walk around. No lower extremity edema that is new. The patient is a diabetic and has previously been here for extreme hyperglycemia. She has a history of paroxysmal A-fib but medics report that she has been in sinus tachycardia and route. She also has a history of hypertension, hypothyroidism, and CHF. No new medications recently. PD PAST MEDICAL HISTORY - Past Medical History Cardiovascular: Hypertension, Atrial fibrillation Respiratory: None Neuro: CVA Endocrine/Autoimmune: Type 2 diabetes GI: None : None HEENT: Chronic vision loss Psych: Depression Musculoskeletal: None Derm: None - Past Surgical History Past Surgical History: Yes General:  HEENT: Cataracts - Present Medications Home Medications: Ambulatory Orders Medication Instructions Recorded Confirmed Gabapentin 100 mg PO QPM 09/25/16 03/27/24 Simvastatin 40 mg PO QPM 09/25/16 03/27/24 Citalopram [CeleXA] 20 mg PO DAILY 11/21/17 03/27/24 Spironolactone 12.5 mg PO DAILY 11/21/17 03/27/24 Insulin Glargine [Lantus Solostar] 28 units SUBQ QPM 11/22/17 03/27/24 Digoxin [Lanoxin] 0.125 mg PO DAILY 03/06/19 03/27/24 Levothyroxine Sodium 50 mcg PO DAILY 12/02/21 03/27/24 Losartan Potassium 25 mg PO DAILY 12/02/21 03/27/24 Rivaroxaban [Xarelto] 15 mg PO QDDINNER 12/02/21 03/27/24 Insulin Lispro 3 unit SUBQ TIDWM #10 ml 12/07/21 03/27/24 Metoprolol Succinate [Toprol Xl] 50 mg PO BID #60 tablet 12/07/21 03/27/24 Pantoprazole [Protonix] 40 mg PO DAILY #30 tablet 12/07/21 03/27/24 Potassium Chloride [K-Dur] 20 meq PO DAILYWM #30 tablet 12/07/21 03/27/24 Furosemide [Lasix] 20 mg PO DAILY #7 tablet 03/19/24 03/27/24 Potassium Chloride 10 meq PO DAILY #7 tab 03/19/24 03/27/24 - Allergies Allergies/Adverse Reactions: Allergies Allergy/AdvReac Type Severity Reaction Status Date / Time No Known Drug Allergies Allergy Verified 03/27/24 01:33 - Social History Does the pt smoke?: No Smoking Status: Never smoker Does the pt drink ETOH?: Yes Does the pt have substance abuse?: Yes - Immunizations Immunizations are current?: Yes - POLST Patient has POLST: No POLST Status: Full Code PD ED PE NORMAL - Vitals Vital signs reviewed: Yes - General General: Alert and oriented X 3, No acute distress, Well developed/nourished - HEENT HEENT: Atraumatic, EOMI, Moist mucous membranes - Neck Neck: Supple, no meningeal sign - Cardiac Cardiac: Other (Tachycardic rate regular rhythm, 2/6 systolic murmur.) - Respiratory Respiratory: No respiratory distress, Clear bilaterally - Abdomen Abdomen: Soft, Non tender, Non distended - Derm Derm: Normal color, Warm and dry, No rash - Extremities Extremities: No deformity, No edema, No calf tenderness / cord - Neuro Neuro: Other (Alert, appropriate, grossly intact.) - Psych Psych: Normal mood, Normal affect Results - Vitals Vitals: Vital Signs - 24 hr 06/06/24 06/06/24 06/06/24 13:27 14:02 14:52 Temperature 36.4 C L Heart Rate 123 H 122 H 121 H Respiratory 16 16 16 Rate Blood Pressure 97/75 110/74 91/70 O2 Saturation 97 100 99 06/06/24 16:12 Temperature Heart Rate 122 H Respiratory 16 Rate Blood Pressure 102/80 O2 Saturation 98 Oxygen O2 Source [With Activity] Room air O2 Source Room air - EKG (time done) 1405 EKG releavant findings:: EKG personally interpreted by author of this note. Relevant findings are: Rate: Rate (enter#) (122) Rhythm: Sinus tachycardia [place]: RAD Intervals: Normal MS QRS: Normal Ischemia: Non specific changes Compare to prior EKG: Old EKG unavailable Computer interpretation: Agree with computer - Labs Labs: Laboratory Tests 06/06/24 06/06/24 06/06/24 14:07 14:07 14:10 WBC 6.4 RBC 4.75 Hgb 12.4 Hct 42.6 MCV 89.7 MCH 26.1 L MCHC 29.1 L RDW 16.5 H Plt Count 253 MPV 11.0 H Neut # (Auto) 4.6 Lymph # (Auto) 0.8 L [place] # (Auto) 0.7 Eos # (Auto) 0.2 Baso # (Auto) 0.1 Absolute Nucleated RBC 0.00 Nucleated RBC % 0.0 Sodium 131 L Potassium 4.4 Chloride 100 L Carbon Dioxide 20 L Anion Gap 11.0 BUN 37 H Creatinine 1.6 H Estimated GFR (MDRD) 31 L Glucose 210 H Lactic Acid Calcium 9.5 Total Bilirubin 1.1 H AST 16 ALT 15 Alkaline Phosphatase 62 B-Natriuretic Peptide Total Protein 6.9 Albumin 4.3 Globulin 2.6 Albumin/Globulin Ratio 1.7 Lipase 27 Urine Color YELLOW Urine Clarity HAZY Urine pH 5.5 Ur Specific [place] 1.020 Urine Protein TRACE Urine Glucose (UA) >=1000 H Urine Ketones NEGATIVE Urine Occult Blood TRACE-INTA Urine Nitrite POSITIVE H Urine Bilirubin NEGATIVE Urine Urobilinogen 0.2 (NORMAL) Ur Leukocyte Esterase TRACE H Urine RBC 0-5 Urine WBC 11-25 H Ur Squamous Epith Cells RARE Squamous Urine Bacteria Many H Ur Microscopic Review INDICATED Urine Culture Comments INDICATED Serum Ketones NEGATIVE 06/06/24 06/06/24 14:11 14:15 WBC RBC Hgb Hct MCV MCH MCHC RDW Plt Count MPV Neut # (Auto) Lymph # (Auto) [place] # (Auto) Eos # (Auto) Baso # (Auto) Absolute Nucleated RBC Nucleated RBC % Sodium Potassium Chloride Carbon Dioxide Anion Gap BUN Creatinine Estimated GFR (MDRD) Glucose Lactic Acid 2.1 Calcium Total Bilirubin AST ALT Alkaline Phosphatase B-Natriuretic Peptide 366 H Total Protein Albumin Globulin Albumin/Globulin Ratio Lipase Urine Color Urine Clarity Urine pH Ur Specific [place] Urine Protein Urine Glucose (UA) Urine Ketones Urine Occult Blood Urine Nitrite Urine Bilirubin Urine Urobilinogen Ur Leukocyte Esterase Urine RBC Urine WBC Ur Squamous Epith Cells Urine Bacteria Ur Microscopic Review Urine Culture Comments Serum Ketones - Rads (name of study) chest XR Relevant Findings:: Final report received, See rad report (Mild CHF) PD Medical Decision Making - ED course Complexity details: reviewed results, re-evaluated patient, considered differential, d/w patient ED course: The patient was given IV fluids for total of 3 L including the fluids given by the medics. She was found to have a normal white blood cell count and lactate, but she was persistently tachycardic in the 120s that sinus tach by EKG, and she was also persistently hypotensive with frequent systolic blood pressures in the 90s. The patient's urinalysis was positive and she was treated with Rocephin for this. Although the patient was afebrile here and her lactic acid level was normal, she did meet SIRS criteria with her persistent hypotension and tachycardia, and in the setting of diabetes and urinary tract infection, I felt that she should come in to the hospital. I spoke with SIRENA Gregory and Dr. Goncalves and they have agreed to admit the patient to hospitalist service. - Critical Care Time(min): 30 Comments: Critical care time was necessary, secondary to high probability of imminent decline and , secondary to presumed sepsis with positive SIRS criteria (hypotension, tachycardia) in the setting of UTI and diabetes. Time Includes: Direct patient care, Review records, Reassess patient, Document care, Coordinate care, Medical consult, See progress note Data interpretation: Labs, Pulse ox, CXR, Cardiac output, See progress note Departure - Departure Disposition: 66 [facility] DC/Xfer Clinical Impression: Dehydration UTI (urinary tract infection) Qualifiers: Urinary tract infection type: acute cystitis Hematuria presence: without hematuria Qualified Code(s): N30.00 - Acute cystitis without hematuria Sepsis Qualifiers: Sepsis type: sepsis due to unspecified organism Sepsis acute organ dysfunction status: without acute organ dysfunction Qualified Code(s): A41.9 - Sepsis, unspecified organism Congestive heart failure Qualifiers: Heart failure type: unspecified Heart failure chronicity: acute on chronic Qualified Code(s): I50.9 - Heart failure, unspecified Condition: Serious Forms: PCP List
[2024-06-06 14:23] LABS: KETONES, SERUM (ACETEST) NEGATIVE (NEGATIVE)
[2024-06-06 14:30] LABS: ALBUMIN 4.3 g/dL (3.2-5.5); ALBUMIN/GLOBULIN RATIO 1.7 (1.0-2.2); ALKALINE PHOSPHATASE 62 IU/L (42-121); ALT ALANINE AMINOTRANSFERASE 15 IU/L (10-60); AST ASPARTATE AMINOTRANSFERASE 16 IU/L (10-42); BILIRUBIN,TOTAL 1.1 mg/dL (0.2-1.0); BUN - BLOOD UREA NITROGEN 37 mg/dL (6-20); CALCIUM 9.5 mg/dL (8.5-10.3); CARBON DIOXIDE - CO2 20 mmol/L (21-32); CHLORIDE 100 mmol/L (101-111); CREATININE 1.6 mg/dL (0.6-1.3); GFR - MDRD 31 (>89); GLUCOSE 210 mg/dL (74-104); LIPASE 27 U/L (11-82); POTASSIUM 4.4 mmol/L (3.5-4.5); SODIUM 131 mmol/L (135-145); TOTAL PROTEIN 6.9 g/dL (6.4-8.9)
[2024-06-06 16:05] LABS: BILIRUBIN,URINE NEGATIVE (NEGATIVE); GLUCOSE, URINE (UA) >=1000 mg/dL (NEGATIVE); KETONES,URINE (UA) NEGATIVE (NEGATIVE); LEUKOCYTE ESTERASE, URINE TRACE (NEGATIVE); NITRITE,URINE POSITIVE (NEGATIVE); OCCULT BLOOD,URINE TRACE-INTA (NEGATIVE); PH,URINE 5.5 PH (5.0-7.5); PROTEIN,URINE TRACE mg/dL (NEGATIVE); UROBILINOGEN,URINE 0.2 (NORMAL) E.U./dL (NORMAL)
--- NOTE | 2024-06-06 16:05 | XRAY Report ---
PROCEDURE: Chest 1V INDICATIONS: fatigue/sob TECHNIQUE: One view of the chest was acquired. COMPARISON: 03/19/2024. FINDINGS: Surgical changes and devices: None. Lungs and pleura: No pleural effusions or pneumothorax. Mild interstitial pulmonary edema, less so t slade on the previous study. Mediastinum: Mediastinal contours appear normal. Mild cardiomegaly. Bones and chest wall: No suspicious bony lesions. Overlying soft tissues appear unremarkable. IMPRESSION: Mild congestive heart failure. Reviewed by: Nelson Noriega MD on 06/06/2024 4:04 PM PDT Approved by: Nelson Noriega MD on 06/06/2024 4:04 PM PDT Station ID: [id number]
[2024-06-06 16:06] LABS: CLARITY,URINE HAZY (CLEAR)
[2024-06-06] MEDS ORDERED: METOPROLOL TARTRATE 50 MG TABLET PO STA (16:09)
[2024-06-06 16:24] LABS: BACTERIA,URINE Many /HPF (None Seen); RBC,URINE 0-5 /HPF (0-5); SQUAMOUS EPITHELIAL CELL,UR RARE Squamous (<= Few)
[2024-06-06] MEDS: cefTRIAXone 2 GM in SODIUM CHLORIDE 0.9% MINIBAG 100 ML IV STA (16:38)
[2024-06-06] MEDS ORDERED: SODIUM CHLORIDE FLUSH 0.9% 10 ML SYRINGE IVP PRN (16:59)
[2024-06-06 17:00] LABS: B. PARAPERTUSSIS- RESP PCR PAN NOT DETECTED; B. PERTUSSIS- RESP PCR PANEL NOT DETECTED; C. PNEUMONIAE- RESP PCR PANEL NOT DETECTED; CORONAVIRUS 229E-RESP PCR NOT DETECTED; CORONAVIRUS HKU1-RESP PCR NOT DETECTED; CORONAVIRUS NL63-RESP PCR NOT DETECTED; CORONAVIRUS OC43-RESP PCR NOT DETECTED; HUMAN METAPNEUMOVIRUS NOT DETECTED; INFLUENZA A- RESP PCR PANEL NOT DETECTED; INFLUENZA B - RESP PCR PANEL NOT DETECTED; M. PNEUMONIAE- RESP PCR PANEL NOT DETECTED; PARAINFLUENZA VIRUS 1 NOT DETECTED; PARAINFLUENZA VIRUS 2 NOT DETECTED; PARAINFLUENZA VIRUS 3 NOT DETECTED; PARAINFLUENZA VIRUS 4 NOT DETECTED; RHINOVIRUS/ENTEROVIRUS NOT DETECTED; RSV- RESP PCR PANEL NOT DETECTED; SARS-CoV-2 -RESP PCR PANEL NOT DETECTED
[2024-06-06] MEDS ORDERED: METOPROLOL 5 MG/5 ML VIAL IVP PRN (17:08)
--- NOTE | 2024-06-06 17:22 | HISTORY & PHYSICAL EXAMINATION ---
Chief Complaint - Chief Complaint Chief Complaint: generalized weakness and not feeling well History of Present Illness - Admitted From Admitted From:: ED - History Obtained From Records Reviewed: yes History obtained from: patient - History of Present Illness HPI Comment/Other: 84 year old female with a PMH for PAF, CHF, T2DM, hypothyroidism, GERD, who presents to the ED after a visiting nurse had noticed her blood pressure being low and heart rate fast. She states for the past several days she has not been feeling well, with decreased energy levels. Denies fevers, chills, headaches, neck pains. Denies chest pains, palpitations, states she does have baseline SOB due to her CHF however she is at her baseline. Does not use supplemental O2. Denies abdominal pains, constipation, diarrhea. Denies dysuria, CVA tenderness. Ambulates with a cane, denies history of falls. Does have chronic LE edema. In the ED she was noted to by hypotensive requiring 3 L's NS. She was also in ST that had improved with the NS. She was started on CFTX for an abnormal UA with + nitrites, and 11-25 WBC's. History - Past Medical History Cardiovascular: reports: Congestive heart failure, Hypertension, Atrial fibrillation Respiratory: reports: None Neuro: reports: CVA Endocrine/Autoimmune: reports: Type 2 diabetes GI: reports: None, GERD : reports: None HEENT: reports: Chronic vision loss Psych: reports: Depression Musculoskeletal: reports: None Derm: reports: None MRSA Hx?: No - Past Surgical History General: HEENT: reports: Cataracts - Family & Social History Family History Comment/Other: Mother , Alzheimer's disease, coronary disease, hypertension, hyperlipidemia, Macular degeneration and multiple episodes of skin cancer. Father . Father from complications of multiple sclerosis. Brother , diabetes type 1, renal disease/failure. Living arrangement: At home Living Situation: With friend(s) Social History Notes: Lives at home with a friend/roommate. She has been using marijuana for 40+ years. - Substance History Use: Uses substance without health or social issues: Other (Marijuana user for 40+ years) - POLST Patient has POLST: No POLST Status: Full Code Meds/Allgy - Home Medications Home Medications: Ambulatory Orders Medication Instructions Recorded Confirmed Gabapentin 100 mg PO QPM 09/25/16 03/27/24 Simvastatin 40 mg PO QPM 09/25/16 03/27/24 Citalopram [CeleXA] 20 mg PO DAILY 11/21/17 03/27/24 Spironolactone 12.5 mg PO DAILY 11/21/17 03/27/24 Insulin Glargine [Lantus Solostar] 28 units SUBQ QPM 11/22/17 03/27/24 Digoxin [Lanoxin] 0.125 mg PO DAILY 03/06/19 03/27/24 Levothyroxine Sodium 50 mcg PO DAILY 12/02/21 03/27/24 Losartan Potassium 25 mg PO DAILY 12/02/21 03/27/24 Rivaroxaban [Xarelto] 15 mg PO QDDINNER 12/02/21 03/27/24 Insulin Lispro 3 unit SUBQ TIDWM #10 ml 12/07/21 03/27/24 Metoprolol Succinate [Toprol Xl] 50 mg PO BID #60 tablet 12/07/21 03/27/24 Pantoprazole [Protonix] 40 mg PO DAILY #30 tablet 12/07/21 03/27/24 Potassium Chloride [K-Dur] 20 meq PO DAILYWM #30 tablet 12/07/21 03/27/24 Furosemide [Lasix] 20 mg PO DAILY #7 tablet 03/19/24 03/27/24 Potassium Chloride 10 meq PO DAILY #7 tab 03/19/24 03/27/24 - Allergies Allergies/Adverse Reactions: Allergies Allergy/AdvReac Type Severity Reaction Status Date / Time No Known Drug Allergies Allergy Verified 03/27/24 01:33 Review of Systems - Constitutional Constitutional: reports: Malaise, Weakness - Eyes Eyes: denies: Pain, Blurred vision - Ears, Nose & Throat Ears, Nose & Throat: denies: Ear pain, Tinnitus - Cardiovascular Cariovascular: reports: Irregular heart rate. denies: Palpitations - Respiratory Respiratory: reports: SOB with exertion. denies: Cough, Sputum production - Gastrointestinal Gastrointestinal: denies: Abdominal pain, Abdominal distention, Constipation, Diarrhea - Genitourinary Genitourinary: denies: Dysuria, Frequency, Flank pain - Integumentary Integumentary: denies: Rash - Neurological Neurological: reports: General weakness - Psychiatric Psychiatric: reports: Depression - Endocrine Endocrine: denies: Polyuria, Polydypsia - Hematologic/Lymphatic Hematologic/Lymphatic: reports: Blood clots. denies: Anemia Exam - Vital Signs Vital Signs: Vital Signs x48h Temp Pulse Resp BP Pulse Ox 06/06/24 16:12 122 H 16 102/80 98 06/06/24 14:52 121 H 16 91/70 99 06/06/24 14:02 122 H 16 110/74 100 06/06/24 13:27 36.4 C L 123 H 16 97/75 97 - Physical Exam General Appearance: positive: No acute distress, Alert Eyes Bilateral: positive: Normal inspection ENT: positive: ENT inspection nml Neck: positive: Nml inspection Respiratory: positive: Chest non-tender Cardiovascular: positive: Tachycardia Peripheral Pulses: positive: 2+ Abdomen: positive: Non-tender, Nml bowel sounds, No distention Back: positive: Nml inspection. negative: CVA tenderness (R), CVA tenderness (L) Skin: positive: Color nml Extremities: positive: Non-tender, Pedal edema Neurologic/Psychiatric: positive: Oriented x3 Sepsis Event Note (H) - Evaluation Current Stage of Sepsis: Sepsis Possible source of Sepsis: positive: Genitourinary Conclusion/Plan - Problem List (1) Sepsis Conclusion/Plan: Secondary to urinary source, abnormal UA with WBC's and nitrites. Started on CFTX which will be continued. iv fluids, hold diuretics while on iv fluids. Trend temp and WBC. F/u blood and urine cultures obtained from the ED Qualifiers: Sepsis type: sepsis due to unspecified organism Sepsis acute organ dysfunction status: without acute organ dysfunction Qualified Code(s): A41.9 - Sepsis, unspecified organism (3) Atrial fibrillation Conclusion/Plan: Currently in ST, continue dig. Hold BB with hypotension, will order iv lopressor 5 mg q6h prn hr>130, continue telemetry. Continue DOAC. Qualifiers: Atrial fibrillation type: unspecified Qualified Code(s): I48.91 - Unspecified atrial fibrillation (4) BOO (acute kidney injury) Conclusion/Plan: Secondary to volume depletion. Continue iv fluids, hold diuretics, check BMP in am. (5) Diabetes mellitus Conclusion/Plan: ADA diet, basal insulin, prandial insulin and SSI, check HA1C Qualifiers: Diabetes mellitus type: type 2 Diabetes mellitus manager terminal insulin use: with penitentiary use Diabetes mellitus complication status: without complication Qualified Code(s): E11.9 - Type 2 diabetes mellitus without complications; Z79.4 - manager terminal (current) use of insulin (6) CHF (congestive heart failure) Conclusion/Plan: History of CHF however unsure if HFpEF or HFrEF. With hypotension will hold diuretics and metoprolol succinate, aldactone at this time, no acute issues. Qualifiers: Heart failure type: unspecified Heart failure chronicity: acute on chronic Qualified Code(s): I50.9 - Heart failure, unspecified (7) Hypothyroidism Conclusion/Plan: Continue synthroid, check TSH - Lab Results Fish Bones: 06/06/24 14:07 06/06/24 14:07
[2024-06-06 17:38] LABS: DIGOXIN 0.8 ng/mL
[2024-06-06] MEDS: SODIUM CHLORIDE 0.9% 1,000 ML IV SCH (18:57)
[2024-06-06] MEDS: SODIUM CHLORIDE FLUSH 0.9% 10 ML SYRINGE IVP SCH (19:56)
[2024-06-06 20:32] LABS: ESTIMATED AVERAGE GLUCOSE 174 mg/dL (70-100); HEMOGLOBIN A1c% 7.7 % (4.27-6.07)
[2024-06-06] MEDS: GABAPENTIN 100 MG CAPSULE PO SCH (21:35)
[2024-06-06] MEDS: APIXABAN 2.5 MG TABLET PO SCH (21:45)
[2024-06-06] MEDS: INSULIN LISPRO 300 UNIT/3 ML PEN SUBQ SCH (21:45)
[2024-06-06] MEDS: INSULIN GLARGINE-YFGN 300 UNIT/3 ML PEN SUBQ SCH (21:45)
[2024-06-07] MEDS: METOPROLOL 5 MG/5 ML VIAL IVP PRN (01:48)
[2024-06-07] MEDS: PANTOPRAZOLE 40 MG TABLET PO SCH (07:09)
[2024-06-07] MEDS: LEVOTHYROXINE 25 MCG TABLET PO SCH (07:09)
[2024-06-07] MEDS: INSULIN LISPRO 300 UNIT/3 ML PEN SUBQ SCH (08:01)
[2024-06-07 08:14] LABS: CALCIUM 9.1 mg/dL (8.5-10.3); CREATININE 1.5 mg/dL (0.6-1.3)
[2024-06-07] MEDS: cefTRIAXone 2 GM VIAL IVP SCH (08:58)
[2024-06-07] MEDS: DIGOXIN 125 MCG TABLET PO SCH (08:59)
[2024-06-07] MEDS: CITALOPRAM 10 MG TABLET PO SCH (08:59)
[2024-06-07] MEDS ORDERED: CITALOPRAM 10 MG TABLET PO SCH (09:00)
[2024-06-07] MEDS ORDERED: NON FORMULARY MED (Losartan Potassium [Losartan Potassium] 25 MG Tablet) PO SCH (09:00)
[2024-06-07] MEDS ORDERED: DIGOXIN 125 MCG TABLET PO SCH (09:00)
[2024-06-07] MEDS ORDERED: CHLORTHALIDONE 25 MG PO SCH (09:00)
[2024-06-07] MEDS ORDERED: LEVOTHYROXINE SODIUM 50 MCG PO SCH (09:00)
[2024-06-07] MEDS ORDERED: PANTOPRAZOLE 40 MG TABLET PO SCH (09:00)
--- NOTE | 2024-06-07 11:06 | PROVIDER PROGRESS NOTE ---
Subjective - Prog Note Date Prog Note Date: 06/07/24 Prog Note Time: 11:03 - Subjective Pt reports feeling: Improved (The pt reports that she is feeling better with IVF. However, she feels her heart is racing and she feels weak. No other related symptoms. No other modifying factors. No acute overnight events.) Objective - Vital Signs/Intake & Output Vital Signs: Vital Signs x48h Temp Pulse Pulse Resp BP BP Pulse Ox 06/07/24 07:37 36.2 C L 127 H 18 112/76 95 06/07/24 06:24 127 H 108/71 06/07/24 06:19 112/76 06/07/24 04:21 36.6 C 121 H 16 97/71 Intake & Output: Intake & Output 06/04/24 06/05/24 06/06/24 06/07/24 23:59 23:59 23:59 23:59 Intake Total 2440 1540 Output Total 300 Balance 2140 1540 - Objective General Appearance: positive: No acute distress, Alert Eyes Bilateral: positive: Normal inspection, PERRL, EOMI Neck: positive: Nml inspection, No JVD Respiratory: positive: Chest non-tender, No respiratory distress, Breath sounds nml Cardiovascular: positive: Irregularly irregular, Tachycardia Abdomen: positive: Non-tender, Nml bowel sounds, No distention Skin: positive: Color nml, No rash, Warm, Dry Extremities: positive: Non-tender, Full ROM Neurologic/Psychiatric: positive: Oriented x3 - Lab Results Fish Bones: 06/06/24 14:07 06/07/24 07:40 Other Labs: Lab Results x24hrs 06/07/24 06/06/24 06/06/24 Range/Units 07:40 17:15 17:15 WBC (4.8-10.8) x10^3/uL RBC (4.20-5.40) 10^6/uL Hgb (12.0-16.0) g/dL Hct (37.0-47.0) % MCV (81.0-99.0) fL MCH (27.0-31.0) pg MCHC (32.0-36.0) g/dL RDW (12.0-15.0) % Plt Count (130-450) 10^3/uL MPV (7.9-10.8) fL Neut # (Auto) (1.5-6.6) 10^3/uL Lymph # (Auto) (1.5-3.5) 10^3/uL [place] # (Auto) (0.0-1.0) 10^3/uL Eos # (Auto) (0.0-0.7) 10^3/uL Baso # (Auto) (0.0-0.1) 10^3/uL Absolute Nucleated RBC x10^3/uL Nucleated RBC % /100WBC Sodium 133 L (135-145) mmol/L Potassium 4.0 (3.5-4.5) mmol/L Chloride 104 (101-111) mmol/L Carbon Dioxide 20 L (21-32) mmol/L Anion Gap 9.0 (6-13) BUN 32 H (6-20) mg/dL Creatinine 1.5 H (0.6-1.3) mg/dL Estimated GFR (MDRD) 33 L (>89) Glucose 108 H (74-104) mg/dL Estimat Average Glucose (70-100) mg/dL Hemoglobin A1c % (4.27-6.07) % Lactic Acid (0.5-2.2) mmol/L Calcium 9.1 (8.5-10.3) mg/dL Total Bilirubin (0.2-1.0) mg/dL AST (10-42) IU/L ALT (10-60) IU/L Alkaline Phosphatase (42-121) IU/L B-Natriuretic Peptide (5-100) pg/mL Total Protein (6.4-8.9) g/dL Albumin (3.2-5.5) g/dL Globulin (2.1-4.2) g/dL Albumin/Globulin Ratio (1.0-2.2) Lipase (11-82) U/L TSH 6.50 H (0.34-5.60) uIU/mL Urine Color Urine Clarity (CLEAR) Urine pH (5.0-7.5) PH Ur Specific [place] (1.002-1.030) Urine Protein (NEGATIVE) mg/dL Urine Glucose (UA) (NEGATIVE) mg/dL Urine Ketones (NEGATIVE) mg/dL Urine Occult Blood (NEGATIVE) Urine Nitrite (NEGATIVE) Urine Bilirubin (NEGATIVE) Urine Urobilinogen (NORMAL) E.U./dL Ur Leukocyte Esterase (NEGATIVE) Urine RBC (0-5) /HPF Urine WBC (0-5) /HPF Ur Squamous Epith Cells (<= Few) Urine Bacteria (None Seen) /HPF Ur Microscopic Review Urine Culture Comments Nasal Adenovirus (PCR) Nasal B. parapertussis DNA (PCR) Nasal Coronavir 229E PCR Nasal Coronavir HKU1 PCR Nasal Coronavir NL63 PCR Nasal Coronavir OC43 PCR Nasal Enterovir/Rhinovir PCR Nasal Influenza B PCR Nasal Influenza A PCR Nasal Parainfluen 1 PCR Nasal Parainfluen 2 PCR Nasal Parainfluen 3 PCR Nasal Parainfluen 4 PCR Nasal RSV (PCR) Nasal B.pertussis DNA PCR Nasal C.pneumoniae (PCR) Gamal Human Metapneumo PCR Nasal M.pneumoniae (PCR) Nasal SARS-CoV-2 (PCR) Last Dose Date Not Reportable Last Dose Time Not Reportable Digoxin 0.8 ng/mL Serum Ketones (NEGATIVE) 06/06/24 06/06/24 06/06/24 Range/Units 15:40 14:15 14:11 WBC (4.8-10.8) x10^3/uL RBC (4.20-5.40) 10^6/uL Hgb (12.0-16.0) g/dL Hct (37.0-47.0) % MCV (81.0-99.0) fL MCH (27.0-31.0) pg MCHC (32.0-36.0) g/dL RDW (12.0-15.0) % Plt Count (130-450) 10^3/uL MPV (7.9-10.8) fL Neut # (Auto) (1.5-6.6) 10^3/uL Lymph # (Auto) (1.5-3.5) 10^3/uL [place] # (Auto) (0.0-1.0) 10^3/uL Eos # (Auto) (0.0-0.7) 10^3/uL Baso # (Auto) (0.0-0.1) 10^3/uL Absolute Nucleated RBC x10^3/uL Nucleated RBC % /100WBC Sodium (135-145) mmol/L Potassium (3.5-4.5) mmol/L Chloride (101-111) mmol/L Carbon Dioxide (21-32) mmol/L Anion Gap (6-13) BUN (6-20) mg/dL Creatinine (0.6-1.3) mg/dL Estimated GFR (MDRD) (>89) Glucose (74-104) mg/dL Estimat Average Glucose (70-100) mg/dL Hemoglobin A1c % (4.27-6.07) % Lactic Acid 2.1 (0.5-2.2) mmol/L Calcium (8.5-10.3) mg/dL Total Bilirubin (0.2-1.0) mg/dL AST (10-42) IU/L ALT (10-60) IU/L Alkaline Phosphatase (42-121) IU/L B-Natriuretic Peptide 366 H (5-100) pg/mL Total Protein (6.4-8.9) g/dL Albumin (3.2-5.5) g/dL Globulin (2.1-4.2) g/dL Albumin/Globulin Ratio (1.0-2.2) Lipase (11-82) U/L TSH (0.34-5.60) uIU/mL Urine Color Urine Clarity (CLEAR) Urine pH (5.0-7.5) PH Ur Specific [place] (1.002-1.030) Urine Protein (NEGATIVE) mg/dL Urine Glucose (UA) (NEGATIVE) mg/dL Urine Ketones (NEGATIVE) mg/dL Urine Occult Blood (NEGATIVE) Urine Nitrite (NEGATIVE) Urine Bilirubin (NEGATIVE) Urine Urobilinogen (NORMAL) E.U./dL Ur Leukocyte Esterase (NEGATIVE) Urine RBC (0-5) /HPF Urine WBC (0-5) /HPF Ur Squamous Epith Cells (<= Few) Urine Bacteria (None Seen) /HPF Ur Microscopic Review Urine Culture Comments Nasal Adenovirus (PCR) NOT DETECTED Nasal B. parapertussis DNA (PCR) NOT DETECTED Nasal Coronavir 229E PCR NOT DETECTED Nasal Coronavir HKU1 PCR NOT DETECTED Nasal Coronavir NL63 PCR NOT DETECTED Nasal Coronavir OC43 PCR NOT DETECTED Nasal Enterovir/Rhinovir PCR NOT DETECTED Nasal Influenza B PCR NOT DETECTED Nasal Influenza A PCR NOT DETECTED Nasal Parainfluen 1 PCR NOT DETECTED Nasal Parainfluen 2 PCR NOT DETECTED Nasal Parainfluen 3 PCR NOT DETECTED Nasal Parainfluen 4 PCR NOT DETECTED Nasal RSV (PCR) NOT DETECTED Nasal B.pertussis DNA PCR NOT DETECTED Nasal C.pneumoniae (PCR) NOT DETECTED Gamal Human Metapneumo PCR NOT DETECTED Nasal M.pneumoniae (PCR) NOT DETECTED Nasal SARS-CoV-2 (PCR) NOT DETECTED Last Dose Date Last Dose Time Digoxin ng/mL Serum Ketones (NEGATIVE) 06/06/24 06/06/24 06/06/24 Range/Units 14:10 14:07 14:07 WBC (4.8-10.8) x10^3/uL RBC (4.20-5.40) 10^6/uL Hgb (12.0-16.0) g/dL Hct (37.0-47.0) % MCV (81.0-99.0) fL MCH (27.0-31.0) pg MCHC (32.0-36.0) g/dL RDW (12.0-15.0) % Plt Count (130-450) 10^3/uL MPV (7.9-10.8) fL Neut # (Auto) (1.5-6.6) 10^3/uL Lymph # (Auto) (1.5-3.5) 10^3/uL [place] # (Auto) (0.0-1.0) 10^3/uL Eos # (Auto) (0.0-0.7) 10^3/uL Baso # (Auto) (0.0-0.1) 10^3/uL Absolute Nucleated RBC x10^3/uL Nucleated RBC % /100WBC Sodium 131 L (135-145) mmol/L Potassium 4.4 (3.5-4.5) mmol/L Chloride 100 L (101-111) mmol/L Carbon Dioxide 20 L (21-32) mmol/L Anion Gap 11.0 (6-13) BUN 37 H (6-20) mg/dL Creatinine 1.6 H (0.6-1.3) mg/dL Estimated GFR (MDRD) 31 L (>89) Glucose 210 H (74-104) mg/dL Estimat Average Glucose 174 H (70-100) mg/dL Hemoglobin A1c % 7.7 H (4.27-6.07) % Lactic Acid (0.5-2.2) mmol/L Calcium 9.5 (8.5-10.3) mg/dL Total Bilirubin 1.1 H (0.2-1.0) mg/dL AST 16 (10-42) IU/L ALT 15 (10-60) IU/L Alkaline Phosphatase 62 (42-121) IU/L B-Natriuretic Peptide (5-100) pg/mL Total Protein 6.9 (6.4-8.9) g/dL Albumin 4.3 (3.2-5.5) g/dL Globulin 2.6 (2.1-4.2) g/dL Albumin/Globulin Ratio 1.7 (1.0-2.2) Lipase 27 (11-82) U/L TSH (0.34-5.60) uIU/mL Urine Color YELLOW Urine Clarity HAZY (CLEAR) Urine pH 5.5 (5.0-7.5) PH Ur Specific [place] 1.020 (1.002-1.030) Urine Protein TRACE (NEGATIVE) mg/dL Urine Glucose (UA) >=1000 H (NEGATIVE) mg/dL Urine Ketones NEGATIVE (NEGATIVE) mg/dL Urine Occult Blood TRACE-INTA (NEGATIVE) Urine Nitrite POSITIVE H (NEGATIVE) Urine Bilirubin NEGATIVE (NEGATIVE) Urine Urobilinogen 0.2 (NORMAL) (NORMAL) E.U./dL Ur Leukocyte Esterase TRACE H (NEGATIVE) Urine RBC 0-5 (0-5) /HPF Urine WBC 11-25 H (0-5) /HPF Ur Squamous Epith Cells RARE Squamous (<= Few) Urine Bacteria Many H (None Seen) /HPF Ur Microscopic Review INDICATED Urine Culture Comments INDICATED Nasal Adenovirus (PCR) Nasal B. parapertussis DNA (PCR) Nasal Coronavir 229E PCR Nasal Coronavir HKU1 PCR Nasal Coronavir NL63 PCR Nasal Coronavir OC43 PCR Nasal Enterovir/Rhinovir PCR Nasal Influenza B PCR Nasal Influenza A PCR Nasal Parainfluen 1 PCR Nasal Parainfluen 2 PCR Nasal Parainfluen 3 PCR Nasal Parainfluen 4 PCR Nasal RSV (PCR) Nasal B.pertussis DNA PCR Nasal C.pneumoniae (PCR) Gamal Human Metapneumo PCR Nasal M.pneumoniae (PCR) Nasal SARS-CoV-2 (PCR) Last Dose Date Last Dose Time Digoxin ng/mL Serum Ketones NEGATIVE (NEGATIVE) 06/06/24 Range/Units 14:07 WBC 6.4 (4.8-10.8) x10^3/uL RBC 4.75 (4.20-5.40) 10^6/uL Hgb 12.4 (12.0-16.0) g/dL Hct 42.6 (37.0-47.0) % MCV 89.7 (81.0-99.0) fL MCH 26.1 L (27.0-31.0) pg MCHC 29.1 L (32.0-36.0) g/dL RDW 16.5 H (12.0-15.0) % Plt Count 253 (130-450) 10^3/uL MPV 11.0 H (7.9-10.8) fL Neut # (Auto) 4.6 (1.5-6.6) 10^3/uL Lymph # (Auto) 0.8 L (1.5-3.5) 10^3/uL [place] # (Auto) 0.7 (0.0-1.0) 10^3/uL Eos # (Auto) 0.2 (0.0-0.7) 10^3/uL Baso # (Auto) 0.1 (0.0-0.1) 10^3/uL Absolute Nucleated RBC 0.00 x10^3/uL Nucleated RBC % 0.0 /100WBC Sodium (135-145) mmol/L Potassium (3.5-4.5) mmol/L Chloride (101-111) mmol/L Carbon Dioxide (21-32) mmol/L Anion Gap (6-13) BUN (6-20) mg/dL Creatinine (0.6-1.3) mg/dL Estimated GFR (MDRD) (>89) Glucose (74-104) mg/dL Estimat Average Glucose (70-100) mg/dL Hemoglobin A1c % (4.27-6.07) % Lactic Acid (0.5-2.2) mmol/L Calcium (8.5-10.3) mg/dL Total Bilirubin (0.2-1.0) mg/dL AST (10-42) IU/L ALT (10-60) IU/L Alkaline Phosphatase (42-121) IU/L B-Natriuretic Peptide (5-100) pg/mL Total Protein (6.4-8.9) g/dL Albumin (3.2-5.5) g/dL Globulin (2.1-4.2) g/dL Albumin/Globulin Ratio (1.0-2.2) Lipase (11-82) U/L TSH (0.34-5.60) uIU/mL Urine Color Urine Clarity (CLEAR) Urine pH (5.0-7.5) PH Ur Specific [place] (1.002-1.030) Urine Protein (NEGATIVE) mg/dL Urine Glucose (UA) (NEGATIVE) mg/dL Urine Ketones (NEGATIVE) mg/dL Urine Occult Blood (NEGATIVE) Urine Nitrite (NEGATIVE) Urine Bilirubin (NEGATIVE) Urine Urobilinogen (NORMAL) E.U./dL Ur Leukocyte Esterase (NEGATIVE) Urine RBC (0-5) /HPF Urine WBC (0-5) /HPF Ur Squamous Epith Cells (<= Few) Urine Bacteria (None Seen) /HPF Ur Microscopic Review Urine Culture Comments Nasal Adenovirus (PCR) Nasal B. parapertussis DNA (PCR) Nasal Coronavir 229E PCR Nasal Coronavir HKU1 PCR Nasal Coronavir NL63 PCR Nasal Coronavir OC43 PCR Nasal Enterovir/Rhinovir PCR Nasal Influenza B PCR Nasal Influenza A PCR Nasal Parainfluen 1 PCR Nasal Parainfluen 2 PCR Nasal Parainfluen 3 PCR Nasal Parainfluen 4 PCR Nasal RSV (PCR) Nasal B.pertussis DNA PCR Nasal C.pneumoniae (PCR) Gamal Human Metapneumo PCR Nasal M.pneumoniae (PCR) Nasal SARS-CoV-2 (PCR) Last Dose Date Last Dose Time Digoxin ng/mL Serum Ketones (NEGATIVE) ABX Reporting Has patient been on IV antibiotics over the past 48 hours?: Yes Sepsis Event Note (H) - Evaluation Current Stage of Sepsis: Sepsis Possible source of Sepsis: positive: Genitourinary Assessment/Plan - Problem List (1) Dehydration Impression: IVF and improved. (2) Sepsis Impression: From UTI. Stabilzing. Qualifiers: Sepsis type: sepsis due to unspecified organism Sepsis acute organ dysfunction status: without acute organ dysfunction Qualified Code(s): A41.9 - Sepsis, unspecified organism (3) UTI (urinary tract infection) Impression: Stable. continue with ceftriaxone. follow up urine culture results. Qualifiers: Urinary tract infection type: acute cystitis Hematuria presence: without hematuria Qualified Code(s): N30.00 - Acute cystitis without hematuria (4) Atrial fibrillation with RVR Impression: Restart home digoxin. May need another rate control med. (5) BOO (acute kidney injury) Impression: Cr is coming down. continue with IVF. continue to hold ARB. Repeat BMP in am. (6) Hypothyroidism Impression: TSH came back at 6.5. Increased levothyroxine to 75mcg from 50mcg.
--- NOTE | 2024-06-07 11:07 | PHARMACY PROGRESS NOTE ---
- Best Possible Medication History Admit Date and Time: 06/06/24 1653 Processed by: Pharmacy Medication History completed: Yes Patient Interview: Completed Secondary Source(s): Pharmacy records, Insurance records As the person ultimately responsible for medication therapy, providers are able to order a medication from an existing home medication list in [facility] via the "Reconcile Routine" prior to Confirmation of that medication by applications support lead. Such practice is discouraged except when the physician, in their clinical judgment, deems that a medical need exists for a medication without regard to previous use.
[2024-06-07] MEDS: METOPROLOL TARTRATE 50 MG TABLET PO ONE (16:21)
[2024-06-07] MEDS ORDERED: GABAPENTIN 100 MG CAPSULE PO SCH (21:00)
[2024-06-07] MEDS: INSULIN GLARGINE-YFGN 300 UNIT/3 ML PEN SUBQ SCH (21:14)
[2024-06-07] MEDS: METOPROLOL TARTRATE 25 MG TABLET PO SCH (21:18)
[2024-06-07] MEDS: ATORVASTATIN 40 MG TABLET PO SCH (21:21)
[2024-06-08] MEDS: LEVOTHYROXINE 75 MCG TABLET PO SCH (06:46)
[2024-06-08 08:02] LABS: CALCIUM 8.8 mg/dL (8.5-10.3); CREATININE 1.4 mg/dL (0.6-1.3); POTASSIUM 3.8 mmol/L (3.5-4.5)
[2024-06-08] MEDS: diltiaZEM CD 120 MG CAPSULE PO SCH (08:15)
[2024-06-08] MEDS: Ezetimibe [Zetia] 10 MG Tablet PO SCH (08:28)
--- NOTE | 2024-06-08 10:16 | PROVIDER PROGRESS NOTE ---
Subjective - Prog Note Date Prog Note Date: 06/08/24 Prog Note Time: 10:14 - Subjective Pt reports feeling: No change Subjective: The pt reports that she is feeling about the same. She still feels her heart racing. No acue overnight events. No other related symptoms. Objective - Vital Signs/Intake & Output Reviewed Vital Signs: Yes Vital Signs: Vital Signs x48h Temp Pulse Resp BP Pulse Ox 06/08/24 07:59 36.6 C 124 H 18 126/67 96 06/08/24 05:24 36.4 C L 122 H 17 112/78 94 Intake & Output: Intake & Output 06/05/24 06/06/24 06/07/24 06/08/24 23:59 23:59 23:59 23:59 Intake Total 2440 2628.334 1460 Output Total 300 Balance 2140 2628.334 1460 - Objective General Appearance: positive: No acute distress, Alert Eyes Bilateral: positive: Normal inspection, EOMI Neck: positive: Nml inspection, No JVD, Trachea midline Respiratory: positive: Chest non-tender, No respiratory distress, Breath sounds nml Cardiovascular: positive: Irregularly irregular, Tachycardia Abdomen: positive: Non-tender, Nml bowel sounds, No distention Skin: positive: Color nml, No rash, Warm, Dry Extremities: positive: Non-tender, Full ROM, No pedal edema Neurologic/Psychiatric: positive: Oriented x3 - Lab Results Fish Bones: 06/06/24 14:07 06/08/24 07:40 Other Labs: Lab Results x24hrs 06/08/24 Range/Units 07:40 Sodium 133 L (135-145) mmol/L Potassium 3.8 (3.5-4.5) mmol/L Chloride 107 (101-111) mmol/L Carbon Dioxide 17 L (21-32) mmol/L Anion Gap 9.0 (6-13) BUN 34 H (6-20) mg/dL Creatinine 1.4 H (0.6-1.3) mg/dL Estimated GFR (MDRD) 36 L (>89) Glucose 134 H (74-104) mg/dL Calcium 8.8 (8.5-10.3) mg/dL - Diagnostic Imaging Diagnostic Imaging Results: positive: Final report reviewed ABX Reporting Has patient been on IV antibiotics over the past 48 hours?: Yes Sepsis Event Note (H) - Evaluation Current Stage of Sepsis: Sepsis Possible source of Sepsis: positive: Genitourinary Assessment/Plan - Problem List (1) Sepsis Impression: Stable. Continue to treat UTI Qualifiers: Sepsis type: sepsis due to unspecified organism Sepsis acute organ dysfunction status: without acute organ dysfunction Qualified Code(s): A41.9 - Sepsis, unspecified organism (2) UTI (urinary tract infection) Impression: Stable. Continue with abx. Urine culture is growing E coli. Follow up the final culture results. Qualifiers: Urinary tract infection type: acute cystitis Hematuria presence: without hematuria Qualified Code(s): N30.00 - Acute cystitis without hematuria (3) Atrial fibrillation with RVR Impression: HR is still not controlled. Continue with digoxin and metoprol. Will add diltiazem CD 120mg BID. (4) BOO (acute kidney injury) Impression: Cr is coming down. Continue with IVF. Repeat BMP in am. (5) Hypothyroidism Impression: Levothyroxine dose has been increased. (6) Dehydration Impression: Improved with IVF. (7) Hyponatremia Impression: Na has been coming up with IVF.
[2024-06-08] MEDS: ACETAMINOPHEN 500 MG TABLET PO PRN (19:07)
--- NOTE | 2024-06-08 23:43 | PROVIDER PROGRESS NOTE ---
Hospitalist Cross-cover Note - Cross-Cover Note Cross-Cover Note: Consult Information Member Facility: [facility] Facility Visit/ Requesting Clinician: Priscila Puente Patient Name: Miranda Vega Date of : 1940 Gender: Female Reason for Consult Reason for Consult: Review Patient Care Clinical Note Clinical Note: per rn - "Admitted 06/06 for sepsis. RN concerned telemetry strip has changed and is unsure of reading, possibly Aflutter vs fib vs irregular with 2nd deg. VS stable. EKG from admit is sinus tach and appear to have changed. Requesting repeat EKG please." ok to check bmp, mag, ekg
[2024-06-09 00:10] LABS: MAGNESIUM 1.5 mg/dL (1.7-2.3)
[2024-06-09 00:16] LABS: CALCIUM 8.8 mg/dL (8.5-10.3); CREATININE 1.7 mg/dL (0.6-1.3); POTASSIUM 3.9 mmol/L (3.5-4.5)
[2024-06-09] MEDS: ONDANSETRON 4 MG/2 ML VIAL IVP PRN (06:17)
[2024-06-09 06:22] LABS: CALCIUM 8.9 mg/dL (8.5-10.3); CREATININE 1.7 mg/dL (0.6-1.3); MAGNESIUM 1.5 mg/dL (1.7-2.3)
[2024-06-09] MEDS: diltiaZEM CD 120 MG CAPSULE PO SCH (08:10)
[2024-06-09] MEDS: cefTRIAXone 2 GM in SODIUM CHLORIDE 0.9% MINIBAG 100 ML IV SCH (08:10)
[2024-06-09] MEDS: MAGNESIUM SULFATE 1 GM in SODIUM CHLORIDE 0.9% 50 ML IV ONE (08:38)
--- NOTE | 2024-06-09 10:17 | PROVIDER PROGRESS NOTE ---
Subjective - Prog Note Date Prog Note Date: 06/09/24 Prog Note Time: 10:15 - Subjective Pt reports feeling: Improved Subjective: She had nausea, dry heaves at 1 am when she got up to use bathroom. She received zofran and she is feeling better this morning. No other acute overnight events. No other related symptoms. No other modifying factors. Objective - Vital Signs/Intake & Output Reviewed Vital Signs: Yes Vital Signs: Vital Signs x48h Temp Pulse Pulse Resp BP BP Pulse Ox 06/09/24 08:45 37.0 C 64 16 104/54 L 98 06/09/24 07:56 104/54 L 06/09/24 05:47 36.5 C 88 18 134/66 H 98 Intake & Output: Intake & Output 06/06/24 06/07/24 06/08/24 06/09/24 23:59 23:59 23:59 23:59 Intake Total 2440 2628.334 3101.667 1240 Output Total 300 Balance 2140 2628.334 3101.667 1240 - Objective General Appearance: positive: No acute distress, Alert Eyes Bilateral: positive: Normal inspection, EOMI Neck: positive: Nml inspection Respiratory: positive: Chest non-tender, No respiratory distress, Breath sounds nml Cardiovascular: positive: Irregularly irregular, Other (JVD) Abdomen: positive: Non-tender, Nml bowel sounds, No distention Skin: positive: Color nml, No rash, Warm, Dry Extremities: positive: Non-tender, Full ROM, Pedal edema Neurologic/Psychiatric: positive: Oriented x3 - Lab Results Fish Bones: 06/06/24 14:07 06/09/24 05:56 Other Labs: Lab Results x24hrs 06/09/24 06/08/24 06/08/24 Range/Units 05:56 23:52 14:15 Sodium 134 L 133 L (135-145) mmol/L Potassium 4.0 3.9 (3.5-4.5) mmol/L Chloride 107 106 (101-111) mmol/L Carbon Dioxide 18 L 17 L (21-32) mmol/L Anion Gap 9.0 10.0 (6-13) BUN 33 H 31 H (6-20) mg/dL Creatinine 1.7 H 1.7 H (0.6-1.3) mg/dL Estimated GFR (MDRD) 29 L 29 L (>89) Glucose 175 H 209 H (74-104) mg/dL Calcium 8.9 8.8 (8.5-10.3) mg/dL Magnesium 1.5 L 1.5 L (1.7-2.3) mg/dL Stl C. diff Tox B Gene NEGATIVE (NEGATIVE) ABX Reporting Has patient been on IV antibiotics over the past 48 hours?: Yes Sepsis Event Note (H) - Evaluation Current Stage of Sepsis: Sepsis Possible source of Sepsis: positive: Genitourinary Assessment/Plan - Problem List (1) Sepsis Impression: Imrpoved with the treatment of UTI. Qualifiers: Sepsis type: sepsis due to unspecified organism Sepsis acute organ dysfunction status: without acute organ dysfunction Qualified Code(s): A41.9 - Sepsis, unspecified organism (2) UTI (urinary tract infection) Impression: E coli is stephens-sensitive except for ampicillin. Continue with ceftriaxone. Qualifiers: Urinary tract infection type: acute cystitis Hematuria presence: without hematuria Qualified Code(s): N30.00 - Acute cystitis without hematuria (3) Atrial fibrillation with RVR Impression: Better controlled with diltiazem. Will DC metoprolol. Continue with digoxin. (4) BOO (acute kidney injury) Impression: Cr is up to 1.7 this morning. I think this is from CHF. Will give her lasix and repeat BMP and Mg in am. (5) Hypothyroidism Impression: Continue with increased odse of levothyroxine. (6) Dehydration Impression: Resolved and now I think she is having some CHF issue. IVF has been stopped. (7) Hyponatremia Impression: Na is 134 and corrected sodium based on glucose is normal. (8) CHF (congestive heart failure) Impression: I couldn't find her previous echo. Lasix 40mg IV x1 today and will reassess tomorrow for further lasix. The pt take spironolactone and chlorthalidone at home. She was dehydrated when she came in so will hold off those meds for now. Qualifiers: Heart failure type: unspecified Heart failure chronicity: acute on chronic Qualified Code(s): I50.9 - Heart failure, unspecified
[2024-06-09] MEDS: FUROSEMIDE 40 MG/4 ML VIAL IVP ONE (10:47)
[2024-06-10 06:00] LABS: CALCIUM 8.9 mg/dL (8.5-10.3); CREATININE 1.7 mg/dL (0.6-1.3); MAGNESIUM 1.3 mg/dL (1.7-2.3); POTASSIUM 3.6 mmol/L (3.5-4.5)
[2024-06-10] MEDS ORDERED: SODIUM CHLORIDE 0.9% MINIBAG 100 ML IV ONE ×2 (09:07→09:09)
[2024-06-10] MEDS: MAGNESIUM SULFATE 2 GRAM 2 GM/50 ML BAG IV ONE (14:49)
--- NOTE | 2024-06-10 18:12 | PROVIDER PROGRESS NOTE ---
Subjective - Prog Note Date Prog Note Date: 06/10/24 Prog Note Time: 18:09 - Subjective Pt reports feeling: Improved Subjective: eris lady with some meory loss. Denies being sob, denies cough. Current Medications - Current Medications Current Medications: Active Medications Acetaminophen (Acetaminophen 500 Mg Tablet) 500 mg PO Q6H PRN PRN Reason: Pain or Fever > 38C (100.4F) Last Admin: 06/08/24 19:07 Dose: 500 mg Apixaban (Apixaban 2.5 Mg Tablet) 2.5 mg PO BID [facility] Last Admin: 06/10/24 09:14 Dose: 2.5 mg Atorvastatin Calcium (Atorvastatin 40 Mg Tablet) 40 mg PO QPM [facility] Last Admin: 06/09/24 21:08 Dose: 40 mg Cefuroxime Axetil (Cefpodoxime Proxetil 100 Mg Tablet) 100 mg PO QD [facility] Citalopram Hydrobromide (Citalopram 10 Mg Tablet) 20 mg PO DAILY [facility] Last Admin: 06/10/24 09:14 Dose: 20 mg Digoxin (Digoxin 125 Mcg Tablet) 125 mcg PO DAILY [facility] Last Admin: 06/10/24 09:14 Dose: 125 mcg Diltiazem HCl (Diltiazem Cd 120 Mg Capsule) 120 mg PO DAILY [facility] Last Admin: 06/10/24 09:14 Dose: 120 mg Gabapentin (Gabapentin 100 Mg Capsule) 100 mg PO QPM [facility] Last Admin: 06/09/24 21:08 Dose: 100 mg Insulin Glargine-yfgn (Insulin Glargine-Yfgn 300 Unit/3 Ml Pen) 50 unit SUBQ QPM [facility] Last Admin: 06/09/24 21:08 Dose: 50 unit Insulin Human Lispro (Insulin Lispro 300 Unit/3 Ml Pen) 3 unit SUBQ TIDWM [facility]; Protocol Last Admin: 06/10/24 17:33 Dose: 3 unit Insulin Human Lispro (Insulin Lispro 300 Unit/3 Ml Pen) 1 - 5 unit SUBQ 0800,1200,1700,2100 [facility]; Protocol Last Admin: 06/10/24 17:23 Dose: Not Given Levothyroxine Sodium (Levothyroxine 75 Mcg Tablet) 75 mcg PO QDAC [facility] Last Admin: 06/10/24 06:41 Dose: 75 mcg Metoprolol Tartrate (Metoprolol 5 Mg/5 Ml Vial) 5 mg IVP Q6H PRN PRN Reason: Tachycardia Last Admin: 06/07/24 05:49 Dose: 5 mg Ondansetron HCl (Ondansetron 4 Mg/2 Ml Vial) 4 mg IVP Q4HR PRN PRN Reason: Nausea / Vomiting Last Admin: 06/09/24 06:17 Dose: 4 mg Pantoprazole Sodium (Pantoprazole 40 Mg Tablet) 40 mg PO QDAC [facility] Last Admin: 06/10/24 06:41 Dose: 40 mg Empagliflozin [ Jardiance] 10 Mg Tablet 1 each PO DAILY [facility] Last Admin: 06/10/24 09:16 Dose: Not Given Ezetimibe [Zetia] 10 (Mg Tablet) 1 each PO DAILY [facility] Last Admin: 06/10/24 09:16 Dose: Not Given Sodium Chloride (Sodium Chloride Flush 0.9% 10 Ml Syringe) 10 ml IVP PRN PRN PRN Reason: NEEDED PER PROVIDER ORDERS Sodium Chloride (Sodium Chloride Flush 0.9% 10 Ml Syringe) 10 ml IVP 0100,0900,1700 [facility] Last Admin: 06/10/24 17:38 Dose: 10 ml Gabapentin 100 mg PO QPM 09/25/16 Citalopram [CeleXA] 20 mg PO DAILY 11/21/17 Spironolactone 12.5 mg PO DAILY 11/21/17 Insulin Glargine [Lantus Solostar] 50 units SUBQ QPM 11/22/17 Digoxin [Lanoxin] 0.125 mg PO DAILY 03/06/19 Levothyroxine Sodium 50 mcg PO DAILY 12/02/21 Losartan Potassium 25 mg PO DAILY 12/02/21 Atorvastatin Calcium 40 mg PO QPM 06/06/24 Chlorthalidone 25 mg PO DAILY 06/06/24 Empagliflozin [Jardiance] 10 mg PO DAILY 06/06/24 Ezetimibe [Zetia] 10 mg PO DAILY 06/06/24 Metformin HCl 1,000 mg PO BID 06/06/24 Metoprolol Tartrate [Lopressor] 75 mg PO BID 06/06/24 Warfarin [Coumadin] 3 mg PO QPM 06/06/24 Objective - Vital Signs/Intake & Output Reviewed Vital Signs: Yes Vital Signs: Vital Signs x48h Temp Pulse Pulse Pulse Pulse Resp BP 06/10/24 16:10 36.6 C 71 16 131/73 H 06/10/24 12:08 36.5 C 78 18 06/10/24 11:29 79 89 75 06/10/24 10:58 79 89 75 BP BP BP BP Pulse Ox Pulse Ox 06/10/24 16:10 95 06/10/24 12:08 121/73 97 06/10/24 11:29 128/63 117/57 L 128/68 06/10/24 10:58 128/63 117/57 L 128/68 97 Intake & Output: Intake & Output 06/07/24 06/08/24 06/09/24 06/10/24 23:59 23:59 23:59 23:59 Intake Total 2628.334 3101.667 3008.667 1100 Balance 2628.334 3101.667 3008.667 1100 - Objective General Appearance: positive: No acute distress, Alert Eyes Bilateral: positive: PERRL ENT: positive: Pharynx nml Neck: positive: No JVD. negative: Stiff neck Respiratory: positive: No respiratory distress, Other (diminished at the bases). negative: Wheezes Cardiovascular: positive: Regular rate & rhythm Abdomen: positive: Non-tender, Nml bowel sounds Skin: positive: Warm, Dry Neurologic/Psychiatric: positive: Oriented x3, CN's nml (2-12), Motor nml - Lab Results Fish Bones: 06/06/24 14:07 06/10/24 05:35 Other Labs: Lab Results x24hrs 06/10/24 Range/Units 05:35 Sodium 134 L (135-145) mmol/L Potassium 3.6 (3.5-4.5) mmol/L Chloride 107 (101-111) mmol/L Carbon Dioxide 20 L (21-32) mmol/L Anion Gap 7.0 (6-13) BUN 34 H (6-20) mg/dL Creatinine 1.7 H (0.6-1.3) mg/dL Estimated GFR (MDRD) 29 L (>89) Glucose 134 H (74-104) mg/dL Calcium 8.9 (8.5-10.3) mg/dL Magnesium 1.3 L (1.7-2.3) mg/dL ABX Reporting Has patient been on IV antibiotics over the past 48 hours?: Yes Sepsis Event Note (H) - Evaluation Current Stage of Sepsis: Sepsis Possible source of Sepsis: positive: Genitourinary Assessment/Plan - Problem List (1) UTI (urinary tract infection) Impression: presented with sepsis criteria from a UTI and had BOO as well. These have resolved as UTI was treated. Now Day 5 of abx. She is growing E coli and E coli is stephens-sensitive except for ampicillin. Continue with ceftriaxone. Change to po meds today from IV. If stays stable, DC in am. Qualifiers: Urinary tract infection type: acute cystitis Hematuria presence: without hematuria Qualified Code(s): N30.00 - Acute cystitis without hematuria (3) Atrial fibrillation with RVR Impression: Better controlled with diltiazem. Will DC metoprolol. Continue with digoxin. (4) BOO (acute kidney injury) Impression: Cr went up to 1.7 on 06/09 and is staying there today. [place] to be from CHf and given lasix. No improvement today but stable. Since Mg was low she was given mg sulfate yesterday. Repeat today is still low so I will give her another dose of Mg. (5) Hypothyroidism Impression: Continue with increased odse of levothyroxine. (6) Dehydration Impression: Resolved. IVF stopped 06/09. (7) Hyponatremia Impression: Na is 134 and corrected sodium based on glucose is normal. (8) CHF (congestive heart failure) Impression: She had an echocardiogram in 2017 and 2018. Her underlying rhythm was atrial fibrillation with a controlled ventricular response. Ejection fraction was mildly impaired with an ejection fraction of 45 to 50%. Right ventricle was normal in size and function. Thickening of mitral valve leaflets with restricted leaflet motion seen. Mild to moderate mitral stenosis and mild to moderate mitral regurgitation. She also had mild tricuspid regurgitation with moderately abnormal right heart pressures. The RVSP at rest was 57 mmHg. The 2018 echo had improved from the 2017 echo where she had 101 mmHg. Lasix 40mg IV x1 given 06/09 and today she has nml 02 sats on RA, clear lungs, no edema or JVD. I will not give more lasix today. She takes spironolactone and chlorthalidone at home. She was dehydrated when she came in so will hold off those meds for now. Qualifiers: Heart failure type: unspecified Heart failure chronicity: acute on chronic Qualified Code(s): I50.9 - Heart failure, unspecified (9) Type 2 DM controlled, with neuropathy, on [facility] insulin.. Selected Entries 06/09/24 06/09/24 06/10/24 21:00 21:09 07:54 Result (mg/dL) 159 159 128 06/10/24 06/10/24 06/10/24 07:59 08:00 11:48 Result (mg/dL) 128 128 144 06/10/24 06/10/24 06/10/24 11:57 11:58 16:41 Result (mg/dL) 148 148 111 06/10/24 06/10/24 17:23 17:33 Result (mg/dL) 111 111 She is on 50 units of Semglee, 3 units with each meal, plus sliding scale insulin. She is well-controlled with this regimen and I will not change that today. Qualifiers: Qualified Code(s): N30.00 - Acute cystitis without hematuria
[2024-06-11 07:33] VITALS: O2SAT 96
[2024-06-11] MEDS: CEFPODOXIME PROXETIL 100 MG TABLET PO SCH (09:11)
[2024-06-11] MEDS ORDERED: INSULIN GLARGINE-YFGN 300 UNIT/3 ML PEN SUBQ SCH (09:51)
[2024-06-11] MEDS: MULTIVITAMIN W/MINERALS TABLET PO SCH (11:54)
--- NOTE | 2024-06-11 12:00 | Discharge Plan ---
Discharge Plan Problem Reviewed?: Yes Disposition: Home Health Service Condition: Fair Prescriptions: diltiaZEM CD [Cardizem Cd] 120 mg PO DAILY #30 cap Cefpodoxime Proxetil [Vantin] 100 mg PO QD #2 tab Mvn-Min75/Iron/Iron Ps/Om3/Dha [Wescap-C Dha Softgel] 1 each PO DAILY #30 cap Diet: Diabetic Activity Restrictions: No Restrictions Shower Restrictions: No Driving Restrictions: Yes (no driving) Assistance Devices: Walker Weight Bearing: Full Weight Health Concerns: You are being followed by the wound care nurse for a chronic right lower extremity wound infection. It has not been healing. With the previous doctor you had a thrombectomy of a month before. While he was being seen by the wound care nurse she noticed that you were very tired, short of breath and an ambulance was called and you were brought to the emergency room. We found that your heart rate was irregular and fast. And your blood pressure was low. And the cause of all of that was a bad urinary tract infection. The urine culture grew out a bacteria called E. coli. You have chronic atrial fibrillation. At h ome you take Coumadin, metoprolol, and digoxin to control your heart rate and did not your blood to prevent the risk of stroke. Here we changed your Coumadin to Eliquis. That was just a temporary measure to give you a blood thinner. And we also added a drug called Cardizem to slow down your heart rate. You have done well with the antibiotics for your urinary tract infection and we changed it from intravenous form to pill form to complete your therapy for the UTI. All of this is left you fairly weak, deconditioned. You need quite a bit of help. You are exhausted just to get up to go to the bathroom. Our physical therapist feels that you should go to a retirement to get physical rehab but you do not want to go there. You want to go home. Plan of Treatment: 1. Please see Lizz haddad in the next 1 to 2 weeks. She is your primary care provider and needs to see how your heart is doing and how your urinary tract infection is doing. She also needs to see how you are with your strength. We wanted to go to a retirement and you refused to do so. So I want her to make sure that you are staying strong enough to be home. We have also ordered home health nursing and physical therapy and home health aide to help you stay at home. 2. Because the combination of Cardizem, metoprolol, and digoxin can actually slow your heart rate too much, Ms. haddad really needs to make sure your heart rate is doing okay. She may need to stop 1 of those medications. 3. Please finish your treatment for your urinary tract infection. You need a few more days of antibiotics and that was called into the pharmacy. 4. I know that you want to return to home and be as independent as possible. But regretfully and unfortunately you really need to start thinking about the future. You are getting to the brink of not being able to take care of yourself anymore. Even with caregivers in the home. I would strongly suggest that you start looking at assisted living facilities in the area. And consider going to living those assisted facilities in the next few months to year. Care Goals: To remain at home for as long as possible. Assessment: She is alert and oriented but has mild to moderate cognitive deficits. Arrangements should be made for possible placement in the near future. Follow-Up Care: Home Health - RN, Home Health - PT, Home Health - OT No Smoking: If you smoke, Please STOP! Call for help. Follow-up with: Lizz Haddad ARNP [Primary Care Provider] -
--- NOTE | 2024-06-11 12:19 | DISCHARGE SUMMARY ---
"Discharge Summary Admit Date: 06/06/24 Discharge Date: 06/11/24 Discharging Provider: Batsheva Veras MD Primary Care Provider: CHRISTOPHER Álvarez Code Status: Attempt Resuscitation Condition at Discharge: Fair Discharge Disposition: [facility] - DIAGNOSES Discharge Diagnoses with Status of Each Condition: 1. Sepsis 2. E. coli UTI 3. Chronic atrial fibrillation with RVR 4. Acute kidney injury 5. Type 2 diabetes mellitus, with long-term use of insulin, without complication 6. Acute on chronic congestive heart failure with reduced ejection fraction. Patient has mitral stenosis and mitral regurgitation. Tricuspid regurgitation. Elevated right heart pressures. 7. Generalized weakness requiring PT and OT with SNF. Patient refuses and will go home. 8. Hypothyroidism 9. Dehydration 10. Hyponatremia - HPI History of Present Illness: 84 year old female with a PMH for PAF, CHF, T2DM, hypothyroidism, GERD, who presents to the ED after a visiting nurse had noticed her blood pressure being low and heart rate fast. She states for the past several days she has not been feeling well, with decreased energy levels. Denies fevers, chills, headaches, neck pains. Denies chest pains, palpitations, states she does have baseline SOB due to her CHF however she is at her baseline. Does not use supplemental O2. Denies abdominal pains, constipation, diarrhea. Denies dysuria, CVA tenderness. Ambulates with a cane, denies history of falls. Does have chronic LE edema. In the ED she was noted to by hypotensive requiring 3 L's NS. She was also in ST that had improved with the NS. She was started on CFTX for an abnormal UA with + nitrites, and 11-25 WBC's. - Past Medical History Cardiovascular: reports: Congestive heart failure, Hypertension, Atrial fibrillation Respiratory: reports: None Neuro: reports: CVA Endocrine/Autoimmune: reports: Type 2 diabetes GI: reports: None, GERD : reports: None HEENT: reports: Chronic vision loss Psych: reports: Depression Musculoskeletal: reports: None Derm: reports: None MRSA Hx?: No - Past Surgical History General: HEENT: reports: Cataracts - CONSULTS | PROCEDURES Procedures: chest x-ray with mild interstitial pulmonary edema June 06 urine culture positive for E. coli June 06 blood cultures negative - HOSPITAL COURSE Hospital Course: Patient was found to have a UTI. She was also having RVR in the face of chronic atrial fibrillation with hypotension. Because of the hypotension, fast heart rate, white cell count she met sepsis criteria. Urine culture is grew out E. coli. She was treated empirically with IV antibiotics and then switched to oral antibiotics. She needs 2 more days of cefpodoxime. Patient is felt to have mild to moderate cognitive deficits. Daughter is very concerned about mom and her living situation. Mom does have caregivers that are part of her benefits with [employer]. But probably not enough. Physical therapy feels that the patient should go to a nursing home facility for temporary rehab. Patient refuses and asked that she is to be discharged to home with home health. But I am recommending to the patient that she start considering moving to an assisted living facility or long-term care facility in the next few months to year. She gets easily fatigued with walking in her room. Short of breath. But rate is controlled. In order to control her rates she is now on Cardizem, digoxin, metoprolol. The Cardizem is new. I would like her primary care provider to see her in the next 1 to 2 weeks to make sure she is not developing symptomatic bradycardia or a second-degree AV block.Would also like to have her weight documented to make sure CHF is not getting worse. During her stay her diabetes was controlled. We had her on 40 units of long- acting insulin plus a fixed determined insulin dose with meals. At discharge she will be resuming her usual home medication which includes long-acting insulin and metformin. She did develop low-grade hypoxia and rales on 1 day. The hospitalist felt that she may have mild congestive heart failure from fluid resuscitation for her sepsis and UTI. As such she received Lasix. Oxygenation and blood pressure did improve with that. No new echocardiogram was done but old echocardiograms were reviewed and this lady does have symptomatic valvular heart disease. But at the age of 84, I do not know if she would be a surgical candidate and as such a new echo was not ordered. She is discharged in stable condition with a guarded prognosis. The prognosis is guarded mainly due to age, valvular heart disease, cognitive deficits. We recognize that she should most likely have increased caregiving beyond the caregivers that she is getting now. However the patient refuses to be placed. pleasant elderly female.Temperature is 36.5. Heart rate 69. Blood pressure 128/64. Her weight is 73 kg. She is 5 foot 8 inches tall. Unfortunately daily weights were not done on this patient. She appears to be morbidly obese, pleasant, no acute distress. Able to carry on a complete conversation without tachypnea or dyspnea. Diminished breath sounds at the lung bases without increased respiratory effort. Is slow irregular rate and rhythm. Slight diastolic murmur. Abdomen is obese, soft, nontender with normal bowel sounds. Trace pedal edema. This document was made in part using voice recognition software. While efforts are made to proofread this document, sound alike and grammatical errors may occur. Greater than 30 minutes was spent coordinating discharge - ALLERGIES Allergies/Adverse Reactions: Allergies Allergy/AdvReac Type Severity Reaction Status Date / Time No Known Drug Allergies Allergy Verified 03/27/24 01:33 - MEDICATIONS Home Medications: Ambulatory Orders Medication Instructions Recorded Confirmed Gabapentin 100 mg PO QPM 09/25/16 06/06/24 Citalopram [CeleXA] 20 mg PO DAILY 11/21/17 06/06/24 Spironolactone 12.5 mg PO DAILY 11/21/17 06/07/24 Insulin Glargine [Lantus Solostar] 50 units SUBQ QPM 11/22/17 06/07/24 Digoxin [Lanoxin] 0.125 mg PO DAILY 03/06/19 06/06/24 Levothyroxine Sodium 50 mcg PO DAILY 12/02/21 06/06/24 Losartan Potassium 25 mg PO DAILY 12/02/21 06/06/24 Pantoprazole [Protonix] 40 mg PO DAILY #30 tablet 12/07/21 06/06/24 Atorvastatin Calcium 40 mg PO QPM 06/06/24 06/06/24 Chlorthalidone 25 mg PO DAILY 06/06/24 06/06/24 Empagliflozin [Jardiance] 10 mg PO DAILY 06/06/24 06/06/24 Ezetimibe [Zetia] 10 mg PO DAILY 06/06/24 06/07/24 Metformin HCl 1,000 mg PO BID 06/06/24 06/07/24 Metoprolol Tartrate [Lopressor] 75 mg PO BID 06/06/24 06/06/24 Warfarin [Coumadin] 3 mg PO QPM 06/06/24 06/07/24 Cefpodoxime Proxetil [Vantin] 100 mg PO QD #2 tab 06/11/24 Mvn-Min75/Iron/Iron Ps/Om3/Dha 1 each PO DAILY #30 cap 06/11/24 [Wescap-C Dha Softgel] diltiaZEM CD [Cardizem Cd] 120 mg PO DAILY #30 cap 06/11/24 - LABS Result Diagrams: 06/06/24 14:07 06/10/24 05:35 - SEPSIS Current Stage of Sepsis: Sepsis Possible source of Sepsis: Genitourinary"
[2024-06-11 12:52] VITALS: BP 91/66
== END 2024-06-11 13:20 | disposition home health service (06) | DRG 871 ==
LOC: EDUNIT# → ED 13:35 → MS2 16:59
PROVIDERS: ADMIT Internal Medicine; ATTEND Specialist
DX: A41.9 Sepsis, unspecified organism (principal); A41.51 Sepsis due to Escherichia coli [E. coli]; I50.23 Acute on chronic systolic (congestive) heart failure; I50.9 Heart failure, unspecified; I48.20 Chronic atrial fibrillation, unspecified; R00.0 Tachycardia, unspecified; R94.31 Abnormal electrocardiogram [ECG] [EKG]; E11.9 Type 2 diabetes mellitus without complications; N17.9 Acute kidney failure, unspecified; Z20.818 Contact with and (suspected) exposure to other bacterial communicable diseases; Z20.822 Contact with and (suspected) exposure to COVID-19; Z20.828 Contact with and (suspected) exposure to other viral communicable diseases; E87.1 Hypo-osmolality and hyponatremia; N30.00 Acute cystitis without hematuria; I08.1 Rheumatic disorders of both mitral and tricuspid valves; E03.9 Hypothyroidism, unspecified; R53.1 Weakness; E86.0 Dehydration; K21.9 Gastro-esophageal reflux disease without esophagitis; I11.0 Hypertensive heart disease with heart failure; H54.7 Unspecified visual loss; R41.89 Other symptoms and signs involving cognitive functions and awareness; I95.9 Hypotension, unspecified; F32.A Depression, unspecified; R19.5 Other fecal abnormalities; E11.40 Type 2 diabetes mellitus with diabetic neuropathy, unspecified; Z79.4 Long term (current) use of insulin; Z79.890 Hormone replacement therapy; Z79.899 Other long term (current) drug therapy; Z86.73 Personal history of transient ischemic attack (TIA), and cerebral infarction without residual deficits
CPT/HCPCS: 36415; 71045; 80048; 80053; 80162; 81001; 82009; 83036; 83605; 83690; 83735; 83880; 84443; 85025; 87040; 87086; 87181; 87493; 87633; 93005; 96360; 96361; 97162; 97166; 99291; A9270; J1815; J7040; 81003

== ENCOUNTER 2024-06-16 11:48 | Outpatient (CLI) | payer MEDICARE, MEDICAID | END 2024-06-16 23:59 | disposition critical access hospital (66) | LOC: EMS 11:48 | DX: R53.1 Weakness (principal); E11.649 Type 2 diabetes mellitus with hypoglycemia without coma; Z79.4 Long term (current) use of insulin; Z79.84 Long term (current) use of oral hypoglycemic drugs | CPT/HCPCS: A0425; A0427 ==

== ENCOUNTER 2024-06-16 12:26 | Emergency (ER) | payer MEDICARE, MEDICAID ==
--- NOTE | 2024-06-16 12:30 | ED Physician Documentation ---
History of Present Illness - Stated complaint Stated Complaint: WEAKNESS, HYPOGLYCEMIA - History obtained from History obtained from: Patient - Additonal information Additional information: This is a 84-year-old female who has a history of atrial fibrillation, CHF, type 2 diabetes. She was recently admitted to this facility for sepsis, A-fib with RVR, and a e.coli urinary tract infection. She had clinical improvement in the hospital After being on ceftriaxone and was discharged on cefpodoxime for an E. coli UTI. Her blood cultures are negative. SNF placement was recommended however patient refused and therefore was discharged home. She does have caregivers that come throughout the day during the week and a roommate who lives in the same places her but does not have much to do with her care. She states over the last couple of days she has felt increasingly weak and and today she could not even get up which is unusual for her. She states she realizes that she probably should have gone to the jail as recommended. Upon EMS arrival, the patient's glucose was in the 30s though she was awake and alert, she was given glucagon and a improved into the 40s. Patient states that she generally feels weak and feels cold, but denies having a fever, no cough or URI type symptoms, no chest pain or difficulty breathing, no abdominal pain, nausea, vomiting, diarrhea, urinary symptoms. She states she has been eating well, ate dinner last night from her Meals on Wheels delivery and has been drinking fluids without difficulty. She is on long-acting insulin which she has taken, and metformin. She ss on Cardizem, digoxin and metoprolol for her atrial fibrillation and the Cardizem is new for the patient as her heart rate was difficult to control while inpatient. Review of Systems Constitutional: reports: Chills, Fatigue Eyes: reports: Reviewed and negative Ears: reports: Reviewed and negative Nose: reports: Reviewed and negative Throat: reports: Reviewed and negative Cardiac: reports: Pedal edema. denies: Chest pain / pressure, Palpitations Respiratory: denies: Dyspnea, Cough GI: reports: Reviewed and negative : reports: Reviewed and negative Skin: reports: Reviewed and negative Musculoskeletal: reports: Reviewed and negative Neurologic: reports: Generalized weakness Psychiatric: reports: Reviewed and negative Endocrine: reports: Reviewed and negative PD PAST MEDICAL HISTORY - Past Medical History Past Medical History: Yes Cardiovascular: Congestive heart failure, Hypertension, High cholesterol, Deep vein thrombosis, Atrial fibrillation Respiratory: None Neuro: TIA Endocrine/Autoimmune: Type 2 diabetes, HyPOthyroidism GI: None, GERD : None, Nocturia HEENT: Chronic vision loss Psych: Depression, Anxiety Musculoskeletal: None Derm: None - Past Surgical History Past Surgical History: Yes General:  HEENT: Cataracts - Present Medications Home Medications: Ambulatory Orders Medication Instructions Recorded Confirmed Gabapentin 100 mg PO QPM 09/25/16 06/06/24 Citalopram [CeleXA] 20 mg PO DAILY 11/21/17 06/06/24 Spironolactone 12.5 mg PO DAILY 11/21/17 06/07/24 Insulin Glargine [Lantus Solostar] 50 units SUBQ QPM 11/22/17 06/07/24 Digoxin [Lanoxin] 0.125 mg PO DAILY 03/06/19 06/06/24 Levothyroxine Sodium 50 mcg PO DAILY 12/02/21 06/06/24 Losartan Potassium 25 mg PO DAILY 12/02/21 06/06/24 Pantoprazole [Protonix] 40 mg PO DAILY #30 tablet 12/07/21 06/06/24 Atorvastatin Calcium 40 mg PO QPM 06/06/24 06/06/24 Chlorthalidone 25 mg PO DAILY 06/06/24 06/06/24 Empagliflozin [Jardiance] 10 mg PO DAILY 06/06/24 06/06/24 Ezetimibe [Zetia] 10 mg PO DAILY 06/06/24 06/07/24 Metformin HCl 1,000 mg PO BID 06/06/24 06/07/24 Metoprolol Tartrate [Lopressor] 75 mg PO BID 06/06/24 06/06/24 Warfarin [Coumadin] 3 mg PO QPM 06/06/24 06/07/24 Cefpodoxime Proxetil [Vantin] 100 mg PO QD #2 tab 06/11/24 Mvn-Min75/Iron/Iron Ps/Om3/Dha 1 each PO DAILY #30 cap 06/11/24 [Wescap-C Dha Softgel] diltiaZEM CD [Cardizem Cd] 120 mg PO DAILY #30 cap 06/11/24 - Allergies Allergies/Adverse Reactions: Allergies Allergy/AdvReac Type Severity Reaction Status Date / Time No Known Drug Allergies Allergy Verified 06/16/24 12:28 - Social History Does the pt smoke?: No Smoking Status: Current every day smoker Does the pt drink ETOH?: Yes Does the pt have substance abuse?: Yes - Immunizations Immunizations are current?: Yes - POLST Patient has POLST: No POLST Status: Full Code PD ED PE NORMAL - Vitals Vital signs reviewed: Yes - General General: Alert and oriented X 3, No acute distress, Other (Appears chronically ill but in no acute distress. Awake, alert, conversant) - HEENT HEENT: Atraumatic, Moist mucous membranes - Neck Neck: Supple, no meningeal sign, No adenopathy - Cardiac Cardiac: No murmur, Other (irregular) - Respiratory Respiratory: No respiratory distress, Clear bilaterally - Abdomen Abdomen: Normal bowel sounds, Soft, Non tender, Non distended - Back Back: No CVA TTP, No spinal TTP - Derm Derm: Warm and dry, Other (cool extremities, pale in appearance) - Extremities Extremities: No deformity, No tenderness to palpate, Normal ROM s pain, Other (2+ pedal edema bilat) - Neuro Neuro: Alert and oriented X 3, No motor deficit, No sensory deficit, Normal speech, Other (mild confusion, but oriented x 3) Eye Opening: Spontaneous Motor: Obeys Commands Verbal: Oriented GCS Score: 15 Results - Vitals Vitals: Vital Signs - 24 hr 06/16/24 06/16/24 06/16/24 12:29 14:33 16:00 Temperature 35.7 C L Heart Rate 69 94 73 Respiratory 18 20 Rate Blood Pressure 150/71 H O2 Saturation 99 97 Oxygen O2 Source [] Room air O2 Source Room air - EKG (time done) No standard instances EKG releavant findings:: EKG personally interpreted by author of this note. Relevant findings are: Rate: Rate (enter#) (76) Rhythm: Atrial fibrillation QRS: Normal Ischemia: T wave inversion, Non specific changes Computer interpretation: Agree with computer - Labs Labs: Laboratory Tests 06/16/24 06/16/24 06/16/24 15:30 15:30 15:30 WBC 7.0 RBC 4.73 Hgb 11.9 L Hct 40.1 MCV 84.8 MCH 25.2 L MCHC 29.7 L RDW 16.5 H Plt Count 230 MPV 10.3 Neut # (Auto) 5.6 Lymph # (Auto) 0.7 L [place] # (Auto) 0.6 Eos # (Auto) 0.1 Baso # (Auto) 0.0 Absolute Nucleated RBC 0.00 Nucleated RBC % 0.0 Sodium 138 Potassium 3.3 L Chloride 103 Carbon Dioxide 26 Anion Gap 9.0 BUN 19 Creatinine 1.0 Estimated GFR (MDRD) 53 L Glucose 129 H Lactic Acid 2.0 Calcium 9.1 Total Bilirubin 0.8 AST 24 ALT 49 Alkaline Phosphatase 65 Total Protein 6.0 L Albumin 3.6 Globulin 2.4 Albumin/Globulin Ratio 1.5 Lipase 17 Urine Color Urine Clarity Urine pH Ur Specific [place] Urine Protein Urine Glucose (UA) Urine Ketones Urine Occult Blood Urine Nitrite Urine Bilirubin Urine Urobilinogen Ur Leukocyte Esterase Urine RBC Urine WBC Ur Epithelial Cells Ur Squamous Epith Cells Amorphous Sediment Urine Bacteria Ur Microscopic Review Urine Culture Comments Last Dose Date Last Dose Time Digoxin 06/16/24 06/16/24 15:30 16:25 WBC RBC Hgb Hct MCV MCH MCHC RDW Plt Count MPV Neut # (Auto) Lymph # (Auto) [place] # (Auto) Eos # (Auto) Baso # (Auto) Absolute Nucleated RBC Nucleated RBC % Sodium Potassium Chloride Carbon Dioxide Anion Gap BUN Creatinine Estimated GFR (MDRD) Glucose Lactic Acid Calcium Total Bilirubin AST ALT Alkaline Phosphatase Total Protein Albumin Globulin Albumin/Globulin Ratio Lipase Urine Color YELLOW Urine Clarity HAZY Urine pH 6.0 Ur Specific [place] >=1.030 H Urine Protein 100 H Urine Glucose (UA) >=1000 H Urine Ketones NEGATIVE Urine Occult Blood TRACE-LYSE Urine Nitrite NEGATIVE Urine Bilirubin NEGATIVE Urine Urobilinogen 0.2 (NORMAL) Ur Leukocyte Esterase NEGATIVE Urine RBC 0-5 Urine WBC 0-3 Ur Epithelial Cells RARE Transitional Ur Squamous Epith Cells RARE Squamous Amorphous Sediment Few Urine Bacteria Few Ur Microscopic Review INDICATED Urine Culture Comments NOT INDICATED Last Dose Date UNKNOWN Last Dose Time UNKNOWN Digoxin 1.0 - Rads (name of study) No standard instances Relevant Findings:: Final report received PD Medical Decision Making - ED course Complexity details: reviewed old records, reviewed results, re-evaluated patient, considered differential, d/w patient, other (Discussed w/ hospitalist) ED course: This is an 84-year-old female who presented with generalized weakness as well as she was found to have hypoglycemia as described in HPI. She was recently discharged from the hospital and during that hospitalization it was recommended that she be transferred to a SNF but she had declined however now patient is wishing to go to a SNF. Here, she is hypothermic on initial arrival, and continues to have hypoglycemia therefore there is concern for possible recurrence of sepsis. Unfortunately there was great difficulty obtaining labs or an IV line after numerous attempts to both do a lab draw and place an IV line without success, we ultimately had to have anesthesia place a central line in order for us to obtain blood work and administer care. Blood work was obtained and thankfully is reassuring including CBC and CMP, her glucose has improved with p.o. intake, and has been maintained. Her workup is generally reassuring, she has no signs of ongoing UTI, reassuring CBC, and her renal function has improved from prior. Her chest x-ray shows no new findings. Patient therefore does not require admission to the hospital but unfortunately cannot manage at home and I do think would benefit from SNF placement which she is willing to do now. I discussed this with the hospitalist and she has advised that we continue to board in the ER and we will have social work see the patient tomorrow for possible placement. Patient is agreeable and a boarding orders placed. I have not resumed her home metformin or insulin given her hypoglycemia here. Patient is tolerating p.o. however and she may need to have these orders resumed. I have ordered her metoprolol and her digoxin as well as her warfarin and statin. I have not continued her diltiazem at this time because she has been bradycardic at times here. Departure - Departure Clinical Impression: Generalized weakness, Hypoglycemia Condition: Good Forms: PCP List
[2024-06-16] MEDS ORDERED: DEXTROSE 50% ABBOJECT 25 GM/50 ML SYRINGE IVP STA (12:39)
--- NOTE | 2024-06-16 13:28 | XRAY Report ---
PROCEDURE: Chest 1V INDICATIONS: chest pain TECHNIQUE: One view of the chest was acquired. COMPARISON: 06/06/2024 FINDINGS: Surgical changes and devices: None. Lungs and pleura: Heart size enlarged. Moderate vascular congestion present. Obscuration left hemidi aphragm with blunting left costophrenic angle Mediastinum: As above Bones and chest wall: No suspicious bony lesions. Overlying soft tissues appear unremarkable. IMPRESSION: Cardiomegaly, moderate vascular congestion and left pleural effusion with atelectasis and or infiltra te. Reviewed by: Ham Jolly MD on 06/16/2024 12:27 PM MARIA C Approved by: Ham Jolly MD on 06/16/2024 12:27 PM AK[facility] Station ID: [id number]
[2024-06-16 15:38] LABS: BASOPHILS % (AUTO) 0.6 %; EOSINOPHILS # (AUTO) 0.1 10^3/uL (0.0-0.7); HCT - HEMATOCRIT 40.1 % (37.0-47.0); HGB - HEMOGLOBIN 11.9 g/dL (12.0-16.0); LYMPHOCYTES # (AUTO) 0.7 10^3/uL (1.5-3.5); LYMPHOCYTES % (AUTO) 9.6 %; MEAN CORPUSCULAR HEMOGLOBIN 25.2 pg (27.0-31.0); MEAN CORPUSCULAR HGB CONC 29.7 g/dL (32.0-36.0); MEAN CORPUSCULAR VOLUME 84.8 fL (81.0-99.0); MEAN PLATELET VOLUME 10.3 fL (7.9-10.8); MONOCYTES # (AUTO) 0.6 10^3/uL (0.0-1.0); MONOCYTES % (AUTO) 7.9 %; NEUTROPHILS # (AUTO) 5.6 10^3/uL (1.5-6.6); NEUTROPHILS % (AUTO) 80.2 %; PLT - PLATELET COUNT 230 10^3/uL (130-450); RED BLOOD COUNT 4.73 10^6/uL (4.20-5.40); RED CELL DISTRIBUTION WIDTH 16.5 % (12.0-15.0)
[2024-06-16 15:55] LABS: ALBUMIN 3.6 g/dL (3.2-5.5); ALBUMIN/GLOBULIN RATIO 1.5 (1.0-2.2); BILIRUBIN,TOTAL 0.8 mg/dL (0.2-1.0); CALCIUM 9.1 mg/dL (8.5-10.3); POTASSIUM 3.3 mmol/L (3.5-4.5)
--- NOTE | 2024-06-16 16:00 | CONSULTATION NOTE ---
Consultation Report: consulted by ED for CVL placement after several unsuccessful PIV attempts. informed consent obtained and R IJ CVL plsaced under US guidance. Sterile technique maintained. &Fr 3 lumen CVL placed, all ports aspirated and flushed easily. Pt tolerated well. VSS. NAC
--- NOTE | 2024-06-16 16:30 | XRAY Report ---
PROCEDURE: Chest for Line Placement INDICATIONS: CVL placement TECHNIQUE: One view of the chest was acquired. COMPARISON: 06/16/2024 FINDINGS: Surgical changes and devices: Right IJ since venous line tip at the cavoatrial junction Lungs and pleura: Worsening vascular congestion and centralized pulmonary infiltrate is now present. Lung bases are not imaged. Mediastinum: Mediastinal contours appear normal. Heart size is normal. Bones and chest wall: No suspicious bony lesions. Overlying soft tissues appear unremarkable. IMPRESSION: Right IJ central venous line tip at the cavoatrial junction. No pneumothorax. Worsening vascular congestion and now likely central pulmonary edema Reviewed by: Ham Jolly MD on 06/16/2024 3:28 PM [facility] Approved by: Ham Jolly MD on 06/16/2024 3:28 PM [facility] Station ID: [id number]
[2024-06-16 16:34] LABS: BILIRUBIN,URINE NEGATIVE (NEGATIVE); GLUCOSE, URINE (UA) >=1000 mg/dL (NEGATIVE); KETONES,URINE (UA) NEGATIVE (NEGATIVE); LEUKOCYTE ESTERASE, URINE NEGATIVE (NEGATIVE); NITRITE,URINE NEGATIVE (NEGATIVE); OCCULT BLOOD,URINE TRACE-LYSE (NEGATIVE); PROTEIN,URINE 100 mg/dL (NEGATIVE); UROBILINOGEN,URINE 0.2 (NORMAL) E.U./dL (NORMAL)
[2024-06-16 16:36] LABS: CLARITY,URINE HAZY (CLEAR)
[2024-06-16] MEDS: DEXTROSE 50% ABBOJECT 25 GM/50 ML SYRINGE IVP STA (16:39)
[2024-06-16 16:42] LABS: AMORPHOUS SEDIMENT,UR Few /LPF; BACTERIA,URINE Few /HPF (None Seen); EPITHELIAL CELLS,UR RARE Transitional /HPF (<= Few); RBC,URINE 0-5 /HPF (0-5); SQUAMOUS EPITHELIAL CELL,UR RARE Squamous (<= Few); WBC,URINE 0-3 /HPF (0-5)
[2024-06-16] MEDS ORDERED: ONDANSETRON 4 MG/2 ML VIAL IVP PRN (18:07)
--- NOTE | 2024-06-16 19:39 | ANESTHESIA PROCEDURE NOTE ---
Anesth Central Line Template - Central Line Central Line Preparation: Consent Obtained, Time out completed, Ultrasound used, Sterile prep and drape Central line location: Right IJ Central line type: Triple lumen Central line catheter tip site resides: [facility], right Central line aftercare: Chlorhexidine disc placed, Secured, Placement confirmed, No pneumothorax, No complications, Bundle checklist complete, Pt tolerated well
[2024-06-16] MEDS: DIGOXIN 125 MCG TABLET PO STA ×2 (20:42)
[2024-06-16] MEDS: ATORVASTATIN 40 MG TABLET PO SCH (20:42)
[2024-06-16] MEDS: METOPROLOL TARTRATE 50 MG TABLET PO SCH (20:42)
[2024-06-17 05:26] LABS: BASOPHILS # (AUTO) 0.1 10^3/uL (0.0-0.1); BASOPHILS % (AUTO) 1.3 %; EOSINOPHILS # (AUTO) 0.2 10^3/uL (0.0-0.7); EOSINOPHILS % (AUTO) 3.2 %; HCT - HEMATOCRIT 36.9 % (37.0-47.0); HGB - HEMOGLOBIN 11.4 g/dL (12.0-16.0); LYMPHOCYTES # (AUTO) 0.8 10^3/uL (1.5-3.5); LYMPHOCYTES % (AUTO) 13.2 %; MEAN CORPUSCULAR HEMOGLOBIN 25.7 pg (27.0-31.0); MEAN CORPUSCULAR HGB CONC 30.9 g/dL (32.0-36.0); MEAN CORPUSCULAR VOLUME 83.3 fL (81.0-99.0); MEAN PLATELET VOLUME 10.8 fL (7.9-10.8); MONOCYTES # (AUTO) 0.8 10^3/uL (0.0-1.0); MONOCYTES % (AUTO) 12.2 %; NEUTROPHILS # (AUTO) 4.3 10^3/uL (1.5-6.6); NEUTROPHILS % (AUTO) 69.5 %; PLT - PLATELET COUNT 223 10^3/uL (130-450); RED BLOOD COUNT 4.43 10^6/uL (4.20-5.40); RED CELL DISTRIBUTION WIDTH 16.5 % (12.0-15.0); WHITE BLOOD COUNT 6.2 x10^3/uL (4.8-10.8)
[2024-06-17 05:44] LABS: CREATININE 1.1 mg/dL (0.6-1.3); POTASSIUM 3.2 mmol/L (3.5-4.5)
--- NOTE | 2024-06-17 13:03 | ED Physician Documentation ---
ED Addendum - Addendum Addendum: 06/17/24 13:02 Social work Mel saw the patient. She is looking into skilled care. P ossibility of that within 2 to 3 days but will take Medicare approval. No moving at this time. Continues with her usual medications. OT PT are not in-house today. We will get them tomorrow presumably. They were consulted yesterday but went not available over the weekend either.
[2024-06-17] MEDS: ACETAMINOPHEN 500 MG TABLET PO PRN (20:28)
--- NOTE | 2024-06-17 22:44 | ED Physician Documentation ---
ED Addendum - Addendum Addendum: 06/17/24 22:43 No changes during my shift. Patient signed out to the oncoming emergency department physician.
[2024-06-18 01:06] LABS: PARTIAL THROMBOPLASTIN TIME 27.3 secs (24.9-33.3)
[2024-06-18 01:10] LABS: INR 1.7 (0.8-1.2); PT - PROTHROMBIN TIME 18.6 secs (9.9-12.6)
[2024-06-18 01:16] LABS: CALCIUM 8.8 mg/dL (8.5-10.3); CREATININE 1.1 mg/dL (0.6-1.3); POTASSIUM 3.5 mmol/L (3.5-4.5)
[2024-06-18] MEDS: WARFARIN 1 MG TABLET PO ONE (01:32)
[2024-06-18] MEDS: WARFARIN 5 MG TABLET PO STA (01:34)
[2024-06-18] MEDS: LEVOTHYROXINE 25 MCG TABLET PO SCH (06:26)
[2024-06-18] MEDS: metFORMIN 500 MG TABLET PO SCH (09:18)
[2024-06-18] MEDS: diltiaZEM CD 120 MG CAPSULE PO SCH (09:18)
[2024-06-18] MEDS: PANTOPRAZOLE 40 MG TABLET PO SCH (09:18)
[2024-06-18] MEDS: DIGOXIN 125 MCG TABLET PO SCH (09:18)
[2024-06-18] MEDS: SPIRONOLACTONE 25 MG TABLET PO SCH (09:18)
[2024-06-18] MEDS: CITALOPRAM 10 MG TABLET PO SCH (09:18)
[2024-06-18] MEDS: LOSARTAN 50 MG TABLET PO SCH (09:19)
[2024-06-18] MEDS: GABAPENTIN 100 MG CAPSULE PO SCH (09:19)
--- NOTE | 2024-06-18 17:10 | ED Physician Documentation ---
ED Addendum - Addendum Addendum: 06/18/24 17:09 At 2:30, Social Work was still wating to hear about approval from [facility]. Expecting it today or tomorrow. Otherwise continues on usual meds. SW asked for re-order and update of OT/PT, so I re-ordered these.
[2024-06-18] MEDS: WARFARIN 5 MG TABLET PO SCH (20:08)
--- NOTE | 2024-06-19 16:53 | ED Physician Documentation ---
ED Addendum - Addendum Addendum: 06/19/24 16:51 The patient [facility] able [facility] [place]. However transportation to their is still a work in progress. She is able to get to the bathroom with a walker. She does not have dementia. As such she does not qualify for a BLS ambulance. We are looking to see if there is family members that can bring her to the ER. Otherwise Medicaid cab or [facility] is not available until tomorrow morning. As such the patient may need to board again overnight just because of transportation issues. I reviewed her medications. I compared to her recent prescriptions outpatient. Her blood sugars have been running a little bit high and she had been on insulin glargine 100 mg daily which we had not put in as an order here. However which her activity level is less and usual also we can have her at a lower dose than usual perhaps 50 for now and see how that trends. Otherwise it looks like she had been recently prescribed Eliquis rather than warfarin and I can transition her over to that.
--- NOTE | 2024-06-19 17:21 | PHARMACY PROGRESS NOTE ---
- Best Possible Medication History Admit Date and Time: Processed by: Pharmacy Medication History completed: Yes Secondary Source(s): Other family member (Insurance records, [facility] records, and proxy interview (daughter) for home med reconciliation), Pharmacy records, Insurance records As the person ultimately responsible for medication therapy, providers are able to order a medication from an existing home medication list in [facility] via the "Reconcile Routine" prior to Confirmation of that medication by field support engineer. Such practice is discouraged except when the physician, in their clinical judgment, deems that a medical need exists for a medication without regard to previous use.
[2024-06-19] MEDS: APIXABAN 5 MG TABLET PO SCH (21:02)
--- NOTE | 2024-06-20 14:30 | ED Physician Documentation ---
ED Addendum - Addendum Addendum: 06/20/24 14:29 Patient continues to board in the emergency department. No acute changes overnight. Daughter reported to social work that the patient seemed more confused and was concerned about recurrent UTI. Urinalysis was ordered. Results to be followed up by the oncoming emergency department physician. This document was made in part using voice recognition software. While efforts are made to proofread this document, sound alike and grammatical errors may occur. snf orders were sent to her primary care provider who will fill them out and send them back.
[2024-06-21 09:51] LABS: BILIRUBIN,URINE NEGATIVE (NEGATIVE); GLUCOSE, URINE (UA) 100 mg/dL (NEGATIVE); KETONES,URINE (UA) NEGATIVE (NEGATIVE); LEUKOCYTE ESTERASE, URINE NEGATIVE (NEGATIVE); NITRITE,URINE NEGATIVE (NEGATIVE); OCCULT BLOOD,URINE TRACE-INTA (NEGATIVE); PH,URINE 5.5 PH (5.0-7.5); PROTEIN,URINE 100 mg/dL (NEGATIVE); UROBILINOGEN,URINE 0.2 (NORMAL) E.U./dL (NORMAL)
[2024-06-21 09:53] LABS: CLARITY,URINE CLEAR (CLEAR)
[2024-06-21 10:21] LABS: BACTERIA,URINE Many /HPF (None Seen); RBC,URINE 0-5 /HPF (0-5); SQUAMOUS EPITHELIAL CELL,UR MANY Squamous (<= Few); WBC,URINE 0-3 /HPF (0-5)
[2024-06-21 10:22] LABS: EPITHELIAL CELLS,UR MOD Transitional /HPF (<= Few); MUCUS,URINE Few Strands
--- NOTE | 2024-06-21 10:22 | ED Physician Documentation ---
ED Addendum - Addendum Addendum: 06/21/24 10:18 No acute events overnight. Patient will be transferred for snf care today. Departure - Departure Disposition: 03 SNF DC/Xfer Clinical Impression: Generalized weakness, Hypoglycemia Condition: Good Follow-Up: Lizz Holland ARNP [Primary Care Provider] - Prescriptions: Spironolactone [Aldactone] 12.5 mg PO DAILY #7 tab diltiaZEM CD [Cardizem Cd] 120 mg PO DAILY #7 cap Citalopram [CeleXA] 20 mg PO DAILY #14 tab Losartan [Cozaar] 25 mg PO DAILY #7 tab Apixaban [Eliquis] 5 mg PO BID #14 tab metFORMIN [Glucophage] 1,000 mg PO BID #28 tab Empagliflozin [Jardiance] 10 mg PO DAILY #7 tab Digoxin [Lanoxin] 125 mcg PO DAILY #7 tab Atorvastatin [Lipitor] 40 mg PO QPM #7 tab Metoprolol Tartrate [Lopressor] 75 mg PO BID #14 tab Gabapentin [Neurontin] 100 mg PO DAILY #7 cap Levothyroxine [Synthroid] 50 mcg PO QDAC #14 tab Forms: PCP List
[2024-06-21 11:35] VITALS: BP 146/68; O2SAT 95
== END 2024-06-21 11:21 ==
LOC: EDUNIT# → ED 12:26
DX: R53.1 Weakness (principal); E11.649 Type 2 diabetes mellitus with hypoglycemia without coma; I48.91 Unspecified atrial fibrillation; I11.0 Hypertensive heart disease with heart failure; I50.9 Heart failure, unspecified; Z79.01 Long term (current) use of anticoagulants; Z79.84 Long term (current) use of oral hypoglycemic drugs; E03.9 Hypothyroidism, unspecified; K21.9 Gastro-esophageal reflux disease without esophagitis; Z79.4 Long term (current) use of insulin
CPT/HCPCS: 36415; 71045; 80048; 80053; 80162; 81001; 83605; 83690; 85025; 85610; 85730; 87040; 93005; 97162; 97166; 97535; 99284; A9270; 81003; 87086